=== PATIENT | male | born 1965 | race Caucasian/White ===

== ENCOUNTER 2020-10-21 08:24 | Inpatient (IN) | payer OTHER ==
[2020-10-21] VITALS (8 sets, daily range): BP systolic 85–156; BP diastolic 60–81
[~2020-10-21] VITALS: Ht 167.6 cm; Wt 94.6 kg
[2020-10-21] MEDS ORDERED: IV NORMAL SALINE 1000ML BAG 1,000 ML IV SCH (08:45)
[2020-10-21] MEDS ORDERED: DEXAMETHASONE SOD PHOS 4 MG/ML VIAL IVP ONE (08:45)
--- NOTE | 2020-10-21 08:50 | PHYS DOC ---
Past Medical History Past Medical History: Diabetes-Type II, High Cholesterol Additional Past Medical Histor: NEUROPATHY Past Surgical History: Other Additional Past Surgical Histo: PYLONIDAL CYSTS Smoking Status: Never Smoker Additional Information: CHEWS TOBACCO Alcohol Use: Rarely Drug Use: None General Adult EDM: Chief Complaint: SHORTNESS OF BREATH HPI: HPI: Patient is a 55 year oldphr-ploo-rnw male presents via EMS with report of increased shortness of breath which became worse since last night. History of testing positive for COVID-19 which came back yesterday. Reports he had symptoms of COVID for the last week. Reports had a negative rapid test done. Reports spouse was also tested. Patient reports intermittent fever/chills. Denies leg swelling or calf tenderness. Reports he took Tylenol and Ibuprofen at 0500 this AM. EMS reports patient's initial O2 Sat upon their arrival at 50% which only improved to 70% on non-rebreather mask. Review of Systems: Review of Systems: Constitutional: Reports fever and chills Eyes: Denies redness or eye pain HENT: Denies nasal congestion or sore throat Respiratory: Reports cough and shortness of breath Cardiovascular: Denies chest pain or palpitations GI: Denies abdominal pain, nausea, or vomiting Musculoskeletal: Denies leg swelling Integument: Denies rash or skin lesions Neurologic: Reports headache and generalized weakness Complete systems were reviewed and found to be within normal limits, except as documented in this note. Current Medications: Current Medications Medications (Trade) Dose Ordered Sig/Gaston Start Time Stop Time Status Last Admin Dose Admin Dexamethasone Sodium Phosphate (Decadron) 10 mg 1X ONCE 10/21/20 08:45 10/21/20 08:46 UNV Sodium Chloride 1,000 ml @ 1,000 mls/hr Q1H 10/21/20 08:45 10/21/20 09:44 UNV Physical Exam: PE: Constitutional: Well developed, well nourished, moderate respiratory distress, ill-appearing but nontoxic HENT: Normocephalic, atraumatic Eyes: Conjunctiva normal, no discharge Neck: Normal range of motion, no tenderness, supple Lungs & Thorax: Moderate respiratory distress, equal chest rise and fall, coarse breath sounds Abdomen: Soft, no tenderness Skin: Warm, dry, no erythema, perioral cyanosis Back: No tenderness, no CVA tenderness Extremities: No tenderness, ROM intact, no edema Neurologic: Alert and oriented X 3, no focal deficits noted Psychologic: Affect normal, judgment normal Current Patient Data: Vital Signs: Vital Signs Date Time Temp Pulse Resp B/P (MAP) Pulse Ox O2 Delivery O2 Flow Rate FiO2 10/21/20 08:24 99.0 112 31 142/69 (93) 61 NonRebreather Mask 15.0 99.0 EKG: EKG: @0845 Sinus tachycardia at 115bpm, NO ST elevation, QRS 76ms, QT/QTc 322/447ms Radiology/Procedures: Radiology/Procedures: PROCEDURE: PORTABLE CHEST 1V AP chest. HISTORY: Dyspnea, hypoxia, Covid-19 AP view was taken of the chest. There are diffuse bilateral infiltrates consistent with diffuse pneumonia is or Covid-19 pneumonia. Heart is within normal limits in size. There is a trace of pleural effusion on each side. IMPRESSION: 1. Diffuse bilateral infiltrates. Electronically signed by: Jon Ordoñez MD (10/21/2020 9:24 AM) [id number] PROCEDURE: CHEST AP ONLY Exam performed: One view chest HISTORY: Endotracheal tube placement. DATE OF SERVICE: 10/21/2020. COMPARISON: Single view chest from earlier today. Findings and impression: Interval intubation, the tip of the endotracheal tube is in the mid trachea. There is also placement of a feeding tube, the tip of which is not clearly seen, however is directed below the diaphragm. Heart size and mediastinal silhouette is within limits of normal. Increasing diffuse bilateral airspace opacities are seen in both lungs. This perhaps a small right pleural effusion. There is no pneumothorax. Electronically signed by: Cesia Escobedo MD (10/21/2020 4:01 PM) [id number] Course & Med Decision Making: Course & Med Decision Making Pertinent Labs and Imaging studies reviewed. (See chart for details) Patient with known COVID-19 infection presents with progressive shortness of breath and hypoxia. Patient tachycardic upon arrival with continued O2 sat down to 61% on a nonrebreather. Vapotherm high flow nasal cannula immediately applied. Nonrebreather continued over Vapotherm with sats only going to 75%. Labs obtained and posted to chart. SIRS criteria met with tachycardia, tachypnea, and bandemia. Chest x-ray with signs of infection consistent for Covid pneumonia. Empiric antibiotic initiated. Lactic acid greater than 4 consistent for septic shock. IV fluid bolus x2 L initiated based on ideal body weight for sepsis. D-dimer elevated. CTA chest pending. Patient not improving and therefore placed on BiPAP. BiPAP increased patient's O2 sat up to 84%. Patient subsequently became worse and not tolerating BiPAP. Trial of placing patient back on Vapotherm and nonrebreather with worsening of O2 sats. Ativan therefore provided with return to BiPAP. Patient requiring admission for further evaluation and treatment. Discussed with Dr. Maguire (hospitalist) who is in agreement with ICU admission. Discussed findings and plan with patient, who acknowledges understanding and agreement. Consult placed to Dr. Costa (pulmonology/critical care). Upon awaiting ICU bed, patient became more confused, taking off your BIPAP and sitting at edge of bed with O2 sats down to 30%. BIPAP immediately replaced. Given decreased mentation, decision to protect airway. RSI performed with successful placement of cuffed 8.0 ETT which was marked 24cm at teeth under Glidescope guidance. Patient's O2 sat dropped to 20% after 1 successful attempt with intubation. Bagged back to 79% and placed on vent. Dr. Costa arrived to ED just after intubation. Repeat CXR with worsening infiltrates. Bumex ordered. Dr. Costa saw patient and adjusted vent settings. Request to discontinue CTA chest at this time. CTA cancelled. COVID-19 CRITERIA: The patient was evaluated during the global COVID-19 pandemic, and that diagnosis was suspected/considered upon their initial presentation. Their evaluation, treatment and testing was consistent with current guidelines for patients who present with complaints or symptoms that may be related to COVID-19. Dragyanet Disclaimer: Dragyanet Disclaimer: This electronic medical record was generated, in whole or in part, using a voice recognition dictation system. Departure Departure Impression: Primary Impression: Respiratory failure Qualified Codes: J96.01 - Acute respiratory failure with hypoxia Additional Impressions: Hypoxia Septic shock Hyperglycemia Pneumonia due to COVID-19 virus Disposition: ADMITTED INPT THIS HOSP Admitting Physician: MAXIMINO Rios) Condition: CRITICAL Intubation Intubation : Time of Intubation: 12:30 Intubation Method: orotracheal Tube Size (cm): 8.0 Breath Sounds after Intubation: equal Intubation Complications: O2 saturation decreased (initially but able to bag back to 79%) Post Intubation Xray: Yes Progress Emergent consent utilized. Time out performed. Hand hygiene utilized. Intubation performed with utilization of Glidescope and cuffed 8.0 ETT due to respiratory failure and progression of hypoxia. O2 Sats dropped to 20% for breif period of time during intubation process. Good fogging of tube with some notation of frothing sputum, End tidal CO2 color change, Bilateral breath sounds noted. Patient bagged and increased O2 sats to 79%. Patient placed on ventilator. ETT suctioned with inline suctioning. Date and Time of Reassessment Date: Oct 21, 2020 Time: 11:30 Fluid Challenge Is the fluid challenge complet: No IBW Target Volume Used: Yes BMI > 30: Yes Vital Signs Vital Signs: Vital Signs Date Time Temp Pulse Resp B/P (MAP) Pulse Ox O2 Delivery O2 Flow Rate FiO2 10/21/20 18:21 24 91 Ventilator 10/21/20 17:00 93 85/61 (69) 10/21/20 16:20 98.6 98.6 10/21/20 10:50 40.0 Temperature Source: Oral Respirations Respiratory Effort: Accessory muscles, Shortness of breath, Labored, Retracting Respiratory Pattern: Tachypnea Cardiovascular Pulse Rhythm: Irregular (Tachycardia) Heart: S1 and S2 normal Lung Sounds Breath Sounds: Coarse Capillary Refil Capillary Refill: Rt Hand < 3 seconds Peripheral Pulse Pulse Location: Radial Pulse Strength: Normal (2+) Pulse Assessment Method: Palpation Integumentary Skin: Warm, Dry Skin Moisture: Dry Skin Turgor: Normal Skin Color: warm, dry Fingernail Color: WNL COVID-19 Assessment: COVID-19 Patient Risks: Age 65 or older: No Sign of co-morbidity: Yes Exp to person + for COVID: Yes Exp to PUI: No Travel from affected area: No Lower respiratory symptoms: Yes Fever: Yes Other: Yes PPE Use: Full PPE with N95 mask or PAPR: Yes Critical Care Time Critical care time was 60 minutes which includes time at bedside, spent in discussion of patient's care with specialists and/or family members, with interpretation of laboratory and/or radiological studies and is exclusive of procedures. CELIO THORNTON DO Oct 21, 2020 08:50
[2020-10-21 09:13] LABS: BASE EXCESS COOX -9 mmol/L (-3-3); HCO3 COOX 16 mmol/L (21-28); METHEMOGLOBIN 0.2 % (0.0-1.9); OXYHEMOGLOBIN 82.6 %; PCO2 COOX 31 mmHg (35-46); PO2 COOX 55 mmHg (75-108); SAT O2 COOX 84 % (92-99)
--- NOTE | 2020-10-21 09:26 | RAD ---
AP chest. HISTORY: Dyspnea, hypoxia, Covid-19 AP view was taken of the chest. There are diffuse bilateral infiltrates consistent with diffuse pneum onia is or Covid-19 pneumonia. Heart is within normal limits in size. There is a trace of pleural eff usion on each side. IMPRESSION: 1. Diffuse bilateral infiltrates. Electronically signed by: Jon Ordoñez MD (10/21/2020 9:24 AM) [id number]
[2020-10-21 09:47] LABS: BASO % 0 % (0-3); EOS % 0 % (0-3); HEMATOCRIT 43.6 % (39.0-53.0); HEMOGLOBIN 14.6 g/dL (13.0-17.5); LYMPH # 0.5 x10^3/uL (1.0-4.8); LYMPH % 9 % (24-48); MEAN CORPUSCULAR HEMOGLOBIN 29 pg (25-35); MEAN CORPUSCULAR HGB CONC 33 g/dL (31-37); MEAN CORPUSCULAR VOLUME 88 fL (79-100); MONO # 0.2 x10^3/uL (0.0-1.1); MONO % 4 % (0-9); NEUT # 4.9 x10^3/uL (1.8-7.7); NEUT % 87 % (31-73); PLATELET COUNT 225 x10^3/uL (140-400); RED BLOOD COUNT 4.95 x10^6/uL (4.30-5.70); RED CELL DISTRIBUTION WIDTH 14.1 % (11.5-14.5); WHITE BLOOD COUNT 5.7 x10^3/uL (4.0-11.0)
[2020-10-21 10:02] LABS: CALCIUM 8.2 mg/dL (8.5-10.1); CREATININE 1.4 mg/dL (0.7-1.3); GFR 52.6; POTASSIUM 4.5 mmol/L (3.5-5.1)
[2020-10-21 10:07] LABS: ALBUMIN 2.7 g/dL (3.4-5.0); ALBUMIN/GLOBULIN RATIO 0.7 (1.0-1.7); TOTAL BILIRUBIN 0.5 mg/dL (0.2-1.0); TOTAL PROTEIN 6.6 g/dL (6.4-8.2)
[2020-10-21] MEDS ORDERED: IV NORMAL SALINE 1000ML BAG 1,000 ML IV ONE (10:30)
[2020-10-21] MEDS ORDERED: AZITHRMYCN 500MG IVPB FOR OMNI 250 ML IV ONE (10:30)
[2020-10-21] MEDS ORDERED: ASPIRIN ENTERIC COATED 325 MG TABLET.DR. PO ONE (10:30)
[2020-10-21] MEDS ORDERED: INSULIN REGULAR 100 UNIT/ML 3ML VIAL. SQ ONE (10:30)
[2020-10-21] MEDS ORDERED: PIPERACILLIN/TAZOBACTAM 4.5 GM in IV NORMAL SALINE 100ML 100 ML IV ONE (10:30)
[2020-10-21] MEDS ORDERED: CONTRAST GIVEN. MC PRN (10:45)
[2020-10-21] MEDS ORDERED: IOHEXOL 350 MG/ML 100 ML VIAL. IV ONE (10:45)
[2020-10-21 10:51] LABS: PROTHROMBIN TIME PATIENT 13.5 SEC (11.7-14.0)
[2020-10-21] MEDS ORDERED: ACETAMINOPHEN 500 MG TABLET PO ONE (11:15)
[2020-10-21] MEDS ORDERED: ONDANSETRON PF 4 MG/2 ML VIAL. IV PRN (11:30)
[2020-10-21] MEDS ORDERED: ACETAMINOPHEN 325 MG TABLET. PO PRN (11:30)
[2020-10-21] MEDS ORDERED: fentaNYL PF VIAL 100 MCG/2 ML VIAL IV PRN (11:30)
--- NOTE | 2020-10-21 11:53 | PDOC1 ---
History and Physical Date of Service: DOS: DATE: 10/21/20 TIME: 11:49 Chief Complaint: Chief Complain: SOB History of Present Illness: HPI: 55 year oldlad-tgwh-jsr male presents via EMS with report of increased shortness of breath which became worse since last night. History of testing positive for COVID-19 which came back yesterday. Reports he had symptoms of COVID for the last week. Reports had a negative rapid test done. Reports spouse was also tested. Patient reports intermittent fever/chills. Denies leg swelling or calf tenderness. Reports he took Tylenol and Ibuprofen at 0500 this AM. EMS reports patient's initial O2 Sat upon their arrival at 50% which only improved to 70% on non-rebreather mask. Past Medical/Surgical History: PMH/PSH: Past Medical History: Diabetes-Type II, High Cholesterol, NEUROPATHY Past Surgical History: PYLONIDAL CYSTS Allergies: Allergies: Coded Allergies: No Known Drug Allergies (Unverified , 10/21/20) Family History: Family History: Reviewed with no relevant findings Social History: Social History: Smoking Status: Never Smoker Additional Information: CHEWS TOBACCO Alcohol Use: Rarely Current Medications: Current Medications Current Medications Sodium Chloride 1,000 ml @ 1,000 mls/hr Q1H IV Last administered on 10/21/20at 09:31; Start 10/21/20 at 08:45; Stop 10/21/20 at 09:44; Status DC Dexamethasone Sodium Phosphate (Decadron) 10 mg 1X ONCE IVP Last administered on 10/21/20at 09:32; Start 10/21/20 at 08:45; Stop 10/21/20 at 09:11; Status DC Piperacillin Sod/ Tazobactam Sod 4.5 gm/Sodium Chloride 100 ml @ 200 mls/hr 1X ONCE IV Last administered on 10/21/20at 11:18; Start 10/21/20 at 10:30; Stop 10/21/20 at 10:59; Status DC Azithromycin 250 ml @ 250 mls/hr 1X ONCE IV Last administered on 10/21/20at 11:18; Start 10/21/20 at 10:30; Stop 10/21/20 at 11:29; Status DC Aspirin (Ecotrin) 325 mg 1X ONCE PO Last administered on 10/21/20at 11:17; Start 10/21/20 at 10:30; Stop 10/21/20 at 10:31; Status DC Insulin Human Regular (HumuLIN R VIAL) 14 unit 1X ONCE SQ Last administered on 10/21/20at 11:28; Start 10/21/20 at 10:30; Stop 10/21/20 at 10:31; Status DC Sodium Chloride 1,000 ml @ 1,000 mls/hr 1X ONCE IV Last administered on 10/21/20at 11:18; Start 10/21/20 at 10:30; Stop 10/21/20 at 11:29; Status DC Iohexol (Omnipaque 350 Mg/ml) 90 ml 1X ONCE IV ; Start 10/21/20 at 10:45; Stop 10/21/20 at 10:46; Status DC Info (CONTRAST GIVEN -- Rx MONITORING) 1 each PRN DAILY PRN MC SEE COMMENTS; Start 10/21/20 at 10:45; Stop 10/23/20 at 10:44 Acetaminophen (Tylenol) 500 mg 1X ONCE PO Last administered on 10/21/20at 11:30; Start 10/21/20 at 11:15; Stop 10/21/20 at 11:16; Status DC Lorazepam (Ativan Inj) 0.5 mg 1X ONCE IVP Last administered on 10/21/20at 11:20; Start 10/21/20 at 11:15; Stop 10/21/20 at 11:16; Status DC Ondansetron HCl (Zofran) 4 mg PRN Q8HRS PRN IV NAUSEA/VOMITING; Start 10/21/20 at 11:30; Stop 10/22/20 at 11:29 Fentanyl Citrate (Fentanyl 2ml Vial) 50 mcg PRN Q2HR PRN IV PAIN; Start 10/21/20 at 11:30 Sodium Chloride 1,000 ml @ 100 mls/hr Q10H IV ; Start 10/21/20 at 11:30; Stop 10/22/20 at 11:29 Acetaminophen (Tylenol) 650 mg PRN Q4HRS PRN PO FEVER > 100.3'F; Start 10/21/20 at 11:30; Stop 10/22/20 at 11:29 ROS: Review of Systems Review of System REVIEW OF SYSTEMS: GENERAL: Denies weakness SKIN: No bruising, hair changes or rashes. EYES: No blurred, double or loss of vision. NOSE AND THROAT: No history of nosebleeds, hoarseness or sore throat. HEART: No history of palpitations, chest pain or shortness of breath on exertion. LUNGS: Denies cough, hemoptysis, wheezing or shortness of breath. GASTROINTESTINAL: Denies changes in appetite, nausea, vomiting, diarrhea or constipation. GENITOURINARY: No history of frequency, urgency, hesitancy or nocturia. NEUROLOGIC: Denies history of numbness, tingling, or tremor. PSYCHIATRIC: No history of panic, anxiety or depression. ENDOCRINE: No history of heat or cold intolerance, polyuria or polydipsia. EXTREMITIES: Denies joint pain, pain on walking or stiffness. Physical Exam: Vital Signs: Vital Signs Date Time Temp Pulse Resp B/P (MAP) Pulse Ox O2 Delivery O2 Flow Rate FiO2 10/21/20 11:41 118 33 138/68 (91) 77 BiPAP/CPAP 10/21/20 10:50 40.0 10/21/20 08:24 99.0 99.0 Physcial Exam: GEN: No apparent distress. Alert and oriented HEENT: Normal cephalic, atraumatic, external auditory canals are patent EYES: Extraocular muscles are intact, pupil are equally round and reactive to light and accommodation MUSCULOSKELETAL: Well developed , well nourished, good range of motion ENDOCRINE: No thyromegaly was palpated LYMPHATICS: No cervical chain or axillary nodes were noted HEMATOPOIETIC: No bruising NECK: Supple, no JVD, no thyromegaly was noted LUNGS: Clear to auscultation in all lung jacobson without rhonchi or wheezing HEART: RRR, S!, S2 present. Peripheral pulses intact, no obvious murmurs noted ABDOMEN: Soft, nontender. Positive bowel sounds, no organomegaly, normal bow el sounds EXTREMITIES: Without clubbing, cyanosis, or edema. Pedal pulses intact. Negative Homans sign NEUROLOGIC: Normal speech and tone. A&O x 3, moves all extremities, no obvious focal deficits PSYCHIATRIC: Normal affect, normal mood. Stable SKIN: No ulcerations or rashes, good skin turgor, no jaundice VASCULAR: Good capillary refill, neurovascular bundle appears to be intact Labs: Labs: Laboratory Tests Test 10/21/20 08:35 10/21/20 08:45 10/21/20 08:48 White Blood Count 5.7 x10^3/uL (4.0-11.0) Red Blood Count 4.95 x10^6/uL (4.30-5.70) Hemoglobin 14.6 g/dL (13.0-17.5) Hematocrit 43.6 % (39.0-53.0) Mean Corpuscular Volume 88 fL (79-100) Mean Corpuscular Hemoglobin 29 pg (25-35) Mean Corpuscular Hemoglobin Concent 33 g/dL (31-37) Red Cell Distribution Width 14.1 % (11.5-14.5) Platelet Count 225 x10^3/uL (140-400) Neutrophils (%) (Auto) 87 % (31-73) Lymphocytes (%) (Auto) 9 % (24-48) Monocytes (%) (Auto) 4 % (0-9) Eosinophils (%) (Auto) 0 % (0-3) Basophils (%) (Auto) 0 % (0-3) Neutrophils # (Auto) 4.9 x10^3/uL (1.8-7.7) Lymphocytes # (Auto) 0.5 x10^3/uL (1.0-4.8) Monocytes # (Auto) 0.2 x10^3/uL (0.0-1.1) Eosinophils # (Auto) 0.0 x10^3/uL (0.0-0.7) Basophils # (Auto) 0.0 x10^3/uL (0.0-0.2) D-Dimer (Ayanna) 3.39 ug/mlFEU (0.00-0.50) Sodium Level 135 mmol/L (136-145) Potassium Level 4.5 mmol/L (3.5-5.1) Chloride Level 96 mmol/L (98-107) Carbon Dioxide Level 17 mmol/L (21-32) Anion Gap 22 (6-14) Blood Urea Nitrogen 28 mg/dL (8-26) Creatinine 1.4 mg/dL (0.7-1.3) Estimated GFR (Cockcroft-Gault) 52.6 BUN/Creatinine Ratio 20 (6-20) Glucose Level 339 mg/dL (70-99) Lactic Acid Level 4.9 mmol/L (0.4-2.0) Calcium Level 8.2 mg/dL (8.5-10.1) Total Bilirubin 0.5 mg/dL (0.2-1.0) Aspartate Amino Transf (AST/SGOT) 48 U/L (15-37) Alanine Aminotransferase (ALT/SGPT) 27 U/L (16-63) Alkaline Phosphatase 55 U/L (46-116) Creatine Kinase 96 U/L (39-308) Creatine Kinase MB (Mass) 1.2 ng/mL (0.0-3.6) Creatine Kinase MB Relative Index 1.3 % (0-4) Troponin I Quantitative 0.083 ng/mL (0.000-0.055) GJ-Kqb-Y-Type Natriuretic Peptide 364 pg/mL (0-124) Total Protein 6.6 g/dL (6.4-8.2) Albumin 2.7 g/dL (3.4-5.0) Albumin/Globulin Ratio 0.7 (1.0-1.7) O2 Saturation 84 % (92-99) Arterial Blood pH 7.33 (7.35-7.45) Arterial Blood pCO2 at Patient Temp 31 mmHg (35-46) Arterial Blood pO2 at Patient Temp 55 mmHg (75-108) Arterial Blood HCO3 16 mmol/L (21-28) Arterial Blood Base Excess -9 mmol/L (-3-3) Oxyhemoglobin 82.6 % Methemoglobin 0.2 % (0.0-1.9) Carbon Monoxide, Quantitative 1.5 % (0.0-1.9) FiO2 100% Prothrombin Time 13.5 SEC (11.7-14.0) Prothromb Time International Ratio 1.1 (0.8-1.1) Activated Partial Thromboplast Time 33 SEC (24-38) Laboratory Tests Test 10/21/20 08:35 10/21/20 08:45 10/21/20 08:48 White Blood Count 5.7 x10^3/uL (4.0-11.0) Red Blood Count 4.95 x10^6/uL (4.30-5.70) Hemoglobin 14.6 g/dL (13.0-17.5) Hematocrit 43.6 % (39.0-53.0) Mean Corpuscular Volume 88 fL (79-100) Mean Corpuscular Hemoglobin 29 pg (25-35) Mean Corpuscular Hemoglobin Concent 33 g/dL (31-37) Red Cell Distribution Width 14.1 % (11.5-14.5) Platelet Count 225 x10^3/uL (140-400) Neutrophils (%) (Auto) 87 % (31-73) Lymphocytes (%) (Auto) 9 % (24-48) Monocytes (%) (Auto) 4 % (0-9) Eosinophils (%) (Auto) 0 % (0-3) Basophils (%) (Auto) 0 % (0-3) Neutrophils # (Auto) 4.9 x10^3/uL (1.8-7.7) Lymphocytes # (Auto) 0.5 x10^3/uL (1.0-4.8) Monocytes # (Auto) 0.2 x10^3/uL (0.0-1.1) Eosinophils # (Auto) 0.0 x10^3/uL (0.0-0.7) Basophils # (Auto) 0.0 x10^3/uL (0.0-0.2) D-Dimer (Ayanna) 3.39 ug/mlFEU (0.00-0.50) Sodium Level 135 mmol/L (136-145) Potassium Level 4.5 mmol/L (3.5-5.1) Chloride Level 96 mmol/L (98-107) Carbon Dioxide Level 17 mmol/L (21-32) Anion Gap 22 (6-14) Blood Urea Nitrogen 28 mg/dL (8-26) Creatinine 1.4 mg/dL (0.7-1.3) Estimated GFR (Cockcroft-Gault) 52.6 BUN/Creatinine Ratio 20 (6-20) Glucose Level 339 mg/dL (70-99) Lactic Acid Level 4.9 mmol/L (0.4-2.0) Calcium Level 8.2 mg/dL (8.5-10.1) Total Bilirubin 0.5 mg/dL (0.2-1.0) Aspartate Amino Transf (AST/SGOT) 48 U/L (15-37) Alanine Aminotransferase (ALT/SGPT) 27 U/L (16-63) Alkaline Phosphatase 55 U/L (46-116) Creatine Kinase 96 U/L (39-308) Creatine Kinase MB (Mass) 1.2 ng/mL (0.0-3.6) Creatine Kinase MB Relative Index 1.3 % (0-4) Troponin I Quantitative 0.083 ng/mL (0.000-0.055) HQ-Cka-L-Type Natriuretic Peptide 364 pg/mL (0-124) Total Protein 6.6 g/dL (6.4-8.2) Albumin 2.7 g/dL (3.4-5.0) Albumin/Globulin Ratio 0.7 (1.0-1.7) O2 Saturation 84 % (92-99) Arterial Blood pH 7.33 (7.35-7.45) Arterial Blood pCO2 at Patient Temp 31 mmHg (35-46) Arterial Blood pO2 at Patient Temp 55 mmHg (75-108) Arterial Blood HCO3 16 mmol/L (21-28) Arterial Blood Base Excess -9 mmol/L (-3-3) Oxyhemoglobin 82.6 % Methemoglobin 0.2 % (0.0-1.9) Carbon Monoxide, Quantitative 1.5 % (0.0-1.9) FiO2 100% Prothrombin Time 13.5 SEC (11.7-14.0) Prothromb Time International Ratio 1.1 (0.8-1.1) Activated Partial Thromboplast Time 33 SEC (24-38) Images: Images CXR IMPRESSION: 1. Diffuse bilateral infiltrates. Pending chest CTA Assessment/Plan Assessment/Plan Acute hypoxic respiratory failure requiring NIV due to Covid infection Acute electrolyte derangementshyponatremia, hypochloremia VICTORIANO due to vasomotor nephropathy Elevated troponin suggestive of demand ischemia Lactic acidosis Severe protein malnutrition Admit to ICU for further management Pulmonology consult Continue IV thiamine and vitamin C IV 4 mg dexamethasone Daily Pending ferritin, LDH, CRP, D-dimer labs Titrate O2 supplementation to maintain O2 saturation greater than 92% [] for DVT prophylaxis [] GI prophylaxis ADA diet Full code Discussed with RN and SW Disposition [] Surrogate decision maker is the [] Justifications for Admission Other Justification PHILIP VALDEZ MD Oct 21, 2020 11:52
[2020-10-21] MEDS ORDERED: ONDANSETRON PF 4 MG/2 ML VIAL. IVP PRN (12:00)
[2020-10-21] MEDS ORDERED: DOCUSATE SODIUM 100 MG CAPSULE. PO PRN (12:00)
[2020-10-21] MEDS ORDERED: SENNOSIDES 8.6 MG TABLET PO PRN (12:00)
[2020-10-21] MEDS ORDERED: DEXTROSE 50% 25 GM / 50ML DISP.SYRIN. IV PRN (12:00)
[2020-10-21] MEDS: INSULIN LISPRO 300 UNITS/3 ML VIAL. SQ SCH ×2 (12:00→18:15)
[2020-10-21 12:05] LABS: % BANDS 21 % (0-9); % EOS 1 % (0-5); % LYMPHS 10 % (24-48); % MONOS 2 % (0-10); % SEGS 66 % (35-66); PLT ESTIMATE ADEQUATE (ADEQUATE)
[2020-10-21] MEDS: IV NORMAL SALINE 1000ML BAG 1,000 ML IV SCH ×2 (12:09→22:05)
[2020-10-21] MEDS ORDERED: PROPOFOL 100 ML IV ONE (12:47)
[2020-10-21] MEDS ORDERED: ETOMIDATE 20 MG/10 ML VIAL. IV ONE ×2 (13:00→18:59)
[2020-10-21] MEDS ORDERED: ENOXAPARIN 40 MG/0.4 ML SYRINGE. SQ SCH (13:00)
[2020-10-21] MEDS ORDERED: ROCURONIUM 50 MG/5 ML VIAL. IV ONE (13:00)
[2020-10-21] MEDS ORDERED: fentaNYL PF VIAL 100 MCG/2 ML VIAL IVP ONE (13:15)
[2020-10-21] MEDS ORDERED: BUMETANIDE 1 MG/4 ML VIAL. IV ONE (13:30)
[2020-10-21] MEDS ORDERED: HEPARIN for IV BOLUS 10,000 UNIT/10 ML VIAL. IV PRN (13:30)
[2020-10-21 13:38] LABS: BASE EXCESS COOX -9 mmol/L (-3-3); HCO3 COOX 19 mmol/L (21-28); METHEMOGLOBIN 0.2 % (0.0-1.9); OXYHEMOGLOBIN 70.8 %; PCO2 COOX 50 mmHg (35-46); PO2 COOX 48 mmHg (75-108); SAT O2 COOX 72 % (92-99)
[2020-10-21] MEDS ORDERED: VECURONIUM BOLUS 10 MG VIAL. IV ONE ×2 (13:45→14:15)
--- NOTE | 2020-10-21 13:49 | PDOC ---
PULMONARY PROGRESS NOTES DATE: 10/21/20 TIME: 13:47 Vitals Vital Signs Date Time Temp Pulse Resp B/P (MAP) Pulse Ox O2 Delivery O2 Flow Rate FiO2 10/21/20 13:10 128 21 195/101 (132) 71 Ventilator 10/21/20 11:26 98.6 98.6 10/21/20 10:50 40.0 Labs Laboratory Tests Test 10/21/20 08:35 10/21/20 08:45 10/21/20 08:48 10/21/20 13:30 White Blood Count 5.7 x10^3/uL (4.0-11.0) Red Blood Count 4.95 x10^6/uL (4.30-5.70) Hemoglobin 14.6 g/dL (13.0-17.5) Hematocrit 43.6 % (39.0-53.0) Mean Corpuscular Volume 88 fL (79-100) Mean Corpuscular Hemoglobin 29 pg (25-35) Mean Corpuscular Hemoglobin Concent 33 g/dL (31-37) Red Cell Distribution Width 14.1 % (11.5-14.5) Platelet Count 225 x10^3/uL (140-400) Neutrophils (%) (Auto) 87 % (31-73) Lymphocytes (%) (Auto) 9 % (24-48) Monocytes (%) (Auto) 4 % (0-9) Eosinophils (%) (Auto) 0 % (0-3) Basophils (%) (Auto) 0 % (0-3) Neutrophils # (Auto) 4.9 x10^3/uL (1.8-7.7) Lymphocytes # (Auto) 0.5 x10^3/uL (1.0-4.8) Monocytes # (Auto) 0.2 x10^3/uL (0.0-1.1) Eosinophils # (Auto) 0.0 x10^3/uL (0.0-0.7) Basophils # (Auto) 0.0 x10^3/uL (0.0-0.2) Segmented Neutrophils % 66 % (35-66) Band Neutrophils % 21 % (0-9) Lymphocytes % 10 % (24-48) Monocytes % 2 % (0-10) Eosinophils % 1 % (0-5) Platelet Estimate Adequate (ADEQUATE) D-Dimer (Ayanna) 3.39 ug/mlFEU (0.00-0.50) Sodium Level 135 mmol/L (136-145) Potassium Level 4.5 mmol/L (3.5-5.1) Chloride Level 96 mmol/L (98-107) Carbon Dioxide Level 17 mmol/L (21-32) Anion Gap 22 (6-14) Blood Urea Nitrogen 28 mg/dL (8-26) Creatinine 1.4 mg/dL (0.7-1.3) Estimated GFR (Cockcroft-Gault) 52.6 BUN/Creatinine Ratio 20 (6-20) Glucose Level 339 mg/dL (70-99) Lactic Acid Level 4.9 mmol/L (0.4-2.0) Calcium Level 8.2 mg/dL (8.5-10.1) Total Bilirubin 0.5 mg/dL (0.2-1.0) Aspartate Amino Transf (AST/SGOT) 48 U/L (15-37) Alanine Aminotransferase (ALT/SGPT) 27 U/L (16-63) Alkaline Phosphatase 55 U/L (46-116) Creatine Kinase 96 U/L (39-308) Creatine Kinase MB (Mass) 1.2 ng/mL (0.0-3.6) Creatine Kinase MB Relative Index 1.3 % (0-4) Troponin I Quantitative 0.083 ng/mL (0.000-0.055) GB-Hyv-H-Type Natriuretic Peptide 364 pg/mL (0-124) Total Protein 6.6 g/dL (6.4-8.2) Albumin 2.7 g/dL (3.4-5.0) Albumin/Globulin Ratio 0.7 (1.0-1.7) O2 Saturation 84 % (92-99) 72 % (92-99) Arterial Blood pH 7.33 (7.35-7.45) 7.21 (7.35-7.45) Arterial Blood pCO2 at Patient Temp 31 mmHg (35-46) 50 mmHg (35-46) Arterial Blood pO2 at Patient Temp 55 mmHg (75-108) 48 mmHg (75-108) Arterial Blood HCO3 16 mmol/L (21-28) 19 mmol/L (21-28) Arterial Blood Base Excess -9 mmol/L (-3-3) -9 mmol/L (-3-3) Oxyhemoglobin 82.6 % 70.8 % Methemoglobin 0.2 % (0.0-1.9) 0.2 % (0.0-1.9) Carbon Monoxide, Quantitative 1.5 % (0.0-1.9) 0.9 % (0.0-1.9) FiO2 100% 100% +12 Prothrombin Time 13.5 SEC (11.7-14.0) Prothromb Time International Ratio 1.1 (0.8-1.1) Activated Partial Thromboplast Time 33 SEC (24-38) Laboratory Tests Test 10/21/20 08:35 10/21/20 08:45 10/21/20 08:48 10/21/20 13:30 White Blood Count 5.7 x10^3/uL (4.0-11.0) Red Blood Count 4.95 x10^6/uL (4.30-5.70) Hemoglobin 14.6 g/dL (13.0-17.5) Hematocrit 43.6 % (39.0-53.0) Mean Corpuscular Volume 88 fL (79-100) Mean Corpuscular Hemoglobin 29 pg (25-35) Mean Corpuscular Hemoglobin Concent 33 g/dL (31-37) Red Cell Distribution Width 14.1 % (11.5-14.5) Platelet Count 225 x10^3/uL (140-400) Neutrophils (%) (Auto) 87 % (31-73) Lymphocytes (%) (Auto) 9 % (24-48) Monocytes (%) (Auto) 4 % (0-9) Eosinophils (%) (Auto) 0 % (0-3) Basophils (%) (Auto) 0 % (0-3) Neutrophils # (Auto) 4.9 x10^3/uL (1.8-7.7) Lymphocytes # (Auto) 0.5 x10^3/uL (1.0-4.8) Monocytes # (Auto) 0.2 x10^3/uL (0.0-1.1) Eosinophils # (Auto) 0.0 x10^3/uL (0.0-0.7) Basophils # (Auto) 0.0 x10^3/uL (0.0-0.2) Segmented Neutrophils % 66 % (35-66) Band Neutrophils % 21 % (0-9) Lymphocytes % 10 % (24-48) Monocytes % 2 % (0-10) Eosinophils % 1 % (0-5) Platelet Estimate Adequate (ADEQUATE) D-Dimer (Ayanna) 3.39 ug/mlFEU (0.00-0.50) Sodium Level 135 mmol/L (136-145) Potassium Level 4.5 mmol/L (3.5-5.1) Chloride Level 96 mmol/L (98-107) Carbon Dioxide Level 17 mmol/L (21-32) Anion Gap 22 (6-14) Blood Urea Nitrogen 28 mg/dL (8-26) Creatinine 1.4 mg/dL (0.7-1.3) Estimated GFR (Cockcroft-Gault) 52.6 BUN/Creatinine Ratio 20 (6-20) Glucose Level 339 mg/dL (70-99) Lactic Acid Level 4.9 mmol/L (0.4-2.0) Calcium Level 8.2 mg/dL (8.5-10.1) Total Bilirubin 0.5 mg/dL (0.2-1.0) Aspartate Amino Transf (AST/SGOT) 48 U/L (15-37) Alanine Aminotransferase (ALT/SGPT) 27 U/L (16-63) Alkaline Phosphatase 55 U/L (46-116) Creatine Kinase 96 U/L (39-308) Creatine Kinase MB (Mass) 1.2 ng/mL (0.0-3.6) Creatine Kinase MB Relative Index 1.3 % (0-4) Troponin I Quantitative 0.083 ng/mL (0.000-0.055) VS-Aqa-M-Type Natriuretic Peptide 364 pg/mL (0-124) Total Protein 6.6 g/dL (6.4-8.2) Albumin 2.7 g/dL (3.4-5.0) Albumin/Globulin Ratio 0.7 (1.0-1.7) O2 Saturation 84 % (92-99) 72 % (92-99) Arterial Blood pH 7.33 (7.35-7.45) 7.21 (7.35-7.45) Arterial Blood pCO2 at Patient Temp 31 mmHg (35-46) 50 mmHg (35-46) Arterial Blood pO2 at Patient Temp 55 mmHg (75-108) 48 mmHg (75-108) Arterial Blood HCO3 16 mmol/L (21-28) 19 mmol/L (21-28) Arterial Blood Base Excess -9 mmol/L (-3-3) -9 mmol/L (-3-3) Oxyhemoglobin 82.6 % 70.8 % Methemoglobin 0.2 % (0.0-1.9) 0.2 % (0.0-1.9) Carbon Monoxide, Quantitative 1.5 % (0.0-1.9) 0.9 % (0.0-1.9) FiO2 100% 100% +12 Prothrombin Time 13.5 SEC (11.7-14.0) Prothromb Time International Ratio 1.1 (0.8-1.1) Activated Partial Thromboplast Time 33 SEC (24-38) Impression . Full dose full consult dictated, discussed case with Dr. Louise, pharmacy, will add remdesivir, full dose heparin for presumptive thromboembolic disease. Discussed with RT, discussed with RN in the intensive care unit. ASIA MOTTA MD Oct 21, 2020 13:49
[2020-10-21] MEDS: MIDAZOLAM 100mg/100ml NS BAG 100 ML IV PRN ×2 (13:55→18:15)
[2020-10-21] MEDS: ASCORBIC ACID 500 MG TABLET PO SCH ×2 (14:00→22:05)
--- NOTE | 2020-10-21 14:18 | CONS ---
DATE OF CONSULTATION: 10/21/2020 ATTENDING PHYSICIAN: Dr. Donald Maguire. REASON FOR CONSULTATION: The patient is seen in pulmonary consultation at the request of Dr. Maguire for acute hypoxemic respiratory failure, COVID positive, on mechanical ventilation. The patient is seen in the Emergency Department directly after intubation by Dr. Louise, case discussed with Dr. Louise. HISTORY OF PRESENT ILLNESS: The patient is a 55-year-old who presented with increasing shortness of breath. Apparently, he has been tested positive several days ago. I discussed the case with Dr. Louise. Apparently, the patient was initially placed on oxygen supplementation and then BiPAP. He failed BiPAP. He was intubated. I was asked to see him in consultation. His white count was 5.7. He had lymphopenia. Chest x-ray was reviewed revealing bilateral pulmonary infiltrates compatible with viral pneumonia. His D-dimer was markedly elevated. Apparently, he was due to undergo a CT angiogram, but has been unstable to undergo CT angiogram. LABORATORY DATA: Labs were reviewed, deranged. BUN and creatinine were elevated. Lactic acid level was elevated. Albumin was low. PAST MEDICAL HISTORY: Remarkable for type 2 diabetes, hyperlipidemia, neuropathy, pilonidal cyst, morbid obesity. PAST SURGICAL HISTORY: No recent major surgeries. REVIEW OF SYSTEMS: Unobtainable secondary to the patient's condition. SOCIAL HISTORY: He has never smoked. CURRENT MEDICATION: List was reviewed. PHYSICAL EXAMINATION: VITAL SIGNS: On examination, the patient was seen in the Emergency Department. He was on mechanical ventilation, pressure control of 25. He was obtaining tidal volumes of approximately 600, his rate was at 22, I:E ratio 1:1, 10 of PEEP and 100%. HEENT: Eyes: The sclerae were nonicteric. NECK: Jugular venous distention could not be assessed secondary to body habitus. CHEST: Full expansion. LUNGS: Clear to auscultation. No wheezes, rales or rhonchi. CARDIOVASCULAR: Regular rate and rhythm, tachy, S1, S2. ABDOMEN: Obese. EXTREMITIES: No clubbing, cyanosis. Minimal edema. NEUROLOGICAL: The patient was sedated. LABORATORY DATA: Arterial blood gases indicated above. Sodium was low. BUN is 28 and creatinine was 1.4. Lactic acid level was elevated. Troponin was elevated. White count was normal. INR was normal. D-dimer was elevated. IMPRESSION: 1. Acute hypoxemic respiratory failure secondary to COVID-19 viral pneumonia. 2. COVID-19 viral pneumonia/sepsis. 3. Abnormal x-ray compatible with SARS-CoV-2 infection. 4. Acute kidney injury. 5. Severe hypoxemia, elevated D-dimer, possible thromboembolic disease. 6. Morbid obesity. 7. Protein malnutrition, present upon admission. 8. Elevated troponin. PLAN: 1. The patient was seen in the Emergency Room, he had been recently intubated. I discussed the case with RT. We will make adjustments on mechanical ventilation to minimize barotrauma and normalize pH. For now, we will continue current settings, increase I:E ratio to 2:1 and repeat arterial blood gas. 2. Empiric antibiotics discussed with Dr. Louise. 3. Discussed with pharmacy. We will initiate remdesivir, and full dose heparin for presumptive diagnosis of PE. The patient is too ill to undergo CT angiogram besides that his BUN and creatinine are elevated. 4. Continue support with IV fluids. 5. Maintain sedated. 6. Monitor hemoglobin and hematocrit. 7. Administer thiamine and vitamin C and zinc. 8. Monitor blood sugars closely. 9. Nutritional support. I do appreciate the privilege in sharing in the patient's care. Total cumulative critical care time from 1:00 p.m. to 1:46 [address]m. ASIA MOTTA MD DR: SALAS/sonali JOB#: [id number] / [id number]
[2020-10-21] MEDS ORDERED: REMDESIVIR LOAD in IV NORMAL SALINE 250ML TV IV ONE (15:00)
--- NOTE | 2020-10-21 16:03 | RAD ---
Exam performed: One view chest HISTORY: Endotracheal tube placement. DATE OF SERVICE: 10/21/2020. COMPARISON: Single view chest from earlier today. Findings and impression: Interval intubation, the tip of the endotracheal tube is in the mid trachea. There is also placement of a feeding tube, the tip of which is not clearly seen, however is directed below the diaphragm. Hea rt size and mediastinal silhouette is within limits of normal. Increasing diffuse bilateral airspace opacities are seen in both lungs. This perhaps a small right pleural effusion. There is no pneumothor ax. Electronically signed by: Cesia Escobedo MD (10/21/2020 4:01 PM) [id number]
--- NOTE | 2020-10-21 16:20 | NUR ---
Patient arrives via cart from ED with RT Fernandes Wendy, RN, and Madonna Chawla RN. Patient was being bagged at the time and was moved over to the bed without incident.
[2020-10-21] MEDS: THIAMINE INJ 100 MG in IV DEXTROSE 5% 50 ML IV SCH ×2 (16:24→22:05)
[2020-10-21] MEDS ORDERED: ROCURONIUM 50 MG/5 ML VIAL. ONE (18:59)
[2020-10-21] MEDS: CHLORHEXIDINE 0.12% 15 ML MOUTHWASH. MM SCH (22:04)
[2020-10-21] MEDS: DEXAMETHASONE SOD PHOS 4 MG/ML VIAL IVP SCH (22:05)
[2020-10-21] MEDS: FAMOTIDINE 20 MG/2 ML VIAL IVP SCH (22:05)
[2020-10-22] VITALS (24 sets, daily range): BP systolic 85–118; BP diastolic 52–72
[2020-10-22] MEDS: INSULIN LISPRO 300 UNITS/3 ML VIAL. SQ SCH ×2 (00:16→06:01)
[2020-10-22 05:33] LABS: BASO % 0 % (0-3); EOS % 0 % (0-3); HEMATOCRIT 38.4 % (39.0-53.0); HEMOGLOBIN 12.8 g/dL (13.0-17.5); LYMPH # 0.4 x10^3/uL (1.0-4.8); LYMPH % 7 % (24-48); MEAN CORPUSCULAR HEMOGLOBIN 29 pg (25-35); MEAN CORPUSCULAR HGB CONC 33 g/dL (31-37); MEAN CORPUSCULAR VOLUME 88 fL (79-100); MONO # 0.2 x10^3/uL (0.0-1.1); MONO % 4 % (0-9); NEUT # 4.8 x10^3/uL (1.8-7.7); NEUT % 89 % (31-73); PLATELET COUNT 162 x10^3/uL (140-400); RED BLOOD COUNT 4.34 x10^6/uL (4.30-5.70); RED CELL DISTRIBUTION WIDTH 14.2 % (11.5-14.5); WHITE BLOOD COUNT 5.5 x10^3/uL (4.0-11.0)
[2020-10-22 05:38] LABS: CALCIUM 8.6 mg/dL (8.5-10.1); CREATININE 1.1 mg/dL (0.7-1.3); GFR 69.5; MAGNESIUM 2.5 mg/dL (1.8-2.4); POTASSIUM 4.7 mmol/L (3.5-5.1)
--- NOTE | 2020-10-22 05:46 | PDOC ---
PULMONARY PROGRESS NOTES DATE: 10/22/20 TIME: 05:43 Subjective on vent peep 12, fi02 100%, sedated on versed fentanyl small ett secretion Vitals Vital Signs Date Time Temp Pulse Resp B/P (MAP) Pulse Ox O2 Delivery O2 Flow Rate FiO2 10/22/20 05:00 84 28 104/60 (75) 93 Ventilator 10/22/20 04:00 98.4 98.4 10/21/20 10:50 40.0 Comments intubated sedated NC AT rrr no accessory muscle use abd obese no rash Labs Laboratory Tests Test 10/21/20 08:35 10/21/20 08:36 10/21/20 08:45 10/21/20 08:48 White Blood Count 5.7 x10^3/uL (4.0-11.0) Red Blood Count 4.95 x10^6/uL (4.30-5.70) Hemoglobin 14.6 g/dL (13.0-17.5) Hematocrit 43.6 % (39.0-53.0) Mean Corpuscular Volume 88 fL (79-100) Mean Corpuscular Hemoglobin 29 pg (25-35) Mean Corpuscular Hemoglobin Concent 33 g/dL (31-37) Red Cell Distribution Width 14.1 % (11.5-14.5) Platelet Count 225 x10^3/uL (140-400) Neutrophils (%) (Auto) 87 % (31-73) Lymphocytes (%) (Auto) 9 % (24-48) Monocytes (%) (Auto) 4 % (0-9) Eosinophils (%) (Auto) 0 % (0-3) Basophils (%) (Auto) 0 % (0-3) Neutrophils # (Auto) 4.9 x10^3/uL (1.8-7.7) Lymphocytes # (Auto) 0.5 x10^3/uL (1.0-4.8) Monocytes # (Auto) 0.2 x10^3/uL (0.0-1.1) Eosinophils # (Auto) 0.0 x10^3/uL (0.0-0.7) Basophils # (Auto) 0.0 x10^3/uL (0.0-0.2) Segmented Neutrophils % 66 % (35-66) Band Neutrophils % 21 % (0-9) Lymphocytes % 10 % (24-48) Monocytes % 2 % (0-10) Eosinophils % 1 % (0-5) Platelet Estimate Adequate (ADEQUATE) D-Dimer (Ayanna) 3.39 ug/mlFEU (0.00-0.50) Sodium Level 135 mmol/L (136-145) Potassium Level 4.5 mmol/L (3.5-5.1) Chloride Level 96 mmol/L (98-107) Carbon Dioxide Level 17 mmol/L (21-32) Anion Gap 22 (6-14) Blood Urea Nitrogen 28 mg/dL (8-26) Creatinine 1.4 mg/dL (0.7-1.3) Estimated GFR (Cockcroft-Gault) 52.6 BUN/Creatinine Ratio 20 (6-20) Glucose Level 339 mg/dL (70-99) Lactic Acid Level 4.9 mmol/L (0.4-2.0) Calcium Level 8.2 mg/dL (8.5-10.1) Total Bilirubin 0.5 mg/dL (0.2-1.0) Aspartate Amino Transf (AST/SGOT) 48 U/L (15-37) Alanine Aminotransferase (ALT/SGPT) 27 U/L (16-63) Alkaline Phosphatase 55 U/L (46-116) Creatine Kinase 96 U/L (39-308) Creatine Kinase MB (Mass) 1.2 ng/mL (0.0-3.6) Creatine Kinase MB Relative Index 1.3 % (0-4) Troponin I Quantitative 0.083 ng/mL (0.000-0.055) RS-Mxn-Z-Type Natriuretic Peptide 364 pg/mL (0-124) Total Protein 6.6 g/dL (6.4-8.2) Albumin 2.7 g/dL (3.4-5.0) Albumin/Globulin Ratio 0.7 (1.0-1.7) Procalcitonin 0.26 ng/mL (0.00-0.10) O2 Saturation 84 % (92-99) Arterial Blood pH 7.33 (7.35-7.45) Arterial Blood pCO2 at Patient Temp 31 mmHg (35-46) Arterial Blood pO2 at Patient Temp 55 mmHg (75-108) Arterial Blood HCO3 16 mmol/L (21-28) Arterial Blood Base Excess -9 mmol/L (-3-3) Oxyhemoglobin 82.6 % Methemoglobin 0.2 % (0.0-1.9) Carbon Monoxide, Quantitative 1.5 % (0.0-1.9) FiO2 100% Prothrombin Time 13.5 SEC (11.7-14.0) Prothromb Time International Ratio 1.1 (0.8-1.1) Activated Partial Thromboplast Time 33 SEC (24-38) Test 10/21/20 13:30 10/21/20 17:56 10/21/20 19:00 10/22/20 00:12 O2 Saturation 72 % (92-99) Arterial Blood pH 7.21 (7.35-7.45) Arterial Blood pCO2 at Patient Temp 50 mmHg (35-46) Arterial Blood pO2 at Patient Temp 48 mmHg (75-108) Arterial Blood HCO3 19 mmol/L (21-28) Arterial Blood Base Excess -9 mmol/L (-3-3) Oxyhemoglobin 70.8 % Methemoglobin 0.2 % (0.0-1.9) Carbon Monoxide, Quantitative 0.9 % (0.0-1.9) FiO2 100% +12 Glucose (Fingerstick) 319 mg/dL (70-99) 329 mg/dL (70-99) Lactic Acid Level 1.5 mmol/L (0.4-2.0) Troponin I Quantitative 1.464 ng/mL (0.000-0.055) Test 10/22/20 05:00 Sodium Level 139 mmol/L (136-145) Potassium Level 4.7 mmol/L (3.5-5.1) Chloride Level 105 mmol/L (98-107) Carbon Dioxide Level 21 mmol/L (21-32) Anion Gap 13 (6-14) Blood Urea Nitrogen 37 mg/dL (8-26) Creatinine 1.1 mg/dL (0.7-1.3) Estimated GFR (Cockcroft-Gault) 69.5 Glucose Level 307 mg/dL (70-99) Calcium Level 8.6 mg/dL (8.5-10.1) Phosphorus Level 4.0 mg/dL (2.6-4.7) Magnesium Level 2.5 mg/dL (1.8-2.4) Laboratory Tests Test 10/21/20 08:35 10/21/20 08:36 10/21/20 08:45 10/21/20 08:48 White Blood Count 5.7 x10^3/uL (4.0-11.0) Red Blood Count 4.95 x10^6/uL (4.30-5.70) Hemoglobin 14.6 g/dL (13.0-17.5) Hematocrit 43.6 % (39.0-53.0) Mean Corpuscular Volume 88 fL (79-100) Mean Corpuscular Hemoglobin 29 pg (25-35) Mean Corpuscular Hemoglobin Concent 33 g/dL (31-37) Red Cell Distribution Width 14.1 % (11.5-14.5) Platelet Count 225 x10^3/uL (140-400) Neutrophils (%) (Auto) 87 % (31-73) Lymphocytes (%) (Auto) 9 % (24-48) Monocytes (%) (Auto) 4 % (0-9) Eosinophils (%) (Auto) 0 % (0-3) Basophils (%) (Auto) 0 % (0-3) Neutrophils # (Auto) 4.9 x10^3/uL (1.8-7.7) Lymphocytes # (Auto) 0.5 x10^3/uL (1.0-4.8) Monocytes # (Auto) 0.2 x10^3/uL (0.0-1.1) Eosinophils # (Auto) 0.0 x10^3/uL (0.0-0.7) Basophils # (Auto) 0.0 x10^3/uL (0.0-0.2) Segmented Neutrophils % 66 % (35-66) Band Neutrophils % 21 % (0-9) Lymphocytes % 10 % (24-48) Monocytes % 2 % (0-10) Eosinophils % 1 % (0-5) Platelet Estimate Adequate (ADEQUATE) D-Dimer (Ayanna) 3.39 ug/mlFEU (0.00-0.50) Sodium Level 135 mmol/L (136-145) Potassium Level 4.5 mmol/L (3.5-5.1) Chloride Level 96 mmol/L (98-107) Carbon Dioxide Level 17 mmol/L (21-32) Anion Gap 22 (6-14) Blood Urea Nitrogen 28 mg/dL (8-26) Creatinine 1.4 mg/dL (0.7-1.3) Estimated GFR (Cockcroft-Gault) 52.6 BUN/Creatinine Ratio 20 (6-20) Glucose Level 339 mg/dL (70-99) Lactic Acid Level 4.9 mmol/L (0.4-2.0) Calcium Level 8.2 mg/dL (8.5-10.1) Total Bilirubin 0.5 mg/dL (0.2-1.0) Aspartate Amino Transf (AST/SGOT) 48 U/L (15-37) Alanine Aminotransferase (ALT/SGPT) 27 U/L (16-63) Alkaline Phosphatase 55 U/L (46-116) Creatine Kinase 96 U/L (39-308) Creatine Kinase MB (Mass) 1.2 ng/mL (0.0-3.6) Creatine Kinase MB Relative Index 1.3 % (0-4) Troponin I Quantitative 0.083 ng/mL (0.000-0.055) FK-Tjp-V-Type Natriuretic Peptide 364 pg/mL (0-124) Total Protein 6.6 g/dL (6.4-8.2) Albumin 2.7 g/dL (3.4-5.0) Albumin/Globulin Ratio 0.7 (1.0-1.7) Procalcitonin 0.26 ng/mL (0.00-0.10) O2 Saturation 84 % (92-99) Arterial Blood pH 7.33 (7.35-7.45) Arterial Blood pCO2 at Patient Temp 31 mmHg (35-46) Arterial Blood pO2 at Patient Temp 55 mmHg (75-108) Arterial Blood HCO3 16 mmol/L (21-28) Arterial Blood Base Excess -9 mmol/L (-3-3) Oxyhemoglobin 82.6 % Methemoglobin 0.2 % (0.0-1.9) Carbon Monoxide, Quantitative 1.5 % (0.0-1.9) FiO2 100% Prothrombin Time 13.5 SEC (11.7-14.0) Prothromb Time International Ratio 1.1 (0.8-1.1) Activated Partial Thromboplast Time 33 SEC (24-38) Test 10/21/20 13:30 10/21/20 17:56 10/21/20 19:00 10/22/20 00:12 O2 Saturation 72 % (92-99) Arterial Blood pH 7.21 (7.35-7.45) Arterial Blood pCO2 at Patient Temp 50 mmHg (35-46) Arterial Blood pO2 at Patient Temp 48 mmHg (75-108) Arterial Blood HCO3 19 mmol/L (21-28) Arterial Blood Base Excess -9 mmol/L (-3-3) Oxyhemoglobin 70.8 % Methemoglobin 0.2 % (0.0-1.9) Carbon Monoxide, Quantitative 0.9 % (0.0-1.9) FiO2 100% +12 Glucose (Fingerstick) 319 mg/dL (70-99) 329 mg/dL (70-99) Lactic Acid Level 1.5 mmol/L (0.4-2.0) Troponin I Quantitative 1.464 ng/mL (0.000-0.055) Test 10/22/20 05:00 Sodium Level 139 mmol/L (136-145) Potassium Level 4.7 mmol/L (3.5-5.1) Chloride Level 105 mmol/L (98-107) Carbon Dioxide Level 21 mmol/L (21-32) Anion Gap 13 (6-14) Blood Urea Nitrogen 37 mg/dL (8-26) Creatinine 1.1 mg/dL (0.7-1.3) Estimated GFR (Cockcroft-Gault) 69.5 Glucose Level 307 mg/dL (70-99) Calcium Level 8.6 mg/dL (8.5-10.1) Phosphorus Level 4.0 mg/dL (2.6-4.7) Magnesium Level 2.5 mg/dL (1.8-2.4) Comments cxr reviewed ett mesfin ferris Impression . IMPRESSION: 1. Acute hypoxemic respiratory failure secondary to COVID-19 viral pneumonia. 2. COVID-19 viral pneumonia/sepsis. 3. Abnormal x-ray compatible with SARS-CoV-2 infection. 4. Acute kidney injury. 5. Severe hypoxemia, elevated D-dimer, possible thromboembolic disease. 6. Morbid obesity. 7. Protein malnutrition, present upon admission. 8. Elevated troponin. Plan . PLAN: 1. cont vent support setting reviewed, titrate fi02 as tolerated 2. Empiric antibiotics 3. remdesivir, and full dose heparin for presumptive diagnosis of PE. The patient is too ill to undergo CT angiogram besides that his BUN and creatinine are elevated. 4. Continue support with IV fluids. 5. steroid 6. Monitor hemoglobin and hematocrit. 7. Administer thiamine and vitamin C and zinc. 8. Monitor blood sugars closely. 9. Nutritional support discussed w rn rt critically ill cc time 30 min no overlap GABE CUETO MD Oct 22, 2020 05:46
[2020-10-22] MEDS: THIAMINE INJ 100 MG in IV DEXTROSE 5% 50 ML IV SCH ×3 (05:55→21:28)
[2020-10-22] MEDS: MIDAZOLAM 100mg/100ml NS BAG 100 ML IV PRN ×2 (05:56→15:41)
[2020-10-22] MEDS: fentaNYL HIGH DOSE PCA 55 ML IV PRN (06:32)
[2020-10-22 08:58] LABS: BASE EXCESS ABG -4 mmol/L (-3-3); HCO3 ABG 22 mmol/L (21-28); PCO2 ABG 42 mmHg (35-46); PO2 ABG 103 mmHg (75-108); SAT O2 ABG 97 % (92-99)
[2020-10-22] MEDS: DEXAMETHASONE SOD PHOS 4 MG/ML VIAL IVP SCH ×2 (09:07→21:28)
[2020-10-22] MEDS: FAMOTIDINE 20 MG/2 ML VIAL IVP SCH ×2 (09:07→21:28)
[2020-10-22] MEDS: ASCORBIC ACID 500 MG TABLET PO SCH ×3 (09:07→21:28)
[2020-10-22] MEDS: CHLORHEXIDINE 0.12% 15 ML MOUTHWASH. MM SCH ×2 (09:07→21:28)
[2020-10-22] MEDS ORDERED: DEXTROSE 50% 25 GM / 50ML DISP.SYRIN. IV PRN ×2 (09:15→09:45)
[2020-10-22] MEDS ORDERED: INSULIN REGULAR VIAL 100 UNIT in IV NORMAL SALINE 100ML 100 ML IV PRN (09:15)
[2020-10-22 09:35] LABS: FIO2 ABG 100% + 12 PEEP
[2020-10-22] MEDS ORDERED: INSULIN GLARGINE SYRINGE. SQ ONE (10:30)
[2020-10-22] MEDS: HEPARIN 25,000UTS/250ML PREMIX 250 ML IV PRN (11:38)
[2020-10-22] MEDS ORDERED: INSULIN LISPRO 300 UNITS/3 ML VIAL. SQ SCH (12:00)
[2020-10-22] MEDS: IV NORMAL SALINE 1000ML BAG 1,000 ML IV SCH (13:36)
[2020-10-22] MEDS: REMDESIVIR 100mg in NORMAL SALINE 250ML X 4 DAYS IV SCH (14:51)
--- NOTE | 2020-10-22 16:05 | PDOC ---
GENERAL General: Patient examined chart reviewed today is hospital day 2 for this patient admitted with acute hypoxic respiratory failure and sepsis secondary to COVID-19 pneumonia. He had an outside test that was positive within the last week. He is being treated for presumptive pulmonary embolism as well given his high D- dimer and high clinical suspicion for pulmonary embolism. His initial glucose levels were quite high and we thought that we would need a regular insulin infusion however he seems to be responding to the Lantus plus a high intensity insulin sliding scale every 4 hours. We will continue current management otherwise. We appreciate subspecialty support. Problems: (1) Pneumonia due to COVID-19 virus (2) Hypoxia (3) Septic shock (4) Type 2 diabetes mellitus (5) Respiratory failure (6) Hyperglycemia VITAL SIGNS Vital Signs/I&O: Vital Signs Date Time Temp Pulse Resp B/P (MAP) Pulse Ox O2 Delivery O2 Flow Rate FiO2 10/22/20 15:00 75 30 98/58 (71) 98 Ventilator 10/22/20 12:00 98.5 98.5 10/21/20 10:50 40.0 I & O 10/21/20 10/21/20 10/22/20 15:00 23:00 07:00 Intake Total 1100 ml 50 ml 1691.4 ml Output Total 1675 ml 585 ml Balance 1100 ml -1625 ml 1106.4 ml Patient is intubated and sedated on the ventilator nonresponsive HEENT exam is unremarkable for acute abnormality Chest bilateral equal air entry anteriorly though diminished throughout no crackles or wheezes are noted Heart S1-S2 normal regular rate and rhythm no murmurs or gallops are noted Abdomen is obese soft nontender nondistended no masses organomegaly noted Extremity exam is unremarkable for acute abnormality ALLERGIES Allergies: Allergies Coded Allergies Type Severity Reaction Last Updated Verified No Known Drug Allergies 10/21/20 No MEDS Medications: Current Medications Medications (Trade) Dose Ordered Sig/Gaston Start Time Stop Time Status Last Admin Dose Admin Acetaminophen (Tylenol) 650 mg PRN Q4HRS PRN 10/21/20 12:00 Ascorbic Acid (Vitamin C) 3,000 mg TID 10/21/20 14:00 10/22/20 13:39 Aspirin (Ecotrin) 325 mg 1X ONCE 10/21/20 10:30 10/21/20 10:31 DC 10/21/20 11:17 Azithromycin 250 ml @ 250 mls/hr 1X ONCE 10/21/20 10:30 10/21/20 11:29 DC 10/21/20 11:18 Bumetanide (Bumex) 1 mg 1X ONCE 10/21/20 13:30 10/21/20 13:37 DC Chlorhexidine Gluconate (Peridex) 15 ml BID 10/21/20 21:00 10/22/20 09:07 Dexamethasone Sodium Phosphate (Decadron) 4 mg Q12HR 10/21/20 21:00 10/22/20 09:07 Dextrose (Dextrose 50%-Water Syringe) 12.5 gm PRN Q15MIN PRN 10/22/20 09:45 Docusate Sodium (Colace) 100 mg PRN DAILY PRN 10/21/20 12:00 Enoxaparin Sodium (Lovenox 40mg Syringe) 40 mg Q24H 10/21/20 13:00 Cancel Etomidate (Amidate) 20 mg STK-MED ONCE 10/21/20 18:59 10/21/20 19:00 DC Famotidine (Pepcid Vial) 20 mg BID 10/21/20 21:00 10/22/20 09:07 Fentanyl Citrate 55 ml @ 0 mls/hr CONT PRN PRN 10/22/20 06:30 10/22/20 06:32 Fentanyl Citrate (Fentanyl 2ml Vial) 100 mcg 1X ONCE 10/21/20 13:15 10/21/20 13:17 DC 10/21/20 13:32 Heparin Sodium (Porcine) (Heparin Sodium) 1,500 unit PRN Q6HRS PRN 10/21/20 13:30 Heparin Sodium/ Dextrose 250 ml @ 16 mls/hr CONT PRN 10/21/20 13:30 10/22/20 11:38 Info (CONTRAST GIVEN -- Rx MONITORING) 1 each PRN DAILY PRN 10/21/20 10:45 10/23/20 10:44 Insulin Glargine (Lantus Syringe) 10 unit 1X ONCE 10/22/20 10:30 10/22/20 10:31 DC 10/22/20 11:01 Insulin Human Lispro (HumaLOG) 0-9 UNITS TIDWMEALS 10/22/20 12:00 10/22/20 12:14 Insulin Human Regular (HumuLIN R VIAL) 14 unit 1X ONCE 10/21/20 10:30 10/21/20 10:31 DC 10/21/20 11:28 Insulin Human Regular 100 unit/ Sodium Chloride 101 ml @ 0 mls/hr CONT PRN 10/22/20 09:15 10/22/20 09:49 DC Iohexol (Omnipaque 350 Mg/ml) 90 ml 1X ONCE 10/21/20 10:45 10/21/20 10:46 DC Lorazepam (Ativan Inj) 2 mg 1X ONCE 10/21/20 13:15 10/21/20 13:17 DC 10/21/20 13:31 Midazolam HCl 100 ml @ 0 mls/hr CONT PRN 10/21/20 13:15 10/22/20 15:41 Ondansetron HCl (Zofran) 4 mg PRN Q6HRS PRN 10/21/20 12:00 Piperacillin Sod/ Tazobactam Sod 4.5 gm/Sodium Chloride 100 ml @ 200 mls/hr 1X ONCE 10/21/20 10:30 10/21/20 10:59 DC 10/21/20 11:18 Propofol 100 ml @ 0 mls/hr CONT PRN 10/21/20 13:00 Remdesivir 100 mg/ Sodium Chloride 230 ml @ 460 mls/hr Q24H 10/22/20 15:00 10/25/20 15:29 10/22/20 14:51 Remdesivir 200 mg/ Sodium Chloride 210 ml @ 210 mls/hr 1X ONCE 10/21/20 15:00 10/21/20 15:59 DC 10/21/20 17:29 Rocuronium [place] (Zemuron) 50 mg STK-MED ONCE 10/21/20 18:59 10/21/20 18:59 DC Sennosides (Senna) 17.2 mg PRN BID PRN 10/21/20 12:00 Sodium Chloride 1,000 ml @ 100 mls/hr Q10H 10/21/20 11:30 10/22/20 11:29 DC 10/22/20 13:36 Thiamine HCl 100 mg/Dextrose 51 ml @ 102 mls/hr Q8HRS 10/21/20 14:00 10/22/20 13:41 Vecuronium [place] (Norcuron Bolus) 6 mg PRN Q4HRS ONCE 10/21/20 14:15 10/21/20 14:16 DC 10/21/20 15:19 Current Medications Medications (Trade) Dose Ordered Sig/Gaston Route PRN Reason Start Time Stop Time Status Last Admin Dose Admin Dexamethasone Sodium Phosphate (Decadron) 4 mg Q12HR IVP 10/21/20 21:00 10/22/20 09:07 Chlorhexidine Gluconate (Peridex) 15 ml BID MM 10/21/20 21:00 10/22/20 09:07 Remdesivir 100 mg/ Sodium Chloride 230 ml @ 460 mls/hr Q24H IV 10/22/20 15:00 10/25/20 15:29 10/22/20 14:51 Famotidine (Pepcid Vial) 20 mg BID IVP 10/21/20 21:00 10/22/20 09:07 Insulin Human Lispro (HumaLOG) 0-9 UNITS Q6HRS SQ 10/22/20 00:00 10/22/20 09:52 DC 10/22/20 06:01 Fentanyl Citrate 55 ml @ 0 mls/hr CONT PRN PRN IV PAIN CONTROL 10/22/20 06:30 10/22/20 06:32 Insulin Human Lispro (HumaLOG) 0-9 UNITS TIDWMEALS SQ 10/22/20 12:00 10/22/20 12:14 Insulin Glargine (Lantus Syringe) 10 unit 1X ONCE SQ 10/22/20 10:30 10/22/20 10:31 DC 10/22/20 11:01 LAB Lab: Laboratory Tests Test 10/21/20 17:56 10/21/20 19:00 10/22/20 00:12 10/22/20 05:00 Glucose (Fingerstick) 319 mg/dL (70-99) H 329 mg/dL (70-99) H Lactic Acid Level 1.5 mmol/L (0.4-2.0) Troponin I Quantitative 1.464 ng/mL (0.000-0.055) White Blood Count 5.5 x10^3/uL (4.0-11.0) Red Blood Count 4.34 x10^6/uL (4.30-5.70) Hemoglobin 12.8 g/dL (13.0-17.5) L Hematocrit 38.4 % (39.0-53.0) L Mean Corpuscular Volume 88 fL (79-100) Mean Corpuscular Hemoglobin 29 pg (25-35) Mean Corpuscular Hemoglobin Concent 33 g/dL (31-37) Red Cell Distribution Width 14.2 % (11.5-14.5) Platelet Count 162 x10^3/uL (140-400) Neutrophils (%) (Auto) 89 % (31-73) H Lymphocytes (%) (Auto) 7 % (24-48) L Monocytes (%) (Auto) 4 % (0-9) Eosinophils (%) (Auto) 0 % (0-3) Basophils (%) (Auto) 0 % (0-3) Neutrophils # (Auto) 4.8 x10^3/uL (1.8-7.7) Lymphocytes # (Auto) 0.4 x10^3/uL (1.0-4.8) L Monocytes # (Auto) 0.2 x10^3/uL (0.0-1.1) Eosinophils # (Auto) 0.0 x10^3/uL (0.0-0.7) Basophils # (Auto) 0.0 x10^3/uL (0.0-0.2) Sodium Level 139 mmol/L (136-145) Potassium Level 4.7 mmol/L (3.5-5.1) Chloride Level 105 mmol/L (98-107) Carbon Dioxide Level 21 mmol/L (21-32) Anion Gap 13 (6-14) Blood Urea Nitrogen 37 mg/dL (8-26) H Creatinine 1.1 mg/dL (0.7-1.3) Estimated GFR (Cockcroft-Gault) 69.5 Glucose Level 307 mg/dL (70-99) H Calcium Level 8.6 mg/dL (8.5-10.1) Phosphorus Level 4.0 mg/dL (2.6-4.7) Magnesium Level 2.5 mg/dL (1.8-2.4) H Test 10/22/20 09:05 10/22/20 11:03 10/22/20 12:10 O2 Saturation 97 % (92-99) Arterial Blood pH 7.33 (7.35-7.45) L Arterial Blood pCO2 at Patient Temp 42 mmHg (35-46) Arterial Blood pO2 at Patient Temp 103 mmHg (75-108) Arterial Blood HCO3 22 mmol/L (21-28) Arterial Blood Base Excess -4 mmol/L (-3-3) L FiO2 100% + 12 peep Glucose (Fingerstick) 280 mg/dL (70-99) H 250 mg/dL (70-99) H Laboratory Tests 10/22/20 05:00 Laboratory Tests 10/22/20 05:00 ASSESSMENT & PLAN A&P Plan as noted above This note was created using [employer] and may have omissions and/or errors due to the nature of real-time voice program arranger. Justifications for Admission Other Justification COVID infection Problem Qualifiers (1) Respiratory failure: Chronicity: acute Respiratory failure complication: hypoxia Qualified Codes: J96.01 - Acute respiratory failure with hypoxia SOY SALINAS MD Oct 22, 2020 16:05
--- NOTE | 2020-10-22 18:32 | EKG ---
[facility] [address] [place] [address] Test Date: 2020-10-21 Test Time: 08:45:44 Pat Name: CELIO BLAKE Department: Room: Gender: Fitness Assistant: : [id number] Requested By: CELIO THORNTON Order Number: [id number] Reading MD: Measurements Intervals [place] Rate: 115 P: 262 SD: 136 QRS: 62 QRSD: 76 T: 36 QT: 322 QTc: 447 Interpretive Statements SINUS TACHYCARDIA OTHERWISE NORMAL ECG RI6.02 No previous ECG available for comparison
[2020-10-22] MEDS: INSULIN REGULAR VIAL 100 UNIT in IV NORMAL SALINE 100ML 100 ML IV PRN (18:46)
[2020-10-23] VITALS (24 sets, daily range): BP systolic 100–114; BP diastolic 46–65
[2020-10-23] MEDS: INSULIN REGULAR VIAL 100 UNIT in IV NORMAL SALINE 100ML 100 ML IV PRN (02:14)
[2020-10-23] MEDS: MIDAZOLAM 100mg/100ml NS BAG 100 ML IV PRN ×3 (02:14→22:29)
[2020-10-23] MEDS: HEPARIN 25,000UTS/250ML PREMIX 250 ML IV PRN ×2 (02:16→18:07)
--- NOTE | 2020-10-23 05:24 | PDOC ---
PULMONARY PROGRESS NOTES DATE: 10/23/20 TIME: 05:24 Subjective on vent peep 12, fi02 80%, sedated on versed fentanyl small ett secretion Vitals Vital Signs Date Time Temp Pulse Resp B/P (MAP) Pulse Ox O2 Delivery O2 Flow Rate FiO2 10/23/20 04:00 99.1 66 30 105/62 (76) 97 Ventilator 99.1 Comments intubated sedated NC AT rrr no accessory muscle use abd obese no rash Labs Laboratory Tests Test 10/21/20 08:35 10/21/20 08:36 10/21/20 08:45 10/21/20 08:48 White Blood Count 5.7 x10^3/uL (4.0-11.0) Red Blood Count 4.95 x10^6/uL (4.30-5.70) Hemoglobin 14.6 g/dL (13.0-17.5) Hematocrit 43.6 % (39.0-53.0) Mean Corpuscular Volume 88 fL (79-100) Mean Corpuscular Hemoglobin 29 pg (25-35) Mean Corpuscular Hemoglobin Concent 33 g/dL (31-37) Red Cell Distribution Width 14.1 % (11.5-14.5) Platelet Count 225 x10^3/uL (140-400) Neutrophils (%) (Auto) 87 % (31-73) Lymphocytes (%) (Auto) 9 % (24-48) Monocytes (%) (Auto) 4 % (0-9) Eosinophils (%) (Auto) 0 % (0-3) Basophils (%) (Auto) 0 % (0-3) Neutrophils # (Auto) 4.9 x10^3/uL (1.8-7.7) Lymphocytes # (Auto) 0.5 x10^3/uL (1.0-4.8) Monocytes # (Auto) 0.2 x10^3/uL (0.0-1.1) Eosinophils # (Auto) 0.0 x10^3/uL (0.0-0.7) Basophils # (Auto) 0.0 x10^3/uL (0.0-0.2) Segmented Neutrophils % 66 % (35-66) Band Neutrophils % 21 % (0-9) Lymphocytes % 10 % (24-48) Monocytes % 2 % (0-10) Eosinophils % 1 % (0-5) Platelet Estimate Adequate (ADEQUATE) D-Dimer (Ayanna) 3.39 ug/mlFEU (0.00-0.50) Sodium Level 135 mmol/L (136-145) Potassium Level 4.5 mmol/L (3.5-5.1) Chloride Level 96 mmol/L (98-107) Carbon Dioxide Level 17 mmol/L (21-32) Anion Gap 22 (6-14) Blood Urea Nitrogen 28 mg/dL (8-26) Creatinine 1.4 mg/dL (0.7-1.3) Estimated GFR (Cockcroft-Gault) 52.6 BUN/Creatinine Ratio 20 (6-20) Glucose Level 339 mg/dL (70-99) Lactic Acid Level 4.9 mmol/L (0.4-2.0) Calcium Level 8.2 mg/dL (8.5-10.1) Total Bilirubin 0.5 mg/dL (0.2-1.0) Aspartate Amino Transf (AST/SGOT) 48 U/L (15-37) Alanine Aminotransferase (ALT/SGPT) 27 U/L (16-63) Alkaline Phosphatase 55 U/L (46-116) Creatine Kinase 96 U/L (39-308) Creatine Kinase MB (Mass) 1.2 ng/mL (0.0-3.6) Creatine Kinase MB Relative Index 1.3 % (0-4) Troponin I Quantitative 0.083 ng/mL (0.000-0.055) MK-Btp-A-Type Natriuretic Peptide 364 pg/mL (0-124) Total Protein 6.6 g/dL (6.4-8.2) Albumin 2.7 g/dL (3.4-5.0) Albumin/Globulin Ratio 0.7 (1.0-1.7) Procalcitonin 0.26 ng/mL (0.00-0.10) O2 Saturation 84 % (92-99) Arterial Blood pH 7.33 (7.35-7.45) Arterial Blood pCO2 at Patient Temp 31 mmHg (35-46) Arterial Blood pO2 at Patient Temp 55 mmHg (75-108) Arterial Blood HCO3 16 mmol/L (21-28) Arterial Blood Base Excess -9 mmol/L (-3-3) Oxyhemoglobin 82.6 % Methemoglobin 0.2 % (0.0-1.9) Carbon Monoxide, Quantitative 1.5 % (0.0-1.9) FiO2 100% Prothrombin Time 13.5 SEC (11.7-14.0) Prothromb Time International Ratio 1.1 (0.8-1.1) Activated Partial Thromboplast Time 33 SEC (24-38) Test 10/21/20 13:30 10/21/20 17:56 10/21/20 19:00 10/22/20 00:12 O2 Saturation 72 % (92-99) Arterial Blood pH 7.21 (7.35-7.45) Arterial Blood pCO2 at Patient Temp 50 mmHg (35-46) Arterial Blood pO2 at Patient Temp 48 mmHg (75-108) Arterial Blood HCO3 19 mmol/L (21-28) Arterial Blood Base Excess -9 mmol/L (-3-3) Oxyhemoglobin 70.8 % Methemoglobin 0.2 % (0.0-1.9) Carbon Monoxide, Quantitative 0.9 % (0.0-1.9) FiO2 100% +12 Glucose (Fingerstick) 319 mg/dL (70-99) 329 mg/dL (70-99) Lactic Acid Level 1.5 mmol/L (0.4-2.0) Troponin I Quantitative 1.464 ng/mL (0.000-0.055) Test 10/22/20 05:00 10/22/20 09:05 10/22/20 11:03 10/22/20 12:10 White Blood Count 5.5 x10^3/uL (4.0-11.0) Red Blood Count 4.34 x10^6/uL (4.30-5.70) Hemoglobin 12.8 g/dL (13.0-17.5) Hematocrit 38.4 % (39.0-53.0) Mean Corpuscular Volume 88 fL (79-100) Mean Corpuscular Hemoglobin 29 pg (25-35) Mean Corpuscular Hemoglobin Concent 33 g/dL (31-37) Red Cell Distribution Width 14.2 % (11.5-14.5) Platelet Count 162 x10^3/uL (140-400) Neutrophils (%) (Auto) 89 % (31-73) Lymphocytes (%) (Auto) 7 % (24-48) Monocytes (%) (Auto) 4 % (0-9) Eosinophils (%) (Auto) 0 % (0-3) Basophils (%) (Auto) 0 % (0-3) Neutrophils # (Auto) 4.8 x10^3/uL (1.8-7.7) Lymphocytes # (Auto) 0.4 x10^3/uL (1.0-4.8) Monocytes # (Auto) 0.2 x10^3/uL (0.0-1.1) Eosinophils # (Auto) 0.0 x10^3/uL (0.0-0.7) Basophils # (Auto) 0.0 x10^3/uL (0.0-0.2) Sodium Level 139 mmol/L (136-145) Potassium Level 4.7 mmol/L (3.5-5.1) Chloride Level 105 mmol/L (98-107) Carbon Dioxide Level 21 mmol/L (21-32) Anion Gap 13 (6-14) Blood Urea Nitrogen 37 mg/dL (8-26) Creatinine 1.1 mg/dL (0.7-1.3) Estimated GFR (Cockcroft-Gault) 69.5 Glucose Level 307 mg/dL (70-99) Calcium Level 8.6 mg/dL (8.5-10.1) Phosphorus Level 4.0 mg/dL (2.6-4.7) Magnesium Level 2.5 mg/dL (1.8-2.4) O2 Saturation 97 % (92-99) Arterial Blood pH 7.33 (7.35-7.45) Arterial Blood pCO2 at Patient Temp 42 mmHg (35-46) Arterial Blood pO2 at Patient Temp 103 mmHg (75-108) Arterial Blood HCO3 22 mmol/L (21-28) Arterial Blood Base Excess -4 mmol/L (-3-3) FiO2 100% + 12 peep Glucose (Fingerstick) 280 mg/dL (70-99) 250 mg/dL (70-99) Test 10/22/20 15:54 10/22/20 17:45 10/22/20 18:43 10/22/20 20:01 Glucose (Fingerstick) 347 mg/dL (70-99) 363 mg/dL (70-99) 319 mg/dL (70-99) Heparin Anti-Xa Act, Unfractionated 0.35 IU/mL (0.30-0.70) Test 10/22/20 21:36 10/22/20 23:01 10/23/20 00:10 10/23/20 00:25 Glucose (Fingerstick) 307 mg/dL (70-99) 255 mg/dL (70-99) 221 mg/dL (70-99) Heparin Anti-Xa Act, Unfractionated 0.50 IU/mL (0.30-0.70) Test 10/23/20 01:19 10/23/20 02:33 10/23/20 04:13 Glucose (Fingerstick) 213 mg/dL (70-99) 153 mg/dL (70-99) 149 mg/dL (70-99) Laboratory Tests Test 10/22/20 09:05 10/22/20 11:03 10/22/20 12:10 10/22/20 15:54 O2 Saturation 97 % (92-99) Arterial Blood pH 7.33 (7.35-7.45) Arterial Blood pCO2 at Patient Temp 42 mmHg (35-46) Arterial Blood pO2 at Patient Temp 103 mmHg (75-108) Arterial Blood HCO3 22 mmol/L (21-28) Arterial Blood Base Excess -4 mmol/L (-3-3) FiO2 100% + 12 peep Glucose (Fingerstick) 280 mg/dL (70-99) 250 mg/dL (70-99) 347 mg/dL (70-99) Test 10/22/20 17:45 10/22/20 18:43 10/22/20 20:01 10/22/20 21:36 Heparin Anti-Xa Act, Unfractionated 0.35 IU/mL (0.30-0.70) Glucose (Fingerstick) 363 mg/dL (70-99) 319 mg/dL (70-99) 307 mg/dL (70-99) Test 10/22/20 23:01 10/23/20 00:10 10/23/20 00:25 10/23/20 01:19 Glucose (Fingerstick) 255 mg/dL (70-99) 221 mg/dL (70-99) 213 mg/dL (70-99) Heparin Anti-Xa Act, Unfractionated 0.50 IU/mL (0.30-0.70) Test 10/23/20 02:33 10/23/20 04:13 Glucose (Fingerstick) 153 mg/dL (70-99) 149 mg/dL (70-99) Comments cxr reviewed ett mesfin olsen infilt Impression . IMPRESSION: 1. Acute hypoxemic respiratory failure secondary to COVID-19 viral pneumonia. 2. COVID-19 viral pneumonia/sepsis. 3. Abnormal x-ray compatible with SARS-CoV-2 infection. 4. Acute kidney injury. 5. Severe hypoxemia, elevated D-dimer, possible thromboembolic disease. 6. Morbid obesity. 7. Protein malnutrition, present upon admission. 8. Elevated troponin. Plan . PLAN: 1. cont vent support setting reviewed, titrate fi02 as tolerated 2. Empiric antibiotics 3. remdesivir, and full dose heparin for presumptive diagnosis of PE. The patient is too ill to undergo CT angiogram besides that his BUN and creatinine are elevated. 4. Continue support with IV fluids. 5. steroid 6. Monitor hemoglobin and hematocrit. 7. Administer thiamine and vitamin C and zinc. 8. Monitor blood sugars closely. 9. Nutritional support discussed w rn rt critically ill cc time 30 min no overlap GABE CUETO MD Oct 23, 2020 05:24
[2020-10-23 05:56] LABS: BASO % 0 % (0-3); EOS % 0 % (0-3); HEMATOCRIT 35.4 % (39.0-53.0); HEMOGLOBIN 11.7 g/dL (13.0-17.5); LYMPH # 0.5 x10^3/uL (1.0-4.8); LYMPH % 9 % (24-48); MEAN CORPUSCULAR HEMOGLOBIN 30 pg (25-35); MEAN CORPUSCULAR HGB CONC 33 g/dL (31-37); MEAN CORPUSCULAR VOLUME 89 fL (79-100); MONO # 0.3 x10^3/uL (0.0-1.1); MONO % 5 % (0-9); NEUT # 4.5 x10^3/uL (1.8-7.7); NEUT % 86 % (31-73); PLATELET COUNT 151 x10^3/uL (140-400); RED BLOOD COUNT 3.96 x10^6/uL (4.30-5.70); RED CELL DISTRIBUTION WIDTH 14.4 % (11.5-14.5); WHITE BLOOD COUNT 5.2 x10^3/uL (4.0-11.0)
[2020-10-23] MEDS: INSULIN LISPRO 300 UNITS/3 ML VIAL. SQ SCH ×5 (06:00→23:30)
[2020-10-23 06:25] LABS: ALBUMIN 2.2 g/dL (3.4-5.0); ALBUMIN/GLOBULIN RATIO 0.6 (1.0-1.7); CALCIUM 8.6 mg/dL (8.5-10.1); CREATININE 1.2 mg/dL (0.7-1.3); GFR 62.9; POTASSIUM 4.5 mmol/L (3.5-5.1); TOTAL BILIRUBIN 0.2 mg/dL (0.2-1.0)
[2020-10-23] MEDS: THIAMINE INJ 100 MG in IV DEXTROSE 5% 50 ML IV SCH ×3 (06:26→22:23)
[2020-10-23] MEDS: fentaNYL HIGH DOSE PCA 55 ML IV PRN (08:10)
[2020-10-23] MEDS: FAMOTIDINE 20 MG/2 ML VIAL IVP SCH ×2 (08:26→22:23)
[2020-10-23] MEDS: ASCORBIC ACID 1,000 MG TABLET PO SCH ×3 (08:26→22:23)
[2020-10-23] MEDS: DEXAMETHASONE SOD PHOS 4 MG/ML VIAL IVP SCH ×2 (08:26→22:23)
[2020-10-23] MEDS: ACETAMINOPHEN 325 MG TABLET. PO PRN (08:33)
[2020-10-23 09:05] LABS: BASE EXCESS ABG -3 mmol/L (-3-3); HCO3 ABG 21 mmol/L (21-28); PCO2 ABG 33 mmHg (35-46); PO2 ABG 133 mmHg (75-108); SAT O2 ABG 98 % (92-99)
[2020-10-23 09:15] LABS: FIO2 ABG 85% VENT + 12 PEEP
--- NOTE | 2020-10-23 12:34 | PDOC ---
GENERAL General: Patient examined chart reviewed no change overnight. He did require an insulin infusion as his glucose levels stayed up over 350 probably due to the severe illness as well as steroid use. We will continue the insulin infusion at this point to optimize his treatment regimen. Appreciate subspecialty support. Continue current plan otherwise. Problems: (1) Septic shock (2) Respiratory failure (3) Hypoxia (4) Pneumonia due to COVID-19 virus (5) Type 2 diabetes mellitus VITAL SIGNS Vital Signs/I&O: Vital Signs Date Time Temp Pulse Resp B/P (MAP) Pulse Ox O2 Delivery O2 Flow Rate FiO2 10/23/20 11:00 54 29 110/57 (74) 99 Ventilator 10/23/20 08:59 40.0 10/23/20 08:00 100.1 100.1 I & O 10/22/20 10/22/20 10/23/20 15:00 23:00 07:00 Intake Total 51 ml 477 ml 470.1 ml Output Total 375 ml 410 ml 450 ml Balance -324 ml 67 ml 20.1 ml Patient intubated sedated unresponsive on the ventilator Chest clear to auscultation anteriorly Heart S1-S2 normal regular rate and rhythm no murmurs or gallops are noted Abdomen soft nontender nondistended no masses organomegaly noted Extremity exam is unremarkable for acute abnormality ALLERGIES Allergies: Allergies Coded Allergies Type Severity Reaction Last Updated Verified No Known Drug Allergies 10/21/20 No MEDS Medications: Current Medications Medications (Trade) Dose Ordered Sig/Gaston Start Time Stop Time Status Last Admin Dose Admin Acetaminophen (Tylenol) 650 mg PRN Q4HRS PRN 10/21/20 12:00 10/23/20 08:33 Ascorbic Acid (Vitamin C) 3,000 mg TID 10/23/20 09:00 10/23/20 08:26 Aspirin (Ecotrin) 325 mg 1X ONCE 10/21/20 10:30 10/21/20 10:31 DC 10/21/20 11:17 Azithromycin 250 ml @ 250 mls/hr 1X ONCE 10/21/20 10:30 10/21/20 11:29 DC 10/21/20 11:18 Bumetanide (Bumex) 1 mg 1X ONCE 10/21/20 13:30 10/21/20 13:37 DC Chlorhexidine Gluconate (Peridex) 15 ml BID 10/21/20 21:00 10/23/20 08:12 DC 10/22/20 21:28 Dexamethasone Sodium Phosphate (Decadron) 4 mg Q12HR 10/21/20 21:00 10/23/20 08:26 Dextrose (Dextrose 50%-Water Syringe) 12.5 gm PRN Q15MIN PRN 10/22/20 09:45 Docusate Sodium (Colace) 100 mg PRN DAILY PRN 10/21/20 12:00 Enoxaparin Sodium (Lovenox 40mg Syringe) 40 mg Q24H 10/21/20 13:00 Cancel Etomidate (Amidate) 20 mg STK-MED ONCE 10/21/20 18:59 10/21/20 19:00 DC Famotidine (Pepcid Vial) 20 mg BID 10/21/20 21:00 10/23/20 08:26 Fentanyl Citrate 55 ml @ 0 mls/hr CONT PRN PRN 10/22/20 06:30 10/23/20 08:10 Fentanyl Citrate (Fentanyl 2ml Vial) 100 mcg 1X ONCE 10/21/20 13:15 10/21/20 13:17 DC 10/21/20 13:32 Heparin Sodium (Porcine) (Heparin Sodium) 1,500 unit PRN Q6HRS PRN 10/21/20 13:30 Heparin Sodium/ Dextrose 250 ml @ 16 mls/hr CONT PRN 10/21/20 13:30 10/23/20 02:16 Info (CONTRAST GIVEN -- Rx MONITORING) 1 each PRN DAILY PRN 10/21/20 10:45 10/23/20 10:44 DC Insulin Glargine (Lantus Syringe) 10 unit 1X ONCE 10/22/20 10:30 10/22/20 10:31 DC 10/22/20 11:01 Insulin Human Lispro (HumaLOG) 0-9 UNITS Q6HRS 10/23/20 12:00 10/23/20 11:59 Insulin Human Regular (HumuLIN R VIAL) 14 unit 1X ONCE 10/21/20 10:30 10/21/20 10:31 DC 10/21/20 11:28 Insulin Human Regular 100 unit/ Sodium Chloride 101 ml @ 0 mls/hr CONT PRN 10/22/20 18:30 10/23/20 02:14 Iohexol (Omnipaque 350 Mg/ml) 90 ml 1X ONCE 10/21/20 10:45 10/21/20 10:46 DC Lorazepam (Ativan Inj) 2 mg 1X ONCE 10/21/20 13:15 10/21/20 13:17 DC 10/21/20 13:31 Midazolam HCl 100 ml @ 0 mls/hr CONT PRN 10/21/20 13:15 10/23/20 02:14 Ondansetron HCl (Zofran) 4 mg PRN Q6HRS PRN 10/21/20 12:00 Piperacillin Sod/ Tazobactam Sod 4.5 gm/Sodium Chloride 100 ml @ 200 mls/hr 1X ONCE 10/21/20 10:30 10/21/20 10:59 DC 10/21/20 11:18 Propofol 100 ml @ 0 mls/hr CONT PRN 10/21/20 13:00 Remdesivir 100 mg/ Sodium Chloride 230 ml @ 460 mls/hr Q24H 10/22/20 15:00 10/25/20 15:29 10/22/20 14:51 Remdesivir 200 mg/ Sodium Chloride 210 ml @ 210 mls/hr 1X ONCE 10/21/20 15:00 10/21/20 15:59 DC 10/21/20 17:29 Rocuronium [place] (Zemuron) 50 mg STK-MED ONCE 10/21/20 18:59 10/21/20 18:59 DC Sennosides (Senna) 17.2 mg PRN BID PRN 10/21/20 12:00 Sodium Chloride 1,000 ml @ 100 mls/hr Q10H 10/21/20 11:30 10/22/20 11:29 DC 10/22/20 13:36 Thiamine HCl 100 mg/Dextrose 51 ml @ 102 mls/hr Q8HRS 10/21/20 14:00 10/23/20 06:26 Vecuronium [place] (Norcuron Bolus) 6 mg PRN Q4HRS ONCE 10/21/20 14:15 10/21/20 14:16 DC 10/21/20 15:19 Current Medications Medications (Trade) Dose Ordered Sig/Gaston Route PRN Reason Start Time Stop Time Status Last Admin Dose Admin Remdesivir 100 mg/ Sodium Chloride 230 ml @ 460 mls/hr Q24H IV 10/22/20 15:00 10/25/20 15:29 10/22/20 14:51 Insulin Human Regular 100 unit/ Sodium Chloride 101 ml @ 0 mls/hr CONT PRN IV SEE I/O RECORD 10/22/20 18:30 10/23/20 02:14 Ascorbic Acid (Vitamin C) 3,000 mg TID PO 10/23/20 09:00 10/23/20 08:26 Insulin Human Lispro (HumaLOG) 0-9 UNITS Q6HRS SQ 10/23/20 12:00 10/23/20 11:59 LAB Lab: Laboratory Tests Test 10/22/20 15:54 10/22/20 17:45 10/22/20 18:43 10/22/20 20:01 Glucose (Fingerstick) 347 mg/dL (70-99) H 363 mg/dL (70-99) H 319 mg/dL (70-99) H Heparin Anti-Xa Act, Unfractionated 0.35 IU/mL (0.30-0.70) Test 10/22/20 21:36 10/22/20 23:01 10/23/20 00:10 10/23/20 00:25 Glucose (Fingerstick) 307 mg/dL (70-99) H 255 mg/dL (70-99) H 221 mg/dL (70-99) H Heparin Anti-Xa Act, Unfractionated 0.50 IU/mL (0.30-0.70) Test 10/23/20 01:19 10/23/20 02:00 10/23/20 02:33 10/23/20 04:13 Glucose (Fingerstick) 213 mg/dL (70-99) H 153 mg/dL (70-99) H 149 mg/dL (70-99) H White Blood Count 5.2 x10^3/uL (4.0-11.0) Red Blood Count 3.96 x10^6/uL (4.30-5.70) L Hemoglobin 11.7 g/dL (13.0-17.5) L Hematocrit 35.4 % (39.0-53.0) L Mean Corpuscular Volume 89 fL (79-100) Mean Corpuscular Hemoglobin 30 pg (25-35) Mean Corpuscular Hemoglobin Concent 33 g/dL (31-37) Red Cell Distribution Width 14.4 % (11.5-14.5) Platelet Count 151 x10^3/uL (140-400) Neutrophils (%) (Auto) 86 % (31-73) H Lymphocytes (%) (Auto) 9 % (24-48) L Monocytes (%) (Auto) 5 % (0-9) Eosinophils (%) (Auto) 0 % (0-3) Basophils (%) (Auto) 0 % (0-3) Neutrophils # (Auto) 4.5 x10^3/uL (1.8-7.7) Lymphocytes # (Auto) 0.5 x10^3/uL (1.0-4.8) L Monocytes # (Auto) 0.3 x10^3/uL (0.0-1.1) Eosinophils # (Auto) 0.0 x10^3/uL (0.0-0.7) Basophils # (Auto) 0.0 x10^3/uL (0.0-0.2) Sodium Level 144 mmol/L (136-145) Potassium Level 4.5 mmol/L (3.5-5.1) Chloride Level 110 mmol/L (98-107) H Carbon Dioxide Level 21 mmol/L (21-32) Anion Gap 13 (6-14) Blood Urea Nitrogen 49 mg/dL (8-26) H Creatinine 1.2 mg/dL (0.7-1.3) Estimated GFR (Cockcroft-Gault) 62.9 BUN/Creatinine Ratio 41 (6-20) H Glucose Level 200 mg/dL (70-99) H Calcium Level 8.6 mg/dL (8.5-10.1) Total Bilirubin 0.2 mg/dL (0.2-1.0) Aspartate Amino Transferase (AST) 38 U/L (15-37) H Alanine Aminotransferase (ALT) 28 U/L (16-63) Alkaline Phosphatase 51 U/L (46-116) Total Protein 6.0 g/dL (6.4-8.2) L Albumin 2.2 g/dL (3.4-5.0) L Albumin/Globulin Ratio 0.6 (1.0-1.7) L Test 10/23/20 05:40 10/23/20 06:28 10/23/20 07:58 10/23/20 08:00 Glucose (Fingerstick) 121 mg/dL (70-99) H 125 mg/dL (70-99) H 135 mg/dL (70-99) H O2 Saturation 98 % (92-99) Arterial Blood pH 7.43 (7.35-7.45) Arterial Blood pCO2 at Patient Temp 33 mmHg (35-46) L Arterial Blood pO2 at Patient Temp 133 mmHg (75-108) H Arterial Blood HCO3 21 mmol/L (21-28) Arterial Blood Base Excess -3 mmol/L (-3-3) FiO2 85% vent + 12 peep Test 10/23/20 08:42 Glucose (Fingerstick) 127 mg/dL (70-99) H Laboratory Tests 10/23/20 02:00 Laboratory Tests 10/23/20 02:00 ASSESSMENT & PLAN A&P Plan as noted above This note was created using [employer] and may have omissions and/or errors due to the nature of real-time voice assistant professor of religion. Justifications for Admission Other Justification COVID infection Problem Qualifiers (1) Respiratory failure: Chronicity: acute Respiratory failure complication: hypoxia Qualified Codes: J96.01 - Acute respiratory failure with hypoxia SOY SALINAS MD Oct 23, 2020 12:34
--- NOTE | 2020-10-23 14:53 | RAD ---
Study: XR CHEST 1V Indication: PICC line placement. Comparison: 10/21/2020 Findings: Endotracheal tube tip 5 cm above the etienne. Right-sided PICC terminates within the SVC. Enteric tube tip is below the inferior field of view. Hazy airspace opacities on the right more so than left have in general decreased in density since 10/07. No newly seen airspace abnormality, increasing effusion or pneumothorax. Impression: 1. Support device positioning, as above, to include a right-sided PICC tip within the SVC. 2. Improved appearance of the chest with less confluent right and left airspace opacities. Electronically signed by: ANA TENORIO MD (10/23/2020 2:50 PM) [facility]
[2020-10-23] MEDS: REMDESIVIR 100mg in NORMAL SALINE 250ML X 4 DAYS IV SCH (14:56)
[2020-10-24] VITALS (24 sets, daily range): BP systolic 109–136; BP diastolic 53–74
[2020-10-24 02:07] LABS: HEMOGLOBIN A1C 7.6 % (4.8-5.6)
[2020-10-24 05:06] LABS: BASO % 1 % (0-3); EOS % 0 % (0-3); HEMATOCRIT 33.7 % (39.0-53.0); HEMOGLOBIN 11.2 g/dL (13.0-17.5); LYMPH # 0.5 x10^3/uL (1.0-4.8); LYMPH % 8 % (24-48); MEAN CORPUSCULAR HEMOGLOBIN 30 pg (25-35); MEAN CORPUSCULAR HGB CONC 33 g/dL (31-37); MEAN CORPUSCULAR VOLUME 89 fL (79-100); MONO # 0.6 x10^3/uL (0.0-1.1); MONO % 9 % (0-9); NEUT # 5.3 x10^3/uL (1.8-7.7); NEUT % 83 % (31-73); PLATELET COUNT 155 x10^3/uL (140-400); RED BLOOD COUNT 3.77 x10^6/uL (4.30-5.70); RED CELL DISTRIBUTION WIDTH 14.9 % (11.5-14.5); WHITE BLOOD COUNT 6.5 x10^3/uL (4.0-11.0)
[2020-10-24 05:19] LABS: ALBUMIN 2.2 g/dL (3.4-5.0); ALBUMIN/GLOBULIN RATIO 0.6 (1.0-1.7); CALCIUM 8.3 mg/dL (8.5-10.1); CREATININE 1.2 mg/dL (0.7-1.3); GFR 62.9; TOTAL BILIRUBIN 0.4 mg/dL (0.2-1.0); TOTAL PROTEIN 5.7 g/dL (6.4-8.2)
[2020-10-24] MEDS: THIAMINE INJ 100 MG in IV DEXTROSE 5% 50 ML IV SCH ×3 (06:08→21:59)
[2020-10-24] MEDS: INSULIN LISPRO 300 UNITS/3 ML VIAL. SQ SCH ×4 (06:08→23:55)
[2020-10-24] MEDS: ASCORBIC ACID 1,000 MG TABLET PO SCH ×3 (08:07→21:07)
[2020-10-24] MEDS: FAMOTIDINE 20 MG/2 ML VIAL IVP SCH ×2 (08:07→21:07)
[2020-10-24] MEDS: DEXAMETHASONE SOD PHOS 4 MG/ML VIAL IVP SCH ×2 (08:07→21:07)
[2020-10-24] MEDS: fentaNYL HIGH DOSE PCA 55 ML IV PRN (09:16)
[2020-10-24 09:27] LABS: BASE EXCESS ABG -5 mmol/L (-3-3); HCO3 ABG 20 mmol/L (21-28); PCO2 ABG 33 mmHg (35-46); PO2 ABG 111 mmHg (75-108); SAT O2 ABG 98 % (92-99)
[2020-10-24 09:35] LABS: FIO2 ABG 70
--- NOTE | 2020-10-24 09:57 | PDOC ---
PULMONARY PROGRESS NOTES DATE: 10/24/20 TIME: 09:54 Subjective Ventilatory support, FiO2 70% and a PEEP of 12 Low-grade fever overnight Heparin drip No other overnight concerns Vitals Vital Signs Date Time Temp Pulse Resp B/P (MAP) Pulse Ox O2 Delivery O2 Flow Rate FiO2 10/24/20 09:47 99 40.0 10/24/20 09:15 Ventilator 10/24/20 09:00 45 30 109/55 (73) 10/24/20 08:00 99.5 99.5 Comments intubated sedated Bradycardia no accessory muscle use abd obese no rash Labs Laboratory Tests Test 10/22/20 11:03 10/22/20 12:10 10/22/20 15:54 10/22/20 17:45 Glucose (Fingerstick) 280 mg/dL (70-99) 250 mg/dL (70-99) 347 mg/dL (70-99) Heparin Anti-Xa Act, Unfractionated 0.35 IU/mL (0.30-0.70) Test 10/22/20 18:43 10/22/20 20:01 10/22/20 21:36 10/22/20 23:01 Glucose (Fingerstick) 363 mg/dL (70-99) 319 mg/dL (70-99) 307 mg/dL (70-99) 255 mg/dL (70-99) Test 10/23/20 00:10 10/23/20 00:25 10/23/20 01:19 10/23/20 02:00 Glucose (Fingerstick) 221 mg/dL (70-99) 213 mg/dL (70-99) Heparin Anti-Xa Act, Unfractionated 0.50 IU/mL (0.30-0.70) White Blood Count 5.2 x10^3/uL (4.0-11.0) Red Blood Count 3.96 x10^6/uL (4.30-5.70) Hemoglobin 11.7 g/dL (13.0-17.5) Hematocrit 35.4 % (39.0-53.0) Mean Corpuscular Volume 89 fL (79-100) Mean Corpuscular Hemoglobin 30 pg (25-35) Mean Corpuscular Hemoglobin Concent 33 g/dL (31-37) Red Cell Distribution Width 14.4 % (11.5-14.5) Platelet Count 151 x10^3/uL (140-400) Neutrophils (%) (Auto) 86 % (31-73) Lymphocytes (%) (Auto) 9 % (24-48) Monocytes (%) (Auto) 5 % (0-9) Eosinophils (%) (Auto) 0 % (0-3) Basophils (%) (Auto) 0 % (0-3) Neutrophils # (Auto) 4.5 x10^3/uL (1.8-7.7) Lymphocytes # (Auto) 0.5 x10^3/uL (1.0-4.8) Monocytes # (Auto) 0.3 x10^3/uL (0.0-1.1) Eosinophils # (Auto) 0.0 x10^3/uL (0.0-0.7) Basophils # (Auto) 0.0 x10^3/uL (0.0-0.2) Sodium Level 144 mmol/L (136-145) Potassium Level 4.5 mmol/L (3.5-5.1) Chloride Level 110 mmol/L (98-107) Carbon Dioxide Level 21 mmol/L (21-32) Anion Gap 13 (6-14) Blood Urea Nitrogen 49 mg/dL (8-26) Creatinine 1.2 mg/dL (0.7-1.3) Estimated GFR (Cockcroft-Gault) 62.9 BUN/Creatinine Ratio 41 (6-20) Glucose Level 200 mg/dL (70-99) Hemoglobin A1c 7.6 % (4.8-5.6) Calcium Level 8.6 mg/dL (8.5-10.1) Total Bilirubin 0.2 mg/dL (0.2-1.0) Aspartate Amino Transf (AST/SGOT) 38 U/L (15-37) Alanine Aminotransferase (ALT/SGPT) 28 U/L (16-63) Alkaline Phosphatase 51 U/L (46-116) Total Protein 6.0 g/dL (6.4-8.2) Albumin 2.2 g/dL (3.4-5.0) Albumin/Globulin Ratio 0.6 (1.0-1.7) Test 10/23/20 02:33 10/23/20 04:13 10/23/20 05:40 10/23/20 06:28 Glucose (Fingerstick) 153 mg/dL (70-99) 149 mg/dL (70-99) 121 mg/dL (70-99) 125 mg/dL (70-99) Test 10/23/20 07:58 10/23/20 08:00 10/23/20 08:42 10/23/20 11:57 Glucose (Fingerstick) 135 mg/dL (70-99) 127 mg/dL (70-99) 201 mg/dL (70-99) O2 Saturation 98 % (92-99) Arterial Blood pH 7.43 (7.35-7.45) Arterial Blood pCO2 at Patient Temp 33 mmHg (35-46) Arterial Blood pO2 at Patient Temp 133 mmHg (75-108) Arterial Blood HCO3 21 mmol/L (21-28) Arterial Blood Base Excess -3 mmol/L (-3-3) FiO2 85% vent + 12 peep Test 10/23/20 17:57 10/23/20 23:29 10/24/20 04:45 10/24/20 09:20 Glucose (Fingerstick) 261 mg/dL (70-99) 298 mg/dL (70-99) White Blood Count 6.5 x10^3/uL (4.0-11.0) Red Blood Count 3.77 x10^6/uL (4.30-5.70) Hemoglobin 11.2 g/dL (13.0-17.5) Hematocrit 33.7 % (39.0-53.0) Mean Corpuscular Volume 89 fL (79-100) Mean Corpuscular Hemoglobin 30 pg (25-35) Mean Corpuscular Hemoglobin Concent 33 g/dL (31-37) Red Cell Distribution Width 14.9 % (11.5-14.5) Platelet Count 155 x10^3/uL (140-400) Neutrophils (%) (Auto) 83 % (31-73) Lymphocytes (%) (Auto) 8 % (24-48) Monocytes (%) (Auto) 9 % (0-9) Eosinophils (%) (Auto) 0 % (0-3) Basophils (%) (Auto) 1 % (0-3) Neutrophils # (Auto) 5.3 x10^3/uL (1.8-7.7) Lymphocytes # (Auto) 0.5 x10^3/uL (1.0-4.8) Monocytes # (Auto) 0.6 x10^3/uL (0.0-1.1) Eosinophils # (Auto) 0.0 x10^3/uL (0.0-0.7) Basophils # (Auto) 0.0 x10^3/uL (0.0-0.2) Heparin Anti-Xa Act, Unfractionated > 1.10 IU/mL (0.30-0.70) Sodium Level 143 mmol/L (136-145) Potassium Level 5.0 mmol/L (3.5-5.1) Chloride Level 111 mmol/L (98-107) Carbon Dioxide Level 24 mmol/L (21-32) Anion Gap 8 (6-14) Blood Urea Nitrogen 51 mg/dL (8-26) Creatinine 1.2 mg/dL (0.7-1.3) Estimated GFR (Cockcroft-Gault) 62.9 BUN/Creatinine Ratio 43 (6-20) Glucose Level 303 mg/dL (70-99) Calcium Level 8.3 mg/dL (8.5-10.1) Total Bilirubin 0.4 mg/dL (0.2-1.0) Aspartate Amino Transf (AST/SGOT) 33 U/L (15-37) Alanine Aminotransferase (ALT/SGPT) 31 U/L (16-63) Alkaline Phosphatase 51 U/L (46-116) Total Protein 5.7 g/dL (6.4-8.2) Albumin 2.2 g/dL (3.4-5.0) Albumin/Globulin Ratio 0.6 (1.0-1.7) O2 Saturation 98 % (92-99) Arterial Blood pH 7.39 (7.35-7.45) Arterial Blood pCO2 at Patient Temp 33 mmHg (35-46) Arterial Blood pO2 at Patient Temp 111 mmHg (75-108) Arterial Blood HCO3 20 mmol/L (21-28) Arterial Blood Base Excess -5 mmol/L (-3-3) FiO2 70 Laboratory Tests Test 10/23/20 11:57 10/23/20 17:57 10/23/20 23:29 10/24/20 04:45 Glucose (Fingerstick) 201 mg/dL (70-99) 261 mg/dL (70-99) 298 mg/dL (70-99) White Blood Count 6.5 x10^3/uL (4.0-11.0) Red Blood Count 3.77 x10^6/uL (4.30-5.70) Hemoglobin 11.2 g/dL (13.0-17.5) Hematocrit 33.7 % (39.0-53.0) Mean Corpuscular Volume 89 fL (79-100) Mean Corpuscular Hemoglobin 30 pg (25-35) Mean Corpuscular Hemoglobin Concent 33 g/dL (31-37) Red Cell Distribution Width 14.9 % (11.5-14.5) Platelet Count 155 x10^3/uL (140-400) Neutrophils (%) (Auto) 83 % (31-73) Lymphocytes (%) (Auto) 8 % (24-48) Monocytes (%) (Auto) 9 % (0-9) Eosinophils (%) (Auto) 0 % (0-3) Basophils (%) (Auto) 1 % (0-3) Neutrophils # (Auto) 5.3 x10^3/uL (1.8-7.7) Lymphocytes # (Auto) 0.5 x10^3/uL (1.0-4.8) Monocytes # (Auto) 0.6 x10^3/uL (0.0-1.1) Eosinophils # (Auto) 0.0 x10^3/uL (0.0-0.7) Basophils # (Auto) 0.0 x10^3/uL (0.0-0.2) Heparin Anti-Xa Act, Unfractionated > 1.10 IU/mL (0.30-0.70) Sodium Level 143 mmol/L (136-145) Potassium Level 5.0 mmol/L (3.5-5.1) Chloride Level 111 mmol/L (98-107) Carbon Dioxide Level 24 mmol/L (21-32) Anion Gap 8 (6-14) Blood Urea Nitrogen 51 mg/dL (8-26) Creatinine 1.2 mg/dL (0.7-1.3) Estimated GFR (Cockcroft-Gault) 62.9 BUN/Creatinine Ratio 43 (6-20) Glucose Level 303 mg/dL (70-99) Calcium Level 8.3 mg/dL (8.5-10.1) Total Bilirubin 0.4 mg/dL (0.2-1.0) Aspartate Amino Transf (AST/SGOT) 33 U/L (15-37) Alanine Aminotransferase (ALT/SGPT) 31 U/L (16-63) Alkaline Phosphatase 51 U/L (46-116) Total Protein 5.7 g/dL (6.4-8.2) Albumin 2.2 g/dL (3.4-5.0) Albumin/Globulin Ratio 0.6 (1.0-1.7) Test 10/24/20 09:20 O2 Saturation 98 % (92-99) Arterial Blood pH 7.39 (7.35-7.45) Arterial Blood pCO2 at Patient Temp 33 mmHg (35-46) Arterial Blood pO2 at Patient Temp 111 mmHg (75-108) Arterial Blood HCO3 20 mmol/L (21-28) Arterial Blood Base Excess -5 mmol/L (-3-3) FiO2 70 Comments CXR Impression: 1. Support device positioning, as above, to include a right-sided PICC tip within the SVC. 2. Improved appearance of the chest with less confluent right and left airspace opacities. Impression . IMPRESSION: 1. Acute hypoxemic respiratory failure secondary to COVID-19 viral pneumonia. 2. COVID-19 viral pneumonia/sepsis. 3. Abnormal x-ray compatible with SARS-CoV-2 infection. 4. Acute kidney injury. 5. Severe hypoxemia, elevated D-dimer, possible thromboembolic disease. 6. Morbid obesity. 7. Protein malnutrition, present upon admission. 8. Elevated troponin. Plan . PLAN: Continue current ventilatory support, FiO2 70% and a PEEP of 12 Follow ABG/chest x-ray, reduce FiO2 to 60% and PEEP to 10 today, COVID-19 positive Continue remdesivir for full 5-day course Continue steroids patient will need a full 10-day course, taper slowly Continue heparin drip for presumptive diagnosis of PE as the patient is still too ill to complete a CTA Continue tube feeding for nutritional support DVT/GI prophylaxis Discussed with RN and RT Critical care time [id number] ASIA MOTTA MD Oct 24, 2020 09:56
[2020-10-24] MEDS: ANTI-COAG MONITOR BY PHARMACY. MC PRN ×2 (10:39→10:41)
--- NOTE | 2020-10-24 11:53 | PDOC ---
PROGRESS NOTES Date of Service: DATE: 10/24/20 TIME: 11:50 Chief Complaint Chief Complaint sepsis, Acute hypoxemic respiratory failure secondary to COVID-19 viral pneumonia. acute renal failure, vasomotor nephropathy and sepsis, ATN Dm2, with hyperglycemia, poor control, obese, BMI 36 with concomittant Protein malnutrition, present upon admission. History of Present Illness History of Present Illness intubated and sedated changed insulin dose, larger dose lantus, tube feeds and on IV steroids, Vitals Vitals Vital Signs Date Time Temp Pulse Resp B/P (MAP) Pulse Ox O2 Delivery O2 Flow Rate FiO2 10/24/20 11:00 44 30 119/62 (81) 98 Ventilator 10/24/20 09:47 40.0 10/24/20 08:00 99.5 99.5 Physical Exam Physical Exam intubated, sedated on vent, Heart: Regular rate Lungs: Wheezing Abdomen: Normal bowel sounds, Soft Extremities: No clubbing Skin: No rashes Labs LABS Laboratory Tests Test 10/23/20 11:57 10/23/20 17:57 10/23/20 23:29 10/24/20 04:45 Glucose (Fingerstick) 201 mg/dL (70-99) 261 mg/dL (70-99) 298 mg/dL (70-99) White Blood Count 6.5 x10^3/uL (4.0-11.0) Red Blood Count 3.77 x10^6/uL (4.30-5.70) Hemoglobin 11.2 g/dL (13.0-17.5) Hematocrit 33.7 % (39.0-53.0) Mean Corpuscular Volume 89 fL (79-100) Mean Corpuscular Hemoglobin 30 pg (25-35) Mean Corpuscular Hemoglobin Concent 33 g/dL (31-37) Red Cell Distribution Width 14.9 % (11.5-14.5) Platelet Count 155 x10^3/uL (140-400) Neutrophils (%) (Auto) 83 % (31-73) Lymphocytes (%) (Auto) 8 % (24-48) Monocytes (%) (Auto) 9 % (0-9) Eosinophils (%) (Auto) 0 % (0-3) Basophils (%) (Auto) 1 % (0-3) Neutrophils # (Auto) 5.3 x10^3/uL (1.8-7.7) Lymphocytes # (Auto) 0.5 x10^3/uL (1.0-4.8) Monocytes # (Auto) 0.6 x10^3/uL (0.0-1.1) Eosinophils # (Auto) 0.0 x10^3/uL (0.0-0.7) Basophils # (Auto) 0.0 x10^3/uL (0.0-0.2) Heparin Anti-Xa Act, Unfractionated > 1.10 IU/mL (0.30-0.70) Sodium Level 143 mmol/L (136-145) Potassium Level 5.0 mmol/L (3.5-5.1) Chloride Level 111 mmol/L (98-107) Carbon Dioxide Level 24 mmol/L (21-32) Anion Gap 8 (6-14) Blood Urea Nitrogen 51 mg/dL (8-26) Creatinine 1.2 mg/dL (0.7-1.3) Estimated GFR (Cockcroft-Gault) 62.9 BUN/Creatinine Ratio 43 (6-20) Glucose Level 303 mg/dL (70-99) Calcium Level 8.3 mg/dL (8.5-10.1) Total Bilirubin 0.4 mg/dL (0.2-1.0) Aspartate Amino Transf (AST/SGOT) 33 U/L (15-37) Alanine Aminotransferase (ALT/SGPT) 31 U/L (16-63) Alkaline Phosphatase 51 U/L (46-116) Total Protein 5.7 g/dL (6.4-8.2) Albumin 2.2 g/dL (3.4-5.0) Albumin/Globulin Ratio 0.6 (1.0-1.7) Test 10/24/20 09:20 O2 Saturation 98 % (92-99) Arterial Blood pH 7.39 (7.35-7.45) Arterial Blood pCO2 at Patient Temp 33 mmHg (35-46) Arterial Blood pO2 at Patient Temp 111 mmHg (75-108) Arterial Blood HCO3 20 mmol/L (21-28) Arterial Blood Base Excess -5 mmol/L (-3-3) FiO2 70 Review of Systems Review of Systems unable, intubated, Assessment and Plan Assessmemt and Plan Problems Medical Problems: (1) Hyperglycemia Status: Acute (2) Hypoxia Status: Acute (3) Pneumonia due to COVID-19 virus Status: Acute (4) Respiratory failure Status: Acute (5) Septic shock Status: Acute Comment Review of Relevant I have reviewed the following items andrew (where applicable) has been applied. Labs Laboratory Tests Test 10/22/20 12:10 10/22/20 15:54 10/22/20 17:45 10/22/20 18:43 Glucose (Fingerstick) 250 mg/dL (70-99) 347 mg/dL (70-99) 363 mg/dL (70-99) Heparin Anti-Xa Act, Unfractionated 0.35 IU/mL (0.30-0.70) Test 10/22/20 20:01 10/22/20 21:36 10/22/20 23:01 10/23/20 00:10 Glucose (Fingerstick) 319 mg/dL (70-99) 307 mg/dL (70-99) 255 mg/dL (70-99) 221 mg/dL (70-99) Test 10/23/20 00:25 10/23/20 01:19 10/23/20 02:00 10/23/20 02:33 Heparin Anti-Xa Act, Unfractionated 0.50 IU/mL (0.30-0.70) Glucose (Fingerstick) 213 mg/dL (70-99) 153 mg/dL (70-99) White Blood Count 5.2 x10^3/uL (4.0-11.0) Red Blood Count 3.96 x10^6/uL (4.30-5.70) Hemoglobin 11.7 g/dL (13.0-17.5) Hematocrit 35.4 % (39.0-53.0) Mean Corpuscular Volume 89 fL (79-100) Mean Corpuscular Hemoglobin 30 pg (25-35) Mean Corpuscular Hemoglobin Concent 33 g/dL (31-37) Red Cell Distribution Width 14.4 % (11.5-14.5) Platelet Count 151 x10^3/uL (140-400) Neutrophils (%) (Auto) 86 % (31-73) Lymphocytes (%) (Auto) 9 % (24-48) Monocytes (%) (Auto) 5 % (0-9) Eosinophils (%) (Auto) 0 % (0-3) Basophils (%) (Auto) 0 % (0-3) Neutrophils # (Auto) 4.5 x10^3/uL (1.8-7.7) Lymphocytes # (Auto) 0.5 x10^3/uL (1.0-4.8) Monocytes # (Auto) 0.3 x10^3/uL (0.0-1.1) Eosinophils # (Auto) 0.0 x10^3/uL (0.0-0.7) Basophils # (Auto) 0.0 x10^3/uL (0.0-0.2) Sodium Level 144 mmol/L (136-145) Potassium Level 4.5 mmol/L (3.5-5.1) Chloride Level 110 mmol/L (98-107) Carbon Dioxide Level 21 mmol/L (21-32) Anion Gap 13 (6-14) Blood Urea Nitrogen 49 mg/dL (8-26) Creatinine 1.2 mg/dL (0.7-1.3) Estimated GFR (Cockcroft-Gault) 62.9 BUN/Creatinine Ratio 41 (6-20) Glucose Level 200 mg/dL (70-99) Hemoglobin A1c 7.6 % (4.8-5.6) Calcium Level 8.6 mg/dL (8.5-10.1) Total Bilirubin 0.2 mg/dL (0.2-1.0) Aspartate Amino Transf (AST/SGOT) 38 U/L (15-37) Alanine Aminotransferase (ALT/SGPT) 28 U/L (16-63) Alkaline Phosphatase 51 U/L (46-116) Total Protein 6.0 g/dL (6.4-8.2) Albumin 2.2 g/dL (3.4-5.0) Albumin/Globulin Ratio 0.6 (1.0-1.7) Test 10/23/20 04:13 10/23/20 05:40 10/23/20 06:28 10/23/20 07:58 Glucose (Fingerstick) 149 mg/dL (70-99) 121 mg/dL (70-99) 125 mg/dL (70-99) 135 mg/dL (70-99) Test 10/23/20 08:00 10/23/20 08:42 10/23/20 11:57 10/23/20 17:57 O2 Saturation 98 % (92-99) Arterial Blood pH 7.43 (7.35-7.45) Arterial Blood pCO2 at Patient Temp 33 mmHg (35-46) Arterial Blood pO2 at Patient Temp 133 mmHg (75-108) Arterial Blood HCO3 21 mmol/L (21-28) Arterial Blood Base Excess -3 mmol/L (-3-3) FiO2 85% vent + 12 peep Glucose (Fingerstick) 127 mg/dL (70-99) 201 mg/dL (70-99) 261 mg/dL (70-99) Test 10/23/20 23:29 10/24/20 04:45 10/24/20 09:20 Glucose (Fingerstick) 298 mg/dL (70-99) White Blood Count 6.5 x10^3/uL (4.0-11.0) Red Blood Count 3.77 x10^6/uL (4.30-5.70) Hemoglobin 11.2 g/dL (13.0-17.5) Hematocrit 33.7 % (39.0-53.0) Mean Corpuscular Volume 89 fL (79-100) Mean Corpuscular Hemoglobin 30 pg (25-35) Mean Corpuscular Hemoglobin Concent 33 g/dL (31-37) Red Cell Distribution Width 14.9 % (11.5-14.5) Platelet Count 155 x10^3/uL (140-400) Neutrophils (%) (Auto) 83 % (31-73) Lymphocytes (%) (Auto) 8 % (24-48) Monocytes (%) (Auto) 9 % (0-9) Eosinophils (%) (Auto) 0 % (0-3) Basophils (%) (Auto) 1 % (0-3) Neutrophils # (Auto) 5.3 x10^3/uL (1.8-7.7) Lymphocytes # (Auto) 0.5 x10^3/uL (1.0-4.8) Monocytes # (Auto) 0.6 x10^3/uL (0.0-1.1) Eosinophils # (Auto) 0.0 x10^3/uL (0.0-0.7) Basophils # (Auto) 0.0 x10^3/uL (0.0-0.2) Heparin Anti-Xa Act, Unfractionated > 1.10 IU/mL (0.30-0.70) Sodium Level 143 mmol/L (136-145) Potassium Level 5.0 mmol/L (3.5-5.1) Chloride Level 111 mmol/L (98-107) Carbon Dioxide Level 24 mmol/L (21-32) Anion Gap 8 (6-14) Blood Urea Nitrogen 51 mg/dL (8-26) Creatinine 1.2 mg/dL (0.7-1.3) Estimated GFR (Cockcroft-Gault) 62.9 BUN/Creatinine Ratio 43 (6-20) Glucose Level 303 mg/dL (70-99) Calcium Level 8.3 mg/dL (8.5-10.1) Total Bilirubin 0.4 mg/dL (0.2-1.0) Aspartate Amino Transf (AST/SGOT) 33 U/L (15-37) Alanine Aminotransferase (ALT/SGPT) 31 U/L (16-63) Alkaline Phosphatase 51 U/L (46-116) Total Protein 5.7 g/dL (6.4-8.2) Albumin 2.2 g/dL (3.4-5.0) Albumin/Globulin Ratio 0.6 (1.0-1.7) O2 Saturation 98 % (92-99) Arterial Blood pH 7.39 (7.35-7.45) Arterial Blood pCO2 at Patient Temp 33 mmHg (35-46) Arterial Blood pO2 at Patient Temp 111 mmHg (75-108) Arterial Blood HCO3 20 mmol/L (21-28) Arterial Blood Base Excess -5 mmol/L (-3-3) FiO2 70 Laboratory Tests Test 10/23/20 11:57 10/23/20 17:57 10/23/20 23:29 10/24/20 04:45 Glucose (Fingerstick) 201 mg/dL (70-99) 261 mg/dL (70-99) 298 mg/dL (70-99) White Blood Count 6.5 x10^3/uL (4.0-11.0) Red Blood Count 3.77 x10^6/uL (4.30-5.70) Hemoglobin 11.2 g/dL (13.0-17.5) Hematocrit 33.7 % (39.0-53.0) Mean Corpuscular Volume 89 fL (79-100) Mean Corpuscular Hemoglobin 30 pg (25-35) Mean Corpuscular Hemoglobin Concent 33 g/dL (31-37) Red Cell Distribution Width 14.9 % (11.5-14.5) Platelet Count 155 x10^3/uL (140-400) Neutrophils (%) (Auto) 83 % (31-73) Lymphocytes (%) (Auto) 8 % (24-48) Monocytes (%) (Auto) 9 % (0-9) Eosinophils (%) (Auto) 0 % (0-3) Basophils (%) (Auto) 1 % (0-3) Neutrophils # (Auto) 5.3 x10^3/uL (1.8-7.7) Lymphocytes # (Auto) 0.5 x10^3/uL (1.0-4.8) Monocytes # (Auto) 0.6 x10^3/uL (0.0-1.1) Eosinophils # (Auto) 0.0 x10^3/uL (0.0-0.7) Basophils # (Auto) 0.0 x10^3/uL (0.0-0.2) Heparin Anti-Xa Act, Unfractionated > 1.10 IU/mL (0.30-0.70) Sodium Level 143 mmol/L (136-145) Potassium Level 5.0 mmol/L (3.5-5.1) Chloride Level 111 mmol/L (98-107) Carbon Dioxide Level 24 mmol/L (21-32) Anion Gap 8 (6-14) Blood Urea Nitrogen 51 mg/dL (8-26) Creatinine 1.2 mg/dL (0.7-1.3) Estimated GFR (Cockcroft-Gault) 62.9 BUN/Creatinine Ratio 43 (6-20) Glucose Level 303 mg/dL (70-99) Calcium Level 8.3 mg/dL (8.5-10.1) Total Bilirubin 0.4 mg/dL (0.2-1.0) Aspartate Amino Transf (AST/SGOT) 33 U/L (15-37) Alanine Aminotransferase (ALT/SGPT) 31 U/L (16-63) Alkaline Phosphatase 51 U/L (46-116) Total Protein 5.7 g/dL (6.4-8.2) Albumin 2.2 g/dL (3.4-5.0) Albumin/Globulin Ratio 0.6 (1.0-1.7) Test 10/24/20 09:20 O2 Saturation 98 % (92-99) Arterial Blood pH 7.39 (7.35-7.45) Arterial Blood pCO2 at Patient Temp 33 mmHg (35-46) Arterial Blood pO2 at Patient Temp 111 mmHg (75-108) Arterial Blood HCO3 20 mmol/L (21-28) Arterial Blood Base Excess -5 mmol/L (-3-3) FiO2 70 Microbiology 10/21/20 Blood Culture - Preliminary, Resulted NO GROWTH AFTER 3 DAYS Medications Current Medications Sodium Chloride 1,000 ml @ 1,000 mls/hr Q1H IV Last administered on 10/21/20at 09:31; Start 10/21/20 at 08:45; Stop 10/21/20 at 09:44; Status DC Dexamethasone Sodium Phosphate (Decadron) 10 mg 1X ONCE IVP Last administered on 10/21/20at 09:32; Start 10/21/20 at 08:45; Stop 10/21/20 at 09:11; Status DC Piperacillin Sod/ Tazobactam Sod 4.5 gm/Sodium Chloride 100 ml @ 200 mls/hr 1X ONCE IV Last administered on 10/21/20at 11:18; Start 10/21/20 at 10:30; Stop 10/21/20 at 10:59; Status DC Azithromycin 250 ml @ 250 mls/hr 1X ONCE IV Last administered on 10/21/20at 11:18; Start 10/21/20 at 10:30; Stop 10/21/20 at 11:29; Status DC Aspirin (Ecotrin) 325 mg 1X ONCE PO Last administered on 10/21/20at 11:17; Start 10/21/20 at 10:30; Stop 10/21/20 at 10:31; Status DC Insulin Human Regular (HumuLIN R VIAL) 14 unit 1X ONCE SQ Last administered on 10/21/20at 11:28; Start 10/21/20 at 10:30; Stop 10/21/20 at 10:31; Status DC Sodium Chloride 1,000 ml @ 1,000 mls/hr 1X ONCE IV Last administered on 10/21/20at 11:18; Start 10/21/20 at 10:30; Stop 10/21/20 at 11:29; Status DC Iohexol (Omnipaque 350 Mg/ml) 90 ml 1X ONCE IV ; Start 10/21/20 at 10:45; Stop 10/21/20 at 10:46; Status DC Info (CONTRAST GIVEN -- Rx MONITORING) 1 each PRN DAILY PRN MC SEE COMMENTS; Start 10/21/20 at 10:45; Stop 10/23/20 at 10:44; Status DC Acetaminophen (Tylenol) 500 mg 1X ONCE PO Last administered on 10/21/20at 11:30; Start 10/21/20 at 11:15; Stop 10/21/20 at 11:16; Status DC Lorazepam (Ativan Inj) 0.5 mg 1X ONCE IVP Last administered on 10/21/20at 11:20; Start 10/21/20 at 11:15; Stop 10/21/20 at 11:16; Status DC Ondansetron HCl (Zofran) 4 mg PRN Q8HRS PRN IV NAUSEA/VOMITING; Start 10/21/20 at 11:30; Stop 10/21/20 at 13:29; Status DC Fentanyl Citrate (Fentanyl 2ml Vial) 50 mcg PRN Q2HR PRN IV PAIN; Start 10/21/20 at 11:30; Stop 10/22/20 at 06:16; Status DC Sodium Chloride 1,000 ml @ 100 mls/hr Q10H IV Last administered on 10/22/20at 13:36; Start 10/21/20 at 11:30; Stop 10/22/20 at 11:29; Status DC Acetaminophen (Tylenol) 650 mg PRN Q4HRS PRN PO FEVER > 100.3'F; Start 10/21/20 at 11:30; Stop 10/22/20 at 06:17; Status DC Sennosides (Senna) 17.2 mg PRN BID PRN PO CONSTIPATION; Start 10/21/20 at 12:00 Docusate Sodium (Colace) 100 mg PRN DAILY PRN PO HARD STOOLS; Start 10/21/20 at 12:00 Ondansetron HCl (Zofran) 4 mg PRN Q6HRS PRN IVP NAUSEA/VOMITING; Start 10/21/20 at 12:00 Insulin Human Lispro (HumaLOG) 0-9 UNITS TIDWMEALS SQ Last administered on 10/21/20at 18:15; Start 10/21/20 at 12:00; Stop 10/21/20 at 22:22; Status DC Dextrose (Dextrose 50%-Water Syringe) 12.5 gm PRN Q15MIN PRN IV SEE COMMENTS; Start 10/21/20 at 12:00; Stop 10/22/20 at 09:30; Status DC Acetaminophen (Tylenol) 650 mg PRN Q4HRS PRN PO TEMP OVER 100.4F OR MILD PAIN Last administered on 10/23/20at 08:33; Start 10/21/20 at 12:00 Enoxaparin Sodium (Lovenox 40mg Syringe) 40 mg Q24H SQ ; Start 10/21/20 at 13:00; Status Cancel Ascorbic Acid (Vitamin C) 3,000 mg TID PO Last administered on 10/22/20at 21:28; Start 10/21/20 at 14:00; Stop 10/23/20 at 08:20; Status DC Thiamine HCl 100 mg/Dextrose 51 ml @ 102 mls/hr Q8HRS IV Last administered on 10/24/20at 06:08; Start 10/21/20 at 14:00 Dexamethasone Sodium Phosphate (Decadron) 4 mg Q12HR IVP Last administered on 10/24/20at 08:07; Start 10/21/20 at 21:00 Lorazepam (Ativan Inj) 0.5 mg 1X ONCE IVP Last administered on 10/21/20at 11:59; Start 10/21/20 at 12:00; Stop 10/21/20 at 12:15; Status DC Propofol 100 ml @ As Directed STK-MED ONCE IV ; Start 10/21/20 at 12:47; Stop 10/21/20 at 12:47; Status DC Etomidate (Amidate) 20 mg 1X ONCE IV ; Start 10/21/20 at 13:00; Stop 10/21/20 a t 13:05; Status DC Rocuronium Normal (Zemuron) 50 mg 1X ONCE IV ; Start 10/21/20 at 13:00; Stop 10/21/20 at 13:05; Status DC Propofol 100 ml @ 0 mls/hr CONT PRN IV PER PROTOCOL; Start 10/21/20 at 13:00 Chlorhexidine Gluconate (Peridex) 15 ml BID MM Last administered on 10/22/20at 21:28; Start 10/21/20 at 21:00; Stop 10/23/20 at 08:12; Status DC Fentanyl Citrate 30 ml @ 0 mls/hr CONT PRN IV SEE PROTOCOL Last administered on 10/22/20at 00:28; Start 10/21/20 at 13:15; Stop 10/22/20 at 06:16; Status DC Midazolam HCl 100 ml @ 0 mls/hr CONT PRN IV SEE PROTOCOL Last administered on 10/23/20at 22:29; Start 10/21/20 at 13:15 Lorazepam (Ativan Inj) 2 mg 1X ONCE IVP Last administered on 10/21/20at 13:31; Start 10/21/20 at 13:15; Stop 10/21/20 at 13:17; Status DC Fentanyl Citrate (Fentanyl 2ml Vial) 100 mcg 1X ONCE IVP Last administered on 10/21/20at 13:32; Start 10/21/20 at 13:15; Stop 10/21/20 at 13:17; Status DC Heparin Sodium/ Dextrose 250 ml @ 16 mls/hr CONT PRN IV PER PROTOCOL Last administered on 10/23/20at 18:07; Start 10/21/20 at 13:30 Heparin Sodium (Porcine) (Heparin Sodium) 3,000 unit PRN Q6HRS PRN IV FOR UFH LEVEL LESS THAN 0.2; Start 10/21/20 at 13:30 Heparin Sodium (Porcine) (Heparin Sodium) 1,500 unit PRN Q6HRS PRN IV FOR UFH LEVEL 0.2 - 0.29; Start 10/21/20 at 13:30 Remdesivir 200 mg/ Sodium Chloride 210 ml @ 210 mls/hr 1X ONCE IV Last administered on 10/21/20at 17:29; Start 10/21/20 at 15:00; Stop 10/21/20 at 15:59; Status DC Remdesivir 100 mg/ Sodium Chloride 230 ml @ 460 mls/hr Q24H IV Last administered on 10/23/20at 14:56; Start 10/22/20 at 15:00; Stop 10/25/20 at 15:29 Bumetanide (Bumex) 1 mg 1X ONCE IV ; Start 10/21/20 at 13:30; Stop 10/21/20 at 13:37; Status DC Vecuronium Normal (Norcuron Bolus) 10 mg 1X ONCE IV Last administered on 10/21/20at 13:45; Start 10/21/20 at 13:45; Stop 10/21/20 at 13:46; Status DC Vecuronium Normal (Norcuron Bolus) 6 mg PRN Q4HRS ONCE IV Last administered on 10/21/20at 15:19; Start 10/21/20 at 14:15; Stop 10/21/20 at 14:16; Status DC Famotidine (Pepcid Vial) 20 mg BID IVP Last administered on 10/24/20at 08:07; Start 10/21/20 at 21:00 Rocuronium Normal (Zemuron) 50 mg STK-MED ONCE .ROUTE ; Start 10/21/20 at 18:59; Stop 10/21/20 at 18:59; Status DC Etomidate (Amidate) 20 mg STK-MED ONCE IV ; Start 10/21/20 at 18:59; Stop 10/21/20 at 19:00; Status DC Insulin Human Lispro (HumaLOG) 0-9 UNITS Q6HRS SQ Last administered on 10/07 03/27at 06:01; Start 10/22/20 at 00:00; Stop 10/22/20 at 09:52; Status DC Fentanyl Citrate 55 ml @ 0 mls/hr CONT PRN PRN IV PAIN CONTROL Last administered on 10/24/20at 09:16; Start 10/22/20 at 06:30 Insulin Human Regular 100 unit/ Sodium Chloride 101 ml @ 0 mls/hr CONT PRN IV SEE I/O RECORD; Start 10/22/20 at 09:15; Stop 10/22/20 at 09:49; Status DC Dextrose (Dextrose 50%-Water Syringe) 12.5 gm PRN Q15MIN PRN IV LOW BLOOD SUGAR; Start 10/22/20 at 09:15; Stop 10/22/20 at 09:49; Status DC Insulin Human Lispro (HumaLOG) 0-9 UNITS TIDWMEALS SQ Last administered on 10/22/20at 12:14; Start 10/22/20 at 12:00; Stop 10/22/20 at 19:52; Status DC Dextrose (Dextrose 50%-Water Syringe) 12.5 gm PRN Q15MIN PRN IV SEE COMMENTS; Start 10/22/20 at 09:45 Insulin Glargine (Lantus Syringe) 10 unit 1X ONCE SQ Last administered on 10/22/20at 11:01; Start 10/22/20 at 10:30; Stop 10/22/20 at 10:31; Status DC Insulin Human Regular 100 unit/ Sodium Chloride 101 ml @ 0 mls/hr CONT PRN IV SEE I/O RECORD Last administered on 10/23/20at 02:14; Start 10/22/20 at 18:30 Insulin Human Lispro (HumaLOG) 0-9 UNITS Q6H SQ ; Start 10/23/20 at 00:00; Stop 10/23/20 at 09:42; Status DC Ascorbic Acid (Vitamin C) 3,000 mg TID PO Last administered on 10/24/20at 08:07; Start 10/23/20 at 09:00 Insulin Human Lispro (HumaLOG) 0-9 UNITS Q6HRS SQ Last administered on 10/24/20at 06:08; Start 10/23/20 at 12:00 Info (Anti-Coagulation Monitoring By Pharmacy) 1 each PRN DAILY PRN MC SEE COMMENTS Last administered on 10/24/20at 10:41; Start 10/24/20 at 07:45 Vitals/I & O Vital Sign - Last 24 Hours 10/23/20 10/23/20 10/23/20 10/23/20 12:00 12:00 12:31 13:00 Temp 99.9 99.9 Pulse 51 53 Resp 31 29 B/P (MAP) 113/56 (75) 111/51 (71) Pulse Ox 98 98 98 O2 Delivery Ventilator Mechanical Ventilator Ventilator Ventilator 10/23/20 10/23/20 10/23/20 10/23/20 14:00 15:00 16:00 16:00 Temp 99.2 99.2 Pulse 52 48 48 Resp 29 30 29 B/P (MAP) 107/58 (74) 110/62 (78) 112/62 (79) Pulse Ox 95 98 98 O2 Delivery Ventilator Ventilator Ventilator Mechanical Ventilator 10/23/20 10/23/20 10/23/20 10/23/20 16:25 17:00 18:00 19:00 Pulse 46 46 46 Resp 30 29 29 B/P (MAP) 113/61 (78) 114/46 (68) 112/60 (77) Pulse Ox 98 98 97 97 O2 Delivery Ventilator Ventilator Ventilator Ventilator 10/23/20 10/23/20 10/23/20 10/23/20 20:00 20:00 21:00 21:27 Temp 99.1 99.1 Pulse 46 46 Resp 29 29 B/P (MAP) 108/56 (73) 114/54 (74) Pulse Ox 98 97 98 O2 Delivery Ventilator Mechanical Ventilator Ventilator Ventilator 10/23/20 10/23/20 10/24/20 10/24/20 22:00 23:00 00:00 00:05 Temp 99.3 99.3 Pulse 47 48 48 Resp 29 29 29 B/P (MAP) 108/57 (74) 110/58 (75) 116/56 (76) Pulse Ox 97 97 97 O2 Delivery Ventilator Ventilator Ventilator Mechanical Ventilator 10/24/20 10/24/20 10/24/20 10/24/20 00:40 01:00 02:00 03:00 Pulse 50 48 47 Resp 30 30 30 B/P (MAP) 116/61 (79) 116/61 (79) 118/62 (80) Pulse Ox 98 97 97 97 O2 Delivery Ventilator Ventilator Ventilator Ventilator 10/24/20 10/24/20 10/24/20 10/24/20 04:00 04:00 05:00 05:08 Temp 100.4 100.4 Pulse 42 42 Resp 30 30 B/P (MAP) 114/65 (81) 119/62 (81) Pulse Ox 98 98 98 O2 Delivery Mechanical Ventilator Ventilator Ventilator Ventilator 10/24/20 10/24/20 10/24/20 10/24/20 06:00 07:00 08:00 08:00 Temp 99.5 99.5 Pulse 40 40 40 Resp 30 30 24 B/P (MAP) 120/61 (80) 119/64 (82) 119/66 (83) Pulse Ox 97 96 98 O2 Delivery Ventilator Ventilator Mechanical Ventilator Ventilator 10/24/20 10/24/20 10/24/20 10/24/20 09:00 09:15 09:47 10:00 Pulse 45 46 Resp 30 29 B/P (MAP) 109/55 (73) 115/53 (73) Pulse Ox 99 99 99 97 O2 Delivery Ventilator Ventilator Ventilator O2 Flow Rate 40.0 10/24/20 10/24/20 10:54 11:00 Pulse 44 Resp 30 B/P (MAP) 119/62 (81) Pulse Ox 97 98 O2 Delivery Ventilator Ventilator Intake and Output 10/23/20 10/23/20 10/24/20 15:00 23:00 07:00 Intake Total 51 ml 808.22 ml 1031 ml Output Total 525 ml 825 ml 475 ml Balance -474 ml -16.78 ml 556 ml Justicifation of Admission Dx: Justifications for Admission: Justification of Admission Dx: Yes (sepsis, covid, resp failure) KAHLIL ALMAZAN MD Oct 24, 2020 11:53
[2020-10-24] MEDS: HEPARIN 25,000UTS/250ML PREMIX 250 ML IV PRN (12:09)
[2020-10-24] MEDS: MIDAZOLAM 100mg/100ml NS BAG 100 ML IV PRN ×2 (12:09→22:00)
[2020-10-24] MEDS: INSULIN GLARGINE SYRINGE. SQ SCH (12:09)
[2020-10-24] MEDS: REMDESIVIR 100mg in NORMAL SALINE 250ML X 4 DAYS IV SCH (15:27)
--- NOTE | 2020-10-24 16:23 | NUR ---
SS following for discharge planning. SS reviewed pt chart and discussed with pt RN. Pt is currently on the vent at 60%. COVID19 positive. Pt on IV Remdesivir. Pt's spouse requesting to meet with SS tomorrow at 1300 to discuss discharge planning and home situation. SS will continue to follow for discharge planning.
[2020-10-25] VITALS (24 sets, daily range): BP systolic 119–142; BP diastolic 55–68
--- NOTE | 2020-10-25 03:52 | RAD ---
EXAMINATION: US BILATERAL LOWEREXTREMITY VENOUS DOPPLER, 10/24/2020 11:51 PM CLINICAL INDICATION: Swelling, Covid positive. COMPARISON: None Available. PROCEDURE: Multiple grayscale, color Doppler and spectral Doppler sonographic images of the bilateral lower extremities were obtained. FINDINGS: There is no evidence of deep venous thrombosis in either lower extremity. The bilateral com mon femoral, femoral and popliteal veins are echolucent with normal flow on color Doppler imaging. Th e veins are fully compressible and show normal phasicity and reaction to augmentation. Visualized eddie f veins are also normal in appearance. IMPRESSION: No evidence of deep venous thrombosis in either lower extremity. Electronically signed by: Elsy Murray MD (10/25/2020 3:50 AM) [id number]
[2020-10-25] MEDS: ACETAMINOPHEN 325 MG TABLET. PO PRN (05:36)
[2020-10-25] MEDS: THIAMINE INJ 100 MG in IV DEXTROSE 5% 50 ML IV SCH ×3 (05:36→22:32)
[2020-10-25] MEDS ORDERED: INSULIN LISPRO 300 UNITS/3 ML VIAL. SQ ONE ×2 (05:45→15:15)
[2020-10-25] MEDS: INSULIN LISPRO 300 UNITS/3 ML VIAL. SQ SCH ×3 (05:46→18:04)
[2020-10-25 06:01] LABS: RED BLOOD COUNT 3.78 x10^6/uL (4.30-5.70); RED CELL DISTRIBUTION WIDTH 14.7 % (11.5-14.5); WHITE BLOOD COUNT 5.6 x10^3/uL (4.0-11.0)
[2020-10-25] MEDS: ASCORBIC ACID 1,000 MG TABLET PO SCH ×3 (08:51→22:32)
[2020-10-25] MEDS: FAMOTIDINE 20 MG/2 ML VIAL IVP SCH ×2 (08:51→22:32)
[2020-10-25] MEDS: DEXAMETHASONE SOD PHOS 4 MG/ML VIAL IVP SCH ×2 (08:51→22:32)
[2020-10-25 08:57] LABS: BASE EXCESS ABG -1 mmol/L (-3-3); HCO3 ABG 22 mmol/L (21-28); PCO2 ABG 29 mmHg (35-46); PO2 ABG 101 mmHg (75-108); SAT O2 ABG 97 % (92-99)
[2020-10-25 09:32] LABS: CALCIUM 8.2 mg/dL (8.5-10.1); CREATININE 1.2 mg/dL (0.7-1.3); GFR 62.9
[2020-10-25 09:40] LABS: BASO % 0 % (0-3); EOS % 0 % (0-3); HEMATOCRIT 33.8 % (39.0-53.0); HEMOGLOBIN 11.1 g/dL (13.0-17.5); LYMPH # 0.6 x10^3/uL (1.0-4.8); LYMPH % 11 % (24-48); MEAN CORPUSCULAR HEMOGLOBIN 30 pg (25-35); MEAN CORPUSCULAR HGB CONC 33 g/dL (31-37); MEAN CORPUSCULAR VOLUME 89 fL (79-100); MONO # 0.7 x10^3/uL (0.0-1.1); MONO % 13 % (0-9); NEUT # 4.3 x10^3/uL (1.8-7.7); NEUT % 76 % (31-73); PLATELET COUNT 164 x10^3/uL (140-400); RED BLOOD COUNT 3.78 x10^6/uL (4.30-5.70); RED CELL DISTRIBUTION WIDTH 14.7 % (11.5-14.5); WHITE BLOOD COUNT 5.6 x10^3/uL (4.0-11.0)
--- NOTE | 2020-10-25 09:47 | PDOC ---
PULMONARY PROGRESS NOTES DATE: 10/25/20 TIME: 09:44 Subjective Ventilatory support, FiO2 60% and a PEEP of 10 Low-grade fever overnight Heparin drip No other overnight concerns Vitals Vital Signs Date Time Temp Pulse Resp B/P (MAP) Pulse Ox O2 Delivery O2 Flow Rate FiO2 10/25/20 09:00 40 26 128/64 (85) 100 Ventilator 10/25/20 08:00 100.1 100.1 10/24/20 09:47 40.0 Comments intubated sedated Bradycardia no accessory muscle use abd obese no rash Labs Laboratory Tests Test 10/23/20 11:57 10/23/20 17:57 10/23/20 23:29 10/24/20 04:45 Glucose (Fingerstick) 201 mg/dL (70-99) 261 mg/dL (70-99) 298 mg/dL (70-99) White Blood Count 6.5 x10^3/uL (4.0-11.0) Red Blood Count 3.77 x10^6/uL (4.30-5.70) Hemoglobin 11.2 g/dL (13.0-17.5) Hematocrit 33.7 % (39.0-53.0) Mean Corpuscular Volume 89 fL (79-100) Mean Corpuscular Hemoglobin 30 pg (25-35) Mean Corpuscular Hemoglobin Concent 33 g/dL (31-37) Red Cell Distribution Width 14.9 % (11.5-14.5) Platelet Count 155 x10^3/uL (140-400) Neutrophils (%) (Auto) 83 % (31-73) Lymphocytes (%) (Auto) 8 % (24-48) Monocytes (%) (Auto) 9 % (0-9) Eosinophils (%) (Auto) 0 % (0-3) Basophils (%) (Auto) 1 % (0-3) Neutrophils # (Auto) 5.3 x10^3/uL (1.8-7.7) Lymphocytes # (Auto) 0.5 x10^3/uL (1.0-4.8) Monocytes # (Auto) 0.6 x10^3/uL (0.0-1.1) Eosinophils # (Auto) 0.0 x10^3/uL (0.0-0.7) Basophils # (Auto) 0.0 x10^3/uL (0.0-0.2) Heparin Anti-Xa Act, Unfractionated > 1.10 IU/mL (0.30-0.70) Sodium Level 143 mmol/L (136-145) Potassium Level 5.0 mmol/L (3.5-5.1) Chloride Level 111 mmol/L (98-107) Carbon Dioxide Level 24 mmol/L (21-32) Anion Gap 8 (6-14) Blood Urea Nitrogen 51 mg/dL (8-26) Creatinine 1.2 mg/dL (0.7-1.3) Estimated GFR (Cockcroft-Gault) 62.9 BUN/Creatinine Ratio 43 (6-20) Glucose Level 303 mg/dL (70-99) Calcium Level 8.3 mg/dL (8.5-10.1) Total Bilirubin 0.4 mg/dL (0.2-1.0) Aspartate Amino Transf (AST/SGOT) 33 U/L (15-37) Alanine Aminotransferase (ALT/SGPT) 31 U/L (16-63) Alkaline Phosphatase 51 U/L (46-116) Total Protein 5.7 g/dL (6.4-8.2) Albumin 2.2 g/dL (3.4-5.0) Albumin/Globulin Ratio 0.6 (1.0-1.7) Test 10/24/20 09:20 10/24/20 12:04 10/24/20 12:15 10/24/20 17:58 O2 Saturation 98 % (92-99) Arterial Blood pH 7.39 (7.35-7.45) Arterial Blood pCO2 at Patient Temp 33 mmHg (35-46) Arterial Blood pO2 at Patient Temp 111 mmHg (75-108) Arterial Blood HCO3 20 mmol/L (21-28) Arterial Blood Base Excess -5 mmol/L (-3-3) FiO2 70 Glucose (Fingerstick) 295 mg/dL (70-99) 293 mg/dL (70-99) Heparin Anti-Xa Act, Unfractionated 0.82 IU/mL (0.30-0.70) Test 10/24/20 18:30 10/25/20 00:50 10/25/20 05:35 10/25/20 09:15 Heparin Anti-Xa Act, Unfractionated 0.53 IU/mL (0.30-0.70) 0.40 IU/mL (0.30-0.70) White Blood Count 5.6 x10^3/uL (4.0-11.0) Red Blood Count 3.78 x10^6/uL (4.30-5.70) Hemoglobin 11.0 g/dL (13.0-17.5) Hematocrit 34.0 % (39.0-53.0) Mean Corpuscular Volume 90 fL (79-100) Mean Corpuscular Hemoglobin 29 pg (25-35) Mean Corpuscular Hemoglobin Concent 32 g/dL (31-37) Red Cell Distribution Width 14.7 % (11.5-14.5) Platelet Count 158 x10^3/uL (140-400) Sodium Level 144 mmol/L (136-145) Potassium Level 5.0 mmol/L (3.5-5.1) Chloride Level 110 mmol/L (98-107) Carbon Dioxide Level 23 mmol/L (21-32) Anion Gap 11 (6-14) Blood Urea Nitrogen 44 mg/dL (8-26) Creatinine 1.2 mg/dL (0.7-1.3) Estimated GFR (Cockcroft-Gault) 62.9 Glucose Level 368 mg/dL (70-99) Calcium Level 8.2 mg/dL (8.5-10.1) Laboratory Tests Test 10/24/20 12:04 10/24/20 12:15 10/24/20 17:58 10/24/20 18:30 Glucose (Fingerstick) 295 mg/dL (70-99) 293 mg/dL (70-99) Heparin Anti-Xa Act, Unfractionated 0.82 IU/mL (0.30-0.70) 0.53 IU/mL (0.30-0.70) Test 10/25/20 00:50 10/25/20 05:35 10/25/20 09:15 Heparin Anti-Xa Act, Unfractionated 0.40 IU/mL (0.30-0.70) White Blood Count 5.6 x10^3/uL (4.0-11.0) Red Blood Count 3.78 x10^6/uL (4.30-5.70) Hemoglobin 11.0 g/dL (13.0-17.5) Hematocrit 34.0 % (39.0-53.0) Mean Corpuscular Volume 90 fL (79-100) Mean Corpuscular Hemoglobin 29 pg (25-35) Mean Corpuscular Hemoglobin Concent 32 g/dL (31-37) Red Cell Distribution Width 14.7 % (11.5-14.5) Platelet Count 158 x10^3/uL (140-400) Sodium Level 144 mmol/L (136-145) Potassium Level 5.0 mmol/L (3.5-5.1) Chloride Level 110 mmol/L (98-107) Carbon Dioxide Level 23 mmol/L (21-32) Anion Gap 11 (6-14) Blood Urea Nitrogen 44 mg/dL (8-26) Creatinine 1.2 mg/dL (0.7-1.3) Estimated GFR (Cockcroft-Gault) 62.9 Glucose Level 368 mg/dL (70-99) Calcium Level 8.2 mg/dL (8.5-10.1) Comments CXR Impression: 1. Support device positioning, as above, to include a right-sided PICC tip within the SVC. 2. Improved appearance of the chest with less confluent right and left airspace opacities. Impression . IMPRESSION: 1. Acute hypoxemic respiratory failure secondary to COVID-19 viral pneumonia. 2. COVID-19 viral pneumonia/sepsis. 3. Abnormal x-ray compatible with SARS-CoV-2 infection. 4. Acute kidney injury. 5. Severe hypoxemia, elevated D-dimer, possible thromboembolic disease. 6. Morbid obesity. 7. Protein malnutrition, present upon admission. 8. Elevated troponin. Plan . PLAN: Continue current ventilatory support, wean FiO2 50% and a PEEP of 8 Follow ABG/chest x-ray, COVID-19 positive Continue remdesivir for full 5-day course Continue steroids patient will need a full 10-day course, taper slowly Continue heparin drip for presumptive diagnosis of PE as the patient is still too ill to complete a CTA, clinically improving, dopplers with no DVT. will change to lovenox 40sc in am Continue tube feeding for nutritional support DVT/GI prophylaxis Discussed with RN and RT Critical care time [id number] GEO VALENZUELA MD Oct 25, 2020 09:47
[2020-10-25] MEDS: INSULIN GLARGINE SYRINGE. SQ SCH ×2 (11:29→22:33)
[2020-10-25] MEDS: MIDAZOLAM 100mg/100ml NS BAG 100 ML IV PRN ×2 (13:38→22:55)
[2020-10-25] MEDS: HEPARIN 25,000UTS/250ML PREMIX 250 ML IV PRN (14:00)
--- NOTE | 2020-10-25 14:27 | NUR ---
SS following up with discharge planning. SS reviewed pt chart and discussed with pt RN. Pt is currently on the vent at 60%. COVID19 positive. Pt on IV Remdesivir. Not stable. Pt's spouse did not come to hospital to meet with SS today. SS will continue to follow for discharge planning.
--- NOTE | 2020-10-25 14:27 | PDOC ---
PROGRESS NOTES Date of Service: DATE: 10/25/20 TIME: 14:26 Chief Complaint Chief Complaint sepsis, Acute hypoxemic respiratory failure secondary to COVID-19 viral pneumonia. acute renal failure, vasomotor nephropathy and sepsis, ATN Dm2, with hyperglycemia, poor control, obese, BMI 36 with concomittant Protein malnutrition, present upon admission. History of Present Illness History of Present Illness 10/25 cont current follow labs, intubated and sedated changed insulin dose, lantus started yesterday, will make 30 BID, on tube feeds and on IV steroids, Vitals Vitals Vital Signs Date Time Temp Pulse Resp B/P (MAP) Pulse Ox O2 Delivery O2 Flow Rate FiO2 10/25/20 13:00 41 26 136/64 (88) 100 Ventilator 10/25/20 12:00 100.0 100.0 10/24/20 09:47 40.0 Physical Exam Physical Exam intubated, sedated on vent, Heart: Regular rate Abdomen: Normal bowel sounds, Soft Extremities: No clubbing Skin: No rashes Labs LABS Laboratory Tests Test 10/24/20 17:58 10/24/20 18:30 10/25/20 00:50 10/25/20 05:35 Glucose (Fingerstick) 293 mg/dL (70-99) Heparin Anti-Xa Act, Unfractionated 0.53 IU/mL (0.30-0.70) 0.40 IU/mL (0.30-0.70) White Blood Count 5.6 x10^3/uL (4.0-11.0) Red Blood Count 3.78 x10^6/uL (4.30-5.70) Hemoglobin 11.0 g/dL (13.0-17.5) Hematocrit 34.0 % (39.0-53.0) Mean Corpuscular Volume 90 fL (79-100) Mean Corpuscular Hemoglobin 29 pg (25-35) Mean Corpuscular Hemoglobin Concent 32 g/dL (31-37) Red Cell Distribution Width 14.7 % (11.5-14.5) Platelet Count 158 x10^3/uL (140-400) Test 10/25/20 09:15 White Blood Count 5.6 x10^3/uL (4.0-11.0) Red Blood Count 3.78 x10^6/uL (4.30-5.70) Hemoglobin 11.1 g/dL (13.0-17.5) Hematocrit 33.8 % (39.0-53.0) Mean Corpuscular Volume 89 fL (79-100) Mean Corpuscular Hemoglobin 30 pg (25-35) Mean Corpuscular Hemoglobin Concent 33 g/dL (31-37) Red Cell Distribution Width 14.7 % (11.5-14.5) Platelet Count 164 x10^3/uL (140-400) Neutrophils (%) (Auto) 76 % (31-73) Lymphocytes (%) (Auto) 11 % (24-48) Monocytes (%) (Auto) 13 % (0-9) Eosinophils (%) (Auto) 0 % (0-3) Basophils (%) (Auto) 0 % (0-3) Neutrophils # (Auto) 4.3 x10^3/uL (1.8-7.7) Lymphocytes # (Auto) 0.6 x10^3/uL (1.0-4.8) Monocytes # (Auto) 0.7 x10^3/uL (0.0-1.1) Eosinophils # (Auto) 0.0 x10^3/uL (0.0-0.7) Basophils # (Auto) 0.0 x10^3/uL (0.0-0.2) Sodium Level 144 mmol/L (136-145) Potassium Level 5.0 mmol/L (3.5-5.1) Chloride Level 110 mmol/L (98-107) Carbon Dioxide Level 23 mmol/L (21-32) Anion Gap 11 (6-14) Blood Urea Nitrogen 44 mg/dL (8-26) Creatinine 1.2 mg/dL (0.7-1.3) Estimated GFR (Cockcroft-Gault) 62.9 Glucose Level 368 mg/dL (70-99) Calcium Level 8.2 mg/dL (8.5-10.1) Assessment and Plan Assessmemt and Plan Problems Medical Problems: (1) Hyperglycemia Status: Acute (2) Hypoxia Status: Acute (3) Pneumonia due to COVID-19 virus Status: Acute (4) Respiratory failure Status: Acute (5) Septic shock Status: Acute Comment Review of Relevant I have reviewed the following items andrew (where applicable) has been applied. Labs Laboratory Tests Test 10/23/20 17:57 10/23/20 23:29 10/24/20 04:45 10/24/20 09:20 Glucose (Fingerstick) 261 mg/dL (70-99) 298 mg/dL (70-99) White Blood Count 6.5 x10^3/uL (4.0-11.0) Red Blood Count 3.77 x10^6/uL (4.30-5.70) Hemoglobin 11.2 g/dL (13.0-17.5) Hematocrit 33.7 % (39.0-53.0) Mean Corpuscular Volume 89 fL (79-100) Mean Corpuscular Hemoglobin 30 pg (25-35) Mean Corpuscular Hemoglobin Concent 33 g/dL (31-37) Red Cell Distribution Width 14.9 % (11.5-14.5) Platelet Count 155 x10^3/uL (140-400) Neutrophils (%) (Auto) 83 % (31-73) Lymphocytes (%) (Auto) 8 % (24-48) Monocytes (%) (Auto) 9 % (0-9) Eosinophils (%) (Auto) 0 % (0-3) Basophils (%) (Auto) 1 % (0-3) Neutrophils # (Auto) 5.3 x10^3/uL (1.8-7.7) Lymphocytes # (Auto) 0.5 x10^3/uL (1.0-4.8) Monocytes # (Auto) 0.6 x10^3/uL (0.0-1.1) Eosinophils # (Auto) 0.0 x10^3/uL (0.0-0.7) Basophils # (Auto) 0.0 x10^3/uL (0.0-0.2) Heparin Anti-Xa Act, Unfractionated > 1.10 IU/mL (0.30-0.70) Sodium Level 143 mmol/L (136-145) Potassium Level 5.0 mmol/L (3.5-5.1) Chloride Level 111 mmol/L (98-107) Carbon Dioxide Level 24 mmol/L (21-32) Anion Gap 8 (6-14) Blood Urea Nitrogen 51 mg/dL (8-26) Creatinine 1.2 mg/dL (0.7-1.3) Estimated GFR (Cockcroft-Gault) 62.9 BUN/Creatinine Ratio 43 (6-20) Glucose Level 303 mg/dL (70-99) Calcium Level 8.3 mg/dL (8.5-10.1) Total Bilirubin 0.4 mg/dL (0.2-1.0) Aspartate Amino Transf (AST/SGOT) 33 U/L (15-37) Alanine Aminotransferase (ALT/SGPT) 31 U/L (16-63) Alkaline Phosphatase 51 U/L (46-116) Total Protein 5.7 g/dL (6.4-8.2) Albumin 2.2 g/dL (3.4-5.0) Albumin/Globulin Ratio 0.6 (1.0-1.7) O2 Saturation 98 % (92-99) Arterial Blood pH 7.39 (7.35-7.45) Arterial Blood pCO2 at Patient Temp 33 mmHg (35-46) Arterial Blood pO2 at Patient Temp 111 mmHg (75-108) Arterial Blood HCO3 20 mmol/L (21-28) Arterial Blood Base Excess -5 mmol/L (-3-3) FiO2 70 Test 10/24/20 12:04 10/24/20 12:15 10/24/20 17:58 10/24/20 18:30 Glucose (Fingerstick) 295 mg/dL (70-99) 293 mg/dL (70-99) Heparin Anti-Xa Act, Unfractionated 0.82 IU/mL (0.30-0.70) 0.53 IU/mL (0.30-0.70) Test 10/25/20 00:50 10/25/20 05:35 10/25/20 09:15 Heparin Anti-Xa Act, Unfractionated 0.40 IU/mL (0.30-0.70) White Blood Count 5.6 x10^3/uL (4.0-11.0) 5.6 x10^3/uL (4.0-11.0) Red Blood Count 3.78 x10^6/uL (4.30-5.70) 3.78 x10^6/uL (4.30-5.70) Hemoglobin 11.0 g/dL (13.0-17.5) 11.1 g/dL (13.0-17.5) Hematocrit 34.0 % (39.0-53.0) 33.8 % (39.0-53.0) Mean Corpuscular Volume 90 fL (79-100) 89 fL (79-100) Mean Corpuscular Hemoglobin 29 pg (25-35) 30 pg (25-35) Mean Corpuscular Hemoglobin Concent 32 g/dL (31-37) 33 g/dL (31-37) Red Cell Distribution Width 14.7 % (11.5-14.5) 14.7 % (11.5-14.5) Platelet Count 158 x10^3/uL (140-400) 164 x10^3/uL (140-400) Neutrophils (%) (Auto) 76 % (31-73) Lymphocytes (%) (Auto) 11 % (24-48) Monocytes (%) (Auto) 13 % (0-9) Eosinophils (%) (Auto) 0 % (0-3) Basophils (%) (Auto) 0 % (0-3) Neutrophils # (Auto) 4.3 x10^3/uL (1.8-7.7) Lymphocytes # (Auto) 0.6 x10^3/uL (1.0-4.8) Monocytes # (Auto) 0.7 x10^3/uL (0.0-1.1) Eosinophils # (Auto) 0.0 x10^3/uL (0.0-0.7) Basophils # (Auto) 0.0 x10^3/uL (0.0-0.2) Sodium Level 144 mmol/L (136-145) Potassium Level 5.0 mmol/L (3.5-5.1) Chloride Level 110 mmol/L (98-107) Carbon Dioxide Level 23 mmol/L (21-32) Anion Gap 11 (6-14) Blood Urea Nitrogen 44 mg/dL (8-26) Creatinine 1.2 mg/dL (0.7-1.3) Estimated GFR (Cockcroft-Gault) 62.9 Glucose Level 368 mg/dL (70-99) Calcium Level 8.2 mg/dL (8.5-10.1) Laboratory Tests Test 10/24/20 17:58 10/24/20 18:30 10/25/20 00:50 10/25/20 05:35 Glucose (Fingerstick) 293 mg/dL (70-99) Heparin Anti-Xa Act, Unfractionated 0.53 IU/mL (0.30-0.70) 0.40 IU/mL (0.30-0.70) White Blood Count 5.6 x10^3/uL (4.0-11.0) Red Blood Count 3.78 x10^6/uL (4.30-5.70) Hemoglobin 11.0 g/dL (13.0-17.5) Hematocrit 34.0 % (39.0-53.0) Mean Corpuscular Volume 90 fL (79-100) Mean Corpuscular Hemoglobin 29 pg (25-35) Mean Corpuscular Hemoglobin Concent 32 g/dL (31-37) Red Cell Distribution Width 14.7 % (11.5-14.5) Platelet Count 158 x10^3/uL (140-400) Test 10/25/20 09:15 White Blood Count 5.6 x10^3/uL (4.0-11.0) Red Blood Count 3.78 x10^6/uL (4.30-5.70) Hemoglobin 11.1 g/dL (13.0-17.5) Hematocrit 33.8 % (39.0-53.0) Mean Corpuscular Volume 89 fL (79-100) Mean Corpuscular Hemoglobin 30 pg (25-35) Mean Corpuscular Hemoglobin Concent 33 g/dL (31-37) Red Cell Distribution Width 14.7 % (11.5-14.5) Platelet Count 164 x10^3/uL (140-400) Neutrophils (%) (Auto) 76 % (31-73) Lymphocytes (%) (Auto) 11 % (24-48) Monocytes (%) (Auto) 13 % (0-9) Eosinophils (%) (Auto) 0 % (0-3) Basophils (%) (Auto) 0 % (0-3) Neutrophils # (Auto) 4.3 x10^3/uL (1.8-7.7) Lymphocytes # (Auto) 0.6 x10^3/uL (1.0-4.8) Monocytes # (Auto) 0.7 x10^3/uL (0.0-1.1) Eosinophils # (Auto) 0.0 x10^3/uL (0.0-0.7) Basophils # (Auto) 0.0 x10^3/uL (0.0-0.2) Sodium Level 144 mmol/L (136-145) Potassium Level 5.0 mmol/L (3.5-5.1) Chloride Level 110 mmol/L (98-107) Carbon Dioxide Level 23 mmol/L (21-32) Anion Gap 11 (6-14) Blood Urea Nitrogen 44 mg/dL (8-26) Creatinine 1.2 mg/dL (0.7-1.3) Estimated GFR (Cockcroft-Gault) 62.9 Glucose Level 368 mg/dL (70-99) Calcium Level 8.2 mg/dL (8.5-10.1) Microbiology 10/21/20 Blood Culture - Preliminary, Resulted NO GROWTH AFTER 4 DAYS Medications Current Medications Sodium Chloride 1,000 ml @ 1,000 mls/hr Q1H IV Last administered on 10/21/20at 09:31; Start 10/21/20 at 08:45; Stop 10/21/20 at 09:44; Status DC Dexamethasone Sodium Phosphate (Decadron) 10 mg 1X ONCE IVP Last administered on 10/21/20at 09:32; Start 10/21/20 at 08:45; Stop 10/21/20 at 09:11; Status DC Piperacillin Sod/ Tazobactam Sod 4.5 gm/Sodium Chloride 100 ml @ 200 mls/hr 1X ONCE IV Last administered on 10/21/20at 11:18; Start 10/21/20 at 10:30; Stop 10/21/20 at 10:59; Status DC Azithromycin 250 ml @ 250 mls/hr 1X ONCE IV Last administered on 10/21/20at 11:18; Start 10/21/20 at 10:30; Stop 10/21/20 at 11:29; Status DC Aspirin (Ecotrin) 325 mg 1X ONCE PO Last administered on 10/21/20at 11:17; Start 10/21/20 at 10:30; Stop 10/21/20 at 10:31; Status DC Insulin Human Regular (HumuLIN R VIAL) 14 unit 1X ONCE SQ Last administered on 10/21/20at 11:28; Start 10/21/20 at 10:30; Stop 10/21/20 at 10:31; Status DC Sodium Chloride 1,000 ml @ 1,000 mls/hr 1X ONCE IV Last administered on 10/21/20at 11:18; Start 10/21/20 at 10:30; Stop 10/21/20 at 11:29; Status DC Iohexol (Omnipaque 350 Mg/ml) 90 ml 1X ONCE IV ; Start 10/21/20 at 10:45; Stop 10/21/20 at 10:46; Status DC Info (CONTRAST GIVEN -- Rx MONITORING) 1 each PRN DAILY PRN MC SEE COMMENTS; Start 10/21/20 at 10:45; Stop 10/23/20 at 10:44; Status DC Acetaminophen (Tylenol) 500 mg 1X ONCE PO Last administered on 10/21/20at 11:30; Start 10/21/20 at 11:15; Stop 10/21/20 at 11:16; Status DC Lorazepam (Ativan Inj) 0.5 mg 1X ONCE IVP Last administered on 10/21/20at 11:20; Start 10/21/20 at 11:15; Stop 10/21/20 at 11:16; Status DC Ondansetron HCl (Zofran) 4 mg PRN Q8HRS PRN IV NAUSEA/VOMITING; Start 10/21/20 at 11:30; Stop 10/21/20 at 13:29; Status DC Fentanyl Citrate (Fentanyl 2ml Vial) 50 mcg PRN Q2HR PRN IV PAIN; Start 10/21/20 at 11:30; Stop 10/22/20 at 06:16; Status DC Sodium Chloride 1,000 ml @ 100 mls/hr Q10H IV Last administered on 10/22/20at 13:36; Start 10/21/20 at 11:30; Stop 10/22/20 at 11:29; Status DC Acetaminophen (Tylenol) 650 mg PRN Q4HRS PRN PO FEVER > 100.3'F; Start 10/21/20 at 11:30; Stop 10/22/20 at 06:17; Status DC Sennosides (Senna) 17.2 mg PRN BID PRN PO CONSTIPATION; Start 10/21/20 at 12:00 Docusate Sodium (Colace) 100 mg PRN DAILY PRN PO HARD STOOLS; Start 10/21/20 at 12:00 Ondansetron HCl (Zofran) 4 mg PRN Q6HRS PRN IVP NAUSEA/VOMITING; Start 10/21/20 at 12:00 Insulin Human Lispro (HumaLOG) 0-9 UNITS TIDWMEALS SQ Last administered on 10/21at 18:15; Start 10/21/20 at 12:00; Stop 10/21/20 at 22:22; Status DC Dextrose (Dextrose 50%-Water Syringe) 12.5 gm PRN Q15MIN PRN IV SEE COMMENTS; Start 10/21/20 at 12:00; Stop 10/22/20 at 09:30; Status DC Acetaminophen (Tylenol) 650 mg PRN Q4HRS PRN PO TEMP OVER 100.4F OR MILD PAIN Last administered on 10/25/20at 05:36; Start 10/21/20 at 12:00 Enoxaparin Sodium (Lovenox 40mg Syringe) 40 mg Q24H SQ ; Start 10/21/20 at 13:00; Status Cancel Ascorbic Acid (Vitamin C) 3,000 mg TID PO Last administered on 10/22/20at 21:28; Start 10/21/20 at 14:00; Stop 10/23/20 at 08:20; Status DC Thiamine HCl 100 mg/Dextrose 51 ml @ 102 mls/hr Q8HRS IV Last administered on 10/25/20at 05:36; Start 10/21/20 at 14:00 Dexamethasone Sodium Phosphate (Decadron) 4 mg Q12HR IVP Last administered on 10/25/20at 08:51; Start 10/21/20 at 21:00 Lorazepam (Ativan Inj) 0.5 mg 1X ONCE IVP Last administered on 10/21/20at 11:59; Start 10/21/20 at 12:00; Stop 10/21/20 at 12:15; Status DC Propofol 100 ml @ As Directed STK-MED ONCE IV ; Start 10/21/20 at 12:47; Stop 10/21/20 at 12:47; Status DC Etomidate (Amidate) 20 mg 1X ONCE IV ; Start 10/21/20 at 13:00; Stop 10/21/20 at 13:05; Status DC Rocuronium [place] (Zemuron) 50 mg 1X ONCE IV ; Start 10/21/20 at 13:00; Stop 10/21/20 at 13:05; Status DC Propofol 100 ml @ 0 mls/hr CONT PRN IV PER PROTOCOL; Start 10/21/20 at 13:00 Chlorhexidine Gluconate (Peridex) 15 ml BID MM Last administered on 10/22/20at 21:28; Start 10/21/20 at 21:00; Stop 10/23/20 at 08:12; Status DC Fentanyl Citrate 30 ml @ 0 mls/hr CONT PRN IV SEE PROTOCOL Last administered on 10/22/20at 00:28; Start 10/21/20 at 13:15; Stop 10/22/20 at 06:16; Status DC Midazolam HCl 100 ml @ 0 mls/hr CONT PRN IV SEE PROTOCOL Last administered on 10/25/20at 13:38; Start 10/21/20 at 13:15 Lorazepam (Ativan Inj) 2 mg 1X ONCE IVP Last administered on 10/21/20at 13:31; Start 10/21/20 at 13:15; Stop 10/21/20 at 13:17; Status DC Fentanyl Citrate (Fentanyl 2ml Vial) 100 mcg 1X ONCE IVP Last administered on 10/21/20at 13:32; Start 10/21/20 at 13:15; Stop 10/21/20 at 13:17; Status DC Heparin Sodium/ Dextrose 250 ml @ 16 mls/hr CONT PRN IV PER PROTOCOL Last administered on 10/24/20at 12:09; Start 10/21/20 at 13:30 Heparin Sodium (Porcine) (Heparin Sodium) 3,000 unit PRN Q6HRS PRN IV FOR UFH L EVEL LESS THAN 0.2; Start 10/21/20 at 13:30 Heparin Sodium (Porcine) (Heparin Sodium) 1,500 unit PRN Q6HRS PRN IV FOR UFH LEVEL 0.2 - 0.29; Start 10/21/20 at 13:30 Remdesivir 200 mg/ Sodium Chloride 210 ml @ 210 mls/hr 1X ONCE IV Last administered on 10/21/20at 17:29; Start 10/21/20 at 15:00; Stop 10/21/20 at 15:59; Status DC Remdesivir 100 mg/ Sodium Chloride 230 ml @ 460 mls/hr Q24H IV Last administered on 10/24/20at 15:27; Start 10/22/20 at 15:00; Stop 10/25/20 at 15:29 Bumetanide (Bumex) 1 mg 1X ONCE IV ; Start 10/21/20 at 13:30; Stop 10/21/20 at 13:37; Status DC Vecuronium [place] (Norcuron Bolus) 10 mg 1X ONCE IV Last administered on 10/21/20at 13:45; Start 10/21/20 at 13:45; Stop 10/21/20 at 13:46; Status DC Vecuronium [place] (Norcuron Bolus) 6 mg PRN Q4HRS ONCE IV Last administered on 10/21/20at 15:19; Start 10/21/20 at 14:15; Stop 10/21/20 at 14:16; Status DC Famotidine (Pepcid Vial) 20 mg BID IVP Last administered on 10/25/20at 08:51; Start 10/21/20 at 21:00 Rocuronium [place] (Zemuron) 50 mg STK-MED ONCE .ROUTE ; Start 10/21/20 at 18:59; Stop 10/21/20 at 18:59; Status DC Etomidate (Amidate) 20 mg STK-MED ONCE IV ; Start 10/21/20 at 18:59; Stop 10/21/20 at 19:00; Status DC Insulin Human Lispro (HumaLOG) 0-9 UNITS Q6HRS SQ Last administered on 10/22/20at 06:01; Start 10/22/20 at 00:00; Stop 10/22/20 at 09:52; Status DC Fentanyl Citrate 55 ml @ 0 mls/hr CONT PRN PRN IV PAIN CONTROL Last administered on 10/24/20at 09:16; Start 10/22/20 at 06:30 Insulin Human Regular 100 unit/ Sodium Chloride 101 ml @ 0 mls/hr CONT PRN IV SEE I/O RECORD; Start 10/22/20 at 09:15; Stop 10/22/20 at 09:49; Status DC Dextrose (Dextrose 50%-Water Syringe) 12.5 gm PRN Q15MIN PRN IV LOW BLOOD SUGAR; Start 10/22/20 at 09:15; Stop 10/22/20 at 09:49; Status DC Insulin Human Lispro (HumaLOG) 0-9 UNITS TIDWMEALS SQ Last administered on 10/22/20at 12:14; Start 10/22/20 at 12:00; Stop 10/22/20 at 19:52; Status DC Dextrose (Dextrose 50%-Water Syringe) 12.5 gm PRN Q15MIN PRN IV SEE COMMENTS; Start 10/22/20 at 09:45 Insulin Glargine (Lantus Syringe) 10 unit 1X ONCE SQ Last administered on 10/22/20at 11:01; Start 10/22/20 at 10:30; Stop 10/22/20 at 10:31; Status DC Insulin Human Regular 100 unit/ Sodium Chloride 101 ml @ 0 mls/hr CONT PRN IV SEE I/O RECORD Last administered on 10/23/20at 02:14; Start 10/22/20 at 18:30 Insulin Human Lispro (HumaLOG) 0-9 UNITS Q6H SQ ; Start 10/23/20 at 00:00; Stop 10/23/20 at 09:42; Status DC Ascorbic Acid (Vitamin C) 3,000 mg TID PO Last administered on 10/25/20at 08:51; Start 10/23/20 at 09:00 Insulin Human Lispro (HumaLOG) 0-9 UNITS Q6HRS SQ Last administered on 10/25/20at 11:29; Start 10/23/20 at 12:00 Info (Anti-Coagulation Monitoring By Pharmacy) 1 each PRN DAILY PRN MC SEE COMMENTS Last administered on 10/24/20at 10:41; Start 10/24/20 at 07:45 Insulin Glargine (Lantus Syringe) 30 unit DAILY10 SQ Last administered on 10/25/20at 11:29; Start 10/24/20 at 12:00 Insulin Human Lispro (HumaLOG) 11 units 1X ONCE SQ Last administered on 10/25/20at 05:46; Start 10/25/20 at 05:45; Stop 10/25/20 at 05:48; Status DC Vitals/I & O Vital Sign - Last 24 Hours 10/24/20 10/24/20 10/24/20 10/24/20 15:00 15:16 16:00 16:00 Temp 100.5 100.5 Pulse 43 41 Resp 30 30 B/P (MAP) 123/62 (82) 125/61 (82) Pulse Ox 97 98 98 O2 Delivery Ventilator Ventilator Mechanical Ventilator Ventilator 10/24/20 10/24/20 10/24/20 10/24/20 17:00 18:00 19:00 19:54 Pulse 46 44 42 Resp 30 29 29 B/P (MAP) 115/55 (75) 122/57 (78) 127/63 (84) Pulse Ox 97 97 98 98 O2 Delivery Ventilator Ventilator Ventilator Ventilator 10/24/20 10/24/20 10/24/20 10/24/20 20:00 20:00 21:00 22:00 Temp 99.7 99.7 Pulse 42 38 40 Resp 30 30 30 B/P (MAP) 132/74 (93) 131/63 (85) 130/66 (87) Pulse Ox 100 100 100 O2 Delivery Mechanical Ventilator Ventilator Ventilator Ventilator 10/24/20 10/24/20 10/25/20 10/25/20 23:00 23:59 00:00 00:28 Temp 98.5 98.5 Pulse 40 39 Resp 30 30 B/P (MAP) 136/68 (90) 131/65 (87) Pulse Ox 100 100 100 O2 Delivery Ventilator Mechanical Ventilator Ventilator Ventilator 10/25/20 10/25/20 10/25/20 10/25/20 01:00 02:00 03:00 04:00 Pulse 39 39 39 Resp 30 30 30 B/P (MAP) 131/62 (85) 128/60 (82) 127/62 (83) Pulse Ox 98 99 100 O2 Delivery Ventilator Ventilator Ventilator Mechanical Ventilator 10/25/20 10/25/20 10/25/20 10/25/20 04:00 04:49 05:00 06:00 Temp 99.1 99.1 Pulse 40 41 41 Resp 30 30 30 B/P (MAP) 129/60 (83) 126/59 (81) 129/65 (86) Pulse Ox 100 100 100 100 O2 Delivery Ventilator Ventilator Ventilator Ventilator 10/25/20 10/25/20 10/25/20 10/25/20 07:00 08:00 08:00 08:15 Temp 100.1 100.1 Pulse 38 40 Resp 30 30 B/P (MAP) 127/64 (85) 137/64 (88) Pulse Ox 100 100 100 O2 Delivery Ventilator Mechanical Ventilator Ventilator Ventilator 10/25/20 10/25/20 10/25/20 10/25/20 09:00 10:00 11:00 12:00 Pulse 40 40 46 Resp 26 26 26 B/P (MAP) 128/64 (85) 135/65 (88) 123/58 (79) Pulse Ox 100 100 100 O2 Delivery Ventilator Ventilator Ventilator Mechanical Ventilator 10/25/20 10/25/20 10/25/20 12:00 12:02 13:00 Temp 100.0 100.0 Pulse 40 41 Resp 26 26 B/P (MAP) 141/68 (92) 136/64 (88) Pulse Ox 100 98 100 O2 Delivery Ventilator Ventilator Ventilator Intake and Output 10/24/20 10/24/20 10/25/20 15:00 23:00 07:00 Intake Total 380 ml 1578.4 ml 1171 ml Output Total 1045 ml 850 ml 825 ml Balance -665 ml 728.4 ml 346 ml Justicifation of Admission Dx: Justifications for Admission: Justification of Admission Dx: Yes (sepsis, covid, resp failure) KAHLIL ALMAZAN MD Oct 25, 2020 14:27
[2020-10-25 15:01] LABS: FIO2 ABG 60/VENT
[2020-10-25] MEDS: REMDESIVIR 100mg in NORMAL SALINE 250ML X 4 DAYS IV SCH (15:06)
[2020-10-25] MEDS: fentaNYL HIGH DOSE PCA 55 ML IV PRN (18:45)
[2020-10-26] VITALS (24 sets, daily range): BP systolic 99–144; BP diastolic 53–80
[2020-10-26] MEDS: INSULIN LISPRO 300 UNITS/3 ML VIAL. SQ SCH ×4 (00:57→17:55)
[2020-10-26] MEDS: PROPOFOL 100 ML IV PRN ×2 (04:04→19:26)
[2020-10-26] MEDS: THIAMINE INJ 100 MG in IV DEXTROSE 5% 50 ML IV SCH ×3 (05:34→21:38)
--- NOTE | 2020-10-26 08:08 | RAD ---
XR CHEST 1V 10/26/2020 4:35 AM INDICATION: Ventilated COMPARISON: 10/23/2020 TECHNIQUE: Portable frontal view of the chest is provided. FINDINGS: The cardiomediastinal silhouette is similar in appearance. Endotracheal tube, nasogastric tube and ri ght upper extremity PICC line similar position. There is worsened aeration of the lungs with increase in small bilateral pleural effusions, right gre ater than left. There is adjacent compressive atelectasis versus infiltrate. Mild to moderate perihil ar alveolar airspace disease appears similar. No pneumothorax. No suspicious osseous abnormality. IMPRESSION: Worsened aeration of the lungs with increase in small pleural effusions with adjacent compressive ate lectasis versus infiltrates. Similar position of support lines and tubes. Electronically signed by: Sonal Coy MD (10/26/2020 8:06 AM) [id number]
[2020-10-26] MEDS: INSULIN GLARGINE SYRINGE. SQ SCH ×2 (09:00→21:38)
[2020-10-26 09:16] LABS: BASE EXCESS ABG 0 mmol/L (-3-3); HCO3 ABG 25 mmol/L (21-28); PCO2 ABG 42 mmHg (35-46); PO2 ABG 178 mmHg (75-108); SAT O2 ABG 99 % (92-99)
--- NOTE | 2020-10-26 09:42 | PDOC ---
PULMONARY PROGRESS NOTES DATE: 10/26/20 TIME: 09:37 Subjective Ventilatory support, FiO2 60% and a PEEP of 10 Low-grade fever overnight Heparin drip No other overnight concerns Vitals Vital Signs Date Time Temp Pulse Resp B/P (MAP) Pulse Ox O2 Delivery O2 Flow Rate FiO2 10/26/20 08:04 98 Ventilator 10/26/20 06:00 43 26 135/67 (89) 10/26/20 04:00 99.1 99.1 10/25/20 18:45 40.0 Comments intubated sedated Bradycardia no accessory muscle use abd obese no rash Labs Laboratory Tests Test 10/24/20 12:04 10/24/20 12:15 10/24/20 17:58 10/24/20 18:30 Glucose (Fingerstick) 295 mg/dL (70-99) 293 mg/dL (70-99) Heparin Anti-Xa Act, Unfractionated 0.82 IU/mL (0.30-0.70) 0.53 IU/mL (0.30-0.70) Test 10/25/20 00:50 10/25/20 05:35 10/25/20 08:00 10/25/20 09:15 Heparin Anti-Xa Act, Unfractionated 0.40 IU/mL (0.30-0.70) White Blood Count 5.6 x10^3/uL (4.0-11.0) 5.6 x10^3/uL (4.0-11.0) Red Blood Count 3.78 x10^6/uL (4.30-5.70) 3.78 x10^6/uL (4.30-5.70) Hemoglobin 11.0 g/dL (13.0-17.5) 11.1 g/dL (13.0-17.5) Hematocrit 34.0 % (39.0-53.0) 33.8 % (39.0-53.0) Mean Corpuscular Volume 90 fL (79-100) 89 fL (79-100) Mean Corpuscular Hemoglobin 29 pg (25-35) 30 pg (25-35) Mean Corpuscular Hemoglobin Concent 32 g/dL (31-37) 33 g/dL (31-37) Red Cell Distribution Width 14.7 % (11.5-14.5) 14.7 % (11.5-14.5) Platelet Count 158 x10^3/uL (140-400) 164 x10^3/uL (140-400) O2 Saturation 97 % (92-99) Arterial Blood pH 7.48 (7.35-7.45) Arterial Blood pCO2 at Patient Temp 29 mmHg (35-46) Arterial Blood pO2 at Patient Temp 101 mmHg (75-108) Arterial Blood HCO3 22 mmol/L (21-28) Arterial Blood Base Excess -1 mmol/L (-3-3) FiO2 60/vent Neutrophils (%) (Auto) 76 % (31-73) Lymphocytes (%) (Auto) 11 % (24-48) Monocytes (%) (Auto) 13 % (0-9) Eosinophils (%) (Auto) 0 % (0-3) Basophils (%) (Auto) 0 % (0-3) Neutrophils # (Auto) 4.3 x10^3/uL (1.8-7.7) Lymphocytes # (Auto) 0.6 x10^3/uL (1.0-4.8) Monocytes # (Auto) 0.7 x10^3/uL (0.0-1.1) Eosinophils # (Auto) 0.0 x10^3/uL (0.0-0.7) Basophils # (Auto) 0.0 x10^3/uL (0.0-0.2) Sodium Level 144 mmol/L (136-145) Potassium Level 5.0 mmol/L (3.5-5.1) Chloride Level 110 mmol/L (98-107) Carbon Dioxide Level 23 mmol/L (21-32) Anion Gap 11 (6-14) Blood Urea Nitrogen 44 mg/dL (8-26) Creatinine 1.2 mg/dL (0.7-1.3) Estimated GFR (Cockcroft-Gault) 62.9 Glucose Level 368 mg/dL (70-99) Calcium Level 8.2 mg/dL (8.5-10.1) Test 10/26/20 00:53 10/26/20 00:55 10/26/20 05:36 Glucose (Fingerstick) 280 mg/dL (70-99) 260 mg/dL (70-99) Heparin Anti-Xa Act, Unfractionated 0.35 IU/mL (0.30-0.70) Laboratory Tests Test 10/26/20 00:53 10/26/20 00:55 10/26/20 05:36 Glucose (Fingerstick) 280 mg/dL (70-99) 260 mg/dL (70-99) Heparin Anti-Xa Act, Unfractionated 0.35 IU/mL (0.30-0.70) Comments CXR 10/26 worsening infiltrates Impression . IMPRESSION: 1. Acute hypoxemic respiratory failure secondary to COVID-19 viral pneumonia. 2. COVID-19 viral pneumonia/sepsis. 3. Abnormal x-ray compatible with SARS-CoV-2 infection. 4. Acute kidney injury. 5. Severe hypoxemia, elevated D-dimer, possible thromboembolic disease. 6. Morbid obesity. 7. Protein malnutrition, present upon admission. 8. Elevated troponin. 9. CXR 10/26 , worsening infiltrates Plan . PLAN: Continue current ventilatory support, wean FiO2 to 50% and a PEEP of 6 Follow ABG/chest x-ray as needed COVID-19 positive Continue remdesivir for full 5-day course Continue steroids patient will need a full 10-day course, taper slowly Continue heparin drip for presumptive diagnosis of PE as the patient is still too ill to complete a CTA, clinically improving, dopplers with no DVT. will change to lovenox 40sc in am if repeat Dimer does not increase Continue tube feeding for nutritional support Add empiric Abx prn lasix DVT/GI prophylaxis Discussed with RN and RT/ Dr Garcia Critical care time [id number] GEO VALENZUELA MD Oct 26, 2020 09:42
[2020-10-26] MEDS ORDERED: FUROSEMIDE 20 MG/2 ML VIAL. IVP ONE (09:45)
[2020-10-26] MEDS ORDERED: PIP/TAZO PER PHARMACY MC PRN (09:45)
[2020-10-26] MEDS: ASCORBIC ACID 1,000 MG TABLET PO SCH ×3 (09:57→20:23)
[2020-10-26] MEDS: DEXAMETHASONE SOD PHOS 4 MG/ML VIAL IVP SCH ×2 (09:57→20:22)
[2020-10-26] MEDS: FAMOTIDINE 20 MG/2 ML VIAL IVP SCH ×2 (09:57→20:22)
[2020-10-26] MEDS: HEPARIN 25,000UTS/250ML PREMIX 250 ML IV PRN (10:24)
[2020-10-26] MEDS: PIPERACILLIN/TAZOBACTAM 3.375 GM in IV NORMAL SALINE 50ML 50 ML IV SCH ×3 (10:24→21:38)
[2020-10-26 12:16] LABS: FIO2 ABG 50/VENT
--- NOTE | 2020-10-26 12:32 | NUR ---
Attempted patient off sedation (versed and propofol) but he was not able to tolerate or follow commands. Restarted propofol and increased to 10 mcg; versed still on hold
--- NOTE | 2020-10-26 13:21 | PDOC ---
PROGRESS NOTES Date of Service: DATE: 10/26/20 TIME: 13:20 Chief Complaint Chief Complaint sepsis, severe with shcok Acute hypoxemic respiratory failure secondary to COVID-19 viral pneumonia. intubated and sedated acute renal failure, vasomotor nephropathy and sepsis, ATN poss gram negative bacterial pneumonia Dm2, with hyperglycemia, poor control, obese, BMI 36 with concomittant Protein malnutrition, present upon admission. History of Present Illness History of Present Illness 10/[address] Morrow, CXR worse, abx started, start zosyn, cover for pneumonia ICU care, 35min cont current follow labs, intubated and sedated changed insulin dose, lantus started yesterday, will make 30 BID, on tube feeds and on IV steroids, Vitals Vitals Vital Signs Date Time Temp Pulse Resp B/P (MAP) Pulse Ox O2 Delivery O2 Flow Rate FiO2 10/26/20 12:00 98.8 62 28 137/69 (91) 96 Ventilator 98.8 10/25/20 18:45 40.0 Physical Exam Physical Exam intubated, sedated on vent, Heart: Regular rate Abdomen: Normal bowel sounds, Soft Extremities: No clubbing Skin: No rashes Labs LABS Laboratory Tests Test 10/25/20 15:02 10/25/20 18:02 10/26/20 00:53 10/26/20 00:55 Glucose (Fingerstick) 315 mg/dL (70-99) 301 mg/dL (70-99) 280 mg/dL (70-99) Heparin Anti-Xa Act, Unfractionated 0.35 IU/mL (0.30-0.70) Test 10/26/20 05:36 10/26/20 08:00 10/26/20 10:10 10/26/20 12:04 Glucose (Fingerstick) 260 mg/dL (70-99) 279 mg/dL (70-99) O2 Saturation 99 % (92-99) Arterial Blood pH 7.39 (7.35-7.45) Arterial Blood pCO2 at Patient Temp 42 mmHg (35-46) Arterial Blood pO2 at Patient Temp 178 mmHg (75-108) Arterial Blood HCO3 25 mmol/L (21-28) Arterial Blood Base Excess 0 mmol/L (-3-3) FiO2 50/vent D-Dimer (Ayanna) 9.97 ug/mlFEU (0.00-0.50) Assessment and Plan Assessmemt and Plan Problems Medical Problems: (1) Hyperglycemia Status: Acute (2) Hypoxia Status: Acute (3) Pneumonia due to COVID-19 virus Status: Acute (4) Respiratory failure Status: Acute (5) Septic shock Status: Acute Comment Review of Relevant I have reviewed the following items andrew (where applicable) has been applied. Labs Laboratory Tests Test 10/24/20 17:58 10/24/20 18:30 10/24/20 23:52 10/25/20 00:50 Glucose (Fingerstick) 293 mg/dL (70-99) 327 mg/dL (70-99) Heparin Anti-Xa Act, Unfractionated 0.53 IU/mL (0.30-0.70) 0.40 IU/mL (0.30-0.70) Test 10/25/20 05:32 10/25/20 05:35 10/25/20 08:00 10/25/20 09:15 Glucose (Fingerstick) 361 mg/dL (70-99) White Blood Count 5.6 x10^3/uL (4.0-11.0) 5.6 x10^3/uL (4.0-11.0) Red Blood Count 3.78 x10^6/uL (4.30-5.70) 3.78 x10^6/uL (4.30-5.70) Hemoglobin 11.0 g/dL (13.0-17.5) 11.1 g/dL (13.0-17.5) Hematocrit 34.0 % (39.0-53.0) 33.8 % (39.0-53.0) Mean Corpuscular Volume 90 fL (79-100) 89 fL (79-100) Mean Corpuscular Hemoglobin 29 pg (25-35) 30 pg (25-35) Mean Corpuscular Hemoglobin Concent 32 g/dL (31-37) 33 g/dL (31-37) Red Cell Distribution Width 14.7 % (11.5-14.5) 14.7 % (11.5-14.5) Platelet Count 158 x10^3/uL (140-400) 164 x10^3/uL (140-400) O2 Saturation 97 % (92-99) Arterial Blood pH 7.48 (7.35-7.45) Arterial Blood pCO2 at Patient Temp 29 mmHg (35-46) Arterial Blood pO2 at Patient Temp 101 mmHg (75-108) Arterial Blood HCO3 22 mmol/L (21-28) Arterial Blood Base Excess -1 mmol/L (-3-3) FiO2 60/vent Neutrophils (%) (Auto) 76 % (31-73) Lymphocytes (%) (Auto) 11 % (24-48) Monocytes (%) (Auto) 13 % (0-9) Eosinophils (%) (Auto) 0 % (0-3) Basophils (%) (Auto) 0 % (0-3) Neutrophils # (Auto) 4.3 x10^3/uL (1.8-7.7) Lymphocytes # (Auto) 0.6 x10^3/uL (1.0-4.8) Monocytes # (Auto) 0.7 x10^3/uL (0.0-1.1) Eosinophils # (Auto) 0.0 x10^3/uL (0.0-0.7) Basophils # (Auto) 0.0 x10^3/uL (0.0-0.2) Sodium Level 144 mmol/L (136-145) Potassium Level 5.0 mmol/L (3.5-5.1) Chloride Level 110 mmol/L (98-107) Carbon Dioxide Level 23 mmol/L (21-32) Anion Gap 11 (6-14) Blood Urea Nitrogen 44 mg/dL (8-26) Creatinine 1.2 mg/dL (0.7-1.3) Estimated GFR (Cockcroft-Gault) 62.9 Glucose Level 368 mg/dL (70-99) Calcium Level 8.2 mg/dL (8.5-10.1) Test 10/25/20 15:02 10/25/20 18:02 10/26/20 00:53 10/26/20 00:55 Glucose (Fingerstick) 315 mg/dL (70-99) 301 mg/dL (70-99) 280 mg/dL (70-99) Heparin Anti-Xa Act, Unfractionated 0.35 IU/mL (0.30-0.70) Test 10/26/20 05:36 10/26/20 08:00 10/26/20 10:10 10/26/20 12:04 Glucose (Fingerstick) 260 mg/dL (70-99) 279 mg/dL (70-99) O2 Saturation 99 % (92-99) Arterial Blood pH 7.39 (7.35-7.45) Arterial Blood pCO2 at Patient Temp 42 mmHg (35-46) Arterial Blood pO2 at Patient Temp 178 mmHg (75-108) Arterial Blood HCO3 25 mmol/L (21-28) Arterial Blood Base Excess 0 mmol/L (-3-3) FiO2 50/vent D-Dimer (Ayanna) 9.97 ug/mlFEU (0.00-0.50) Laboratory Tests Test 10/25/20 15:02 10/25/20 18:02 10/26/20 00:53 10/26/20 00:55 Glucose (Fingerstick) 315 mg/dL (70-99) 301 mg/dL (70-99) 280 mg/dL (70-99) Heparin Anti-Xa Act, Unfractionated 0.35 IU/mL (0.30-0.70) Test 10/26/20 05:36 10/26/20 08:00 10/26/20 10:10 10/26/20 12:04 Glucose (Fingerstick) 260 mg/dL (70-99) 279 mg/dL (70-99) O2 Saturation 99 % (92-99) Arterial Blood pH 7.39 (7.35-7.45) Arterial Blood pCO2 at Patient Temp 42 mmHg (35-46) Arterial Blood pO2 at Patient Temp 178 mmHg (75-108) Arterial Blood HCO3 25 mmol/L (21-28) Arterial Blood Base Excess 0 mmol/L (-3-3) FiO2 50/vent D-Dimer (Ayanna) 9.97 ug/mlFEU (0.00-0.50) Microbiology 10/21/20 Blood Culture - Final, Complete NO GROWTH AFTER 5 DAYS Medications Current Medications Sodium Chloride 1,000 ml @ 1,000 mls/hr Q1H IV Last administered on 10/21/20at 09:31; Start 10/21/20 at 08:45; Stop 10/21/20 at 09:44; Status DC Dexamethasone Sodium Phosphate (Decadron) 10 mg 1X ONCE IVP Last administered on 10/21/20at 09:32; Start 10/21/20 at 08:45; Stop 10/21/20 at 09:11; Status DC Piperacillin Sod/ Tazobactam Sod 4.5 gm/Sodium Chloride 100 ml @ 200 mls/hr 1X ONCE IV Last administered on 10/21/20at 11:18; Start 10/21/20 at 10:30; Stop 10/21/20 at 10:59; Status DC Azithromycin 250 ml @ 250 mls/hr 1X ONCE IV Last administered on 10/21/20at 11:18; Start 10/21/20 at 10:30; Stop 10/21/20 at 11:29; Status DC Aspirin (Ecotrin) 325 mg 1X ONCE PO Last administered on 10/21/20at 11:17; Start 10/21/20 at 10:30; Stop 10/21/20 at 10:31; Status DC Insulin Human Regular (HumuLIN R VIAL) 14 unit 1X ONCE SQ Last administered on 10/21/20at 11:28; Start 10/21/20 at 10:30; Stop 10/21/20 at 10:31; Status DC Sodium Chloride 1,000 ml @ 1,000 mls/hr 1X ONCE IV Last administered on 10/21/20at 11:18; Start 10/21/20 at 10:30; Stop 10/21/20 at 11:29; Status DC Iohexol (Omnipaque 350 Mg/ml) 90 ml 1X ONCE IV ; Start 10/21/20 at 10:45; Stop 10/21/20 at 10:46; Status DC Info (CONTRAST GIVEN -- Rx MONITORING) 1 each PRN DAILY PRN MC SEE COMMENTS; Start 10/21/20 at 10:45; Stop 10/23/20 at 10:44; Status DC Acetaminophen (Tylenol) 500 mg 1X ONCE PO Last administered on 10/21/20at 11:30; Start 10/21/20 at 11:15; Stop 10/21/20 at 11:16; Status DC Lorazepam (Ativan Inj) 0.5 mg 1X ONCE IVP Last administered on 10/21/20at 11:20; Start 10/21/20 at 11:15; Stop 10/21/20 at 11:16; Status DC Ondansetron HCl (Zofran) 4 mg PRN Q8HRS PRN IV NAUSEA/VOMITING; Start 10/21/20 at 11:30; Stop 10/21/20 at 13:29; Status DC Fentanyl Citrate (Fentanyl 2ml Vial) 50 mcg PRN Q2HR PRN IV PAIN; Start 10/21/20 at 11:30; Stop 10/22/20 at 06:16; Status DC Sodium Chloride 1,000 ml @ 100 mls/hr Q10H IV Last administered on 10/22/20at 13:36; Start 10/21/20 at 11:30; Stop 10/22/20 at 11:29; Status DC Acetaminophen (Tylenol) 650 mg PRN Q4HRS PRN PO FEVER > 100.3'F; Start 10/21/20 at 11:30; Stop 10/22/20 at 06:17; Status DC Sennosides (Senna) 17.2 mg PRN BID PRN PO CONSTIPATION; Start 10/21/20 at 12:00 Docusate Sodium (Colace) 100 mg PRN DAILY PRN PO HARD STOOLS; Start 10/21/20 at 12:00 Ondansetron HCl (Zofran) 4 mg PRN Q6HRS PRN IVP NAUSEA/VOMITING; Start 10/21/20 at 12:00 Insulin Human Lispro (HumaLOG) 0-9 UNITS TIDWMEALS SQ Last administered on 10/21/20at 18:15; Start 10/21/20 at 12:00; Stop 10/21/20 at 22:22; Status DC Dextrose (Dextrose 50%-Water Syringe) 12.5 gm PRN Q15MIN PRN IV SEE COMMENTS; Start 10/21/20 at 12:00; Stop 10/22/20 at 09:30; Status DC Acetaminophen (Tylenol) 650 mg PRN Q4HRS PRN PO TEMP OVER 100.4F OR MILD PAIN Last administered on 10/25/20at 05:36; Start 10/21/20 at 12:00 Enoxaparin Sodium (Lovenox 40mg Syringe) 40 mg Q24H SQ ; Start 10/21/20 at 13:00; Status Cancel Ascorbic Acid (Vitamin C) 3,000 mg TID PO Last administered on 10/22/20at 21:28; Start 10/21/20 at 14:00; Stop 10/23/20 at 08:20; Status DC Thiamine HCl 100 mg/Dextrose 51 ml @ 102 mls/hr Q8HRS IV Last administered on 10/26/20at 05:34; Start 10/21/20 at 14:00 Dexamethasone Sodium Phosphate (Decadron) 4 mg Q12HR IVP Last administered on 10/26/20at 09:57; Start 10/21/20 at 21:00 Lorazepam (Ativan Inj) 0.5 mg 1X ONCE IVP Last administered on 10/21/20at 11:59; Start 10/21/20 at 12:00; Stop 10/21/20 at 12:15; Status DC Propofol 100 ml @ As Directed STK-MED ONCE IV ; Start 10/21/20 at 12:47; Stop 10/21/20 at 12:47; Status DC Etomidate (Amidate) 20 mg 1X ONCE IV ; Start 10/21/20 at 13:00; Stop 10/21/20 at 13:05; Status DC Rocuronium Henderson (Zemuron) 50 mg 1X ONCE IV ; Start 10/21/20 at 13:00; Stop 10/21/20 at 13:05; Status DC Propofol 100 ml @ 0 mls/hr CONT PRN IV PER PROTOCOL Last administered on 10/26/20at 04:04; Start 10/21/20 at 13:00 Chlorhexidine Gluconate (Peridex) 15 ml BID MM Last administered on 10/22/20at 21:28; Start 10/21/20 at 21:00; Stop 10/23/20 at 08:12; Status DC Fentanyl Citrate 30 ml @ 0 mls/hr CONT PRN IV SEE PROTOCOL Last administered on 10/22/20at 00:28; Start 10/21/20 at 13:15; Stop 10/22/20 at 06:16; Status DC Midazolam HCl 100 ml @ 0 mls/hr CONT PRN IV SEE PROTOCOL Last administered on 10/25/20at 22:55; Start 10/21/20 at 13:15 Lorazepam (Ativan Inj) 2 mg 1X ONCE IVP Last administered on 10/21/20at 13:31; Start 10/21/20 at 13:15; Stop 10/21/20 at 13:17; Status DC Fentanyl Citrate (Fentanyl 2ml Vial) 100 mcg 1X ONCE IVP Last administered on 10/21/20at 13:32; Start 10/21/20 at 13:15; Stop 10/21/20 at 13:17; Status DC Heparin Sodium/ Dextrose 250 ml @ 16 mls/hr CONT PRN IV PER PROTOCOL Last administered on 10/26/20at 10:24; Start 10/21/20 at 13:30 Heparin Sodium (Porcine) (Heparin Sodium) 3,000 unit PRN Q6HRS PRN IV FOR UFH LEVEL LESS THAN 0.2; Start 10/21/20 at 13:30 Heparin Sodium (Porcine) (Heparin Sodium) 1,500 unit PRN Q6HRS PRN IV FOR UFH LEVEL 0.2 - 0.29; Start 10/21/20 at 13:30 Remdesivir 200 mg/ Sodium Chloride 210 ml @ 210 mls/hr 1X ONCE IV Last administered on 10/21/20at 17:29; Start 10/21/20 at 15:00; Stop 10/21/20 at 15:59; Status DC Remdesivir 100 mg/ Sodium Chloride 230 ml @ 460 mls/hr Q24H IV Last administered on 10/25/20at 15:06; Start 10/22/20 at 15:00; Stop 10/25/20 at 15 :29; Status DC Bumetanide (Bumex) 1 mg 1X ONCE IV ; Start 10/21/20 at 13:30; Stop 10/21/20 at 13:37; Status DC Vecuronium Henderson (Norcuron Bolus) 10 mg 1X ONCE IV Last administered on 10/21/20at 13:45; Start 10/21/20 at 13:45; Stop 10/21/20 at 13:46; Status DC Vecuronium Henderson (Norcuron Bolus) 6 mg PRN Q4HRS ONCE IV Last administered on 10/21/20at 15:19; Start 10/21/20 at 14:15; Stop 10/21/20 at 14:16; Status DC Famotidine (Pepcid Vial) 20 mg BID IVP Last administered on 10/26/20at 09:57; Start 10/21/20 at 21:00 Rocuronium Henderson (Zemuron) 50 mg STK-MED ONCE .ROUTE ; Start 10/21/20 at 18:59; Stop 10/21/20 at 18:59; Status DC Etomidate (Amidate) 20 mg STK-MED ONCE IV ; Start 10/21/20 at 18:59; Stop 10/21/20 at 19:00; Status DC Insulin Human Lispro (HumaLOG) 0-9 UNITS Q6HRS SQ Last administered on 10/22/20at 06:01; Start 10/22/20 at 00:00; Stop 10/22/20 at 09:52; Status DC Fentanyl Citrate 55 ml @ 0 mls/hr CONT PRN PRN IV PAIN CONTROL Last administered on 10/25/20at 18:45; Start 10/22/20 at 06:30 Insulin Human Regular 100 unit/ Sodium Chloride 101 ml @ 0 mls/hr CONT PRN IV SEE I/O RECORD; Start 10/22/20 at 09:15; Stop 10/22/20 at 09:49; Status DC Dextrose (Dextrose 50%-Water Syringe) 12.5 gm PRN Q15MIN PRN IV LOW BLOOD SUGAR; Start 10/22/20 at 09:15; Stop 10/22/20 at 09:49; Status DC Insulin Human Lispro (HumaLOG) 0-9 UNITS TIDWMEALS SQ Last administered on 10/22/20at 12:14; Start 10/22/20 at 12:00; Stop 10/22/20 at 19:52; Status DC Dextrose (Dextrose 50%-Water Syringe) 12.5 gm PRN Q15MIN PRN IV SEE COMMENTS; Start 10/22/20 at 09:45 Insulin Glargine (Lantus Syringe) 10 unit 1X ONCE SQ Last administered on 10/22/20at 11:01; Start 10/22/20 at 10:30; Stop 10/22/20 at 10:31; Status DC Insulin Human Regular 100 unit/ Sodium Chloride 101 ml @ 0 mls/hr CONT PRN IV SEE I/O RECORD Last administered on 10/23/20at 02:14; Start 10/22/20 at 18:30 Insulin Human Lispro (HumaLOG) 0-9 UNITS Q6H SQ ; Start 10/23/20 at 00:00; Stop 10/23/20 at 09:42; Status DC Ascorbic Acid (Vitamin C) 3,000 mg TID PO Last administered on 10/26/20at 09:57; Start 10/23/20 at 09:00 Insulin Human Lispro (HumaLOG) 0-9 UNITS Q6HRS SQ Last administered on 10/08 at 12:06; Start 10/23/20 at 12:00 Info (Anti-Coagulation Monitoring By Pharmacy) 1 each PRN DAILY PRN MC SEE COMMENTS Last administered on 10/24/20at 10:41; Start 10/24/20 at 07:45 Insulin Glargine (Lantus Syringe) 30 unit DAILY10 SQ Last administered on 10/25/20at 11:29; Start 10/24/20 at 12:00; Stop 10/25/20 at 14:27; Status DC Insulin Human Lispro (HumaLOG) 11 units 1X ONCE SQ Last administered on 10/25/20at 05:46; Start 10/25/20 at 05:45; Stop 10/25/20 at 05:48; Status DC Insulin Glargine (Lantus Syringe) 30 unit BID SQ Last administered on 10/26/20at 09:00; Start 10/25/20 at 21:00; Stop 10/26/20 at 09:39; Status DC Insulin Human Lispro (HumaLOG) 11 units 1X ONCE SQ Last administered on 10/25/20at 15:09; Start 10/25/20 at 15:15; Stop 10/25/20 at 15:16; Status DC Piperacillin Sod/ Tazobactam Sod (Zosyn Per Pharmacy) 1 each PRN DAILY PRN MC SEE COMMENTS; Start 10/26/20 at 09:45 Furosemide (Lasix) 20 mg 1X ONCE IVP Last administered on 10/26/20at 09:59; Start 10/26/20 at 09:45; Stop 10/26/20 at 09:46; Status DC Insulin Glargine (Lantus Syringe) 40 unit BID SQ ; Start 10/26/20 at 21:00 Piperacillin Sod/ Tazobactam Sod 3.375 gm/Sodium Chloride 50 ml @ 100 mls/hr Q6H IV Last administered on 10/26/20at 10:24; Start 10/26/20 at 10:00 Vitals/I & O Vital Sign - Last 24 Hours 10/25/20 10/25/20 10/25/20 10/25/20 14:00 15:00 16:00 16:00 Temp 98.0 98.0 Pulse 40 40 42 Resp 26 26 26 B/P (MAP) 142/66 (91) 135/64 (87) 122/61 (81) Pulse Ox 100 97 98 O2 Delivery Ventilator Ventilator Ventilator Mechanical Ventilator 10/25/20 10/25/20 10/25/20 10/25/20 17:00 18:00 18:45 19:00 Pulse 42 45 53 Resp B/P (MAP) 129/62 (84) 129/60 (83) 134/58 (83) Pulse Ox 100 100 100 98 O2 Delivery Ventilator Ventilator Ventilator O2 Flow Rate 40.0 10/25/20 10/25/20 10/25/20 10/25/20 20:00 20:00 20:24 21:00 Temp 98.5 98.5 Pulse 46 44 B/P (MAP) 126/59 (81) 130/64 (86) Pulse Ox 97 97 96 O2 Delivery Mechanical Ventilator Ventilator Ventilator Ventilator 10/25/20 10/25/20 10/25/20 10/26/20 22:00 23:00 23:58 00:00 Pulse 50 46 B/P (MAP) 119/55 (76) 122/67 (85) Pulse Ox 97 99 99 O2 Delivery Ventilator Ventilator Ventilator Mechanical Ventilator 10/26/20 10/26/20 10/26/20 10/26/20 00:00 01:00 02:00 03:00 Temp 98.7 98.7 Pulse 43 47 44 46 Resp B/P (MAP) 144/80 (101) 143/73 (96) 131/63 (85) 127/62 (83) Pulse Ox 95 92 96 94 O2 Delivery Ventilator Ventilator Ventilator Ventilator 10/26/20 10/26/20 10/26/20 10/26/20 04:00 04:00 04:11 05:00 Temp 99.1 99.1 Pulse 48 46 B/P (MAP) 129/67 (87) 128/66 (86) Pulse Ox 96 96 96 O2 Delivery Ventilator Mechanical Ventilator Ventilator Ventilator 10/26/20 10/26/20 10/26/20 10/26/20 06:00 07:00 08:00 08:00 Temp 98.4 98.4 Pulse 43 46 47 Resp B/P (MAP) 135/67 (89) 134/69 (90) 123/57 (79) Pulse Ox 96 97 100 O2 Delivery Ventilator Ventilator Ventilator Mechanical Ventilator 10/26/20 10/26/20 10/26/20 10/26/20 08:04 09:00 10:00 11:00 Pulse 47 68 65 Resp 26 28 28 B/P (MAP) 121/64 (83) 144/64 (90) 128/72 (90) Pulse Ox 98 97 92 100 O2 Delivery Ventilator Ventilator Ventilator Ventilator 10/26/20 10/26/20 10/26/20 11:34 12:00 12:00 Temp 98.8 98.8 Pulse 62 Resp 28 B/P (MAP) 137/69 (91) Pulse Ox 98 96 O2 Delivery Ventilator Mechanical Ventilator Ventilator Intake and Output 10/25/20 10/25/20 10/26/20 15:00 23:00 07:00 Intake Total 200 ml 1297 ml 1320 ml Output Total 850 ml 1250 ml 770 ml Balance -650 ml 47 ml 550 ml Justicifation of Admission Dx: Justifications for Admission: Justification of Admission Dx: Yes (sepsis, covid, resp failure) KAHLIL ALMAZAN MD Oct 26, 2020 13:21
--- NOTE | 2020-10-26 13:36 | NUR ---
Patient put back on versed gtt d/t not tolerating just fentanyl and propofol after sedation vacation.
--- NOTE | 2020-10-26 15:13 | NUR ---
SS following up with discharge planning. SS reviewed pt chart and discussed with pt RN. Pt is currently on the vent at 40%. COVID19 positive. Pt on IV Zosyn. SS contacted pt's spouse and was notified that she could not meet with SS because her car broke down. Pt's spouse requesting resources for assistance because they only have on income at this time. Pt's spouse reported that pt does not have short term disability. Pt's spouse provided with information for [employer], [employer], [employer], and [employer]. Pt's RN notified. SS will continue to follow for discharge planning.
[2020-10-26] MEDS: MIDAZOLAM 100mg/100ml NS BAG 100 ML IV PRN (15:58)
--- NOTE | 2020-10-26 17:35 | NUR ---
Tube feeding put on hold at this time since patient's suctioned specimen appeared to be tube feeding and patient's lung sounds to right lung are crackles now that were not there earlier. Placement of OG confirmed with stat portable chest xray.
--- NOTE | 2020-10-26 17:38 | RAD ---
INDICATION: Reason: OG placement / Spl. Instructions: / History: COMPARISON: Chest x-ray from earlier same day FINDINGS: Frontal views of the chest obtained. Right-sided PICC line with tip at expected location of the distal SVC. Endotracheal tube midthoracic trachea. Enteric tube is seen coursing below the diaphragm. Hazy opacity at the right lung base with interstitial opacities bilaterally. Degenerative changes the spine. IMPRESSION: * Lines and tubes as above. * Hazy opacity right lung base could be secondary to a combination of airspace consolidation in the region as well as pleural effusion. There is also some interstitial opacities bilaterally which can b e seen with edema or interstitial infiltrate. Electronically signed by: Vance Giraldo MD (10/26/2020 5:36 PM) [id number]
[2020-10-27] VITALS (24 sets, daily range): BP systolic 112–132; BP diastolic 59–80
[2020-10-27] MEDS: INSULIN LISPRO 300 UNITS/3 ML VIAL. SQ SCH ×4 (00:29→17:42)
[2020-10-27] MEDS: PROPOFOL 100 ML IV PRN ×3 (01:21→17:08)
[2020-10-27] MEDS: HEPARIN for IV BOLUS 10,000 UNIT/10 ML VIAL. IV PRN (01:21)
[2020-10-27] MEDS: MIDAZOLAM 100mg/100ml NS BAG 100 ML IV PRN ×2 (02:59→12:49)
[2020-10-27] MEDS: PIPERACILLIN/TAZOBACTAM 3.375 GM in IV NORMAL SALINE 50ML 50 ML IV SCH ×4 (03:52→21:44)
[2020-10-27] MEDS: THIAMINE INJ 100 MG in IV DEXTROSE 5% 50 ML IV SCH (05:55)
[2020-10-27] MEDS: fentaNYL HIGH DOSE PCA 55 ML IV PRN (06:10)
[2020-10-27 06:34] LABS: HEMATOCRIT 35.2 % (39.0-53.0); HEMOGLOBIN 11.6 g/dL (13.0-17.5); RED BLOOD COUNT 3.98 x10^6/uL (4.30-5.70); RED CELL DISTRIBUTION WIDTH 14.1 % (11.5-14.5); WHITE BLOOD COUNT 7.8 x10^3/uL (4.0-11.0)
[2020-10-27 06:46] LABS: CALCIUM 8.6 mg/dL (8.5-10.1); CREATININE 0.8 mg/dL (0.7-1.3); GFR 100.4; POTASSIUM 4.3 mmol/L (3.5-5.1)
[2020-10-27 08:47] LABS: BASE EXCESS ABG 5 mmol/L (-3-3); HCO3 ABG 29 mmol/L (21-28); PCO2 ABG 42 mmHg (35-46); PO2 ABG 55 mmHg (75-108); SAT O2 ABG 88 % (92-99)
[2020-10-27] MEDS: ASCORBIC ACID 1,000 MG TABLET PO SCH ×3 (08:49→21:06)
[2020-10-27] MEDS: FAMOTIDINE 20 MG/2 ML VIAL IVP SCH ×2 (08:49→21:06)
[2020-10-27] MEDS: HEPARIN 25,000UTS/250ML PREMIX 250 ML IV PRN (08:50)
[2020-10-27] MEDS: DEXAMETHASONE SOD PHOS 4 MG/ML VIAL IVP SCH ×2 (08:50→21:07)
[2020-10-27 08:58] LABS: FIO2 ABG 50%
[2020-10-27] MEDS: INSULIN GLARGINE SYRINGE. SQ SCH ×2 (09:02→21:07)
--- NOTE | 2020-10-27 09:44 | NUR ---
SS following up with discharge planning. SS reviewed pt chart and discussed with pt RN. Pt is currently on the vent at 50%. COVID19 positive. Pt on IV Zosyn. Not stable. SS will continue to follow for discharge planning.
[2020-10-27] MEDS ORDERED: INSULIN LISPRO 300 UNITS/3 ML VIAL. SQ ONE (09:45)
--- NOTE | 2020-10-27 10:31 | PDOC ---
PULMONARY PROGRESS NOTES DATE: 10/27/20 TIME: 10:27 Subjective Ventilatory support, FiO2 60% and a PEEP of 6 Heparin drip No other overnight concerns Vitals Vital Signs Date Time Temp Pulse Resp B/P (MAP) Pulse Ox O2 Delivery O2 Flow Rate FiO2 10/27/20 08:00 98.2 55 26 119/59 (79) 95 Ventilator 98.2 Comments intubated sedated Bradycardia no accessory muscle use abd obese no rash Labs Laboratory Tests Test 10/25/20 15:02 10/25/20 18:02 10/26/20 00:53 10/26/20 00:55 Glucose (Fingerstick) 315 mg/dL (70-99) 301 mg/dL (70-99) 280 mg/dL (70-99) Heparin Anti-Xa Act, Unfractionated 0.35 IU/mL (0.30-0.70) Test 10/26/20 05:36 10/26/20 08:00 10/26/20 10:10 10/26/20 12:04 Glucose (Fingerstick) 260 mg/dL (70-99) 279 mg/dL (70-99) O2 Saturation 99 % (92-99) Arterial Blood pH 7.39 (7.35-7.45) Arterial Blood pCO2 at Patient Temp 42 mmHg (35-46) Arterial Blood pO2 at Patient Temp 178 mmHg (75-108) Arterial Blood HCO3 25 mmol/L (21-28) Arterial Blood Base Excess 0 mmol/L (-3-3) FiO2 50/vent D-Dimer (Ayanna) 9.97 ug/mlFEU (0.00-0.50) Test 10/26/20 17:53 10/26/20 21:47 10/26/20 23:24 10/27/20 00:50 Glucose (Fingerstick) 283 mg/dL (70-99) 210 mg/dL (70-99) 225 mg/dL (70-99) Heparin Anti-Xa Act, Unfractionated 0.17 IU/mL (0.30-0.70) Test 10/27/20 05:40 10/27/20 05:51 10/27/20 07:30 10/27/20 08:45 White Blood Count 7.8 x10^3/uL (4.0-11.0) Red Blood Count 3.98 x10^6/uL (4.30-5.70) Hemoglobin 11.6 g/dL (13.0-17.5) Hematocrit 35.2 % (39.0-53.0) Mean Corpuscular Volume 89 fL (79-100) Mean Corpuscular Hemoglobin 29 pg (25-35) Mean Corpuscular Hemoglobin Concent 33 g/dL (31-37) Red Cell Distribution Width 14.1 % (11.5-14.5) Platelet Count 181 x10^3/uL (140-400) Sodium Level 139 mmol/L (136-145) Potassium Level 4.3 mmol/L (3.5-5.1) Chloride Level 103 mmol/L (98-107) Carbon Dioxide Level 30 mmol/L (21-32) Anion Gap 6 (6-14) Blood Urea Nitrogen 30 mg/dL (8-26) Creatinine 0.8 mg/dL (0.7-1.3) Estimated GFR (Cockcroft-Gault) 100.4 Glucose Level 241 mg/dL (70-99) Calcium Level 8.6 mg/dL (8.5-10.1) Glucose (Fingerstick) 264 mg/dL (70-99) Heparin Anti-Xa Act, Unfractionated 0.36 IU/mL (0.30-0.70) O2 Saturation 88 % (92-99) Arterial Blood pH 7.45 (7.35-7.45) Arterial Blood pCO2 at Patient Temp 42 mmHg (35-46) Arterial Blood pO2 at Patient Temp 55 mmHg (75-108) Arterial Blood HCO3 29 mmol/L (21-28) Arterial Blood Base Excess 5 mmol/L (-3-3) FiO2 50% Laboratory Tests Test 10/26/20 12:04 10/26/20 17:53 10/26/20 21:47 10/26/20 23:24 Glucose (Fingerstick) 279 mg/dL (70-99) 283 mg/dL (70-99) 210 mg/dL (70-99) 225 mg/dL (70-99) Test 10/27/20 00:50 10/27/20 05:40 10/27/20 05:51 10/27/20 07:30 Heparin Anti-Xa Act, Unfractionated 0.17 IU/mL (0.30-0.70) 0.36 IU/mL (0.30-0.70) White Blood Count 7.8 x10^3/uL (4.0-11.0) Red Blood Count 3.98 x10^6/uL (4.30-5.70) Hemoglobin 11.6 g/dL (13.0-17.5) Hematocrit 35.2 % (39.0-53.0) Mean Corpuscular Volume 89 fL (79-100) Mean Corpuscular Hemoglobin 29 pg (25-35) Mean Corpuscular Hemoglobin Concent 33 g/dL (31-37) Red Cell Distribution Width 14.1 % (11.5-14.5) Platelet Count 181 x10^3/uL (140-400) Sodium Level 139 mmol/L (136-145) Potassium Level 4.3 mmol/L (3.5-5.1) Chloride Level 103 mmol/L (98-107) Carbon Dioxide Level 30 mmol/L (21-32) Anion Gap 6 (6-14) Blood Urea Nitrogen 30 mg/dL (8-26) Creatinine 0.8 mg/dL (0.7-1.3) Estimated GFR (Cockcroft-Gault) 100.4 Glucose Level 241 mg/dL (70-99) Calcium Level 8.6 mg/dL (8.5-10.1) Glucose (Fingerstick) 264 mg/dL (70-99) Test 10/27/20 08:45 O2 Saturation 88 % (92-99) Arterial Blood pH 7.45 (7.35-7.45) Arterial Blood pCO2 at Patient Temp 42 mmHg (35-46) Arterial Blood pO2 at Patient Temp 55 mmHg (75-108) Arterial Blood HCO3 29 mmol/L (21-28) Arterial Blood Base Excess 5 mmol/L (-3-3) FiO2 50% Comments CXR 10/26 worsening infiltrates Impression . IMPRESSION: 1. Acute hypoxemic respiratory failure secondary to COVID-19 viral pneumonia. 2. COVID-19 viral pneumonia/sepsis. 3. Abnormal x-ray compatible with SARS-CoV-2 infection. 4. Acute kidney injury. 5. Severe hypoxemia, elevated D-dimer, possible thromboembolic disease. 6. Morbid obesity. 7. Protein malnutrition, present upon admission. 8. Elevated troponin. 9. CXR 10/26 , worsening infiltrates, possible aspiration Plan . PLAN: Continue current ventilatory support, wean FiO2 to 60% and a PEEP of 6 Follow ABG/chest x-ray as needed COVID-19 positive remdesivir for full 5-day course Continue steroids patient will need a full 10-day course, taper slowly Continue heparin drip for presumptive diagnosis of PE as the patient is still too ill to complete a CTA, clinically improving, dopplers with no DVT. repeat Dimer increased Continue tube feeding for nutritional support Added empiric Abx 10/26 for suspected aspiration prn lasix DVT/GI prophylaxis Discussed with RN and RT/ Dr Garcia Critical care time [id number] GEO VALENZUELA MD Oct 27, 2020 10:31
[2020-10-27 12:16] LABS: MAGNESIUM 1.8 mg/dL (1.8-2.4); PHOSPHORUS 4.7 mg/dL (2.6-4.7)
--- NOTE | 2020-10-27 12:44 | PDOC ---
PROGRESS NOTES Date of Service: DATE: 10/27/20 TIME: 12:43 Chief Complaint Chief Complaint sepsis, severe with shcok Acute hypoxemic respiratory failure secondary to COVID-19 viral pneumonia. intubated and sedated acute renal failure, vasomotor nephropathy and sepsis, ATN poss gram negative bacterial pneumonia Dm2, with hyperglycemia, poor control, obese, BMI 36 with concomittant Protein malnutrition, present upon admission. History of Present Illness History of Present Illness 10/27. ABG didnt look very good this AM with ongoing hypoxia, oxygen Sa02 is 60%, still sedate 10/[address] Morrow, CXR worse, abx started, start zosyn, cover for pneumonia ICU care, 35min cont current follow labs, intubated and sedated changed insulin dose, lantus started yesterday, will make 30 BID, on tube feeds and on IV steroids, Vitals Vitals Vital Signs Date Time Temp Pulse Resp B/P (MAP) Pulse Ox O2 Delivery O2 Flow Rate FiO2 10/27/20 12:00 Mechanical Ventilator 10/27/20 12:00 98.2 49 26 120/65 (83) 96 98.2 Physical Exam Physical Exam intubated, sedated on vent, Heart: Regular rate Abdomen: Normal bowel sounds, Soft Extremities: No clubbing Skin: No rashes Labs LABS Laboratory Tests Test 10/26/20 17:53 10/26/20 21:47 10/26/20 23:24 10/27/20 00:50 Glucose (Fingerstick) 283 mg/dL (70-99) 210 mg/dL (70-99) 225 mg/dL (70-99) Heparin Anti-Xa Act, Unfractionated 0.17 IU/mL (0.30-0.70) Test 10/27/20 05:40 10/27/20 05:51 10/27/20 07:30 10/27/20 08:45 White Blood Count 7.8 x10^3/uL (4.0-11.0) Red Blood Count 3.98 x10^6/uL (4.30-5.70) Hemoglobin 11.6 g/dL (13.0-17.5) Hematocrit 35.2 % (39.0-53.0) Mean Corpuscular Volume 89 fL (79-100) Mean Corpuscular Hemoglobin 29 pg (25-35) Mean Corpuscular Hemoglobin Concent 33 g/dL (31-37) Red Cell Distribution Width 14.1 % (11.5-14.5) Platelet Count 181 x10^3/uL (140-400) Sodium Level 139 mmol/L (136-145) Potassium Level 4.3 mmol/L (3.5-5.1) Chloride Level 103 mmol/L (98-107) Carbon Dioxide Level 30 mmol/L (21-32) Anion Gap 6 (6-14) Blood Urea Nitrogen 30 mg/dL (8-26) Creatinine 0.8 mg/dL (0.7-1.3) Estimated GFR (Cockcroft-Gault) 100.4 Glucose Level 241 mg/dL (70-99) Calcium Level 8.6 mg/dL (8.5-10.1) Phosphorus Level 4.7 mg/dL (2.6-4.7) Magnesium Level 1.8 mg/dL (1.8-2.4) Glucose (Fingerstick) 264 mg/dL (70-99) D-Dimer (Ayanna) 6.10 ug/mlFEU (0.00-0.50) Heparin Anti-Xa Act, Unfractionated 0.36 IU/mL (0.30-0.70) O2 Saturation 88 % (92-99) Arterial Blood pH 7.45 (7.35-7.45) Arterial Blood pCO2 at Patient Temp 42 mmHg (35-46) Arterial Blood pO2 at Patient Temp 55 mmHg (75-108) Arterial Blood HCO3 29 mmol/L (21-28) Arterial Blood Base Excess 5 mmol/L (-3-3) FiO2 50% Test 10/27/20 11:57 Glucose (Fingerstick) 212 mg/dL (70-99) Assessment and Plan Assessmemt and Plan Problems Medical Problems: (1) Hyperglycemia Status: Acute (2) Hypoxia Status: Acute (3) Pneumonia due to COVID-19 virus Status: Acute (4) Respiratory failure Status: Acute (5) Septic shock Status: Acute Comment Review of Relevant I have reviewed the following items andrew (where applicable) has been applied. Labs Laboratory Tests Test 10/25/20 15:02 10/25/20 18:02 10/26/20 00:53 10/26/20 00:55 Glucose (Fingerstick) 315 mg/dL (70-99) 301 mg/dL (70-99) 280 mg/dL (70-99) Heparin Anti-Xa Act, Unfractionated 0.35 IU/mL (0.30-0.70) Test 10/26/20 05:36 10/26/20 08:00 10/26/20 10:10 10/26/20 12:04 Glucose (Fingerstick) 260 mg/dL (70-99) 279 mg/dL (70-99) O2 Saturation 99 % (92-99) Arterial Blood pH 7.39 (7.35-7.45) Arterial Blood pCO2 at Patient Temp 42 mmHg (35-46) Arterial Blood pO2 at Patient Temp 178 mmHg (75-108) Arterial Blood HCO3 25 mmol/L (21-28) Arterial Blood Base Excess 0 mmol/L (-3-3) FiO2 50/vent D-Dimer (Ayanna) 9.97 ug/mlFEU (0.00-0.50) Test 10/26/20 17:53 10/26/20 21:47 10/26/20 23:24 10/27/20 00:50 Glucose (Fingerstick) 283 mg/dL (70-99) 210 mg/dL (70-99) 225 mg/dL (70-99) Heparin Anti-Xa Act, Unfractionated 0.17 IU/mL (0.30-0.70) Test 10/27/20 05:40 10/27/20 05:51 10/27/20 07:30 10/27/20 08:45 White Blood Count 7.8 x10^3/uL (4.0-11.0) Red Blood Count 3.98 x10^6/uL (4.30-5.70) Hemoglobin 11.6 g/dL (13.0-17.5) Hematocrit 35.2 % (39.0-53.0) Mean Corpuscular Volume 89 fL (79-100) Mean Corpuscular Hemoglobin 29 pg (25-35) Mean Corpuscular Hemoglobin Concent 33 g/dL (31-37) Red Cell Distribution Width 14.1 % (11.5-14.5) Platelet Count 181 x10^3/uL (140-400) Sodium Level 139 mmol/L (136-145) Potassium Level 4.3 mmol/L (3.5-5.1) Chloride Level 103 mmol/L (98-107) Carbon Dioxide Level 30 mmol/L (21-32) Anion Gap 6 (6-14) Blood Urea Nitrogen 30 mg/dL (8-26) Creatinine 0.8 mg/dL (0.7-1.3) Estimated GFR (Cockcroft-Gault) 100.4 Glucose Level 241 mg/dL (70-99) Calcium Level 8.6 mg/dL (8.5-10.1) Phosphorus Level 4.7 mg/dL (2.6-4.7) Magnesium Level 1.8 mg/dL (1.8-2.4) Glucose (Fingerstick) 264 mg/dL (70-99) D-Dimer (Ayanna) 6.10 ug/mlFEU (0.00-0.50) Heparin Anti-Xa Act, Unfractionated 0.36 IU/mL (0.30-0.70) O2 Saturation 88 % (92-99) Arterial Blood pH 7.45 (7.35-7.45) Arterial Blood pCO2 at Patient Temp 42 mmHg (35-46) Arterial Blood pO2 at Patient Temp 55 mmHg (75-108) Arterial Blood HCO3 29 mmol/L (21-28) Arterial Blood Base Excess 5 mmol/L (-3-3) FiO2 50% Test 10/27/20 11:57 Glucose (Fingerstick) 212 mg/dL (70-99) Laboratory Tests Test 10/26/20 17:53 10/26/20 21:47 10/26/20 23:24 10/27/20 00:50 Glucose (Fingerstick) 283 mg/dL (70-99) 210 mg/dL (70-99) 225 mg/dL (70-99) Heparin Anti-Xa Act, Unfractionated 0.17 IU/mL (0.30-0.70) Test 10/27/20 05:40 10/27/20 05:51 10/27/20 07:30 10/27/20 08:45 White Blood Count 7.8 x10^3/uL (4.0-11.0) Red Blood Count 3.98 x10^6/uL (4.30-5.70) Hemoglobin 11.6 g/dL (13.0-17.5) Hematocrit 35.2 % (39.0-53.0) Mean Corpuscular Volume 89 fL (79-100) Mean Corpuscular Hemoglobin 29 pg (25-35) Mean Corpuscular Hemoglobin Concent 33 g/dL (31-37) Red Cell Distribution Width 14.1 % (11.5-14.5) Platelet Count 181 x10^3/uL (140-400) Sodium Level 139 mmol/L (136-145) Potassium Level 4.3 mmol/L (3.5-5.1) Chloride Level 103 mmol/L (98-107) Carbon Dioxide Level 30 mmol/L (21-32) Anion Gap 6 (6-14) Blood Urea Nitrogen 30 mg/dL (8-26) Creatinine 0.8 mg/dL (0.7-1.3) Estimated GFR (Cockcroft-Gault) 100.4 Glucose Level 241 mg/dL (70-99) Calcium Level 8.6 mg/dL (8.5-10.1) Phosphorus Level 4.7 mg/dL (2.6-4.7) Magnesium Level 1.8 mg/dL (1.8-2.4) Glucose (Fingerstick) 264 mg/dL (70-99) D-Dimer (Ayanna) 6.10 ug/mlFEU (0.00-0.50) Heparin Anti-Xa Act, Unfractionated 0.36 IU/mL (0.30-0.70) O2 Saturation 88 % (92-99) Arterial Blood pH 7.45 (7.35-7.45) Arterial Blood pCO2 at Patient Temp 42 mmHg (35-46) Arterial Blood pO2 at Patient Temp 55 mmHg (75-108) Arterial Blood HCO3 29 mmol/L (21-28) Arterial Blood Base Excess 5 mmol/L (-3-3) FiO2 50% Test 10/27/20 11:57 Glucose (Fingerstick) 212 mg/dL (70-99) Microbiology 10/21/20 Blood Culture - Final, Complete NO GROWTH AFTER 5 DAYS Medications Current Medications Sodium Chloride 1,000 ml @ 1,000 mls/hr Q1H IV Last administered on 10/21/20at 09:31; Start 10/21/20 at 08:45; Stop 10/21/20 at 09:44; Status DC Dexamethasone Sodium Phosphate (Decadron) 10 mg 1X ONCE IVP Last administered on 10/21/20at 09:32; Start 10/21/20 at 08:45; Stop 10/21/20 at 09:11; Status DC Piperacillin Sod/ Tazobactam Sod 4.5 gm/Sodium Chloride 100 ml @ 200 mls/hr 1X ONCE IV Last administered on 10/21/20at 11:18; Start 10/21/20 at 10:30; Stop 10/21/20 at 10:59; Status DC Azithromycin 250 ml @ 250 mls/hr 1X ONCE IV Last administered on 10/21/20at 11:18; Start 10/21/20 at 10:30; Stop 10/21/20 at 11:29; Status DC Aspirin (Ecotrin) 325 mg 1X ONCE PO Last administered on 10/21/20at 11:17; Start 10/21/20 at 10:30; Stop 10/21/20 at 10:31; Status DC Insulin Human Regular (HumuLIN R VIAL) 14 unit 1X ONCE SQ Last administered on 10/21/20at 11:28; Start 10/21/20 at 10:30; Stop 10/21/20 at 10:31; Status DC Sodium Chloride 1,000 ml @ 1,000 mls/hr 1X ONCE IV Last administered on 10/21/20at 11:18; Start 10/21/20 at 10:30; Stop 10/21/20 at 11:29; Status DC Iohexol (Omnipaque 350 Mg/ml) 90 ml 1X ONCE IV ; Start 10/21/20 at 10:45; Stop 10/21/20 at 10:46; Status DC Info (CONTRAST GIVEN -- Rx MONITORING) 1 each PRN DAILY PRN MC SEE COMMENTS; Start 10/21/20 at 10:45; Stop 10/23/20 at 10:44; Status DC Acetaminophen (Tylenol) 500 mg 1X ONCE PO Last administered on 10/21/20at 11:30; Start 10/21/20 at 11:15; Stop 10/21/20 at 11:16; Status DC Lorazepam (Ativan Inj) 0.5 mg 1X ONCE IVP Last administered on 10/21/20at 11:20; Start 10/21/20 at 11:15; Stop 10/21/20 at 11:16; Status DC Ondansetron HCl (Zofran) 4 mg PRN Q8HRS PRN IV NAUSEA/VOMITING; Start 10/21/20 at 11:30; Stop 10/21/20 at 13:29; Status DC Fentanyl Citrate (Fentanyl 2ml Vial) 50 mcg PRN Q2HR PRN IV PAIN; Start 10/21/20 at 11:30; Stop 10/22/20 at 06:16; Status DC Sodium Chloride 1,000 ml @ 100 mls/hr Q10H IV Last administered on 10/22/20at 13:36; Start 10/21/20 at 11:30; Stop 10/22/20 at 11:29; Status DC Acetaminophen (Tylenol) 650 mg PRN Q4HRS PRN PO FEVER > 100.3'F; Start 10/21/20 at 11:30; Stop 10/22/20 at 06:17; Status DC Sennosides (Senna) 17.2 mg PRN BID PRN PO CONSTIPATION; Start 10/21/20 at 12:00 Docusate Sodium (Colace) 100 mg PRN DAILY PRN PO HARD STOOLS; Start 10/21/20 at 12:00 Ondansetron HCl (Zofran) 4 mg PRN Q6HRS PRN IVP NAUSEA/VOMITING; Start 10/21/20 at 12:00 Insulin Human Lispro (HumaLOG) 0-9 UNITS TIDWMEALS SQ Last administered on 10/21/20at 18:15; Start 10/21/20 at 12:00; Stop 10/21/20 at 22:22; Status DC Dextrose (Dextrose 50%-Water Syringe) 12.5 gm PRN Q15MIN PRN IV SEE COMMENTS; Start 10/21/20 at 12:00; Stop 10/22/20 at 09:30; Status DC Acetaminophen (Tylenol) 650 mg PRN Q4HRS PRN PO TEMP OVER 100.4F OR MILD PAIN Last administered on 10/25/20at 05:36; Start 10/21/20 at 12:00 Enoxaparin Sodium (Lovenox 40mg Syringe) 40 mg Q24H SQ ; Start 10/21/20 at 13:00; Status Cancel Ascorbic Acid (Vitamin C) 3,000 mg TID PO Last administered on 10/22/20at 21:28; Start 10/21/20 at 14:00; Stop 10/23/20 at 08:20; Status DC Thiamine HCl 100 mg/Dextrose 51 ml @ 102 mls/hr Q8HRS IV Last administered on 10/27/20at 05:55; Start 10/21/20 at 14:00; Stop 10/27/20 at 10:00; Status DC Dexamethasone Sodium Phosphate (Decadron) 4 mg Q12HR IVP Last administered on 10/27/20at 08:50; Start 10/21/20 at 21:00 Lorazepam (Ativan Inj) 0.5 mg 1X ONCE IVP Last administered on 10/21/20at 11:59; Start 10/21/20 at 12:00; Stop 10/21/20 at 12:15; Status DC Propofol 100 ml @ As Directed STK-MED ONCE IV ; Start 10/21/20 at 12:47; Stop 10/21/20 at 12:47; Status DC Etomidate (Amidate) 20 mg 1X ONCE IV ; Start 10/21/20 at 13:00; Stop 10/21/20 at 13:05; Status DC Rocuronium [place] (Zemuron) 50 mg 1X ONCE IV ; Start 10/21/20 at 13:00; Stop 10/21/20 at 13:05; Status DC Propofol 100 ml @ 0 mls/hr CONT PRN IV PER PROTOCOL Last administered on 10/27/20at 08:49; Start 10/21/20 at 13:00 Chlorhexidine Gluconate (Peridex) 15 ml BID MM Last administered on 10/22/20at 21:28; Start 10/21/20 at 21:00; Stop 10/23/20 at 08:12; Status DC Fentanyl Citrate 30 ml @ 0 mls/hr CONT PRN IV SEE PROTOCOL Last administered on 10/22/20at 00:28; Start 10/21/20 at 13:15; Stop 10/22/20 at 06:16; Status DC Midazolam HCl 100 ml @ 0 mls/hr CONT PRN IV SEE PROTOCOL Last administered on 10/27/20at 02:59; Start 10/21/20 at 13:15 Lorazepam (Ativan Inj) 2 mg 1X ONCE IVP Last administered on 10/21/20at 13:31; Start 10/21/20 at 13:15; Stop 10/21/20 at 13:17; Status DC Fentanyl Citrate (Fentanyl 2ml Vial) 100 mcg 1X ONCE IVP Last administered on 10/21/20at 13:32; Start 10/21/20 at 13:15; Stop 10/21/20 at 13:17; Status DC Heparin Sodium/ Dextrose 250 ml @ 16 mls/hr CONT PRN IV PER PROTOCOL Last administered on 10/27/20at 08:50; Start 10/21/20 at 13:30 Heparin Sodium (Porcine) (Heparin Sodium) 3,000 unit PRN Q6HRS PRN IV FOR UFH LEVEL LESS THAN 0.2 Last administered on 10/27/20at 01:21; Start 10/21/20 at 13:30 Heparin Sodium (Porcine) (Heparin Sodium) 1,500 unit PRN Q6HRS PRN IV FOR UFH LEVEL 0.2 - 0.29; Start 10/21/20 at 13:30 Remdesivir 200 mg/ Sodium Chloride 210 ml @ 210 mls/hr 1X ONCE IV Last administered on 10/21/20at 17:29; Start 10/21/20 at 15:00; Stop 10/21/20 at 15:59; Status DC Remdesivir 100 mg/ Sodium Chloride 230 ml @ 460 mls/hr Q24H IV Last admi nistered on 10/25/20at 15:06; Start 10/22/20 at 15:00; Stop 10/25/20 at 15:29; Status DC Bumetanide (Bumex) 1 mg 1X ONCE IV ; Start 10/21/20 at 13:30; Stop 10/21/20 at 13:37; Status DC Vecuronium [place] (Norcuron Bolus) 10 mg 1X ONCE IV Last administered on 10/21/20at 13:45; Start 10/21/20 at 13:45; Stop 10/21/20 at 13:46; Status DC Vecuronium [place] (Norcuron Bolus) 6 mg PRN Q4HRS ONCE IV Last administered on 10/21/20at 15:19; Start 10/21/20 at 14:15; Stop 10/21/20 at 14:16; Status DC Famotidine (Pepcid Vial) 20 mg BID IVP Last administered on 10/27/20at 08:49; Start 10/21/20 at 21:00 Rocuronium [place] (Zemuron) 50 mg STK-MED ONCE .ROUTE ; Start 10/21/20 at 18:59; Stop 10/21/20 at 18:59; Status DC Etomidate (Amidate) 20 mg STK-MED ONCE IV ; Start 10/21/20 at 18:59; Stop 10/21/20 at 19:00; Status DC Insulin Human Lispro (HumaLOG) 0-9 UNITS Q6HRS SQ Last administered on at 06:01; Start 10/22/20 at 00:00; Stop 10/22/20 at 09:52; Status DC Fentanyl Citrate 55 ml @ 0 mls/hr CONT PRN PRN IV PAIN CONTROL Last administered on 10/27/20at 06:10; Start 10/22/20 at 06:30 Insulin Human Regular 100 unit/ Sodium Chloride 101 ml @ 0 mls/hr CONT PRN IV SEE I/O RECORD; Start 10/22/20 at 09:15; Stop 10/22/20 at 09:49; Status DC Dextrose (Dextrose 50%-Water Syringe) 12.5 gm PRN Q15MIN PRN IV LOW BLOOD SUGAR; Start 10/22/20 at 09:15; Stop 10/22/20 at 09:49; Status DC Insulin Human Lispro (HumaLOG) 0-9 UNITS TIDWMEALS SQ Last administered on 10/22/20at 12:14; Start 10/22/20 at 12:00; Stop 10/22/20 at 19:52; Status DC Dextrose (Dextrose 50%-Water Syringe) 12.5 gm PRN Q15MIN PRN IV SEE COMMENTS; Start 10/22/20 at 09:45 Insulin Glargine (Lantus Syringe) 10 unit 1X ONCE SQ Last administered on 10/22/20at 11:01; Start 10/22/20 at 10:30; Stop 10/22/20 at 10:31; Status DC Insulin Human Regular 100 unit/ Sodium Chloride 101 ml @ 0 mls/hr CONT PRN IV SEE I/O RECORD Last administered on 10/23/20at 02:14; Start 10/22/20 at 18:30 Insulin Human Lispro (HumaLOG) 0-9 UNITS Q6H SQ ; Start 10/23/20 at 00:00; Stop 10/23/20 at 09:42; Status DC Ascorbic Acid (Vitamin C) 3,000 mg TID PO Last administered on 10/27/20at 08:49; Start 10/23/20 at 09:00 Insulin Human Lispro (HumaLOG) 0-9 UNITS Q6HRS SQ Last administered on 10/27/20at 12:02; Start 10/23/20 at 12:00 Info (Anti-Coagulation Monitoring By Pharmacy) 1 each PRN DAILY PRN MC SEE COMMENTS Last administered on 10/24/20at 10:41; Start 10/24/20 at 07:45 Insulin Glargine (Lantus Syringe) 30 unit DAILY10 SQ Last administered on 10/25/20at 11:29; Start 10/24/20 at 12:00; Stop 10/25/20 at 14:27; Status DC Insulin Human Lispro (HumaLOG) 11 units 1X ONCE SQ Last administered on 10/25/20at 05:46; Start 10/25/20 at 05:45; Stop 10/25/20 at 05:48; Status DC Insulin Glargine (Lantus Syringe) 30 unit BID SQ Last administered on 10/26/20at 09:00; Start 10/25/20 at 21:00; Stop 10/26/20 at 09:39; Status DC Insulin Human Lispro (HumaLOG) 11 units 1X ONCE SQ Last administered on 10/25/20at 15:09; Start 10/25/20 at 15:15; Stop 10/25/20 at 15:16; Status DC Piperacillin Sod/ Tazobactam Sod (Zosyn Per Pharmacy) 1 each PRN DAILY PRN MC SEE COMMENTS; Start 10/26/20 at 09:45 Furosemide (Lasix) 20 mg 1X ONCE IVP Last administered on 10/26/20at 09:59; Start 10/26/20 at 09:45; Stop 10/26/20 at 09:46; Status DC Insulin Glargine (Lantus Syringe) 40 unit BID SQ Last administered on 10/27/20at 09:02; Start 10/26/20 at 21:00; Stop 10/27/20 at 09:38; Status DC Piperacillin Sod/ Tazobactam Sod 3.375 gm/Sodium Chloride 50 ml @ 100 mls/hr Q6H IV Last administered on 10/27/20at 10:18; Start 10/26/20 at 10:00 Insulin Glargine (Lantus Syringe) 50 unit BID SQ ; Start 10/27/20 at 21:00 Insulin Human Lispro (HumaLOG) 15 units 1X ONCE SQ Last administered on 10/27/20at 10:23; Start 10/27/20 at 09:45; Stop 10/27/20 at 09:46; Status DC Thiamine Mononitrate (Vitamin B-1) 100 mg Q8HRS GT ; Start 10/27/20 at 14:00 Info (Tpn Per Pharmacy) 1 each PRN DAILY PRN MC SEE COMMENTS; Start 10/27/20 at 12:00 Vitals/I & O Vital Sign - Last 24 Hours 10/26/20 10/26/20 10/26/20 10/26/20 13:00 14:00 15:00 15:55 Temp 99.6 99.6 Pulse 75 94 80 Resp B/P (MAP) 135/70 (91) 123/62 (82) 121/64 (83) Pulse Ox 95 92 91 93 O2 Delivery Ventilator Ventilator Ventilator Ventilator 10/26/20 10/26/20 10/26/20 10/26/20 16:00 16:00 17:00 18:00 Temp 99.5 99.5 Pulse 92 95 77 Resp B/P (MAP) 129/64 (85) 124/70 (88) 114/61 (78) Pulse Ox 92 90 97 O2 Delivery Ventilator Mechanical Ventilator Ventilator Ventilator 10/26/20 10/26/20 10/26/20 10/26/20 19:00 20:00 20:00 20:09 Temp 99.8 99.8 Pulse 67 62 Resp B/P (MAP) 132/64 (86) 130/64 (86) Pulse Ox 96 96 93 O2 Delivery Ventilator Mechanical Ventilator Ventilator Ventilator 10/26/20 10/26/20 10/26/20 10/26/20 21:00 22:00 23:00 23:26 Pulse 62 61 64 Resp B/P (MAP) 131/65 (87) 131/64 (86) 99/53 (68) Pulse Ox 96 95 91 95 O2 Delivery Ventilator Ventilator Ventilator Ventilator 10/27/20 10/27/20 10/27/20 10/27/20 00:00 00:00 01:00 02:00 Temp 99.5 99.5 Pulse 58 60 60 Resp B/P (MAP) 118/60 (79) 123/65 (84) 118/61 (80) Pulse Ox 96 95 96 O2 Delivery Ventilator Mechanical Ventilator Ventilator Ventilator 10/27/20 10/27/20 10/27/20 10/27/20 03:00 04:00 04:00 04:08 Temp 99.5 99.5 Pulse 57 56 B/P (MAP) 114/59 (77) 119/69 (86) Pulse Ox 95 95 94 O2 Delivery Ventilator Ventilator Mechanical Ventilator Ventilator 10/27/20 10/27/20 10/27/20 10/27/20 05:00 06:00 06:45 07:00 Pulse 54 54 54 Resp B/P (MAP) 118/65 (82) 112/61 (78) 119/64 (82) Pulse Ox 94 93 93 O2 Delivery Ventilator Ventilator Ventilator Ventilator 10/27/20 10/27/20 10/27/20 10/27/20 07:48 08:00 08:00 09:00 Temp 98.2 98.2 Pulse 55 53 B/P (MAP) 119/59 (79) 118/60 (79) Pulse Ox 92 95 96 O2 Delivery Ventilator Ventilator Mechanical Ventilator Ventilator 10/27/20 10/27/20 10/27/20 10/27/20 10:00 10:59 11:00 12:00 Temp 98.2 98.2 Pulse 53 52 49 Resp B/P (MAP) 114/63 (80) 118/63 (81) 120/65 (83) Pulse Ox 96 96 95 96 O2 Delivery Ventilator Ventilator Ventilator Ventilator 10/27/20 12:00 O2 Delivery Mechanical Ventilator Intake and Output 10/26/20 10/26/20 10/27/20 15:00 23:00 07:00 Intake Total 250 ml 2414.5 ml 531 ml Output Total 3500 ml 1415 ml 1310 ml Balance -3250 ml 999.5 ml -779 ml Justicifation of Admission Dx: Justifications for Admission: Justification of Admission Dx: Yes (sepsis, covid, resp failure) KAHLIL ALMAZAN MD Oct 27, 2020 12:44
[2020-10-27] MEDS: TPN PER PHARMACY MC PRN (13:59)
--- NOTE | 2020-10-27 14:02 | NUR ---
Pharmacy TPN Dosing Note S: CELIO BLAKE is a 55 year old M Currently receiving Central Continuous TPN started 10/27/20 B:Pertinent PMH: NPO/SEPSIS Height: 5 feet, 6 inches Weight: 98.639224 kg Current diet: LABS: Sodium: 139 Potassium: 4.3 Chloride: 103 Calcium: 8.6 Corrected Calcium: Magnesium: 1.8 CO2: 30 SCr: 0.8 Glucose: 242 Albumin: AST: ALT: TPN FORMULA: TPN TYPE: Central Continuous AMINO ACIDS: 100 gm DEXTROSE: 225 gm LIPIDS: 0 gm SODIUM CHLORIDE: 90 mEq SODIUM ACETATE: mEq SODIUM PHOSPHATE: mmol POTASSIUM CHLORIDE: 50 mEq POTASSIUM ACETATE: mEq POTASSIUM PHOSPHATE: 5 mmol MAGNESIUM: 10 mEq CALCIUM: 10 mEq INSULIN: units MULTIPLE VITAMIN: 5 ml TRACE ELEMENTS: 1 ml(s) TPN PLAN: HOUSE TPN WITH 100 GM AA/225GM DEXTROSE R: Begin TPN AT 63ML/HR Will monitor electrolytes, glucose, and tolerance to TPN. [facility], 10/27/20 [id number]
[2020-10-27] MEDS: THIAMINE 100 MG TABLET. GT SCH ×2 (14:37→21:44)
[2020-10-27] MEDS ORDERED: [UNRECOGNIZED DRUG - OTHER] IV SCH (22:00)
[2020-10-27] MEDS ORDERED: TOTAL PARENTERAL NUTRITION IV SCH (22:00)
[2020-10-27] MEDS ORDERED: DEXTROSE 70% IV SCH (22:00)
[2020-10-27] MEDS ORDERED: AMINO ACID IV SCH (22:00)
[2020-10-28] VITALS (24 sets, daily range): BP systolic 107–165; BP diastolic 54–90
[2020-10-28] MEDS: INSULIN LISPRO 300 UNITS/3 ML VIAL. SQ SCH ×4 (00:31→17:31)
[2020-10-28] MEDS: MIDAZOLAM 100mg/100ml NS BAG 100 ML IV PRN ×2 (03:02→14:13)
[2020-10-28] MEDS: PIPERACILLIN/TAZOBACTAM 3.375 GM in IV NORMAL SALINE 50ML 50 ML IV SCH ×4 (04:11→21:45)
[2020-10-28] MEDS: HEPARIN 25,000UTS/250ML PREMIX 250 ML IV PRN (05:01)
[2020-10-28] MEDS: THIAMINE 100 MG TABLET. GT SCH ×3 (05:47→21:12)
[2020-10-28 06:41] LABS: ALBUMIN 2.1 g/dL (3.4-5.0); ALBUMIN/GLOBULIN RATIO 0.5 (1.0-1.7); CALCIUM 8.9 mg/dL (8.5-10.1); CREATININE 0.9 mg/dL (0.7-1.3); GFR 87.6; MAGNESIUM 2.2 mg/dL (1.8-2.4); TOTAL BILIRUBIN 0.8 mg/dL (0.2-1.0); TOTAL PROTEIN 6.3 g/dL (6.4-8.2)
[2020-10-28 07:00] LABS: POTASSIUM 4.6 mmol/L (3.5-5.1)
[2020-10-28 07:32] LABS: BASO % 0 % (0-3); EOS % 0 % (0-3); HEMATOCRIT 37.2 % (39.0-53.0); HEMOGLOBIN 12.1 g/dL (13.0-17.5); LYMPH # 0.3 x10^3/uL (1.0-4.8); LYMPH % 4 % (24-48); MEAN CORPUSCULAR HEMOGLOBIN 29 pg (25-35); MEAN CORPUSCULAR HGB CONC 32 g/dL (31-37); MEAN CORPUSCULAR VOLUME 89 fL (79-100); MONO # 0.5 x10^3/uL (0.0-1.1); MONO % 6 % (0-9); NEUT # 7.3 x10^3/uL (1.8-7.7); NEUT % 89 % (31-73); PLATELET COUNT 209 x10^3/uL (140-400); RED BLOOD COUNT 4.18 x10^6/uL (4.30-5.70); RED CELL DISTRIBUTION WIDTH 14.8 % (11.5-14.5); WHITE BLOOD COUNT 8.3 x10^3/uL (4.0-11.0)
[2020-10-28] MEDS: HEPARIN for IV BOLUS 10,000 UNIT/10 ML VIAL. IV PRN (08:02)
--- NOTE | 2020-10-28 08:29 | RAD ---
EXAM: XR CHEST 1V INDICATION: Reason: resp. failure ICU#[id number] . TECHNIQUE: Single view COMPARISON: 10/26/2020 chest x-ray FINDINGS: Endotracheal tube is 4.7 cm above the etienne, similar to prior. Enteric tube passes below the diaphragms. Right PICC line remains present with the tip near the cavoatrial junction. Mild cardiac enlargement. The great vessels appear unremarkable. There is no hilar or mediastinal mass. Mild pulmonary vascular congestion is present in the lungs. Mild right basilar atelectasis also noted . Small right pleural effusion remains present. There are no significant osseous abnormalities. IMPRESSION: Stable lines and tubes including endotracheal intubation with pulmonary vascular congestion and small right pleural effusion with associated atelectasis. Electronically signed by: Partha Varela MD (10/28/2020 8:26 AM) [id number]
[2020-10-28 08:44] LABS: BASE EXCESS ABG 5 mmol/L (-3-3); HCO3 ABG 29 mmol/L (21-28); PCO2 ABG 41 mmHg (35-46); PO2 ABG 87 mmHg (75-108); SAT O2 ABG 96 % (92-99)
[2020-10-28 08:47] LABS: FIO2 ABG 60
[2020-10-28] MEDS: ZINC SULFATE 220 MG CAPSULE. PO SCH (09:02)
[2020-10-28] MEDS: ASCORBIC ACID 1,000 MG TABLET PO SCH ×4 (09:02→21:00)
[2020-10-28] MEDS: DEXAMETHASONE SOD PHOS 4 MG/ML VIAL IVP SCH ×2 (09:02→20:47)
[2020-10-28] MEDS: FAMOTIDINE 20 MG/2 ML VIAL IVP SCH ×2 (09:02→21:04)
[2020-10-28] MEDS: INSULIN GLARGINE SYRINGE. SQ SCH ×2 (09:02→21:05)
--- NOTE | 2020-10-28 11:32 | PDOC ---
PULMONARY PROGRESS NOTES DATE: 10/28/20 TIME: 11:29 Subjective Ventilatory support, FiO2 60% and a PEEP of 6 Heparin drip coffee ground emesis from gastric Tube-- No other overnight concerns Vitals Vital Signs Date Time Temp Pulse Resp B/P (MAP) Pulse Ox O2 Delivery O2 Flow Rate FiO2 10/28/20 11:00 84 26 160/90 (113) 98 Ventilator 10/28/20 08:00 98.5 98.5 Comments intubated sedated Bradycardia no accessory muscle use abd obese no rash Labs Laboratory Tests Test 10/26/20 12:04 10/26/20 17:53 10/26/20 21:47 10/26/20 23:24 Glucose (Fingerstick) 279 mg/dL (70-99) 283 mg/dL (70-99) 210 mg/dL (70-99) 225 mg/dL (70-99) Test 10/27/20 00:50 10/27/20 05:40 10/27/20 05:51 10/27/20 07:30 Heparin Anti-Xa Act, Unfractionated 0.17 IU/mL (0.30-0.70) 0.36 IU/mL (0.30-0.70) White Blood Count 7.8 x10^3/uL (4.0-11.0) Red Blood Count 3.98 x10^6/uL (4.30-5.70) Hemoglobin 11.6 g/dL (13.0-17.5) Hematocrit 35.2 % (39.0-53.0) Mean Corpuscular Volume 89 fL (79-100) Mean Corpuscular Hemoglobin 29 pg (25-35) Mean Corpuscular Hemoglobin Concent 33 g/dL (31-37) Red Cell Distribution Width 14.1 % (11.5-14.5) Platelet Count 181 x10^3/uL (140-400) Sodium Level 139 mmol/L (136-145) Potassium Level 4.3 mmol/L (3.5-5.1) Chloride Level 103 mmol/L (98-107) Carbon Dioxide Level 30 mmol/L (21-32) Anion Gap 6 (6-14) Blood Urea Nitrogen 30 mg/dL (8-26) Creatinine 0.8 mg/dL (0.7-1.3) Estimated GFR (Cockcroft-Gault) 100.4 Glucose Level 241 mg/dL (70-99) Calcium Level 8.6 mg/dL (8.5-10.1) Phosphorus Level 4.7 mg/dL (2.6-4.7) Magnesium Level 1.8 mg/dL (1.8-2.4) Glucose (Fingerstick) 264 mg/dL (70-99) D-Dimer (Ayanna) 6.10 ug/mlFEU (0.00-0.50) Test 10/27/20 08:45 10/27/20 11:57 10/27/20 13:40 10/27/20 17:40 O2 Saturation 88 % (92-99) Arterial Blood pH 7.45 (7.35-7.45) Arterial Blood pCO2 at Patient Temp 42 mmHg (35-46) Arterial Blood pO2 at Patient Temp 55 mmHg (75-108) Arterial Blood HCO3 29 mmol/L (21-28) Arterial Blood Base Excess 5 mmol/L (-3-3) FiO2 50% Glucose (Fingerstick) 212 mg/dL (70-99) 188 mg/dL (70-99) Heparin Anti-Xa Act, Unfractionated 0.39 IU/mL (0.30-0.70) Test 10/27/20 20:20 10/28/20 00:23 10/28/20 05:20 10/28/20 05:56 Glucose (Fingerstick) 258 mg/dL (70-99) 331 mg/dL (70-99) 337 mg/dL (70-99) White Blood Count 8.3 x10^3/uL (4.0-11.0) Red Blood Count 4.18 x10^6/uL (4.30-5.70) Hemoglobin 12.1 g/dL (13.0-17.5) Hematocrit 37.2 % (39.0-53.0) Mean Corpuscular Volume 89 fL (79-100) Mean Corpuscular Hemoglobin 29 pg (25-35) Mean Corpuscular Hemoglobin Concent 32 g/dL (31-37) Red Cell Distribution Width 14.8 % (11.5-14.5) Platelet Count 209 x10^3/uL (140-400) Neutrophils (%) (Auto) 89 % (31-73) Lymphocytes (%) (Auto) 4 % (24-48) Monocytes (%) (Auto) 6 % (0-9) Eosinophils (%) (Auto) 0 % (0-3) Basophils (%) (Auto) 0 % (0-3) Neutrophils # (Auto) 7.3 x10^3/uL (1.8-7.7) Lymphocytes # (Auto) 0.3 x10^3/uL (1.0-4.8) Monocytes # (Auto) 0.5 x10^3/uL (0.0-1.1) Eosinophils # (Auto) 0.0 x10^3/uL (0.0-0.7) Basophils # (Auto) 0.0 x10^3/uL (0.0-0.2) Heparin Anti-Xa Act, Unfractionated 0.16 IU/mL (0.30-0.70) Sodium Level 140 mmol/L (136-145) Potassium Level 4.6 mmol/L (3.5-5.1) Chloride Level 103 mmol/L (98-107) Carbon Dioxide Level 30 mmol/L (21-32) Anion Gap 7 (6-14) Blood Urea Nitrogen 34 mg/dL (8-26) Creatinine 0.9 mg/dL (0.7-1.3) Estimated GFR (Cockcroft-Gault) 87.6 BUN/Creatinine Ratio 38 (6-20) Glucose Level 331 mg/dL (70-99) Calcium Level 8.9 mg/dL (8.5-10.1) Phosphorus Level 4.0 mg/dL (2.6-4.7) Magnesium Level 2.2 mg/dL (1.8-2.4) Total Bilirubin 0.8 mg/dL (0.2-1.0) Aspartate Amino Transf (AST/SGOT) 16 U/L (15-37) Alanine Aminotransferase (ALT/SGPT) 24 U/L (16-63) Alkaline Phosphatase 55 U/L (46-116) Total Protein 6.3 g/dL (6.4-8.2) Albumin 2.1 g/dL (3.4-5.0) Albumin/Globulin Ratio 0.5 (1.0-1.7) Test 10/28/20 08:35 O2 Saturation 96 % (92-99) Arterial Blood pH 7.47 (7.35-7.45) Arterial Blood pCO2 at Patient Temp 41 mmHg (35-46) Arterial Blood pO2 at Patient Temp 87 mmHg (75-108) Arterial Blood HCO3 29 mmol/L (21-28) Arterial Blood Base Excess 5 mmol/L (-3-3) FiO2 60 Laboratory Tests Test 10/27/20 11:57 10/27/20 13:40 10/27/20 17:40 10/27/20 20:20 Glucose (Fingerstick) 212 mg/dL (70-99) 188 mg/dL (70-99) 258 mg/dL (70-99) Heparin Anti-Xa Act, Unfractionated 0.39 IU/mL (0.30-0.70) Test 10/28/20 00:23 10/28/20 05:20 10/28/20 05:56 10/28/20 08:35 Glucose (Fingerstick) 331 mg/dL (70-99) 337 mg/dL (70-99) White Blood Count 8.3 x10^3/uL (4.0-11.0) Red Blood Count 4.18 x10^6/uL (4.30-5.70) Hemoglobin 12.1 g/dL (13.0-17.5) Hematocrit 37.2 % (39.0-53.0) Mean Corpuscular Volume 89 fL (79-100) Mean Corpuscular Hemoglobin 29 pg (25-35) Mean Corpuscular Hemoglobin Concent 32 g/dL (31-37) Red Cell Distribution Width 14.8 % (11.5-14.5) Platelet Count 209 x10^3/uL (140-400) Neutrophils (%) (Auto) 89 % (31-73) Lymphocytes (%) (Auto) 4 % (24-48) Monocytes (%) (Auto) 6 % (0-9) Eosinophils (%) (Auto) 0 % (0-3) Basophils (%) (Auto) 0 % (0-3) Neutrophils # (Auto) 7.3 x10^3/uL (1.8-7.7) Lymphocytes # (Auto) 0.3 x10^3/uL (1.0-4.8) Monocytes # (Auto) 0.5 x10^3/uL (0.0-1.1) Eosinophils # (Auto) 0.0 x10^3/uL (0.0-0.7) Basophils # (Auto) 0.0 x10^3/uL (0.0-0.2) Heparin Anti-Xa Act, Unfractionated 0.16 IU/mL (0.30-0.70) Sodium Level 140 mmol/L (136-145) Potassium Level 4.6 mmol/L (3.5-5.1) Chloride Level 103 mmol/L (98-107) Carbon Dioxide Level 30 mmol/L (21-32) Anion Gap 7 (6-14) Blood Urea Nitrogen 34 mg/dL (8-26) Creatinine 0.9 mg/dL (0.7-1.3) Estimated GFR (Cockcroft-Gault) 87.6 BUN/Creatinine Ratio 38 (6-20) Glucose Level 331 mg/dL (70-99) Calcium Level 8.9 mg/dL (8.5-10.1) Phosphorus Level 4.0 mg/dL (2.6-4.7) Magnesium Level 2.2 mg/dL (1.8-2.4) Total Bilirubin 0.8 mg/dL (0.2-1.0) Aspartate Amino Transf (AST/SGOT) 16 U/L (15-37) Alanine Aminotransferase (ALT/SGPT) 24 U/L (16-63) Alkaline Phosphatase 55 U/L (46-116) Total Protein 6.3 g/dL (6.4-8.2) Albumin 2.1 g/dL (3.4-5.0) Albumin/Globulin Ratio 0.5 (1.0-1.7) O2 Saturation 96 % (92-99) Arterial Blood pH 7.47 (7.35-7.45) Arterial Blood pCO2 at Patient Temp 41 mmHg (35-46) Arterial Blood pO2 at Patient Temp 87 mmHg (75-108) Arterial Blood HCO3 29 mmol/L (21-28) Arterial Blood Base Excess 5 mmol/L (-3-3) FiO2 60 Comments CXR IMPRESSION: Stable lines and tubes including endotracheal intubation with pulmonary vascular congestion and small right pleural effusion with associated atelectasis. Impression . IMPRESSION: 1. Acute hypoxemic respiratory failure secondary to COVID-19 viral pneumonia-- improving 2. COVID-19 viral pneumonia/sepsis. 3. Abnormal x-ray compatible with SARS-CoV-2 infection. 4. Acute kidney injury-- improved, azotemia 5. Severe hypoxemia, elevated D-dimer, possible thromboembolic disease. 6. Morbid obesity. 7. Protein malnutrition, present upon admission. 8. Elevated troponin. 9. CXR 10/26 , worsening infiltrates, possible aspiration 10. sputum culture positive for staph A. Plan . PLAN: Continue current ventilatory support, wean FiO2 to 60% and a PEEP of 6 Follow ABG/chest x-ray, reduce Fi02 to 50% today, CXR: shows improved RLL base COVID-19 positive HAs completed full course of remdesivir Continue steroids patient will need a full 10-day course, taper slowly Clinically improving, dopplers with no DVT. D-Dimer trending down, D/C heparin gtt, start heparin SQ BID ContinueTPN for nutritional support Sputum culture positive for Staph A. continue zosyn add, Vanco prn lasix DVT/GI prophylaxis Discussed with RN and RT Critical care time [id number] GEO VALENZUELA MD Oct 28, 2020 11:32
[2020-10-28] MEDS ORDERED: VANCOMYCIN 2 GM in IV NORMAL SALINE 500ML BAG 500 ML IV ONE (12:00)
[2020-10-28] MEDS: TPN PER PHARMACY MC PRN ×2 (12:22→12:33)
[2020-10-28] MEDS: VANCOMYCIN PER PHARMACY MC PRN (13:03)
--- NOTE | 2020-10-28 13:04 | NUR ---
Pharmacy Vancomycin Dosing Note S:Consulted to monitor and dose vancomycin started 10/28/20. O:CELIO BLAKE is a 55 year old M with Sepsis . Height: 5 feet, 6 inches Weight: 95.8 kg [place] Body Weight: Adjusted Body Weight: Dosing Weight: Other Antibiotics: LABS: Last BUN: 34 Last Creatinine: 0.9 Creatinine Clearance: 100 mL/min Last WBC: 8.3 Last Procalcitonin: 0.26 Tmax (past 24 hours): 98.5 Microbiology: I/O: Drug Levels: Last level: on at Last dose given 10/28/20 at 1138 Vancomycin Dosing: Loading Dose: 2000 mg x1 Dosing Weight: Target Trough: 15-20 A: Based on: Wt and Crcl, P: 1. Begin Vancomycin 1250 mg IV q8h after 2000 mg LD x1 2. Follow up Trough level on 10/29/20 at 1130 3. Pharmacy will continue to monitor, follow and adjust therapy as needed. [facility], 10/28/20 [id number]
--- NOTE | 2020-10-28 13:08 | NUR ---
SS following up with discharge planning. SS reviewed pt chart and discussed with pt RN. Pt is currently on the vent at 50%. COVID19 positive. Pt on TPN, IV Zosyn and IV Vancomycin. Not stable. SS will continue to follow for discharge planning.
--- NOTE | 2020-10-28 13:51 | PDOC ---
PROGRESS NOTES Date of Service: DATE: 10/28/20 TIME: 13:49 Chief Complaint Chief Complaint sepsis, severe with shcok Acute hypoxemic respiratory failure secondary to COVID-19 viral pneumonia. intubated and sedated acute renal failure, vasomotor nephropathy and sepsis, ATN poss gram negative bacterial pneumonia Dm2, with hyperglycemia, poor control, despite increased insulin doses obese, BMI 36 with concomittant Protein malnutrition, present upon admission. History of Present Illness History of Present Illness 10/28, I keep increasing his LANTUS insulin dosing, and his blood sugars are back up again today will increase lantus o 60 BID and do 22 u x1, cont the SSI, that is additional 42 u today 10/27. ABG didnt look very good this AM with ongoing hypoxia, oxygen Sa02 is 60%, still sedate 10/[address] Morrow, CXR worse, abx started, start zosyn, cover for pneumonia ICU care, 35min cont current follow labs, intubated and sedated changed insulin dose, lantus started yesterday, will make 30 BID, on tube feeds and on IV steroids, Vitals Vitals Vital Signs Date Time Temp Pulse Resp B/P (MAP) Pulse Ox O2 Delivery O2 Flow Rate FiO2 10/28/20 12:00 98.5 88 30 165/87 (113) 98 Ventilator 98.5 Physical Exam Physical Exam intubated, sedated on vent, Heart: Regular rate Abdomen: Normal bowel sounds, Soft Extremities: No clubbing Skin: No rashes Labs LABS Laboratory Tests Test 10/27/20 17:40 10/27/20 20:20 10/28/20 00:23 10/28/20 05:20 Glucose (Fingerstick) 188 mg/dL (70-99) 258 mg/dL (70-99) 331 mg/dL (70-99) White Blood Count 8.3 x10^3/uL (4.0-11.0) Red Blood Count 4.18 x10^6/uL (4.30-5.70) Hemoglobin 12.1 g/dL (13.0-17.5) Hematocrit 37.2 % (39.0-53.0) Mean Corpuscular Volume 89 fL (79-100) Mean Corpuscular Hemoglobin 29 pg (25-35) Mean Corpuscular Hemoglobin Concent 32 g/dL (31-37) Red Cell Distribution Width 14.8 % (11.5-14.5) Platelet Count 209 x10^3/uL (140-400) Neutrophils (%) (Auto) 89 % (31-73) Lymphocytes (%) (Auto) 4 % (24-48) Monocytes (%) (Auto) 6 % (0-9) Eosinophils (%) (Auto) 0 % (0-3) Basophils (%) (Auto) 0 % (0-3) Neutrophils # (Auto) 7.3 x10^3/uL (1.8-7.7) Lymphocytes # (Auto) 0.3 x10^3/uL (1.0-4.8) Monocytes # (Auto) 0.5 x10^3/uL (0.0-1.1) Eosinophils # (Auto) 0.0 x10^3/uL (0.0-0.7) Basophils # (Auto) 0.0 x10^3/uL (0.0-0.2) Heparin Anti-Xa Act, Unfractionated 0.16 IU/mL (0.30-0.70) Sodium Level 140 mmol/L (136-145) Potassium Level 4.6 mmol/L (3.5-5.1) Chloride Level 103 mmol/L (98-107) Carbon Dioxide Level 30 mmol/L (21-32) Anion Gap 7 (6-14) Blood Urea Nitrogen 34 mg/dL (8-26) Creatinine 0.9 mg/dL (0.7-1.3) Estimated GFR (Cockcroft-Gault) 87.6 BUN/Creatinine Ratio 38 (6-20) Glucose Level 331 mg/dL (70-99) Calcium Level 8.9 mg/dL (8.5-10.1) Phosphorus Level 4.0 mg/dL (2.6-4.7) Magnesium Level 2.2 mg/dL (1.8-2.4) Total Bilirubin 0.8 mg/dL (0.2-1.0) Aspartate Amino Transf (AST/SGOT) 16 U/L (15-37) Alanine Aminotransferase (ALT/SGPT) 24 U/L (16-63) Alkaline Phosphatase 55 U/L (46-116) Total Protein 6.3 g/dL (6.4-8.2) Albumin 2.1 g/dL (3.4-5.0) Albumin/Globulin Ratio 0.5 (1.0-1.7) Test 10/28/20 05:56 10/28/20 08:35 10/28/20 11:42 Glucose (Fingerstick) 337 mg/dL (70-99) 310 mg/dL (70-99) O2 Saturation 96 % (92-99) Arterial Blood pH 7.47 (7.35-7.45) Arterial Blood pCO2 at Patient Temp 41 mmHg (35-46) Arterial Blood pO2 at Patient Temp 87 mmHg (75-108) Arterial Blood HCO3 29 mmol/L (21-28) Arterial Blood Base Excess 5 mmol/L (-3-3) FiO2 60 Assessment and Plan Assessmemt and Plan Problems Medical Problems: (1) Hyperglycemia Status: Acute (2) Hypoxia Status: Acute (3) Pneumonia due to COVID-19 virus Status: Acute (4) Respiratory failure Status: Acute (5) Septic shock Status: Acute Comment Review of Relevant I have reviewed the following items andrew (where applicable) has been applied. Labs Laboratory Tests Test 10/26/20 17:53 10/26/20 21:47 10/26/20 23:24 10/27/20 00:50 Glucose (Fingerstick) 283 mg/dL (70-99) 210 mg/dL (70-99) 225 mg/dL (70-99) Heparin Anti-Xa Act, Unfractionated 0.17 IU/mL (0.30-0.70) Test 10/27/20 05:40 10/27/20 05:51 10/27/20 07:30 10/27/20 08:45 White Blood Count 7.8 x10^3/uL (4.0-11.0) Red Blood Count 3.98 x10^6/uL (4.30-5.70) Hemoglobin 11.6 g/dL (13.0-17.5) Hematocrit 35.2 % (39.0-53.0) Mean Corpuscular Volume 89 fL (79-100) Mean Corpuscular Hemoglobin 29 pg (25-35) Mean Corpuscular Hemoglobin Concent 33 g/dL (31-37) Red Cell Distribution Width 14.1 % (11.5-14.5) Platelet Count 181 x10^3/uL (140-400) Sodium Level 139 mmol/L (136-145) Potassium Level 4.3 mmol/L (3.5-5.1) Chloride Level 103 mmol/L (98-107) Carbon Dioxide Level 30 mmol/L (21-32) Anion Gap 6 (6-14) Blood Urea Nitrogen 30 mg/dL (8-26) Creatinine 0.8 mg/dL (0.7-1.3) Estimated GFR (Cockcroft-Gault) 100.4 Glucose Level 241 mg/dL (70-99) Calcium Level 8.6 mg/dL (8.5-10.1) Phosphorus Level 4.7 mg/dL (2.6-4.7) Magnesium Level 1.8 mg/dL (1.8-2.4) Glucose (Fingerstick) 264 mg/dL (70-99) D-Dimer (Ayanna) 6.10 ug/mlFEU (0.00-0.50) Heparin Anti-Xa Act, Unfractionated 0.36 IU/mL (0.30-0.70) O2 Saturation 88 % (92-99) Arterial Blood pH 7.45 (7.35-7.45) Arterial Blood pCO2 at Patient Temp 42 mmHg (35-46) Arterial Blood pO2 at Patient Temp 55 mmHg (75-108) Arterial Blood HCO3 29 mmol/L (21-28) Arterial Blood Base Excess 5 mmol/L (-3-3) FiO2 50% Test 10/27/20 11:57 10/27/20 13:40 10/27/20 17:40 10/27/20 20:20 Glucose (Fingerstick) 212 mg/dL (70-99) 188 mg/dL (70-99) 258 mg/dL (70-99) Heparin Anti-Xa Act, Unfractionated 0.39 IU/mL (0.30-0.70) Test 10/28/20 00:23 10/28/20 05:20 10/28/20 05:56 10/28/20 08:35 Glucose (Fingerstick) 331 mg/dL (70-99) 337 mg/dL (70-99) White Blood Count 8.3 x10^3/uL (4.0-11.0) Red Blood Count 4.18 x10^6/uL (4.30-5.70) Hemoglobin 12.1 g/dL (13.0-17.5) Hematocrit 37.2 % (39.0-53.0) Mean Corpuscular Volume 89 fL (79-100) Mean Corpuscular Hemoglobin 29 pg (25-35) Mean Corpuscular Hemoglobin Concent 32 g/dL (31-37) Red Cell Distribution Width 14.8 % (11.5-14.5) Platelet Count 209 x10^3/uL (140-400) Neutrophils (%) (Auto) 89 % (31-73) Lymphocytes (%) (Auto) 4 % (24-48) Monocytes (%) (Auto) 6 % (0-9) Eosinophils (%) (Auto) 0 % (0-3) Basophils (%) (Auto) 0 % (0-3) Neutrophils # (Auto) 7.3 x10^3/uL (1.8-7.7) Lymphocytes # (Auto) 0.3 x10^3/uL (1.0-4.8) Monocytes # (Auto) 0.5 x10^3/uL (0.0-1.1) Eosinophils # (Auto) 0.0 x10^3/uL (0.0-0.7) Basophils # (Auto) 0.0 x10^3/uL (0.0-0.2) Heparin Anti-Xa Act, Unfractionated 0.16 IU/mL (0.30-0.70) Sodium Level 140 mmol/L (136-145) Potassium Level 4.6 mmol/L (3.5-5.1) Chloride Level 103 mmol/L (98-107) Carbon Dioxide Level 30 mmol/L (21-32) Anion Gap 7 (6-14) Blood Urea Nitrogen 34 mg/dL (8-26) Creatinine 0.9 mg/dL (0.7-1.3) Estimated GFR (Cockcroft-Gault) 87.6 BUN/Creatinine Ratio 38 (6-20) Glucose Level 331 mg/dL (70-99) Calcium Level 8.9 mg/dL (8.5-10.1) Phosphorus Level 4.0 mg/dL (2.6-4.7) Magnesium Level 2.2 mg/dL (1.8-2.4) Total Bilirubin 0.8 mg/dL (0.2-1.0) Aspartate Amino Transf (AST/SGOT) 16 U/L (15-37) Alanine Aminotransferase (ALT/SGPT) 24 U/L (16-63) Alkaline Phosphatase 55 U/L (46-116) Total Protein 6.3 g/dL (6.4-8.2) Albumin 2.1 g/dL (3.4-5.0) Albumin/Globulin Ratio 0.5 (1.0-1.7) O2 Saturation 96 % (92-99) Arterial Blood pH 7.47 (7.35-7.45) Arterial Blood pCO2 at Patient Temp 41 mmHg (35-46) Arterial Blood pO2 at Patient Temp 87 mmHg (75-108) Arterial Blood HCO3 29 mmol/L (21-28) Arterial Blood Base Excess 5 mmol/L (-3-3) FiO2 60 Test 10/28/20 11:42 Glucose (Fingerstick) 310 mg/dL (70-99) Laboratory Tests Test 10/27/20 17:40 10/27/20 20:20 10/28/20 00:23 10/28/20 05:20 Glucose (Fingerstick) 188 mg/dL (70-99) 258 mg/dL (70-99) 331 mg/dL (70-99) White Blood Count 8.3 x10^3/uL (4.0-11.0) Red Blood Count 4.18 x10^6/uL (4.30-5.70) Hemoglobin 12.1 g/dL (13.0-17.5) Hematocrit 37.2 % (39.0-53.0) Mean Corpuscular Volume 89 fL (79-100) Mean Corpuscular Hemoglobin 29 pg (25-35) Mean Corpuscular Hemoglobin Concent 32 g/dL (31-37) Red Cell Distribution Width 14.8 % (11.5-14.5) Platelet Count 209 x10^3/uL (140-400) Neutrophils (%) (Auto) 89 % (31-73) Lymphocytes (%) (Auto) 4 % (24-48) Monocytes (%) (Auto) 6 % (0-9) Eosinophils (%) (Auto) 0 % (0-3) Basophils (%) (Auto) 0 % (0-3) Neutrophils # (Auto) 7.3 x10^3/uL (1.8-7.7) Lymphocytes # (Auto) 0.3 x10^3/uL (1.0-4.8) Monocytes # (Auto) 0.5 x10^3/uL (0.0-1.1) Eosinophils # (Auto) 0.0 x10^3/uL (0.0-0.7) Basophils # (Auto) 0.0 x10^3/uL (0.0-0.2) Heparin Anti-Xa Act, Unfractionated 0.16 IU/mL (0.30-0.70) Sodium Level 140 mmol/L (136-145) Potassium Level 4.6 mmol/L (3.5-5.1) Chloride Level 103 mmol/L (98-107) Carbon Dioxide Level 30 mmol/L (21-32) Anion Gap 7 (6-14) Blood Urea Nitrogen 34 mg/dL (8-26) Creatinine 0.9 mg/dL (0.7-1.3) Estimated GFR (Cockcroft-Gault) 87.6 BUN/Creatinine Ratio 38 (6-20) Glucose Level 331 mg/dL (70-99) Calcium Level 8.9 mg/dL (8.5-10.1) Phosphorus Level 4.0 mg/dL (2.6-4.7) Magnesium Level 2.2 mg/dL (1.8-2.4) Total Bilirubin 0.8 mg/dL (0.2-1.0) Aspartate Amino Transf (AST/SGOT) 16 U/L (15-37) Alanine Aminotransferase (ALT/SGPT) 24 U/L (16-63) Alkaline Phosphatase 55 U/L (46-116) Total Protein 6.3 g/dL (6.4-8.2) Albumin 2.1 g/dL (3.4-5.0) Albumin/Globulin Ratio 0.5 (1.0-1.7) Test 10/28/20 05:56 10/28/20 08:35 10/28/20 11:42 Glucose (Fingerstick) 337 mg/dL (70-99) 310 mg/dL (70-99) O2 Saturation 96 % (92-99) Arterial Blood pH 7.47 (7.35-7.45) Arterial Blood pCO2 at Patient Temp 41 mmHg (35-46) Arterial Blood pO2 at Patient Temp 87 mmHg (75-108) Arterial Blood HCO3 29 mmol/L (21-28) Arterial Blood Base Excess 5 mmol/L (-3-3) FiO2 60 Microbiology 10/26/20 Gram Stain Evaluation - Final, Resulted 10/26/20 Respiratory Culture - Preliminary, Resulted 10/21/20 Blood Culture - Final, Complete NO GROWTH AFTER 5 DAYS Medications Current Medications Sodium Chloride 1,000 ml @ 1,000 mls/hr Q1H IV Last administered on 10/21/20at 09:31; Start 10/21/20 at 08:45; Stop 10/21/20 at 09:44; Status DC Dexamethasone Sodium Phosphate (Decadron) 10 mg 1X ONCE IVP Last administered on 10/21/20at 09:32; Start 10/21/20 at 08:45; Stop 10/21/20 at 09:11; Status DC Piperacillin Sod/ Tazobactam Sod 4.5 gm/Sodium Chloride 100 ml @ 200 mls/hr 1X ONCE IV Last administered on 10/21/20at 11:18; Start 10/21/20 at 10:30; Stop 10/21/20 at 10:59; Status DC Azithromycin 250 ml @ 250 mls/hr 1X ONCE IV Last administered on 10/21/20at 11:18; Start 10/21/20 at 10:30; Stop 10/21/20 at 11:29; Status DC Aspirin (Ecotrin) 325 mg 1X ONCE PO Last administered on 10/21/20at 11:17; Start 10/21/20 at 10:30; Stop 10/21/20 at 10:31; Status DC Insulin Human Regular (HumuLIN R VIAL) 14 unit 1X ONCE SQ Last administered on 10/21/20at 11:28; Start 10/21/20 at 10:30; Stop 10/21/20 at 10:31; Status DC Sodium Chloride 1,000 ml @ 1,000 mls/hr 1X ONCE IV Last administered on 10/21/20at 11:18; Start 10/21/20 at 10:30; Stop 10/21/20 at 11:29; Status DC Iohexol (Omnipaque 350 Mg/ml) 90 ml 1X ONCE IV ; Start 10/21/20 at 10:45; Stop 10/21/20 at 10:46; Status DC Info (CONTRAST GIVEN -- Rx MONITORING) 1 each PRN DAILY PRN MC SEE COMMENTS; Start 10/21/20 at 10:45; Stop 10/23/20 at 10:44; Status DC Acetaminophen (Tylenol) 500 mg 1X ONCE PO Last administered on 10/21/20at 11:30; Start 10/21/20 at 11:15; Stop 10/21/20 at 11:16; Status DC Lorazepam (Ativan Inj) 0.5 mg 1X ONCE IVP Last administered on 10/21/20at 11:20; Start 10/21/20 at 11:15; Stop 10/21/20 at 11:16; Status DC Ondansetron HCl (Zofran) 4 mg PRN Q8HRS PRN IV NAUSEA/VOMITING; Start 10/21/20 at 11:30; Stop 10/21/20 at 13:29; Status DC Fentanyl Citrate (Fentanyl 2ml Vial) 50 mcg PRN Q2HR PRN IV PAIN; Start 10/21/20 at 11:30; Stop 10/22/20 at 06:16; Status DC Sodium Chloride 1,000 ml @ 100 mls/hr Q10H IV Last administered on 10/22/20at 13:36; Start 10/21/20 at 11:30; Stop 10/22/20 at 11:29; Status DC Acetaminophen (Tylenol) 650 mg PRN Q4HRS PRN PO FEVER > 100.3'F; Start 10/21/20 at 11:30; Stop 10/22/20 at 06:17; Status DC Sennosides (Senna) 17.2 mg PRN BID PRN PO CONSTIPATION; Start 10/21/20 at 12:00 Docusate Sodium (Colace) 100 mg PRN DAILY PRN PO HARD STOOLS; Start 10/21/20 at 12:00 Ondansetron HCl (Zofran) 4 mg PRN Q6HRS PRN IVP NAUSEA/VOMITING; Start 10/21/20 at 12:00 Insulin Human Lispro (HumaLOG) 0-9 UNITS TIDWMEALS SQ Last administered on 10/21/20at 18:15; Start 10/21/20 at 12:00; Stop 10/21/20 at 22:22; Status DC Dextrose (Dextrose 50%-Water Syringe) 12.5 gm PRN Q15MIN PRN IV SEE COMMENTS; Start 10/21/20 at 12:00; Stop 10/22/20 at 09:30; Status DC Acetaminophen (Tylenol) 650 mg PRN Q4HRS PRN PO TEMP OVER 100.4F OR MILD PAIN Last administered on 10/25/20at 05:36; Start 10/21/20 at 12:00 Enoxaparin Sodium (Lovenox 40mg Syringe) 40 mg Q24H SQ ; Start 10/21/20 at 13:00; Status Cancel Ascorbic Acid (Vitamin C) 3,000 mg TID PO Last administered on 10/22/20at 21:28; Start 10/21/20 at 14:00; Stop 10/23/20 at 08:20; Status DC Thiamine HCl 100 mg/Dextrose 51 ml @ 102 mls/hr Q8HRS IV Last administered on 10/27/20at 05:55; Start 10/21/20 at 14:00; Stop 10/27/20 at 10:00; Status DC Dexamethasone Sodium Phosphate (Decadron) 4 mg Q12HR IVP Last administered on 10/28/20at 09:02; Start 10/21/20 at 21:00 Lorazepam (Ativan Inj) 0.5 mg 1X ONCE IVP Last administered on 10/21/20at 11:59; Start 10/21/20 at 12:00; Stop 10/21/20 at 12:15; Status DC Propofol 100 ml @ As Directed STK-MED ONCE IV ; Start 10/21/20 at 12:47; Stop 10/21/20 at 12:47; Status DC Etomidate (Amidate) 20 mg 1X ONCE IV ; Start 10/21/20 at 13:00; Stop 10/21/20 at 13:05; Status DC Rocuronium Meridian (Zemuron) 50 mg 1X ONCE IV ; Start 10/21/20 at 13:00; Stop 10/21/20 at 13:05; Status DC Propofol 100 ml @ 0 mls/hr CONT PRN IV PER PROTOCOL Last administered on 10/27/20at 17:08; Start 10/21/20 at 13:00 Chlorhexidine Gluconate (Peridex) 15 ml BID MM Last administered on 10/22/20at 21:28; Start 10/21/20 at 21:00; Stop 10/23/20 at 08:12; Status DC Fentanyl Citrate 30 ml @ 0 mls/hr CONT PRN IV SEE PROTOCOL Last administered on 10/22/20at 00:28; Start 10/21/20 at 13:15; Stop 10/22/20 at 06:16; Status DC Midazolam HCl 100 ml @ 0 mls/hr CONT PRN IV SEE PROTOCOL Last administered on 10/28/20at 03:02; Start 10/21/20 at 13:15 Lorazepam (Ativan Inj) 2 mg 1X ONCE IVP Last administered on 10/21/20at 13:31; Start 10/21/20 at 13:15; Stop 10/21/20 at 13:17; Status DC Fentanyl Citrate (Fentanyl 2ml Vial) 100 mcg 1X ONCE IVP Last administered on 10/21/20at 13:32; Start 10/21/20 at 13:15; Stop 10/21/20 at 13:17; Status DC Heparin Sodium/ Dextrose 250 ml @ 16 mls/hr CONT PRN IV PER PROTOCOL Last administered on 10/28/20at 05:01; Start 10/21/20 at 13:30; Stop 10/28/20 at 10:53; Status DC Heparin Sodium (Porcine) (Heparin Sodium) 3,000 unit PRN Q6HRS PRN IV FOR UFH LEVEL LESS THAN 0.2 Last administered on 10/28/20at 08:02; Start 10/21/20 at 13:30; Stop 10/28/20 at 10:53; Status DC Heparin Sodium (Porcine) (Heparin Sodium) 1,500 unit PRN Q6HRS PRN IV FOR UFH LEVEL 0.2 - 0.29; Start 10/21/20 at 13:30; Stop 10/28/20 at 10:53; Status DC Remdesivir 200 mg/ Sodium Chloride 210 ml @ 210 mls/hr 1X ONCE IV Last administered on 10/21/20at 17:29; Start 10/21/20 at 15:00; Stop 10/21/20 at 15:59; Status DC Remdesivir 100 mg/ Sodium Chloride 230 ml @ 460 mls/hr Q24H IV Last administered on 10/25/20at 15:06; Start 10/22/20 at 15:00; Stop 10/25/20 at 15:29; Status DC Bumetanide (Bumex) 1 mg 1X ONCE IV ; Start 10/21/20 at 13:30; Stop 10/21/20 at 13:37; Status DC Vecuronium Meridian (Norcuron Bolus) 10 mg 1X ONCE IV Last administered on 10/21/20at 13:45; Start 10/21/20 at 13:45; Stop 10/21/20 at 13:46; Status DC Vecuronium Meridian (Norcuron Bolus) 6 mg PRN Q4HRS ONCE IV Last administered on 10/21/20at 15:19; Start 10/21/20 at 14:15; Stop 10/21/20 at 14:16; Status DC Famotidine (Pepcid Vial) 20 mg BID IVP Last administered on 10/28/20at 09:02; Start 10/21/20 at 21:00 Rocuronium Meridian (Zemuron) 50 mg STK-MED ONCE .ROUTE ; Start 10/21/20 at 18:59; Stop 10/21/20 at 18:59; Status DC Etomidate (Amidate) 20 mg STK-MED ONCE IV ; Start 10/21/20 at 18:59; Stop 10/21/20 at 19:00; Status DC Insulin Human Lispro (HumaLOG) 0-9 UNITS Q6HRS SQ Last administered on 10/22/20at 06:01; Start 10/22/20 at 00:00; Stop 10/22/20 at 09:52; Status DC Fentanyl Citrate 55 ml @ 0 mls/hr CONT PRN PRN IV PAIN CONTROL Last administered on 10/27/20at 06:10; Start 10/22/20 at 06:30 Insulin Human Regular 100 unit/ Sodium Chloride 101 ml @ 0 mls/hr CONT PRN IV SEE I/O RECORD; Start 10/22/20 at 09:15; Stop 10/22/20 at 09:49; Status DC Dextrose (Dextrose 50%-Water Syringe) 12.5 gm PRN Q15MIN PRN IV LOW BLOOD SUGAR; Start 10/22/20 at 09:15; Stop 10/22/20 at 09:49; Status DC Insulin Human Lispro (HumaLOG) 0-9 UNITS TIDWMEALS SQ Last administered on 10/22/20at 12:14; Start 10/22/20 at 12:00; Stop 10/22/20 at 19:52; Status DC Dextrose (Dextrose 50%-Water Syringe) 12.5 gm PRN Q15MIN PRN IV SEE COMMENTS; Start 10/22/20 at 09:45 Insulin Glargine (Lantus Syringe) 10 unit 1X ONCE SQ Last administered on 10/22/20at 11:01; Start 10/22/20 at 10:30; Stop 10/22/20 at 10:31; Status DC Insulin Human Regular 100 unit/ Sodium Chloride 101 ml @ 0 mls/hr CONT PRN IV SEE I/O RECORD Last administered on 10/23/20at 02:14; Start 10/22/20 at 18:30 Insulin Human Lispro (HumaLOG) 0-9 UNITS Q6H SQ ; Start 10/23/20 at 00:00; Stop 10/23/20 at 09:42; Status DC Ascorbic Acid (Vitamin C) 3,000 mg TID PO Last administered on 10/28/20at 09:02; Start 10/23/20 at 09:00 Insulin Human Lispro (HumaLOG) 0-9 UNITS Q6HRS SQ Last administered on 10/28/20at 11:56; Start 10/23/20 at 12:00 Info (Anti-Coagulation Monitoring By Pharmacy) 1 each PRN DAILY PRN MC SEE COMMENTS Last administered on 10/24/20at 10:41; Start 10/24/20 at 07:45 Insulin Glargine (Lantus Syringe) 30 unit DAILY10 SQ Last administered on 10/25/20at 11:29; Start 10/24/20 at 12:00; Stop 10/25/20 at 14:27; Status DC Insulin Human Lispro (HumaLOG) 11 units 1X ONCE SQ Last administered on at 05:46; Start 10/25/20 at 05:45; Stop 10/25/20 at 05:48; Status DC Insulin Glargine (Lantus Syringe) 30 unit BID SQ Last administered on 10/26/20at 09:00; Start 10/25/20 at 21:00; Stop 10/26/20 at 09:39; Status DC Insulin Human Lispro (HumaLOG) 11 units 1X ONCE SQ Last administered on 10/25/20at 15:09; Start 10/25/20 at 15:15; Stop 10/25/20 at 15:16; Status DC Piperacillin Sod/ Tazobactam Sod (Zosyn Per Pharmacy) 1 each PRN DAILY PRN MC SEE COMMENTS; Start 10/26/20 at 09:45 Furosemide (Lasix) 20 mg 1X ONCE IVP Last administered on 10/26/20at 09:59; Start 10/26/20 at 09:45; Stop 10/26/20 at 09:46; Status DC Insulin Glargine (Lantus Syringe) 40 unit BID SQ Last administered on 10/27/20at 09:02; Start 10/26/20 at 21:00; Stop 10/27/20 at 09:38; Status DC Piperacillin Sod/ Tazobactam Sod 3.375 gm/Sodium Chloride 50 ml @ 100 mls/hr Q6H IV Last administered on 10/28/20at 09:03; Start 10/26/20 at 10:00 Insulin Glargine (Lantus Syringe) 50 unit BID SQ Last administered on 10/28/20at 09:02; Start 10/27/20 at 21:00 Insulin Human Lispro (HumaLOG) 15 units 1X ONCE SQ Last administered on 10/27/20at 10:23; Start 10/27/20 at 09:45; Stop 10/27/20 at 09:46; Status DC Thiamine Mononitrate (Vitamin B-1) 100 mg Q8HRS GT Last administered on 10/28/20at 05:47; Start 10/27/20 at 14:00 Info (Tpn Per Pharmacy) 1 each PRN DAILY PRN MC SEE COMMENTS Last administered on 10/28/20at 12:33; Start 10/27/20 at 12:00 Zinc Sulfate (Orazinc) 220 mg DAILY PO Last administered on 10/28/20at 09:02; Start 10/28/20 at 09:00 Sodium Chloride 90 meq/Potassium Chloride 50 meq/ Potassium Phosphate 5 mmol/ Magnesium Sulfate 10 meq/Calcium Gluconate 10 meq/ Multivitamins 5 ml/Zinc/Copper/ Manganese/ Selenium 1 ml/ Total Parenteral Nutrition/Amino Acids/Dextrose 1,512 ml @ 63 mls/hr TPN CONT IV Last administered on 10/27/20at 21:45; Start 10/27/20 at 22:00; Stop 10/28/20 at 21:59 Heparin Sodium (Porcine) (Heparin Sodium) 5,000 unit BID SQ ; Start 10/28/20 at 21:00 Vancomycin HCl (Vanco Per Pharmacy) 1 each PRN DAILY PRN MC SEE COMMENTS Last administered on 10/28/20at 13:03; Start 10/28/20 at 11:30 Vancomycin HCl 2 gm/Sodium Chloride 500 ml @ 250 mls/hr ONCE ONCE IV Last administered on 10/28/20at 11:38; Start 10/28/20 at 12:00; Stop 10/28/20 at 13:59 Sodium Chloride 90 meq/Potassium Chloride 50 meq/ Potassium Phosphate 5 mmol/ Magnesium Sulfate 10 meq/Calcium Gluconate 8 meq/ Multivitamins 5 ml/Zinc/Copper/ Manganese/ Selenium 1 ml/ Total Parenteral Nutrition/Amino Acids/Dextrose 1,512 ml @ 63 mls/hr TPN CONT IV ; Start 10/28/20 at 22:00; St op 10/29/20 at 21:59 Vancomycin HCl 1.25 gm/Sodium Chloride 250 ml @ 167 mls/hr Q8H IV ; Start 10/28/20 at 20:00 Vancomycin HCl (Vancomycin Trough Level) 1 each 1X ONCE MC ; Start 10/29/20 at 11:30; Stop 10/29/20 at 11:31 Vitals/I & O Vital Sign - Last 24 Hours 10/27/20 10/27/20 10/27/20 10/27/20 14:00 15:00 15:35 16:00 Pulse 48 46 Resp 26 B/P (MAP) 121/60 (80) 123/66 (85) Pulse Ox 96 96 96 O2 Delivery Ventilator Ventilator Ventilator Mechanical Ventilator 10/27/20 10/27/20 10/27/20 10/27/20 16:00 17:00 18:00 19:00 Temp 97.7 97.7 Pulse 44 43 41 40 Resp 26 26 B/P (MAP) 132/80 (97) 124/63 (83) 132/66 (88) 132/67 (88) Pulse Ox 98 97 97 97 O2 Delivery Ventilator Ventilator Ventilator Ventilator 10/27/20 10/27/20 10/27/20 10/27/20 20:00 20:00 20:25 21:00 Temp 98.2 98.2 Pulse 40 40 Resp 26 B/P (MAP) 120/60 (80) 120/59 (79) Pulse Ox 99 96 99 O2 Delivery Ventilator Mechanical Ventilator Ventilator Ventilator 10/27/20 10/27/20 10/28/20 10/28/20 22:00 23:00 00:00 00:00 Temp 97.0 97.0 Pulse 38 39 40 Resp B/P (MAP) 122/60 (80) 122/61 (81) 127/58 (81) Pulse Ox 99 99 99 O2 Delivery Ventilator Ventilator Mechanical Ventilator Ventilator 10/28/20 10/28/20 10/28/20 10/28/20 00:44 01:00 02:00 03:00 Pulse 39 40 49 Resp B/P (MAP) 130/65 (86) 123/64 (83) 112/54 (73) Pulse Ox 97 97 96 97 O2 Delivery Ventilator Ventilator Ventilator Ventilator 10/28/20 10/28/20 10/28/20 10/28/20 03:45 04:00 04:09 05:00 Temp 97.7 97.7 Pulse 49 49 Resp B/P (MAP) 117/61 (79) 130/63 (85) Pulse Ox 96 97 97 O2 Delivery Mechanical Ventilator Ventilator Ventilator Ventilator 10/28/20 10/28/20 10/28/20 10/28/20 06:00 07:00 08:00 08:00 Temp 98.5 98.5 Pulse 48 54 50 Resp B/P (MAP) 133/68 (89) 114/60 (78) 121/62 (81) Pulse Ox 97 98 99 O2 Delivery Ventilator Ventilator Ventilator Mechanical Ventilator 10/28/20 10/28/20 10/28/20 10/28/20 08:25 09:00 10:00 11:00 Pulse 48 42 84 Resp B/P (MAP) 145/71 (95) 132/66 (88) 160/90 (113) Pulse Ox 99 99 99 98 O2 Delivery Ventilator Ventilator Ventilator Ventilator 10/28/20 10/28/20 10/28/20 11:35 12:00 12:00 Temp 98.5 98.5 Pulse 88 Resp 30 B/P (MAP) 165/87 (113) Pulse Ox 98 98 O2 Delivery Ventilator Mechanical Ventilator Ventilator Intake and Output 0 10/27/20 10/27/20 10/28/20 15:00 23:00 07:00 Intake Total 50 ml 557 ml 872 ml Output Total 865 ml 780 ml 1520 ml Balance -815 ml -223 ml -648 ml Justicifation of Admission Dx: Justifications for Admission: Justification of Admission Dx: Yes (sepsis, covid, resp failure) KAHLIL ALMAZAN MD Oct 28, 2020 13:51
[2020-10-28] MEDS ORDERED: INSULIN LISPRO 300 UNITS/3 ML VIAL. SQ ONE (14:00)
--- NOTE | 2020-10-28 16:06 | NUR ---
Pharmacy TPN Dosing Note S: CELIO BLAKE is a 55 year old M Currently receiving Central Continuous TPN started 10/27/20 B:Pertinent PMH: NPO/SEPSIS Height: 5 feet, 6 inches Weight: 95.8 kg Current diet: LABS: Sodium: 140 Potassium: 4.6 Chloride: 103 Calcium: 8.9 Corrected Calcium: 10.42 Magnesium: 2.2 CO2: 30 SCr: 0.9 Glucose: 310 Albumin: 2.1 AST: ALT: TPN FORMULA: TPN TYPE: Central Continuous AMINO ACIDS: 100 gm DEXTROSE: 225 gm LIPIDS: 0 gm SODIUM CHLORIDE: 90 mEq SODIUM ACETATE: mEq SODIUM PHOSPHATE: mmol POTASSIUM CHLORIDE: 50 mEq POTASSIUM ACETATE: mEq POTASSIUM PHOSPHATE: 5 mmol MAGNESIUM: 10 mEq CALCIUM: 10 mEq INSULIN: units MULTIPLE VITAMIN: 5 ml TRACE ELEMENTS: 1 ml(s) TPN PLAN: Corrected calcium slightly elevated, Ca gluconate decreased by 2 meq in bag R: Continue TPN according to the above plan Will monitor electrolytes, glucose, and tolerance to TPN. ELLY [facility], 10/28/20 [id number]
--- NOTE | 2020-10-28 19:34 | NUR ---
During first assessment of shift, noted the OG that is connected LIS super light red- More blood than reported during shift change. Called Dr. Garcia and relayed the information and was told to take OG out and replace after 8 hours. Will update after next placement if blood is still copious.
[2020-10-28] MEDS: VANCOMYCIN 1.25 GM in IV NORMAL SALINE 250ML 250 ML IV SCH (20:12)
[2020-10-28] MEDS: HEPARIN for SUB-Q USE 5,000 UNIT/ML VIAL. SQ SCH (21:05)
[2020-10-28] MEDS: fentaNYL HIGH DOSE PCA 55 ML IV PRN (21:06)
[2020-10-28] MEDS ORDERED: AMINO ACID IV SCH (22:00)
[2020-10-28] MEDS ORDERED: [UNRECOGNIZED DRUG - OTHER] IV SCH (22:00)
[2020-10-28] MEDS ORDERED: DEXTROSE 70% IV SCH (22:00)
[2020-10-28] MEDS ORDERED: TOTAL PARENTERAL NUTRITION IV SCH (22:00)
[2020-10-29] VITALS (24 sets, daily range): BP systolic 108–177; BP diastolic 60–89
[2020-10-29] MEDS: MIDAZOLAM 100mg/100ml NS BAG 100 ML IV PRN ×2 (00:28→11:30)
[2020-10-29] MEDS: INSULIN LISPRO 300 UNITS/3 ML VIAL. SQ SCH ×5 (00:39→23:56)
[2020-10-29] MEDS: PIPERACILLIN/TAZOBACTAM 3.375 GM in IV NORMAL SALINE 50ML 50 ML IV SCH ×4 (04:04→21:40)
[2020-10-29] MEDS: VANCOMYCIN 1.25 GM in IV NORMAL SALINE 250ML 250 ML IV SCH (04:06)
--- NOTE | 2020-10-29 04:50 | PDOC ---
PULMONARY PROGRESS NOTES DATE: 10/29/20 TIME: 04:50 Subjective Ventilatory support, FiO2 45% and a PEEP of 6 off Heparin drip coffee ground emesis from gastric Tube-- removed Vitals Vital Signs Date Time Temp Pulse Resp B/P (MAP) Pulse Ox O2 Delivery O2 Flow Rate FiO2 10/29/20 04:00 97.9 39 26 116/63 (80) 100 Ventilator 97.9 Comments intubated sedated nc at Bradycardia no accessory muscle use abd obese no rash Labs Laboratory Tests Test 10/27/20 05:40 10/27/20 05:51 10/27/20 07:30 10/27/20 08:45 White Blood Count 7.8 x10^3/uL (4.0-11.0) Red Blood Count 3.98 x10^6/uL (4.30-5.70) Hemoglobin 11.6 g/dL (13.0-17.5) Hematocrit 35.2 % (39.0-53.0) Mean Corpuscular Volume 89 fL (79-100) Mean Corpuscular Hemoglobin 29 pg (25-35) Mean Corpuscular Hemoglobin Concent 33 g/dL (31-37) Red Cell Distribution Width 14.1 % (11.5-14.5) Platelet Count 181 x10^3/uL (140-400) Sodium Level 139 mmol/L (136-145) Potassium Level 4.3 mmol/L (3.5-5.1) Chloride Level 103 mmol/L (98-107) Carbon Dioxide Level 30 mmol/L (21-32) Anion Gap 6 (6-14) Blood Urea Nitrogen 30 mg/dL (8-26) Creatinine 0.8 mg/dL (0.7-1.3) Estimated GFR (Cockcroft-Gault) 100.4 Glucose Level 241 mg/dL (70-99) Calcium Level 8.6 mg/dL (8.5-10.1) Phosphorus Level 4.7 mg/dL (2.6-4.7) Magnesium Level 1.8 mg/dL (1.8-2.4) Glucose (Fingerstick) 264 mg/dL (70-99) D-Dimer (Ayanna) 6.10 ug/mlFEU (0.00-0.50) Heparin Anti-Xa Act, Unfractionated 0.36 IU/mL (0.30-0.70) O2 Saturation 88 % (92-99) Arterial Blood pH 7.45 (7.35-7.45) Arterial Blood pCO2 at Patient Temp 42 mmHg (35-46) Arterial Blood pO2 at Patient Temp 55 mmHg (75-108) Arterial Blood HCO3 29 mmol/L (21-28) Arterial Blood Base Excess 5 mmol/L (-3-3) FiO2 50% Test 10/27/20 11:57 10/27/20 13:40 10/27/20 17:40 10/27/20 20:20 Glucose (Fingerstick) 212 mg/dL (70-99) 188 mg/dL (70-99) 258 mg/dL (70-99) Heparin Anti-Xa Act, Unfractionated 0.39 IU/mL (0.30-0.70) Test 10/28/20 00:23 10/28/20 05:20 10/28/20 05:56 10/28/20 08:35 Glucose (Fingerstick) 331 mg/dL (70-99) 337 mg/dL (70-99) White Blood Count 8.3 x10^3/uL (4.0-11.0) Red Blood Count 4.18 x10^6/uL (4.30-5.70) Hemoglobin 12.1 g/dL (13.0-17.5) Hematocrit 37.2 % (39.0-53.0) Mean Corpuscular Volume 89 fL (79-100) Mean Corpuscular Hemoglobin 29 pg (25-35) Mean Corpuscular Hemoglobin Concent 32 g/dL (31-37) Red Cell Distribution Width 14.8 % (11.5-14.5) Platelet Count 209 x10^3/uL (140-400) Neutrophils (%) (Auto) 89 % (31-73) Lymphocytes (%) (Auto) 4 % (24-48) Monocytes (%) (Auto) 6 % (0-9) Eosinophils (%) (Auto) 0 % (0-3) Basophils (%) (Auto) 0 % (0-3) Neutrophils # (Auto) 7.3 x10^3/uL (1.8-7.7) Lymphocytes # (Auto) 0.3 x10^3/uL (1.0-4.8) Monocytes # (Auto) 0.5 x10^3/uL (0.0-1.1) Eosinophils # (Auto) 0.0 x10^3/uL (0.0-0.7) Basophils # (Auto) 0.0 x10^3/uL (0.0-0.2) Heparin Anti-Xa Act, Unfractionated 0.16 IU/mL (0.30-0.70) Sodium Level 140 mmol/L (136-145) Potassium Level 4.6 mmol/L (3.5-5.1) Chloride Level 103 mmol/L (98-107) Carbon Dioxide Level 30 mmol/L (21-32) Anion Gap 7 (6-14) Blood Urea Nitrogen 34 mg/dL (8-26) Creatinine 0.9 mg/dL (0.7-1.3) Estimated GFR (Cockcroft-Gault) 87.6 BUN/Creatinine Ratio 38 (6-20) Glucose Level 331 mg/dL (70-99) Calcium Level 8.9 mg/dL (8.5-10.1) Phosphorus Level 4.0 mg/dL (2.6-4.7) Magnesium Level 2.2 mg/dL (1.8-2.4) Total Bilirubin 0.8 mg/dL (0.2-1.0) Aspartate Amino Transf (AST/SGOT) 16 U/L (15-37) Alanine Aminotransferase (ALT/SGPT) 24 U/L (16-63) Alkaline Phosphatase 55 U/L (46-116) Total Protein 6.3 g/dL (6.4-8.2) Albumin 2.1 g/dL (3.4-5.0) Albumin/Globulin Ratio 0.5 (1.0-1.7) O2 Saturation 96 % (92-99) Arterial Blood pH 7.47 (7.35-7.45) Arterial Blood pCO2 at Patient Temp 41 mmHg (35-46) Arterial Blood pO2 at Patient Temp 87 mmHg (75-108) Arterial Blood HCO3 29 mmol/L (21-28) Arterial Blood Base Excess 5 mmol/L (-3-3) FiO2 60 Test 10/28/20 11:42 10/28/20 17:28 10/29/20 00:31 Glucose (Fingerstick) 310 mg/dL (70-99) 265 mg/dL (70-99) 259 mg/dL (70-99) Laboratory Tests Test 10/28/20 05:20 10/28/20 05:56 10/28/20 08:35 10/28/20 11:42 White Blood Count 8.3 x10^3/uL (4.0-11.0) Red Blood Count 4.18 x10^6/uL (4.30-5.70) Hemoglobin 12.1 g/dL (13.0-17.5) Hematocrit 37.2 % (39.0-53.0) Mean Corpuscular Volume 89 fL (79-100) Mean Corpuscular Hemoglobin 29 pg (25-35) Mean Corpuscular Hemoglobin Concent 32 g/dL (31-37) Red Cell Distribution Width 14.8 % (11.5-14.5) Platelet Count 209 x10^3/uL (140-400) Neutrophils (%) (Auto) 89 % (31-73) Lymphocytes (%) (Auto) 4 % (24-48) Monocytes (%) (Auto) 6 % (0-9) Eosinophils (%) (Auto) 0 % (0-3) Basophils (%) (Auto) 0 % (0-3) Neutrophils # (Auto) 7.3 x10^3/uL (1.8-7.7) Lymphocytes # (Auto) 0.3 x10^3/uL (1.0-4.8) Monocytes # (Auto) 0.5 x10^3/uL (0.0-1.1) Eosinophils # (Auto) 0.0 x10^3/uL (0.0-0.7) Basophils # (Auto) 0.0 x10^3/uL (0.0-0.2) Heparin Anti-Xa Act, Unfractionated 0.16 IU/mL (0.30-0.70) Sodium Level 140 mmol/L (136-145) Potassium Level 4.6 mmol/L (3.5-5.1) Chloride Level 103 mmol/L (98-107) Carbon Dioxide Level 30 mmol/L (21-32) Anion Gap 7 (6-14) Blood Urea Nitrogen 34 mg/dL (8-26) Creatinine 0.9 mg/dL (0.7-1.3) Estimated GFR (Cockcroft-Gault) 87.6 BUN/Creatinine Ratio 38 (6-20) Glucose Level 331 mg/dL (70-99) Calcium Level 8.9 mg/dL (8.5-10.1) Phosphorus Level 4.0 mg/dL (2.6-4.7) Magnesium Level 2.2 mg/dL (1.8-2.4) Total Bilirubin 0.8 mg/dL (0.2-1.0) Aspartate Amino Transf (AST/SGOT) 16 U/L (15-37) Alanine Aminotransferase (ALT/SGPT) 24 U/L (16-63) Alkaline Phosphatase 55 U/L (46-116) Total Protein 6.3 g/dL (6.4-8.2) Albumin 2.1 g/dL (3.4-5.0) Albumin/Globulin Ratio 0.5 (1.0-1.7) Glucose (Fingerstick) 337 mg/dL (70-99) 310 mg/dL (70-99) O2 Saturation 96 % (92-99) Arterial Blood pH 7.47 (7.35-7.45) Arterial Blood pCO2 at Patient Temp 41 mmHg (35-46) Arterial Blood pO2 at Patient Temp 87 mmHg (75-108) Arterial Blood HCO3 29 mmol/L (21-28) Arterial Blood Base Excess 5 mmol/L (-3-3) FiO2 60 Test 10/28/20 17:28 10/29/20 00:31 Glucose (Fingerstick) 265 mg/dL (70-99) 259 mg/dL (70-99) Comments CXR IMPRESSION: Stable lines and tubes including endotracheal intubation with pulmonary vascular congestion and small right pleural effusion with associated atelectasis. Impression . IMPRESSION: 1. Acute hypoxemic respiratory failure secondary to COVID-19 viral pneumonia-- improving 2. COVID-19 viral pneumonia/sepsis. 3. Abnormal x-ray compatible with SARS-CoV-2 infection. 4. Acute kidney injury-- improved, azotemia 5. Severe hypoxemia, elevated D-dimer, possible thromboembolic disease. 6. Morbid obesity. 7. Protein malnutrition, present upon admission. 8. Elevated troponin. 9. CXR 10/26 , worsening infiltrates, possible aspiration 10. sputum culture positive for staph A. Plan . PLAN: Continue current ventilatory support, FiO2 to 45 and a PEEP of 6 will decrease peep to 5 Follow ABG/chest x-ray, CXR: shows improved RLL base COVID-19 positive HAs completed full course of remdesivir Continue steroids patient will need a full 10-day course, taper slowly Clinically improving, dopplers with no DVT. D-Dimer trending down, D/C heparin gtt, heparin SQ BID ContinueTPN for nutritional support Sputum culture positive for Staph A. continue zosyn Vanco prn lasix DVT/GI prophylaxis Discussed with RN and RT critically ill Critical care time 30 min no overlap GABE CUETO MD Oct 29, 2020 04:50
[2020-10-29] MEDS: THIAMINE 100 MG TABLET. GT SCH ×3 (05:32→21:39)
--- NOTE | 2020-10-29 05:53 | RAD ---
EXAM: XR ABDOMEN 1V 10/29/2020 4:56 AM CLINICAL INDICATION: OG placement. COMPARISON: Chest radiograph 10/28/2020 TECHNIQUE: AP view of the upper abdomen FINDINGS: The nasogastric tube now terminates high near the gastric cardia with the sidehole in dist al esophagus. Recommend advancing approximately 4-5 cm. Bowel gas pattern is nonobstructive. Right pl eural effusion has decreased. IMPRESSION: High termination of NG tube with sidehole in the distal esophagus. Recommend advancing 4 to 5 cm. Electronically signed by: Elsy Murray MD (10/29/2020 5:50 AM) [id number]
[2020-10-29] MEDS: ASCORBIC ACID 1,000 MG TABLET PO SCH ×3 (08:00→21:29)
[2020-10-29] MEDS: ZINC SULFATE 220 MG CAPSULE. PO SCH (08:00)
[2020-10-29] MEDS: DEXAMETHASONE SOD PHOS 4 MG/ML VIAL IVP SCH ×2 (08:03→21:29)
[2020-10-29] MEDS: FAMOTIDINE 20 MG/2 ML VIAL IVP SCH ×2 (08:06→21:29)
[2020-10-29 08:17] LABS: BASE EXCESS ABG 2 mmol/L (-3-3); HCO3 ABG 27 mmol/L (21-28); PCO2 ABG 41 mmHg (35-46); PO2 ABG 87 mmHg (75-108); SAT O2 ABG 96 % (92-99)
[2020-10-29 08:39] LABS: FIO2 ABG 45
--- NOTE | 2020-10-29 09:05 | RAD ---
Exam performed: Single view abdomen KUB. Indication:Feeding tube advancement Date of Service: 10/29/2020 at 8:30 AM. Comparison: Single view abdomen from earlier today at 4:51 AM Single supine view of the abdomen findings: Interval advancement of the feeding tube which is now seen coiled in the stomach. Nonspecific, nondistended bowel loops are present. No abnormal radiopaque density is seen projecting over the kidneys or in the expected course of the ureters. The bony structures are normal. Impression: 1. Feeding tube appears to be in satisfactory position. Electronically signed by: Cesia Escobedo MD (10/29/2020 9:03 AM) [id number]
[2020-10-29] MEDS: INSULIN GLARGINE SYRINGE. SQ SCH ×2 (09:08→21:31)
[2020-10-29] MEDS: HEPARIN for SUB-Q USE 5,000 UNIT/ML VIAL. SQ SCH ×2 (09:09→21:32)
--- NOTE | 2020-10-29 10:13 | PDOC ---
PROGRESS NOTES Date of Service: DATE: 10/29/20 TIME: 10:08 Chief Complaint Chief Complaint sepsis, severe with shcok Acute hypoxemic respiratory failure secondary to COVID-19 viral pneumonia. intubated and sedated acute renal failure, vasomotor nephropathy and sepsis, ATN poss gram negative bacterial pneumonia Dm2, with hyperglycemia, poor control, despite increased insulin doses obese, BMI 36 with concomittant Protein malnutrition, present upon admission. History of Present Illness History of Present Illness 10/29, down to PEEP 5, on 45 %, breathing better, still sedated, will try to allow to wake up and follow commands somewhat better still struggling, 10/28, I keep increasing his LANTUS insulin dosing, and his blood sugars are back up again today will increase lantus o 60 BID and do 22 u x1, cont the SSI, that is additional 42 u today 10/27. ABG didnt look very good this AM with ongoing hypoxia, oxygen Sa02 is 60%, still sedate 10/[address] Morrow, CXR worse, abx started, start zosyn, cover for pneumonia ICU care, 35min cont current follow labs, intubated and sedated changed insulin dose, lantus started yesterday, will make 30 BID, on tube feeds and on IV steroids, Vitals Vitals Vital Signs Date Time Temp Pulse Resp B/P (MAP) Pulse Ox O2 Delivery O2 Flow Rate FiO2 10/29/20 09:00 71 23 146/80 (102) 97 Ventilator 10/29/20 08:00 97.8 97.8 Physical Exam Physical Exam intubated, sedated on vent, Heart: Regular rate Abdomen: Normal bowel sounds, Soft Extremities: No clubbing Skin: No rashes Labs LABS Laboratory Tests Test 10/28/20 11:42 10/28/20 17:28 10/29/20 00:31 10/29/20 05:19 Glucose (Fingerstick) 310 mg/dL (70-99) 265 mg/dL (70-99) 259 mg/dL (70-99) 275 mg/dL (70-99) Test 10/29/20 07:55 O2 Saturation 96 % (92-99) Arterial Blood pH 7.43 (7.35-7.45) Arterial Blood pCO2 at Patient Temp 41 mmHg (35-46) Arterial Blood pO2 at Patient Temp 87 mmHg (75-108) Arterial Blood HCO3 27 mmol/L (21-28) Arterial Blood Base Excess 2 mmol/L (-3-3) FiO2 45 Assessment and Plan Assessmemt and Plan Problems Medical Problems: (1) Hyperglycemia Status: Acute (2) Hypoxia Status: Acute (3) Pneumonia due to COVID-19 virus Status: Acute (4) Respiratory failure Status: Acute (5) Septic shock Status: Acute Comment Review of Relevant I have reviewed the following items andrew (where applicable) has been applied. Labs Laboratory Tests Test 10/27/20 11:57 10/27/20 13:40 10/27/20 17:40 10/27/20 20:20 Glucose (Fingerstick) 212 mg/dL (70-99) 188 mg/dL (70-99) 258 mg/dL (70-99) Heparin Anti-Xa Act, Unfractionated 0.39 IU/mL (0.30-0.70) Test 10/28/20 00:23 10/28/20 05:20 10/28/20 05:56 10/28/20 08:35 Glucose (Fingerstick) 331 mg/dL (70-99) 337 mg/dL (70-99) White Blood Count 8.3 x10^3/uL (4.0-11.0) Red Blood Count 4.18 x10^6/uL (4.30-5.70) Hemoglobin 12.1 g/dL (13.0-17.5) Hematocrit 37.2 % (39.0-53.0) Mean Corpuscular Volume 89 fL (79-100) Mean Corpuscular Hemoglobin 29 pg (25-35) Mean Corpuscular Hemoglobin Concent 32 g/dL (31-37) Red Cell Distribution Width 14.8 % (11.5-14.5) Platelet Count 209 x10^3/uL (140-400) Neutrophils (%) (Auto) 89 % (31-73) Lymphocytes (%) (Auto) 4 % (24-48) Monocytes (%) (Auto) 6 % (0-9) Eosinophils (%) (Auto) 0 % (0-3) Basophils (%) (Auto) 0 % (0-3) Neutrophils # (Auto) 7.3 x10^3/uL (1.8-7.7) Lymphocytes # (Auto) 0.3 x10^3/uL (1.0-4.8) Monocytes # (Auto) 0.5 x10^3/uL (0.0-1.1) Eosinophils # (Auto) 0.0 x10^3/uL (0.0-0.7) Basophils # (Auto) 0.0 x10^3/uL (0.0-0.2) Heparin Anti-Xa Act, Unfractionated 0.16 IU/mL (0.30-0.70) Sodium Level 140 mmol/L (136-145) Potassium Level 4.6 mmol/L (3.5-5.1) Chloride Level 103 mmol/L (98-107) Carbon Dioxide Level 30 mmol/L (21-32) Anion Gap 7 (6-14) Blood Urea Nitrogen 34 mg/dL (8-26) Creatinine 0.9 mg/dL (0.7-1.3) Estimated GFR (Cockcroft-Gault) 87.6 BUN/Creatinine Ratio 38 (6-20) Glucose Level 331 mg/dL (70-99) Calcium Level 8.9 mg/dL (8.5-10.1) Phosphorus Level 4.0 mg/dL (2.6-4.7) Magnesium Level 2.2 mg/dL (1.8-2.4) Total Bilirubin 0.8 mg/dL (0.2-1.0) Aspartate Amino Transf (AST/SGOT) 16 U/L (15-37) Alanine Aminotransferase (ALT/SGPT) 24 U/L (16-63) Alkaline Phosphatase 55 U/L (46-116) Total Protein 6.3 g/dL (6.4-8.2) Albumin 2.1 g/dL (3.4-5.0) Albumin/Globulin Ratio 0.5 (1.0-1.7) O2 Saturation 96 % (92-99) Arterial Blood pH 7.47 (7.35-7.45) Arterial Blood pCO2 at Patient Temp 41 mmHg (35-46) Arterial Blood pO2 at Patient Temp 87 mmHg (75-108) Arterial Blood HCO3 29 mmol/L (21-28) Arterial Blood Base Excess 5 mmol/L (-3-3) FiO2 60 Test 10/28/20 11:42 10/28/20 17:28 10/29/20 00:31 10/29/20 05:19 Glucose (Fingerstick) 310 mg/dL (70-99) 265 mg/dL (70-99) 259 mg/dL (70-99) 275 mg/dL (70-99) Test 10/29/20 07:55 O2 Saturation 96 % (92-99) Arterial Blood pH 7.43 (7.35-7.45) Arterial Blood pCO2 at Patient Temp 41 mmHg (35-46) Arterial Blood pO2 at Patient Temp 87 mmHg (75-108) Arterial Blood HCO3 27 mmol/L (21-28) Arterial Blood Base Excess 2 mmol/L (-3-3) FiO2 45 Laboratory Tests Test 10/28/20 11:42 10/28/20 17:28 10/29/20 00:31 10/29/20 05:19 Glucose (Fingerstick) 310 mg/dL (70-99) 265 mg/dL (70-99) 259 mg/dL (70-99) 275 mg/dL (70-99) Test 10/29/20 07:55 O2 Saturation 96 % (92-99) Arterial Blood pH 7.43 (7.35-7.45) Arterial Blood pCO2 at Patient Temp 41 mmHg (35-46) Arterial Blood pO2 at Patient Temp 87 mmHg (75-108) Arterial Blood HCO3 27 mmol/L (21-28) Arterial Blood Base Excess 2 mmol/L (-3-3) FiO2 45 Microbiology 10/26/20 Gram Stain Evaluation - Final, Resulted 10/26/20 Respiratory Culture - Preliminary, Resulted 10/21/20 Blood Culture - Final, Complete NO GROWTH AFTER 5 DAYS Medications Current Medications Sodium Chloride 1,000 ml @ 1,000 mls/hr Q1H IV Last administered on 10/21/20at 09:31; Start 10/21/20 at 08:45; Stop 10/21/20 at 09:44; Status DC Dexamethasone Sodium Phosphate (Decadron) 10 mg 1X ONCE IVP Last administered on 10/21/20at 09:32; Start 10/21/20 at 08:45; Stop 10/21/20 at 09:11; Status DC Piperacillin Sod/ Tazobactam Sod 4.5 gm/Sodium Chloride 100 ml @ 200 mls/hr 1X ONCE IV Last administered on 10/21/20at 11:18; Start 10/21/20 at 10:30; Stop 10/21/20 at 10:59; Status DC Azithromycin 250 ml @ 250 mls/hr 1X ONCE IV Last administered on 10/21/20at 11:18; Start 10/21/20 at 10:30; Stop 10/21/20 at 11:29; Status DC Aspirin (Ecotrin) 325 mg 1X ONCE PO Last administered on 10/21/20at 11:17; Start 10/21/20 at 10:30; Stop 10/21/20 at 10:31; Status DC Insulin Human Regular (HumuLIN R VIAL) 14 unit 1X ONCE SQ Last administered on 10/21/20at 11:28; Start 10/21/20 at 10:30; Stop 10/21/20 at 10:31; Status DC Sodium Chloride 1,000 ml @ 1,000 mls/hr 1X ONCE IV Last administered on 10/21/20at 11:18; Start 10/21/20 at 10:30; Stop 10/21/20 at 11:29; Status DC Iohexol (Omnipaque 350 Mg/ml) 90 ml 1X ONCE IV ; Start 10/21/20 at 10:45; Stop 10/21/20 at 10:46; Status DC Info (CONTRAST GIVEN -- Rx MONITORING) 1 each PRN DAILY PRN MC SEE COMMENTS; Start 10/21/20 at 10:45; Stop 10/23/20 at 10:44; Status DC Acetaminophen (Tylenol) 500 mg 1X ONCE PO Last administered on 10/21/20at 11:30; Start 10/21/20 at 11:15; Stop 10/21/20 at 11:16; Status DC Lorazepam (Ativan Inj) 0.5 mg 1X ONCE IVP Last administered on 10/21/20at 11:20; Start 10/21/20 at 11:15; Stop 10/21/20 at 11:16; Status DC Ondansetron HCl (Zofran) 4 mg PRN Q8HRS PRN IV NAUSEA/VOMITING; Start 10/21/20 at 11:30; Stop 10/21/20 at 13:29; Status DC Fentanyl Citrate (Fentanyl 2ml Vial) 50 mcg PRN Q2HR PRN IV PAIN; Start 10/21/20 at 11:30; Stop 10/22/20 at 06:16; Status DC Sodium Chloride 1,000 ml @ 100 mls/hr Q10H IV Last administered on 10/22/20at 13:36; Start 10/21/20 at 11:30; Stop 10/22/20 at 11:29; Status DC Acetaminophen (Tylenol) 650 mg PRN Q4HRS PRN PO FEVER > 100.3'F; Start 10/21/20 at 11:30; Stop 10/22/20 at 06:17; Status DC Sennosides (Senna) 17.2 mg PRN BID PRN PO CONSTIPATION; Start 10/21/20 at 12:00 Docusate Sodium (Colace) 100 mg PRN DAILY PRN PO HARD STOOLS; Start 10/21/20 at 12:00 Ondansetron HCl (Zofran) 4 mg PRN Q6HRS PRN IVP NAUSEA/VOMITING; Start 10/21/20 at 12:00 Insulin Human Lispro (HumaLOG) 0-9 UNITS TIDWMEALS SQ Last administered on 10/21/20at 18:15; Start 10/21/20 at 12:00; Stop 10/21/20 at 22:22; Status DC Dextrose (Dextrose 50%-Water Syringe) 12.5 gm PRN Q15MIN PRN IV SEE COMMENTS; Start 10/21/20 at 12:00; Stop 10/22/20 at 09:30; Status DC Acetaminophen (Tylenol) 650 mg PRN Q4HRS PRN PO TEMP OVER 100.4F OR MILD PAIN Last administered on 10/25/20at 05:36; Start 10/21/20 at 12:00 Enoxaparin Sodium (Lovenox 40mg Syringe) 40 mg Q24H SQ ; Start 10/21/20 at 13:00; Status Cancel Ascorbic Acid (Vitamin C) 3,000 mg TID PO Last administered on 10/22/20at 21:28; Start 10/21/20 at 14:00; Stop 10/23/20 at 08:20; Status DC Thiamine HCl 100 mg/Dextrose 51 ml @ 102 mls/hr Q8HRS IV Last administered on 10/27/20at 05:55; Start 10/21/20 at 14:00; Stop 10/27/20 at 10:00; Status DC Dexamethasone Sodium Phosphate (Decadron) 4 mg Q12HR IVP Last administered on 10/29/20at 08:03; Start 10/21/20 at 21:00 Lorazepam (Ativan Inj) 0.5 mg 1X ONCE IVP Last administered on 10/21/20at 11:59; Start 10/21/20 at 12:00; Stop 10/21/20 at 12:15; Status DC Propofol 100 ml @ As Directed STK-MED ONCE IV ; Start 10/21/20 at 12:47; Stop 10/21/20 at 12:47; Status DC Etomidate (Amidate) 20 mg 1X ONCE IV ; Start 10/21/20 at 13:00; Stop 10/21/20 at 13:05; Status DC Rocuronium Alexander (Zemuron) 50 mg 1X ONCE IV ; Start 10/21/20 at 13:00; Stop 10/21/20 at 13:05; Status DC Propofol 100 ml @ 0 mls/hr CONT PRN IV PER PROTOCOL Last administered on 10/27/20at 17:08; Start 10/21/20 at 13:00 Chlorhexidine Gluconate (Peridex) 15 ml BID MM Last administered on 10/22/20at 21:28; Start 10/21/20 at 21:00; Stop 10/23/20 at 08:12; Status DC Fentanyl Citrate 30 ml @ 0 mls/hr CONT PRN IV SEE PROTOCOL Last administered on 10/22/20at 00:28; Start 10/21/20 at 13:15; Stop 10/22/20 at 06:16; Status DC Midazolam HCl 100 ml @ 0 mls/hr CONT PRN IV SEE PROTOCOL Last administered on 10/29/20at 00:28; Start 10/21/20 at 13:15 Lorazepam (Ativan Inj) 2 mg 1X ONCE IVP Last administered on 10/21/20at 13:31; Start 10/21/20 at 13:15; Stop 10/21/20 at 13:17; Status DC Fentanyl Citrate (Fentanyl 2ml Vial) 100 mcg 1X ONCE IVP Last administered on 10/21/20at 13:32; Start 10/21/20 at 13:15; Stop 10/21/20 at 13:17; Status DC Heparin Sodium/ Dextrose 250 ml @ 16 mls/hr CONT PRN IV PER PROTOCOL Last administered on 10/28/20at 05:01; Start 10/21/20 at 13:30; Stop 10/28/20 at 10:53; Status DC Heparin Sodium (Porcine) (Heparin Sodium) 3,000 unit PRN Q6HRS PRN IV FOR UFH LEVEL LESS THAN 0.2 Last administered on 10/28/20at 08:02; Start 10/21/20 at 13:30; Stop 10/28/20 at 10:53; Status DC Heparin Sodium (Porcine) (Heparin Sodium) 1,500 unit PRN Q6HRS PRN IV FOR UFH LEVEL 0.2 - 0.29; Start 10/21/20 at 13:30; Stop 10/28/20 at 10:53; Status DC Remdesivir 200 mg/ Sodium Chloride 210 ml @ 210 mls/hr 1X ONCE IV Last administered on 10/21/20at 17:29; Start 10/21/20 at 15:00; Stop 10/21/20 at 15:59; Status DC Remdesivir 100 mg/ Sodium Chloride 230 ml @ 460 mls/hr Q24H IV Last administered on 10/25/20at 15:06; Start 10/22/20 at 15:00; Stop 10/25/20 at 15:29; Status DC Bumetanide (Bumex) 1 mg 1X ONCE IV ; Start 10/21/20 at 13:30; Stop 10/21/20 at 13:37; Status DC Vecuronium Alexander (Norcuron Bolus) 10 mg 1X ONCE IV Last administered on 10/21/20at 13:45; Start 10/21/20 at 13:45; Stop 10/21/20 at 13:46; Status DC Vecuronium Alexander (Norcuron Bolus) 6 mg PRN Q4HRS ONCE IV Last administered on 10/21/20at 15:19; Start 10/21/20 at 14:15; Stop 10/21/20 at 14:16; Status DC Famotidine (Pepcid Vial) 20 mg BID IVP Last administered on 10/29/20at 08:06; Start 10/21/20 at 21:00 Rocuronium Alexander (Zemuron) 50 mg STK-MED ONCE .ROUTE ; Start 10/21/20 at 18:59; Stop 10/21/20 at 18:59; Status DC Etomidate (Amidate) 20 mg STK-MED ONCE IV ; Start 10/21/20 at 18:59; Stop 10/21/20 at 19:00; Status DC Insulin Human Lispro (HumaLOG) 0-9 UNITS Q6HRS SQ Last administered on 10/22/20at 06:01; Start 10/22/20 at 00:00; Stop 10/22/20 at 09:52; Status DC Fentanyl Citrate 55 ml @ 0 mls/hr CONT PRN PRN IV PAIN CONTROL Last administered on 10/28/20at 21:06; Start 10/22/20 at 06:30 Insulin Human Regular 100 unit/ Sodium Chloride 101 ml @ 0 mls/hr CONT PRN IV SEE I/O RECORD; Start 10/22/20 at 09:15; Stop 10/22/20 at 09:49; Status DC Dextrose (Dextrose 50%-Water Syringe) 12.5 gm PRN Q15MIN PRN IV LOW BLOOD SUGAR; Start 10/22/20 at 09:15; Stop 10/22/20 at 09:49; Status DC Insulin Human Lispro (HumaLOG) 0-9 UNITS TIDWMEALS SQ Last administered on 10/22/20at 12:14; Start 10/22/20 at 12:00; Stop 10/22/20 at 19:52; Status DC Dextrose (Dextrose 50%-Water Syringe) 12.5 gm PRN Q15MIN PRN IV SEE COMMENTS; Start 10/22/20 at 09:45 Insulin Glargine (Lantus Syringe) 10 unit 1X ONCE SQ Last administered on 10/22/20at 11:01; Start 10/22/20 at 10:30; Stop 10/22/20 at 10:31; Status DC Insulin Human Regular 100 unit/ Sodium Chloride 101 ml @ 0 mls/hr CONT PRN IV SEE I/O RECORD Last administered on 10/23/20at 02:14; Start 10/22/20 at 18:30 Insulin Human Lispro (HumaLOG) 0-9 UNITS Q6H SQ ; Start 10/23/20 at 00:00; Stop 10/23/20 at 09:42; Status DC Ascorbic Acid (Vitamin C) 3,000 mg TID PO Last administered on 10/28/20at 14:17; Start 10/23/20 at 09:00 Insulin Human Lispro (HumaLOG) 0-9 UNITS Q6HRS SQ Last administered on 10/29/20at 05:21; Start 10/23/20 at 12:00 Info (Anti-Coagulation Monitoring By Pharmacy) 1 each PRN DAILY PRN MC SEE COMMENTS Last administered on 10/24/20at 10:41; Start 10/24/20 at 07:45 Insulin Glargine (Lantus Syringe) 30 unit DAILY10 SQ Last administered on 10/25/20at 11:29; Start 10/24/20 at 12:00; Stop 10/25/20 at 14:27; Status DC Insulin Human Lispro (HumaLOG) 11 units 1X ONCE SQ Last administered on 10/25/20at 05:46; Start 10/25/20 at 05:45; Stop 10/25/20 at 05:48; Status DC Insulin Glargine (Lantus Syringe) 30 unit BID SQ Last administered on 10/26/20at 09:00; Start 10/25/20 at 21:00; Stop 10/26/20 at 09:39; Status DC Insulin Human Lispro (HumaLOG) 11 units 1X ONCE SQ Last administered on 10/25/20at 15:09; Start 10/25/20 at 15:15; Stop 10/25/20 at 15:16; Status DC Piperacillin Sod/ Tazobactam Sod (Zosyn Per Pharmacy) 1 each PRN DAILY PRN MC SEE COMMENTS; Start 10/26/20 at 09:45 Furosemide (Lasix) 20 mg 1X ONCE IVP Last administered on 10/26/20at 09:59; Start 10/26/20 at 09:45; Stop 10/26/20 at 09:46; Status DC Insulin Glargine (Lantus Syringe) 40 unit BID SQ Last administered on 10/27/20at 09:02; Start 10/26/20 at 21:00; Stop 10/27/20 at 09:38; Status DC Piperacillin Sod/ Tazobactam Sod 3.375 gm/Sodium Chloride 50 ml @ 100 mls/hr Q6H IV Last administered on 10/29/20at 10:06; Start 10/26/20 at 10:00 Insulin Glargine (Lantus Syringe) 50 unit BID SQ Last administered on 10/28/20at 09:02; Start 10/27/20 at 21:00; Stop 10/28/20 at 13:49; Status DC Insulin Human Lispro (HumaLOG) 15 units 1X ONCE SQ Last administered on 10/27/20at 10:23; Start 10/27/20 at 09:45; Stop 10/27/20 at 09:46; Status DC Thiamine Mononitrate (Vitamin B-1) 100 mg Q8HRS GT Last administered on 10/28/20at 14:17; Start 10/27/20 at 14:00 Info (Tpn Per Pharmacy) 1 each PRN DAILY PRN MC SEE COMMENTS Last administered on 10/28/20at 12:33; Start 10/27/20 at 12:00 Zinc Sulfate (Orazinc) 220 mg DAILY PO Last administered on 10/28/20at 09:02; Start 10/28/20 at 09:00 Sodium Chloride 90 meq/Potassium Chloride 50 meq/ Potassium Phosphate 5 mmol/ Magnesium Sulfate 10 meq/Calcium Gluconate 10 meq/ Multivitamins 5 ml/Zinc/Copper/ Manganese/ Selenium 1 ml/ Total Parenteral Nutrition/Amino Acids/Dextrose 1,512 ml @ 63 mls/hr TPN CONT IV Last administered on 10/27/20at 21:45; Start 10/27/20 at 22:00; Stop 10/28/20 at 21:59; Status DC Heparin Sodium (Porcine) (Heparin Sodium) 5,000 unit BID SQ Last administered on 10/29/20at 09:09; Start 10/28/20 at 21:00 Vancomycin HCl (Vanco Per Pharmacy) 1 each PRN DAILY PRN MC SEE COMMENTS Last administered on 10/28/20at 13:03; Start 10/28/20 at 11:30 Vancomycin HCl 2 gm/Sodium Chloride 500 ml @ 250 mls/hr ONCE ONCE IV Last administered on 10/28/20at 11:38; Start 10/28/20 at 12:00; Stop 10/28/20 at 13:59; Status DC Sodium Chloride 90 meq/Potassium Chloride 50 meq/ Potassium Phosphate 5 mmol/ Magnesium Sulfate 10 meq/Calcium Gluconate 8 meq/ Multivitamins 5 ml/Zinc/C opper/ Manganese/ Selenium 1 ml/ Total Parenteral Nutrition/Amino Acids/Dextrose 1,512 ml @ 63 mls/hr TPN CONT IV Last administered on 10/28/20at 21:45; Start 10/28/20 at 22:00; Stop 10/29/20 at 21:59 Vancomycin HCl 1.25 gm/Sodium Chloride 250 ml @ 167 mls/hr Q8H IV Last administered on 10/29/20at 04:06; Start 10/28/20 at 20:00 Vancomycin HCl (Vancomycin Trough Level) 1 each 1X ONCE MC ; Start 10/29/20 at 11:30; Stop 10/29/20 at 11:31 Insulin Glargine (Lantus Syringe) 60 unit BID SQ Last administered on 10/29/20at 09:08; Start 10/28/20 at 21:00 Insulin Human Lispro (HumaLOG) 22 units 1X ONCE SQ Last administered on 10/28/20at 14:14; Start 10/28/20 at 14:00; Stop 10/28/20 at 14:01; Status DC Vitals/I & O Vital Sign - Last 24 Hours 10/28/20 10/28/20 10/28/20 10/28/20 11:00 11:35 12:00 12:00 Temp 98.5 98.5 Pulse 84 88 Resp 26 30 B/P (MAP) 160/90 (113) 165/87 (113) Pulse Ox 98 98 98 O2 Delivery Ventilator Ventilator Mechanical Ventilator Ventilator 10/28/20 10/28/20 10/28/20 10/28/20 13:00 14:00 15:00 15:43 Pulse 81 65 60 Resp 32 26 B/P (MAP) 162/83 (109) 112/60 (77) 117/61 (79) Pulse Ox 95 97 98 99 O2 Delivery Ventilator Ventilator Ventilator Ventilator 10/28/20 10/28/20 10/28/20 10/28/20 16:00 16:00 17:00 18:00 Temp 98.5 98.5 Pulse 60 67 67 Resp 26 B/P (MAP) 116/57 (76) 119/62 (81) 156/81 (106) Pulse Ox 99 98 99 O2 Delivery Mechanical Ventilator Ventilator Ventilator Ventilator 10/28/20 10/28/20 10/28/20 10/28/20 19:00 19:53 20:00 20:00 Temp 98.4 98.4 Pulse 63 50 Resp 26 B/P (MAP) 107/59 (75) 120/54 (76) Pulse Ox 95 97 99 O2 Delivery Ventilator Ventilator Ventilator Mechanical Ventilator 10/28/20 10/28/20 10/28/20 10/28/20 21:00 22:00 23:00 23:59 Pulse 50 49 56 Resp B/P (MAP) 120/64 (82) 123/61 (81) 119/84 (96) Pulse Ox 100 100 100 O2 Delivery Ventilator Ventilator Ventilator Mechanical Ventilator 10/29/20 10/29/20 10/29/20 10/29/20 00:00 00:30 01:00 02:00 Temp 98.7 98.7 Pulse 54 48 52 Resp B/P (MAP) 168/75 (106) 165/81 (109) 118/61 (80) Pulse Ox 96 96 95 100 O2 Delivery Ventilator Ventilator Ventilator Ventilator 10/29/20 10/29/20 10/29/20 10/29/20 03:00 03:55 03:57 04:00 Temp 97.9 97.9 Pulse 43 39 B/P (MAP) 118/61 (80) 116/63 (80) Pulse Ox 100 100 100 O2 Delivery Ventilator Ventilator Mechanical Ventilator Ventilator 10/29/20 10/29/20 10/29/20 10/29/20 05:00 06:00 07:00 07:55 Pulse 46 42 39 Resp B/P (MAP) 116/67 (83) 140/73 (95) 116/62 (80) Pulse Ox 97 100 100 100 O2 Delivery Ventilator Ventilator Ventilator Ventilator 10/29/20 10/29/20 10/29/20 08:00 08:00 09:00 Temp 97.8 97.8 Pulse 40 71 Resp B/P (MAP) 117/64 (81) 146/80 (102) Pulse Ox 100 97 O2 Delivery Ventilator Mechanical Ventilator Ventilator Intake and Output 10/28/20 10/28/20 10/29/20 15:00 23:00 07:00 Intake Total 550 ml 1084 ml 1163 ml Output Total 1350 ml 1800 ml 745 ml Balance -800 ml -716 ml 418 ml Justicifation of Admission Dx: Justifications for Admission: Justification of Admission Dx: Yes (sepsis, covid, resp failure) KAHLIL ALMAZAN MD Oct 29, 2020 10:12
[2020-10-29] MEDS ORDERED: INSULIN LISPRO 300 UNITS/3 ML VIAL. SQ ONE (10:15)
[2020-10-29 12:13] LABS: CALCIUM 8.6 mg/dL (8.5-10.1); CREATININE 0.7 mg/dL (0.7-1.3); GFR 117.1; MAGNESIUM 2.1 mg/dL (1.8-2.4); PHOSPHORUS 3.1 mg/dL (2.6-4.7); POTASSIUM 4.2 mmol/L (3.5-5.1)
[2020-10-29 12:16] LABS: VANC TR 11.7 mcg/mL (10.0-20.0)
[2020-10-29] MEDS: VANCOMYCIN PER PHARMACY MC PRN ×2 (12:41→12:50)
[2020-10-29] MEDS: VANCOMYCIN 1.5 GM in IV NORMAL SALINE 500ML BAG 500 ML IV SCH ×2 (13:06→21:27)
[2020-10-29] MEDS: TPN PER PHARMACY MC PRN (13:17)
--- NOTE | 2020-10-29 13:19 | NUR ---
Pharmacy TPN Dosing Note S: CELIO BALKE is a 55 year old M Currently receiving Central Continuous TPN started 10/27/20 B:Pertinent PMH: TF INTOLERANCE, STOPPED 10/27 Height: 5 feet, 6 inches Weight: 96.9 kg Current diet: LABS: Sodium: 143 Potassium: 4.2 Chloride: 107 Calcium: 8.6 Corrected Calcium: 10.12 Magnesium: 1 CO2: 29 SCr: 0.7 Glucose: 216-275 Albumin: 2.1 AST: 16 ALT: 24 TPN FORMULA: TPN TYPE: Central Continuous AMINO ACIDS: 100 gm DEXTROSE: 225 gm LIPIDS: 0 gm SODIUM CHLORIDE: 90 mEq SODIUM ACETATE: mEq SODIUM PHOSPHATE: mmol POTASSIUM CHLORIDE: 50 mEq POTASSIUM ACETATE: mEq POTASSIUM PHOSPHATE: 5 mmol MAGNESIUM: 10 mEq CALCIUM: 10 mEq INSULIN: units MULTIPLE VITAMIN: 5 ml TRACE ELEMENTS: 1 ml(s) TPN PLAN: Lytes stable today; no changes. BMP in AM. R: Continue TPN ABOVE. Will monitor electrolytes, glucose, and tolerance to TPN. MARTÍNEZ BRUCE [facility], 10/29/20 2122
[2020-10-29] MEDS: PROPOFOL 100 ML IV PRN (17:01)
[2020-10-29] MEDS ORDERED: DEXTROSE 70% IV SCH (22:00)
[2020-10-29] MEDS ORDERED: TOTAL PARENTERAL NUTRITION IV SCH (22:00)
[2020-10-29] MEDS ORDERED: [UNRECOGNIZED DRUG - OTHER] IV SCH (22:00)
[2020-10-29] MEDS ORDERED: AMINO ACID IV SCH (22:00)
[2020-10-30] VITALS (24 sets, daily range): BP systolic 110–194; BP diastolic 58–111
[2020-10-30] MEDS: PIPERACILLIN/TAZOBACTAM 3.375 GM in IV NORMAL SALINE 50ML 50 ML IV SCH ×2 (03:33→09:46)
[2020-10-30] MEDS: MIDAZOLAM 100mg/100ml NS BAG 100 ML IV PRN (03:58)
[2020-10-30] MEDS: PROPOFOL 100 ML IV PRN ×4 (04:01→22:20)
[2020-10-30] MEDS: VANCOMYCIN 1.5 GM in IV NORMAL SALINE 500ML BAG 500 ML IV SCH (04:40)
[2020-10-30] MEDS: THIAMINE 100 MG TABLET. GT SCH ×3 (05:48→22:52)
[2020-10-30] MEDS: INSULIN LISPRO 300 UNITS/3 ML VIAL. SQ SCH ×3 (05:49→18:03)
[2020-10-30 05:55] LABS: CALCIUM 8.6 mg/dL (8.5-10.1); CREATININE 0.7 mg/dL (0.7-1.3); GFR 117.1; MAGNESIUM 2.1 mg/dL (1.8-2.4); PHOSPHORUS 3.8 mg/dL (2.6-4.7); POTASSIUM 4.6 mmol/L (3.5-5.1)
[2020-10-30] MEDS: DEXAMETHASONE SOD PHOS 4 MG/ML VIAL IVP SCH ×2 (07:47→22:50)
[2020-10-30] MEDS: FAMOTIDINE 20 MG/2 ML VIAL IVP SCH ×2 (07:48→22:50)
[2020-10-30 08:44] LABS: BASE EXCESS ABG 4 mmol/L (-3-3); HCO3 ABG 29 mmol/L (21-28); PCO2 ABG 43 mmHg (35-46); PO2 ABG 85 mmHg (75-108); SAT O2 ABG 96 % (92-99)
[2020-10-30] MEDS: ZINC SULFATE 220 MG CAPSULE. PO SCH (08:44)
[2020-10-30] MEDS: ASCORBIC ACID 1,000 MG TABLET PO SCH ×3 (08:44→22:50)
[2020-10-30 09:06] LABS: FIO2 ABG 45
[2020-10-30] MEDS: TPN PER PHARMACY MC PRN ×2 (09:38→09:46)
[2020-10-30] MEDS: INSULIN GLARGINE SYRINGE. SQ SCH ×2 (09:46→23:21)
[2020-10-30] MEDS ORDERED: INSULIN LISPRO 300 UNITS/3 ML VIAL. SQ ONE (10:00)
[2020-10-30] MEDS: HEPARIN for SUB-Q USE 5,000 UNIT/ML VIAL. SQ SCH ×2 (10:06→22:51)
--- NOTE | 2020-10-30 10:20 | PDOC ---
PULMONARY PROGRESS NOTES DATE: 10/30/20 TIME: 10:18 Subjective Ventilatory support, FiO2 45% and a PEEP of 5 off Heparin drip smll blood tinged ett secretion Vitals Vital Signs Date Time Temp Pulse Resp B/P (MAP) Pulse Ox O2 Delivery O2 Flow Rate FiO2 10/30/20 10:00 66 30 159/76 (103) 95 Ventilator 10/30/20 08:00 98.4 98.4 Comments intubated sedated nc at Bradycardia no accessory muscle use abd obese no rash Labs Laboratory Tests Test 10/28/20 11:42 10/28/20 17:28 10/29/20 00:31 10/29/20 05:19 Glucose (Fingerstick) 310 mg/dL (70-99) 265 mg/dL (70-99) 259 mg/dL (70-99) 275 mg/dL (70-99) Test 10/29/20 07:55 10/29/20 11:43 10/29/20 11:48 10/29/20 18:04 O2 Saturation 96 % (92-99) Arterial Blood pH 7.43 (7.35-7.45) Arterial Blood pCO2 at Patient Temp 41 mmHg (35-46) Arterial Blood pO2 at Patient Temp 87 mmHg (75-108) Arterial Blood HCO3 27 mmol/L (21-28) Arterial Blood Base Excess 2 mmol/L (-3-3) FiO2 45 Sodium Level 143 mmol/L (136-145) Potassium Level 4.2 mmol/L (3.5-5.1) Chloride Level 107 mmol/L (98-107) Carbon Dioxide Level 29 mmol/L (21-32) Anion Gap 7 (6-14) Blood Urea Nitrogen 34 mg/dL (8-26) Creatinine 0.7 mg/dL (0.7-1.3) Estimated GFR (Cockcroft-Gault) 117.1 Glucose Level 216 mg/dL (70-99) Calcium Level 8.6 mg/dL (8.5-10.1) Phosphorus Level 3.1 mg/dL (2.6-4.7) Magnesium Level 2.1 mg/dL (1.8-2.4) Vancomycin Level Trough 11.7 mcg/mL (10.0-20.0) Vancomycin Last Dose Date 10/29/20 Vancomycin Last Dose Time 0600 Glucose (Fingerstick) 235 mg/dL (70-99) 206 mg/dL (70-99) Test 10/29/20 23:50 10/30/20 05:15 10/30/20 08:10 Glucose (Fingerstick) 268 mg/dL (70-99) Sodium Level 142 mmol/L (136-145) Potassium Level 4.6 mmol/L (3.5-5.1) Chloride Level 107 mmol/L (98-107) Carbon Dioxide Level 28 mmol/L (21-32) Anion Gap 7 (6-14) Blood Urea Nitrogen 29 mg/dL (8-26) Creatinine 0.7 mg/dL (0.7-1.3) Estimated GFR (Cockcroft-Gault) 117.1 Glucose Level 261 mg/dL (70-99) Calcium Level 8.6 mg/dL (8.5-10.1) Phosphorus Level 3.8 mg/dL (2.6-4.7) Magnesium Level 2.1 mg/dL (1.8-2.4) O2 Saturation 96 % (92-99) Arterial Blood pH 7.44 (7.35-7.45) Arterial Blood pCO2 at Patient Temp 43 mmHg (35-46) Arterial Blood pO2 at Patient Temp 85 mmHg (75-108) Arterial Blood HCO3 29 mmol/L (21-28) Arterial Blood Base Excess 4 mmol/L (-3-3) FiO2 45 Laboratory Tests Test 10/29/20 11:43 10/29/20 11:48 10/29/20 18:04 10/29/20 23:50 Sodium Level 143 mmol/L (136-145) Potassium Level 4.2 mmol/L (3.5-5.1) Chloride Level 107 mmol/L (98-107) Carbon Dioxide Level 29 mmol/L (21-32) Anion Gap 7 (6-14) Blood Urea Nitrogen 34 mg/dL (8-26) Creatinine 0.7 mg/dL (0.7-1.3) Estimated GFR (Cockcroft-Gault) 117.1 Glucose Level 216 mg/dL (70-99) Calcium Level 8.6 mg/dL (8.5-10.1) Phosphorus Level 3.1 mg/dL (2.6-4.7) Magnesium Level 2.1 mg/dL (1.8-2.4) Vancomycin Level Trough 11.7 mcg/mL (10.0-20.0) Vancomycin Last Dose Date 10/29/20 Vancomycin Last Dose Time 0600 Glucose (Fingerstick) 235 mg/dL (70-99) 206 mg/dL (70-99) 268 mg/dL (70-99) Test 10/30/20 05:15 10/30/20 08:10 Sodium Level 142 mmol/L (136-145) Potassium Level 4.6 mmol/L (3.5-5.1) Chloride Level 107 mmol/L (98-107) Carbon Dioxide Level 28 mmol/L (21-32) Anion Gap 7 (6-14) Blood Urea Nitrogen 29 mg/dL (8-26) Creatinine 0.7 mg/dL (0.7-1.3) Estimated GFR (Cockcroft-Gault) 117.1 Glucose Level 261 mg/dL (70-99) Calcium Level 8.6 mg/dL (8.5-10.1) Phosphorus Level 3.8 mg/dL (2.6-4.7) Magnesium Level 2.1 mg/dL (1.8-2.4) O2 Saturation 96 % (92-99) Arterial Blood pH 7.44 (7.35-7.45) Arterial Blood pCO2 at Patient Temp 43 mmHg (35-46) Arterial Blood pO2 at Patient Temp 85 mmHg (75-108) Arterial Blood HCO3 29 mmol/L (21-28) Arterial Blood Base Excess 4 mmol/L (-3-3) FiO2 45 Comments CXR IMPRESSION: Stable lines and tubes including endotracheal intubation with pulmonary vascular congestion and small right pleural effusion with associated atelectasis. Impression . IMPRESSION: 1. Acute hypoxemic respiratory failure secondary to COVID-19 viral pneumonia-- improving 2. COVID-19 viral pneumonia/sepsis. 3. Abnormal x-ray compatible with SARS-CoV-2 infection. 4. Acute kidney injury-- improved, azotemia 5. Severe hypoxemia, elevated D-dimer, possible thromboembolic disease. 6. Morbid obesity. 7. Protein malnutrition, present upon admission. 8. Elevated troponin. 9. CXR 10/26 , worsening infiltrates, possible aspiration 10. sputum culture positive for staph A. Plan . PLAN: Continue current ventilatory support, change FiO2 to 40 and a PEEP of 5 decrease sedation sbt when more awake Follow ABG/chest x-ray, CXR: shows improved RLL base COVID-19 positive HAs completed full course of remdesivir Continue steroids patient will need a full 10-day course, taper slowly Clinically improving, dopplers with no DVT. D-Dimer trending down, D/C heparin gtt, heparin SQ BID ContinueTPN for nutritional support Sputum culture positive for Staph A. continue zosyn Vanco prn lasix DVT/GI prophylaxis Discussed with RN and RT critically ill Critical care time 30 min no overlap GABE CUETO MD Oct 30, 2020 10:19
[2020-10-30] MEDS: fentaNYL HIGH DOSE PCA 55 ML IV PRN (12:36)
[2020-10-30 13:04] LABS: VANC TR 7.6 mcg/mL (10.0-20.0)
--- NOTE | 2020-10-30 14:31 | PDOC ---
PROGRESS NOTES Date of Service: DATE: 10/30/20 TIME: 14:22 Chief Complaint Chief Complaint sepsis, severe with shcok Acute hypoxemic respiratory failure secondary to COVID-19 viral pneumonia. intubated and sedated acute renal failure, vasomotor nephropathy and sepsis, ATN poss gram negative bacterial pneumonia Dm2, with hyperglycemia, poor control, despite increased insulin doses obese, BMI 36 with concomittant Protein malnutrition, present upon admission. History of Present Illness History of Present Illness 10/30. FIO2 down to 40%, cont current, wean as able discussed with RN ' 10/29, down to PEEP 5, on 45 %, breathing better, still sedated, will try to allow to wake up and follow commands somewhat better still struggling, 10/28, I keep increasing his LANTUS insulin dosing, and his blood sugars are back up again today will increase lantus o 60 BID and do 22 u x1, cont the SSI, that is additional 42 u today 10/27. ABG didnt look very good this AM with ongoing hypoxia, oxygen Sa02 is 60%, still sedate 10/[address] Morrow, CXR worse, abx started, start zosyn, cover for pneumonia ICU care, 35min cont current follow labs, intubated and sedated changed insulin dose, lantus started yesterday, will make 30 BID, on tube feeds and on IV steroids, Vitals Vitals Vital Signs Date Time Temp Pulse Resp B/P (MAP) Pulse Ox O2 Delivery O2 Flow Rate FiO2 10/30/20 13:00 72 30 145/65 (91) 92 Ventilator 10/30/20 12:00 98.8 98.8 Physical Exam Physical Exam intubated, sedated on vent, Heart: Regular rate Abdomen: Normal bowel sounds, Soft Extremities: No clubbing Skin: No rashes Labs LABS Laboratory Tests Test 10/29/20 18:04 10/29/20 23:50 10/30/20 05:15 10/30/20 08:10 Glucose (Fingerstick) 206 mg/dL (70-99) 268 mg/dL (70-99) Sodium Level 142 mmol/L (136-145) Potassium Level 4.6 mmol/L (3.5-5.1) Chloride Level 107 mmol/L (98-107) Carbon Dioxide Level 28 mmol/L (21-32) Anion Gap 7 (6-14) Blood Urea Nitrogen 29 mg/dL (8-26) Creatinine 0.7 mg/dL (0.7-1.3) Estimated GFR (Cockcroft-Gault) 117.1 Glucose Level 261 mg/dL (70-99) Calcium Level 8.6 mg/dL (8.5-10.1) Phosphorus Level 3.8 mg/dL (2.6-4.7) Magnesium Level 2.1 mg/dL (1.8-2.4) O2 Saturation 96 % (92-99) Arterial Blood pH 7.44 (7.35-7.45) Arterial Blood pCO2 at Patient Temp 43 mmHg (35-46) Arterial Blood pO2 at Patient Temp 85 mmHg (75-108) Arterial Blood HCO3 29 mmol/L (21-28) Arterial Blood Base Excess 4 mmol/L (-3-3) FiO2 45 Test 10/30/20 11:57 10/30/20 12:30 Glucose (Fingerstick) 226 mg/dL (70-99) Vancomycin Level Trough 7.6 mcg/mL (10.0-20.0) Vancomycin Last Dose Date 10/30/20 Vancomycin Last Dose Time 0500 Assessment and Plan Assessmemt and Plan Problems Medical Problems: (1) Hyperglycemia Status: Acute (2) Hypoxia Status: Acute (3) Pneumonia due to COVID-19 virus Status: Acute (4) Respiratory failure Status: Acute (5) Septic shock Status: Acute Comment Review of Relevant I have reviewed the following items andrew (where applicable) has been applied. Labs Laboratory Tests Test 10/28/20 17:28 10/29/20 00:31 10/29/20 05:19 10/29/20 07:55 Glucose (Fingerstick) 265 mg/dL (70-99) 259 mg/dL (70-99) 275 mg/dL (70-99) O2 Saturation 96 % (92-99) Arterial Blood pH 7.43 (7.35-7.45) Arterial Blood pCO2 at Patient Temp 41 mmHg (35-46) Arterial Blood pO2 at Patient Temp 87 mmHg (75-108) Arterial Blood HCO3 27 mmol/L (21-28) Arterial Blood Base Excess 2 mmol/L (-3-3) FiO2 45 Test 10/29/20 11:43 10/29/20 11:48 10/29/20 18:04 10/29/20 23:50 Sodium Level 143 mmol/L (136-145) Potassium Level 4.2 mmol/L (3.5-5.1) Chloride Level 107 mmol/L (98-107) Carbon Dioxide Level 29 mmol/L (21-32) Anion Gap 7 (6-14) Blood Urea Nitrogen 34 mg/dL (8-26) Creatinine 0.7 mg/dL (0.7-1.3) Estimated GFR (Cockcroft-Gault) 117.1 Glucose Level 216 mg/dL (70-99) Calcium Level 8.6 mg/dL (8.5-10.1) Phosphorus Level 3.1 mg/dL (2.6-4.7) Magnesium Level 2.1 mg/dL (1.8-2.4) Vancomycin Level Trough 11.7 mcg/mL (10.0-20.0) Vancomycin Last Dose Date 10/29/20 Vancomycin Last Dose Time 0600 Glucose (Fingerstick) 235 mg/dL (70-99) 206 mg/dL (70-99) 268 mg/dL (70-99) Test 10/30/20 05:15 10/30/20 08:10 10/30/20 11:57 10/30/20 12:30 Sodium Level 142 mmol/L (136-145) Potassium Level 4.6 mmol/L (3.5-5.1) Chloride Level 107 mmol/L (98-107) Carbon Dioxide Level 28 mmol/L (21-32) Anion Gap 7 (6-14) Blood Urea Nitrogen 29 mg/dL (8-26) Creatinine 0.7 mg/dL (0.7-1.3) Estimated GFR (Cockcroft-Gault) 117.1 Glucose Level 261 mg/dL (70-99) Calcium Level 8.6 mg/dL (8.5-10.1) Phosphorus Level 3.8 mg/dL (2.6-4.7) Magnesium Level 2.1 mg/dL (1.8-2.4) O2 Saturation 96 % (92-99) Arterial Blood pH 7.44 (7.35-7.45) Arterial Blood pCO2 at Patient Temp 43 mmHg (35-46) Arterial Blood pO2 at Patient Temp 85 mmHg (75-108) Arterial Blood HCO3 29 mmol/L (21-28) Arterial Blood Base Excess 4 mmol/L (-3-3) FiO2 45 Glucose (Fingerstick) 226 mg/dL (70-99) Vancomycin Level Trough 7.6 mcg/mL (10.0-20.0) Vancomycin Last Dose Date 10/30/20 Vancomycin Last Dose Time 0500 Laboratory Tests Test 10/29/20 18:04 10/29/20 23:50 10/30/20 05:15 10/30/20 08:10 Glucose (Fingerstick) 206 mg/dL (70-99) 268 mg/dL (70-99) Sodium Level 142 mmol/L (136-145) Potassium Level 4.6 mmol/L (3.5-5.1) Chloride Level 107 mmol/L (98-107) Carbon Dioxide Level 28 mmol/L (21-32) Anion Gap 7 (6-14) Blood Urea Nitrogen 29 mg/dL (8-26) Creatinine 0.7 mg/dL (0.7-1.3) Estimated GFR (Cockcroft-Gault) 117.1 Glucose Level 261 mg/dL (70-99) Calcium Level 8.6 mg/dL (8.5-10.1) Phosphorus Level 3.8 mg/dL (2.6-4.7) Magnesium Level 2.1 mg/dL (1.8-2.4) O2 Saturation 96 % (92-99) Arterial Blood pH 7.44 (7.35-7.45) Arterial Blood pCO2 at Patient Temp 43 mmHg (35-46) Arterial Blood pO2 at Patient Temp 85 mmHg (75-108) Arterial Blood HCO3 29 mmol/L (21-28) Arterial Blood Base Excess 4 mmol/L (-3-3) FiO2 45 Test 10/30/20 11:57 10/30/20 12:30 Glucose (Fingerstick) 226 mg/dL (70-99) Vancomycin Level Trough 7.6 mcg/mL (10.0-20.0) Vancomycin Last Dose Date 10/30/20 Vancomycin Last Dose Time 0500 Microbiology 10/26/20 Gram Stain Evaluation - Final, Complete 10/26/20 Respiratory Culture - Final, Complete 10/26/20 Antimicrobic Susceptibility - Final, Complete 10/21/20 Blood Culture - Final, Complete NO GROWTH AFTER 5 DAYS Medications Current Medications Sodium Chloride 1,000 ml @ 1,000 mls/hr Q1H IV Last administered on 10/21/20at 09:31; Start 10/21/20 at 08:45; Stop 10/21/20 at 09:44; Status DC Dexamethasone Sodium Phosphate (Decadron) 10 mg 1X ONCE IVP Last administered on 10/21/20at 09:32; Start 10/21/20 at 08:45; Stop 10/21/20 at 09:11; Status DC Piperacillin Sod/ Tazobactam Sod 4.5 gm/Sodium Chloride 100 ml @ 200 mls/hr 1X ONCE IV Last administered on 10/21/20at 11:18; Start 10/21/20 at 10:30; Stop 10/21/20 at 10:59; Status DC Azithromycin 250 ml @ 250 mls/hr 1X ONCE IV Last administered on 10/21/20at 11:18; Start 10/21/20 at 10:30; Stop 10/21/20 at 11:29; Status DC Aspirin (Ecotrin) 325 mg 1X ONCE PO Last administered on 10/21/20at 11:17; Start 10/21/20 at 10:30; Stop 10/21/20 at 10:31; Status DC Insulin Human Regular (HumuLIN R VIAL) 14 unit 1X ONCE SQ Last administered on 10/21/20at 11:28; Start 10/21/20 at 10:30; Stop 10/21/20 at 10:31; Status DC Sodium Chloride 1,000 ml @ 1,000 mls/hr 1X ONCE IV Last administered on 10/21/20at 11:18; Start 10/21/20 at 10:30; Stop 10/21/20 at 11:29; Status DC Iohexol (Omnipaque 350 Mg/ml) 90 ml 1X ONCE IV ; Start 10/21/20 at 10:45; Stop 10/21/20 at 10:46; Status DC Info (CONTRAST GIVEN -- Rx MONITORING) 1 each PRN DAILY PRN MC SEE COMMENTS; Start 10/21/20 at 10:45; Stop 10/23/20 at 10:44; Status DC Acetaminophen (Tylenol) 500 mg 1X ONCE PO Last administered on 10/21/20at 11:30; Start 10/21/20 at 11:15; Stop 10/21/20 at 11:16; Status DC Lorazepam (Ativan Inj) 0.5 mg 1X ONCE IVP Last administered on 10/21/20at 11:20; Start 10/21/20 at 11:15; Stop 10/21/20 at 11:16; Status DC Ondansetron HCl (Zofran) 4 mg PRN Q8HRS PRN IV NAUSEA/VOMITING; Start 10/21/20 at 11:30; Stop 10/21/20 at 13:29; Status DC Fentanyl Citrate (Fentanyl 2ml Vial) 50 mcg PRN Q2HR PRN IV PAIN; Start 10/21/20 at 11:30; Stop 10/22/20 at 06:16; Status DC Sodium Chloride 1,000 ml @ 100 mls/hr Q10H IV Last administered on 10/22/20at 13:36; Start 10/21/20 at 11:30; Stop 10/22/20 at 11:29; Status DC Acetaminophen (Tylenol) 650 mg PRN Q4HRS PRN PO FEVER > 100.3'F; Start 10/21/20 at 11:30; Stop 10/22/20 at 06:17; Status DC Sennosides (Senna) 17.2 mg PRN BID PRN PO CONSTIPATION; Start 10/21/20 at 12:00 Docusate Sodium (Colace) 100 mg PRN DAILY PRN PO HARD STOOLS; Start 10/21/20 at 12:00 Ondansetron HCl (Zofran) 4 mg PRN Q6HRS PRN IVP NAUSEA/VOMITING; Start 10/21/20 at 12:00 Insulin Human Lispro (HumaLOG) 0-9 UNITS TIDWMEALS SQ Last administered on 10/21/20at 18:15; Start 10/21/20 at 12:00; Stop 10/21/20 at 22:22; Status DC Dextrose (Dextrose 50%-Water Syringe) 12.5 gm PRN Q15MIN PRN IV SEE COMMENTS; Start 10/21/20 at 12:00; Stop 10/22/20 at 09:30; Status DC Acetaminophen (Tylenol) 650 mg PRN Q4HRS PRN PO TEMP OVER 100.4F OR MILD PAIN Last administered on 10/25/20at 05:36; Start 10/21/20 at 12:00 Enoxaparin Sodium (Lovenox 40mg Syringe) 40 mg Q24H SQ ; Start 10/21/20 at 13:00; Status Cancel Ascorbic Acid (Vitamin C) 3,000 mg TID PO Last administered on 10/22/20at 21:28; Start 10/21/20 at 14:00; Stop 10/23/20 at 08:20; Status DC Thiamine HCl 100 mg/Dextrose 51 ml @ 102 mls/hr Q8HRS IV Last administered on 10/27/20at 05:55; Start 10/21/20 at 14:00; Stop 10/27/20 at 10:00; Status DC Dexamethasone Sodium Phosphate (Decadron) 4 mg Q12HR IVP Last administered on 10/30/20at 07:47; Start 10/21/20 at 21:00 Lorazepam (Ativan Inj) 0.5 mg 1X ONCE IVP Last administered on 10/21/20at 11:59; Start 10/21/20 at 12:00; Stop 10/21/20 at 12:15; Status DC Propofol 100 ml @ As Directed STK-MED ONCE IV ; Start 10/21/20 at 12:47; Stop 10/21/20 at 12:47; Status DC Etomidate (Amidate) 20 mg 1X ONCE IV ; Start 10/21/20 at 13:00; Stop 10/21/20 at 13:05; Status DC Rocuronium [place] (Zemuron) 50 mg 1X ONCE IV ; Start 10/21/20 at 13:00; Stop 10/21/20 at 13:05; Status DC Propofol 100 ml @ 0 mls/hr CONT PRN IV PER PROTOCOL Last administered on 10/30/20at 12:28; Start 10/21/20 at 13:00 Chlorhexidine Gluconate (Peridex) 15 ml BID MM Last administered on 10/22/20at 21:28; Start 10/21/20 at 21:00; Stop 10/23/20 at 08:12; Status DC Fentanyl Citrate 30 ml @ 0 mls/hr CONT PRN IV SEE PROTOCOL Last administered on 10/22/20at 00:28; Start 10/21/20 at 13:15; Stop 10/22/20 at 06:16; Status DC Midazolam HCl 100 ml @ 0 mls/hr CONT PRN IV SEE PROTOCOL Last administered on 10/30/20at 03:58; Start 10/21/20 at 13:15 Lorazepam (Ativan Inj) 2 mg 1X ONCE IVP Last administered on 10/21/20at 13:31; Start 10/21/20 at 13:15; Stop 10/21/20 at 13:17; Status DC Fentanyl Citrate (Fentanyl 2ml Vial) 100 mcg 1X ONCE IVP Last administered on 10/21/20at 13:32; Start 10/21/20 at 13:15; Stop 10/21/20 at 13:17; Status DC Heparin Sodium/ Dextrose 250 ml @ 16 mls/hr CONT PRN IV PER PROTOCOL Last administered on 10/28/20at 05:01; Start 10/21/20 at 13:30; Stop 10/28/20 at 10:53; Status DC Heparin Sodium (Porcine) (Heparin Sodium) 3,000 unit PRN Q6HRS PRN IV FOR UFH LEVEL LESS THAN 0.2 Last administered on 10/28/20at 08:02; Start 10/21/20 at 13:30; Stop 10/28/20 at 10:53; Status DC Heparin Sodium (Porcine) (Heparin Sodium) 1,500 unit PRN Q6HRS PRN IV FOR UFH LEVEL 0.2 - 0.29; Start 10/21/20 at 13:30; Stop 10/28/20 at 10:53; Status DC Remdesivir 200 mg/ Sodium Chloride 210 ml @ 210 mls/hr 1X ONCE IV Last administered on 10/21/20at 17:29; Start 10/21/20 at 15:00; Stop 10/21/20 at 15:59; Status DC Remdesivir 100 mg/ Sodium Chloride 230 ml @ 460 mls/hr Q24H IV Last administered on 10/25/20at 15:06; Start 10/22/20 at 15:00; Stop 10/25/20 at 15:29; Status DC Bumetanide (Bumex) 1 mg 1X ONCE IV ; Start 10/21/20 at 13:30; Stop 10/21/20 at 13:37; Status DC Vecuronium [place] (Norcuron Bolus) 10 mg 1X ONCE IV Last administered on 10/21/20at 13:45; Start 10/21/20 at 13:45; Stop 10/21/20 at 13:46; Status DC Vecuronium [place] (Norcuron Bolus) 6 mg PRN Q4HRS ONCE IV Last administered on 10/21/20at 15:19; Start 10/21/20 at 14:15; Stop 10/21/20 at 14:16; Status DC Famotidine (Pepcid Vial) 20 mg BID IVP Last administered on 10/30/20at 07:48; Start 10/21/20 at 21:00 Rocuronium [place] (Zemuron) 50 mg STK-MED ONCE .ROUTE ; Start 10/21/20 at 18:59; Stop 10/21/20 at 18:59; Status DC Etomidate (Amidate) 20 mg STK-MED ONCE IV ; Start 10/21/20 at 18:59; Stop 10/21/20 at 19:00; Status DC Insulin Human Lispro (HumaLOG) 0-9 UNITS Q6HRS SQ Last administered on 10/22/20at 06:01; Start 10/22/20 at 00:00; Stop 10/22/20 at 09:52; Status DC Fentanyl Citrate 55 ml @ 0 mls/hr CONT PRN PRN IV PAIN CONTROL Last administered on 10/30/20at 12:36; Start 10/22/20 at 06:30 Insulin Human Regular 100 unit/ Sodium Chloride 101 ml @ 0 mls/hr CONT PRN IV SEE I/O RECORD; Start 10/22/20 at 09:15; Stop 10/22/20 at 09:49; Status DC Dextrose (Dextrose 50%-Water Syringe) 12.5 gm PRN Q15MIN PRN IV LOW BLOOD SUGAR; Start 10/22/20 at 09:15; Stop 10/22/20 at 09:49; Status DC Insulin Human Lispro (HumaLOG) 0-9 UNITS TIDWMEALS SQ Last administered on 10/22/20at 12:14; Start 10/22/20 at 12:00; Stop 10/22/20 at 19:52; Status DC Dextrose (Dextrose 50%-Water Syringe) 12.5 gm PRN Q15MIN PRN IV SEE COMMENTS; Start 10/22/20 at 09:45 Insulin Glargine (Lantus Syringe) 10 unit 1X ONCE SQ Last administered on 10/22/20at 11:01; Start 10/22/20 at 10:30; Stop 10/22/20 at 10:31; Status DC Insulin Human Regular 100 unit/ Sodium Chloride 101 ml @ 0 mls/hr CONT PRN IV SEE I/O RECORD Last administered on 10/23/20at 02:14; Start 10/22/20 at 18:30 Insulin Human Lispro (HumaLOG) 0-9 UNITS Q6H SQ ; Start 10/23/20 at 00:00; Stop 10/23/20 at 09:42; Status DC Ascorbic Acid (Vitamin C) 3,000 mg TID PO Last administered on 10/29/20at 21:29; Start 10/23/20 at 09:00 Insulin Human Lispro (HumaLOG) 0-9 UNITS Q6HRS SQ Last administered on 10/30/20at 12:02; Start 10/23/20 at 12:00 Info (Anti-Coagulation Monitoring By Pharmacy) 1 each PRN DAILY PRN MC SEE COMMENTS Last administered on 10/24/20at 10:41; Start 10/24/20 at 07:45; Stop 10/29/20 at 14:45; Status DC Insulin Glargine (Lantus Syringe) 30 unit DAILY10 SQ Last administered on 10/25/20at 11:29; Start 10/24/20 at 12:00; Stop 10/25/20 at 14:27; Status DC Insulin Human Lispro (HumaLOG) 11 units 1X ONCE SQ Last administered on 10/25/20at 05:46; Start 10/25/20 at 05:45; Stop 10/25/20 at 05:48; Status DC Insulin Glargine (Lantus Syringe) 30 unit BID SQ Last administered on 10/26/20at 09:00; Start 10/25/20 at 21:00; Stop 10/26/20 at 09:39; Status DC Insulin Human Lispro (HumaLOG) 11 units 1X ONCE SQ Last administered on 10/25/20at 15:09; Start 10/25/20 at 15:15; Stop 10/25/20 at 15:16; Status DC Piperacillin Sod/ Tazobactam Sod (Zosyn Per Pharmacy) 1 each PRN DAILY PRN MC SEE COMMENTS; Start 10/26/20 at 09:45; Stop 10/30/20 at 13:48; Status DC Furosemide (Lasix) 20 mg 1X ONCE IVP Last administered on 10/26/20at 09:59; Start 10/26/20 at 09:45; Stop 10/26/20 at 09:46; Status DC Insulin Glargine (Lantus Syringe) 40 unit BID SQ Last administered on 10/27/20at 09:02; Start 10/26/20 at 21:00; Stop 10/27/20 at 09:38; Status DC Piperacillin Sod/ Tazobactam Sod 3.375 gm/Sodium Chloride 50 ml @ 100 mls/hr Q6H IV Last administered on 10/30/20at 09:46; Start 10/26/20 at 10:00; Stop 10/30/20 at 13:48; Status DC Insulin Glargine (Lantus Syringe) 50 unit BID SQ Last administered on 10/28/20at 09:02; Start 10/27/20 at 21:00; Stop 10/28/20 at 13:49; Status DC Insulin Human Lispro (HumaLOG) 15 units 1X ONCE SQ Last administered on 10/27/20at 10:23; Start 10/27/20 at 09:45; Stop 10/27/20 at 09:46; Status DC Thiamine Mononitrate (Vitamin B-1) 100 mg Q8HRS GT Last administered on 10/30/20at 05:48; Start 10/27/20 at 14:00 Info (Tpn Per Pharmacy) 1 each PRN DAILY PRN MC SEE COMMENTS Last administered on 10/30/20at 09:46; Start 10/27/20 at 12:00 Zinc Sulfate (Orazinc) 220 mg DAILY PO Last administered on 10/28/20at 09:02; Start 10/28/20 at 09:00 Sodium Chloride 90 meq/Potassium Chloride 50 meq/ Potassium Phosphate 5 mmol/ Magnesium Sulfate 10 meq/Calcium Gluconate 10 meq/ Multivitamins 5 ml/Zinc/Copper/ Manganese/ Selenium 1 ml/ Total Parenteral Nutrition/Amino Acids/Dextrose 1,512 ml @ 63 mls/hr TPN CONT IV Last administered on 10/27/20at 21:45; Start 10/27/20 at 22:00; Stop 10/28/20 at 21:59; Status DC Heparin Sodium (Porcine) (Heparin Sodium) 5,000 unit BID SQ Last administered on 10/30/20at 10:06; Start 10/28/20 at 21:00 Vancomycin HCl (Vanco Per Pharmacy) 1 each PRN DAILY PRN MC SEE COMMENTS Last administered on 10/29/20at 12:50; Start 10/28/20 at 11:30; Stop 10/30/20 at 13:48; Status DC Vancomycin HCl 2 gm/Sodium Chloride 500 ml @ 250 mls/hr ONCE ONCE IV Last administered on 10/28/20at 11:38; Start 10/28/20 at 12:00; Stop 10/28/20 at 13:59; Status DC Sodium Chloride 90 meq/Potassium Chloride 50 meq/ Potassium Phosphate 5 mmol/ Magnesium Sulfate 10 meq/Calcium Gluconate 8 meq/ Multivitamins 5 ml/Zinc/Copper/ Manganese/ Selenium 1 ml/ Total Parenteral Nutrition/Amino Acids/Dextrose 1,512 ml @ 63 mls/hr TPN CONT IV Last administered on 10/28/20at 21:45; Start 10/28/20 at 22:00; Stop 10/29/20 at 21:59; Status DC Vancomycin HCl 1.25 gm/Sodium Chloride 250 ml @ 167 mls/hr Q8H IV Last admin istered on 10/29/20at 04:06; Start 10/28/20 at 20:00; Stop 10/29/20 at 12:24; Status DC Vancomycin HCl (Vancomycin Trough Level) 1 each 1X ONCE MC Last administered on 10/29/20at 11:30; Start 10/29/20 at 11:30; Stop 10/29/20 at 11:31; Status DC Insulin Glargine (Lantus Syringe) 60 unit BID SQ Last administered on 10/30/20at 09:46; Start 10/28/20 at 21:00 Insulin Human Lispro (HumaLOG) 22 units 1X ONCE SQ Last administered on 10/28/20at 14:14; Start 10/28/20 at 14:00; Stop 10/28/20 at 14:01; Status DC Insulin Human Lispro (HumaLOG) 20 units 1X ONCE SQ Last administered on 10/29/20at 10:48; Start 10/29/20 at 10:15; Stop 10/29/20 at 10:25; Status DC Vancomycin HCl 1.5 gm/Sodium Chloride 500 ml @ 250 mls/hr Q8H IV Last administered on 10/30/20at 04:40; Start 10/29/20 at 13:00; Stop 10/30/20 at 13:48; Status DC Vancomycin HCl (Vancomycin Trough Level) 1 each 1X ONCE MC Last administered on 10/30/20at 12:30; Start 10/30/20 at 12:30; Stop 10/30/20 at 12:31; Status DC Sodium Chloride 90 meq/Potassium Chloride 50 meq/ Potassium Phosphate 5 mmol/ Magnesium Sulfate 10 meq/Calcium Gluconate 8 meq/ Multivitamins 5 ml/Zinc/Copper/ Manganese/ Selenium 1 ml/ Total Parenteral Nutrition/Amino Acids/Dextrose 1,512 ml @ 63 mls/hr TPN CONT IV Last administered on 10/29at 21:39; Start 10/29/20 at 22:00; Stop 10/30/20 at 21:59 Sodium Chloride 90 meq/Potassium Chloride 50 meq/ Potassium Phosphate 5 mmol/ Magnesium Sulfate 10 meq/Calcium Gluconate 8 meq/ Multivitamins 5 ml/Zinc/Copper/ Manganese/ Selenium 1 ml/ Insulin Human Regular 10 unit/ Total Parenteral Nutrition/Amino Acids/Dextrose 1,512 ml @ 63 mls/hr TPN CONT IV ; Start 10/30/20 at 22:00; Stop 10/31/20 at 21:59 Insulin Human Lispro (HumaLOG) 18 units 1X ONCE SQ Last administered on 10/30/20at 09:50; Start 10/30/20 at 10:00; Stop 10/30/20 at 10:01; Status DC Cefazolin Sodium/ Dextrose 50 ml @ 100 mls/hr Q8HRS IV ; Start 10/30/20 at 14 :30; Stop 10/30/20 at 13:55; Status DC Cefazolin Sodium/ Dextrose 50 ml @ 100 mls/hr Q6HRS IV Last administered on 10/30/20at 14:01; Start 10/30/20 at 14:30 Vitals/I & O Vital Sign - Last 24 Hours 10/29/20 10/29/20 10/29/20 10/29/20 15:00 15:40 16:00 16:00 Temp 98.6 98.6 Pulse 52 60 Resp 26 29 B/P (MAP) 120/65 (83) 111/60 (77) Pulse Ox 99 99 98 O2 Delivery Ventilator Ventilator Mechanical Ventilator Ventilator 10/29/20 10/29/20 10/29/20 10/29/20 17:00 18:00 19:00 19:51 Pulse 58 42 40 Resp B/P (MAP) 177/86 (116) 114/63 (80) 121/64 (83) Pulse Ox 96 97 99 99 O2 Delivery Ventilator Ventilator Ventilator Ventilator 10/29/20 10/29/20 10/29/20 10/29/20 20:00 20:00 21:00 22:00 Temp 98.0 98.0 Pulse 40 48 40 Resp 28 B/P (MAP) 116/64 (81) 158/80 (106) 108/60 (76) Pulse Ox 99 98 97 O2 Delivery Ventilator Mechanical Ventilator Ventilator Ventilator 10/29/20 10/29/20 10/30/20 10/30/20 23:00 23:37 00:00 01:00 Temp 98.6 98.6 Pulse 39 50 65 Resp B/P (MAP) 119/64 (82) 147/78 (101) 165/92 (116) Pulse Ox 99 95 99 O2 Delivery Ventilator Mechanical Ventilator Ventilator Ventilator 10/30/20 10/30/20 10/30/20 10/30/20 01:11 02:00 03:00 03:45 Pulse 83 65 B/P (MAP) 140/74 (96) 110/58 (75) Pulse Ox 99 97 97 99 O2 Delivery Ventilator Ventilator Ventilator Ventilator 10/30/20 10/30/20 10/30/20 10/30/20 04:00 04:00 05:00 06:00 Temp 98.7 98.7 Pulse 49 45 50 B/P (MAP) 112/58 (76) 125/66 (85) 117/59 (78) Pulse Ox 97 97 97 O2 Delivery Mechanical Ventilator Ventilator Ventilator Ventilator 10/30/20 10/30/20 10/30/20 10/30/20 07:00 08:00 08:00 08:10 Temp 98.4 98.4 Pulse 48 46 Resp B/P (MAP) 121/61 (81) 136/65 (88) Pulse Ox 96 95 98 O2 Delivery Ventilator Ventilator Mechanical Ventilator Ventilator 10/30/20 10/30/20 10/30/20 10/30/20 09:00 10:00 11:00 11:37 Pulse 76 66 42 Resp B/P (MAP) 166/76 (106) 159/76 (103) 123/63 (83) Pulse Ox 95 95 95 O2 Delivery Ventilator Ventilator Ventilator Mechanical Ventilator 10/30/20 10/30/20 10/30/20 12:00 12:24 13:00 Temp 98.8 98.8 Pulse 48 72 Resp 26 30 B/P (MAP) 152/63 (92) 145/65 (91) Pulse Ox 94 95 92 O2 Delivery Ventilator Ventilator Ventilator Intake and Output 10/29/20 10/29/20 10/30/20 15:00 23:00 07:00 Intake Total 50 ml 2328.15 ml 1534 ml Output Total 890 ml 1030 ml 675 ml Balance -840 ml 1298.15 ml 859 ml Justicifation of Admission Dx: Justifications for Admission: Justification of Admission Dx: Yes (sepsis, covid, resp failure) KAHLIL ALMAZAN MD Oct 30, 2020 14:31
[2020-10-30 18:05] LABS: HEMATOCRIT 36.3 % (39.0-53.0); RED BLOOD COUNT 4.08 x10^6/uL (4.30-5.70); RED CELL DISTRIBUTION WIDTH 14.3 % (11.5-14.5); WHITE BLOOD COUNT 6.6 x10^3/uL (4.0-11.0)
[2020-10-30] MEDS ORDERED: TOTAL PARENTERAL NUTRITION IV SCH (22:00)
[2020-10-30] MEDS ORDERED: AMINO ACID IV SCH (22:00)
[2020-10-30] MEDS ORDERED: DEXTROSE 70% IV SCH (22:00)
[2020-10-30] MEDS ORDERED: [UNRECOGNIZED DRUG - OTHER] IV SCH (22:00)
[2020-10-31] VITALS (24 sets, daily range): BP systolic 106–164; BP diastolic 56–81
[2020-10-31] MEDS: INSULIN LISPRO 300 UNITS/3 ML VIAL. SQ SCH ×5 (00:15→23:46)
--- NOTE | 2020-10-31 00:45 | NUR ---
pt's SBP reaches up to 190s when out of sync with the vent, coughing and HR is in the 110s. Dr Henson paged and notified, new orders received and noted. will pass on in report, will continue to closely monitor.
[2020-10-31] MEDS ORDERED: hydrALAZINE 20 MG/ML VIAL. IVP PRN (01:00)
[2020-10-31] MEDS: PROPOFOL 100 ML IV PRN ×7 (01:09→21:36)
[2020-10-31] MEDS: THIAMINE 100 MG TABLET. GT SCH ×3 (06:17→21:21)
[2020-10-31 07:08] LABS: ALBUMIN 1.9 g/dL (3.4-5.0); ALBUMIN/GLOBULIN RATIO 0.5 (1.0-1.7); CALCIUM 8.4 mg/dL (8.5-10.1); CREATININE 0.6 mg/dL (0.7-1.3); GFR 139.9; MAGNESIUM 2.1 mg/dL (1.8-2.4); PHOSPHORUS 3.8 mg/dL (2.6-4.7); POTASSIUM 4.3 mmol/L (3.5-5.1); TOTAL BILIRUBIN 0.7 mg/dL (0.2-1.0); TOTAL PROTEIN 5.9 g/dL (6.4-8.2)
[2020-10-31 08:52] LABS: BASE EXCESS ABG 3 mmol/L (-3-3); HCO3 ABG 28 mmol/L (21-28); PCO2 ABG 41 mmHg (35-46); PO2 ABG 66 mmHg (75-108); SAT O2 ABG 93 % (92-99)
[2020-10-31] MEDS: DEXAMETHASONE SOD PHOS 4 MG/ML VIAL IVP SCH ×2 (08:54→21:21)
[2020-10-31] MEDS: FAMOTIDINE 20 MG/2 ML VIAL IVP SCH ×2 (08:55→21:21)
[2020-10-31] MEDS: ASCORBIC ACID 1,000 MG TABLET PO SCH ×3 (08:55→21:21)
[2020-10-31] MEDS: ZINC SULFATE 220 MG CAPSULE. PO SCH (08:55)
[2020-10-31] MEDS: INSULIN GLARGINE SYRINGE. SQ SCH ×2 (08:56→21:23)
[2020-10-31] MEDS: HEPARIN for SUB-Q USE 5,000 UNIT/ML VIAL. SQ SCH ×2 (08:56→21:23)
[2020-10-31 09:21] LABS: FIO2 ABG 40%
[2020-10-31] MEDS: TPN PER PHARMACY MC PRN (11:15)
--- NOTE | 2020-10-31 11:15 | NUR ---
Pharmacy TPN Dosing Note S: CELIO BLAKE is a 55 year old M Currently receiving Central Continuous TPN started 10/27/20 B:Pertinent PMH: TF INTOLERANCE, STOPPED 10/27 Height: 5 feet, 6 inches Weight: 98.079675 kg Current diet: LABS: Sodium: 140 Potassium: 4.3 Chloride: 105 Calcium: 8.4 Corrected Calcium: 10.08 Magnesium: 2.1 CO2: 27 SCr: 0.6 Glucose: 187-263 Albumin: 1.9 AST: 15 ALT: 16 TPN FORMULA: TPN TYPE: Central Continuous AMINO ACIDS: 100 gm DEXTROSE: 225 gm SODIUM CHLORIDE: 90 mEq POTASSIUM CHLORIDE: 50 mEq POTASSIUM PHOSPHATE: 5 mmol MAGNESIUM: 10 mEq CALCIUM: 8 mEq INSULIN: 10 units MULTIPLE VITAMIN: 5 ml TRACE ELEMENTS: 1 ml(s) TPN PLAN: Electrolyes wnl, pt remains on propofol so cont to hold lipids -No labs ordered for AM d/t stablility R: Continue same TPN formula. Will monitor electrolytes, glucose, and tolerance to TPN. MATT FABIAN RP, 10/31/20 [id number]
--- NOTE | 2020-10-31 12:03 | NUR ---
At 1115 Pt O2 sats dropped into the low 80's while RT here. RT suctioned large amount of thick yellow/lees secretions and then had to bag pt to bring O2 sats up into the 90's. Dr. Morrow here and notified that the sats would come up to the low 90's then would steadily drop into the 80's. Stat chest xray obtained and vent settings increased to FiO2 of 100% and Peep of 8. Pt sats are now 100% and RT will attempt to titrate Fio2 and peep down as pt tolerates.
--- NOTE | 2020-10-31 12:05 | PDOC ---
PULMONARY PROGRESS NOTES DATE: 10/31/20 TIME: 12:00 Subjective O2 requirement increased today off Heparin drip smll blood tinged ett secretion Vitals Vital Signs Date Time Temp Pulse Resp B/P (MAP) Pulse Ox O2 Delivery O2 Flow Rate FiO2 10/31/20 11:24 90 Ventilator 10/31/20 10:00 80 26 114/74 (87) 10/31/20 08:00 97.2 97.2 Comments intubated sedated nc at Bradycardia no accessory muscle use abd obese no rash Labs Laboratory Tests Test 10/29/20 18:04 10/29/20 23:50 10/30/20 05:10 10/30/20 05:15 Glucose (Fingerstick) 206 mg/dL (70-99) 268 mg/dL (70-99) 254 mg/dL (70-99) Sodium Level 142 mmol/L (136-145) Potassium Level 4.6 mmol/L (3.5-5.1) Chloride Level 107 mmol/L (98-107) Carbon Dioxide Level 28 mmol/L (21-32) Anion Gap 7 (6-14) Blood Urea Nitrogen 29 mg/dL (8-26) Creatinine 0.7 mg/dL (0.7-1.3) Estimated GFR (Cockcroft-Gault) 117.1 Glucose Level 261 mg/dL (70-99) Calcium Level 8.6 mg/dL (8.5-10.1) Phosphorus Level 3.8 mg/dL (2.6-4.7) Magnesium Level 2.1 mg/dL (1.8-2.4) Test 10/30/20 08:10 10/30/20 11:57 10/30/20 12:30 10/30/20 17:49 O2 Saturation 96 % (92-99) Arterial Blood pH 7.44 (7.35-7.45) Arterial Blood pCO2 at Patient Temp 43 mmHg (35-46) Arterial Blood pO2 at Patient Temp 85 mmHg (75-108) Arterial Blood HCO3 29 mmol/L (21-28) Arterial Blood Base Excess 4 mmol/L (-3-3) FiO2 45 Glucose (Fingerstick) 226 mg/dL (70-99) 210 mg/dL (70-99) Vancomycin Level Trough 7.6 mcg/mL (10.0-20.0) Vancomycin Last Dose Date 10/30/20 Vancomycin Last Dose Time 0500 Test 10/30/20 18:00 10/30/20 23:00 10/31/20 00:14 10/31/20 06:23 White Blood Count 6.6 x10^3/uL (4.0-11.0) Red Blood Count 4.08 x10^6/uL (4.30-5.70) Hemoglobin 12.0 g/dL (13.0-17.5) Hematocrit 36.3 % (39.0-53.0) Mean Corpuscular Volume 89 fL (79-100) Mean Corpuscular Hemoglobin 30 pg (25-35) Mean Corpuscular Hemoglobin Concent 33 g/dL (31-37) Red Cell Distribution Width 14.3 % (11.5-14.5) Platelet Count 183 x10^3/uL (140-400) Glucose (Fingerstick) 191 mg/dL (70-99) 187 mg/dL (70-99) 263 mg/dL (70-99) Test 10/31/20 06:30 10/31/20 08:40 10/31/20 11:48 Sodium Level 140 mmol/L (136-145) Potassium Level 4.3 mmol/L (3.5-5.1) Chloride Level 105 mmol/L (98-107) Carbon Dioxide Level 27 mmol/L (21-32) Anion Gap 8 (6-14) Blood Urea Nitrogen 23 mg/dL (8-26) Creatinine 0.6 mg/dL (0.7-1.3) Estimated GFR (Cockcroft-Gault) 139.9 BUN/Creatinine Ratio 38 (6-20) Glucose Level 263 mg/dL (70-99) Calcium Level 8.4 mg/dL (8.5-10.1) Phosphorus Level 3.8 mg/dL (2.6-4.7) Magnesium Level 2.1 mg/dL (1.8-2.4) Total Bilirubin 0.7 mg/dL (0.2-1.0) Aspartate Amino Transf (AST/SGOT) 15 U/L (15-37) Alanine Aminotransferase (ALT/SGPT) 16 U/L (16-63) Alkaline Phosphatase 45 U/L (46-116) Total Protein 5.9 g/dL (6.4-8.2) Albumin 1.9 g/dL (3.4-5.0) Albumin/Globulin Ratio 0.5 (1.0-1.7) O2 Saturation 93 % (92-99) Arterial Blood pH 7.45 (7.35-7.45) Arterial Blood pCO2 at Patient Temp 41 mmHg (35-46) Arterial Blood pO2 at Patient Temp 66 mmHg (75-108) Arterial Blood HCO3 28 mmol/L (21-28) Arterial Blood Base Excess 3 mmol/L (-3-3) FiO2 40% Glucose (Fingerstick) 251 mg/dL (70-99) Laboratory Tests Test 10/30/20 12:30 10/30/20 17:49 10/30/20 18:00 10/30/20 23:00 Vancomycin Level Trough 7.6 mcg/mL (10.0-20.0) Vancomycin Last Dose Date 10/30/20 Vancomycin Last Dose Time 0500 Glucose (Fingerstick) 210 mg/dL (70-99) 191 mg/dL (70-99) White Blood Count 6.6 x10^3/uL (4.0-11.0) Red Blood Count 4.08 x10^6/uL (4.30-5.70) Hemoglobin 12.0 g/dL (13.0-17.5) Hematocrit 36.3 % (39.0-53.0) Mean Corpuscular Volume 89 fL (79-100) Mean Corpuscular Hemoglobin 30 pg (25-35) Mean Corpuscular Hemoglobin Concent 33 g/dL (31-37) Red Cell Distribution Width 14.3 % (11.5-14.5) Platelet Count 183 x10^3/uL (140-400) Test 10/31/20 00:14 10/31/20 06:23 10/31/20 06:30 10/31/20 08:40 Glucose (Fingerstick) 187 mg/dL (70-99) 263 mg/dL (70-99) Sodium Level 140 mmol/L (136-145) Potassium Level 4.3 mmol/L (3.5-5.1) Chloride Level 105 mmol/L (98-107) Carbon Dioxide Level 27 mmol/L (21-32) Anion Gap 8 (6-14) Blood Urea Nitrogen 23 mg/dL (8-26) Creatinine 0.6 mg/dL (0.7-1.3) Estimated GFR (Cockcroft-Gault) 139.9 BUN/Creatinine Ratio 38 (6-20) Glucose Level 263 mg/dL (70-99) Calcium Level 8.4 mg/dL (8.5-10.1) Phosphorus Level 3.8 mg/dL (2.6-4.7) Magnesium Level 2.1 mg/dL (1.8-2.4) Total Bilirubin 0.7 mg/dL (0.2-1.0) Aspartate Amino Transf (AST/SGOT) 15 U/L (15-37) Alanine Aminotransferase (ALT/SGPT) 16 U/L (16-63) Alkaline Phosphatase 45 U/L (46-116) Total Protein 5.9 g/dL (6.4-8.2) Albumin 1.9 g/dL (3.4-5.0) Albumin/Globulin Ratio 0.5 (1.0-1.7) O2 Saturation 93 % (92-99) Arterial Blood pH 7.45 (7.35-7.45) Arterial Blood pCO2 at Patient Temp 41 mmHg (35-46) Arterial Blood pO2 at Patient Temp 66 mmHg (75-108) Arterial Blood HCO3 28 mmol/L (21-28) Arterial Blood Base Excess 3 mmol/L (-3-3) FiO2 40% Test 10/31/20 11:48 Glucose (Fingerstick) 251 mg/dL (70-99) Comments CXR IMPRESSION: Stable lines and tubes including endotracheal intubation with pulmonary vascular congestion and small right pleural effusion with associated atelectasis. Impression . IMPRESSION: 1. Acute hypoxemic respiratory failure secondary to COVID-19 viral pneumonia--increase O2 requirement, ? mucous plug, moderate secretions 2. COVID-19 viral pneumonia/sepsis. 3. Abnormal x-ray compatible with SARS-CoV-2 infection. 4. Acute kidney injury-- improved, azotemia 5. Severe hypoxemia, elevated D-dimer, possible thromboembolic disease. 6. Morbid obesity. 7. Protein malnutrition, present upon admission. 8. Elevated troponin. 9. CXR 10/26 , worsening infiltrates, possible aspiration 10. sputum culture positive for staph A. Plan . PLAN: Continue current ventilatory support, change FiO2 now at 100% and a PEEP of 8 Follow ABG/chest x-ray, COVID-19 positive Has completed full course of remdesivir Continue steroids patient will need a full 10-day course, taper slowly Clinically improving, dopplers with no DVT. D-Dimer trending down, D/C heparin gtt, heparin SQ BID ContinueTPN for nutritional support Sputum culture positive for Staph A. cefazolin prn lasix DVT/GI prophylaxis will need trach, Discussed with RN and RT critically ill Critical care time 30 min no overlap GEO VALENZUELA MD Oct 31, 2020 12:05
--- NOTE | 2020-10-31 12:14 | RAD ---
EXAM: XR CHEST 1V INDICATION: Reason: LOW o2 SATS / Spl. Instructions: / History: . TECHNIQUE: Single view COMPARISON: Chest x-ray 10/28/2020 at 5:33 AM FINDINGS: Patient remains intubated with the ET tube terminating 4.4 cm above the etienne. The right PICC line remains present with tip near the cavoatrial junction. Enteric tube passes below the diaphragms as before. Stable borderline enlarged heart size. The great vessels appear unremarkable. There is no hilar or mediastinal mass. Lungs show increased interstitial opacities bilaterally, right basilar atelectasis/consolidation. Dariusz g aeration is not significantly changed in the interval. No pneumothorax. Small right pleural effusion. There are no significant osseous abnormalities. IMPRESSION: Stable lines and tubes with persistent findings of pulmonary vascular congestion and a right pleural effusion. Superimposed atypical pneumonia not excluded. Electronically signed by: Partha Varela MD (10/31/2020 12:12 PM) [id number]
--- NOTE | 2020-10-31 13:37 | PDOC ---
[facility] [facility] PROGRESS NOTE Date of Service DOS: DATE: 10/31/20 TIME: 13:34 Chief Complaint Chief Complaint sepsis Acute hypoxemic respiratory failure secondary to COVID-19 viral pneumonia. intubated and sedated acute renal failure, vasomotor nephropathy and sepsis, ATN poss gram negative bacterial pneumonia Dm2, with hyperglycemia, poor control, obese, BMI 36 Severe protein malnutrition, present upon admission. History of Present Illness History of Present Illness 10/31/2020 No acute events overnight. Increasing O2 requirements to 100%. Current vent settings at 16/450/100%/5. Most recent ABG pH is 7.45, PCO2 41, PO2 66, HCO3 28.> 50% time spent in patient chart, labs, and imaging review and in discussion with RN and SW 10/30. FIO2 down to 40%, cont current, wean as able discussed with RN ' 10/29, down to PEEP 5, on 45 %, breathing better, still sedated, will try to allow to wake up and follow commands somewhat better still struggling, 10/28, I keep increasing his LANTUS insulin dosing, and his blood sugars are back up again today will increase lantus o 60 BID and do 22 u x1, cont the SSI, that is a dditional 42 u today 10/27. ABG didnt look very good this AM with ongoing hypoxia, oxygen Sa02 is 60%, still sedate 10/[address] Morrow, CXR worse, abx started, start zosyn, cover for pneumonia ICU care, 35min cont current follow labs, intubated and sedated changed insulin dose, lantus started yesterday, will make 30 BID, on tube feeds and on IV steroids, Vitals/I&O Vitals/I&O: Vital Signs Date Time Temp Pulse Resp B/P (MAP) Pulse Ox O2 Delivery O2 Flow Rate FiO2 10/31/20 13:00 55 26 120/63 (82) 100 Ventilator 10/31/20 12:00 97.8 97.8 I & O 10/30/20 10/30/20 10/31/20 15:00 23:00 07:00 Intake Total 100 ml 1034 ml 1241.5 ml Output Total 1625 ml 1475 ml 1275 ml Balance -1525 ml -441 ml -33.5 ml Physical Exam Physical Exam: intubated, sedated on vent, Heart: Regular rate Abdomen: Normal bowel sounds, Soft Extremities: No clubbing Skin: No rashes Labs Labs: Laboratory Tests Test 10/30/20 17:49 10/30/20 18:00 10/30/20 23:00 10/31/20 00:14 Glucose (Fingerstick) 210 mg/dL (70-99) 191 mg/dL (70-99) 187 mg/dL (70-99) White Blood Count 6.6 x10^3/uL (4.0-11.0) Red Blood Count 4.08 x10^6/uL (4.30-5.70) Hemoglobin 12.0 g/dL (13.0-17.5) Hematocrit 36.3 % (39.0-53.0) Mean Corpuscular Volume 89 fL (79-100) Mean Corpuscular Hemoglobin 30 pg (25-35) Mean Corpuscular Hemoglobin Concent 33 g/dL (31-37) Red Cell Distribution Width 14.3 % (11.5-14.5) Platelet Count 183 x10^3/uL (140-400) Test 10/31/20 06:23 10/31/20 06:30 10/31/20 08:40 10/31/20 11:48 Glucose (Fingerstick) 263 mg/dL (70-99) 251 mg/dL (70-99) Sodium Level 140 mmol/L (136-145) Potassium Level 4.3 mmol/L (3.5-5.1) Chloride Level 105 mmol/L (98-107) Carbon Dioxide Level 27 mmol/L (21-32) Anion Gap 8 (6-14) Blood Urea Nitrogen 23 mg/dL (8-26) Creatinine 0.6 mg/dL (0.7-1.3) Estimated GFR (Cockcroft-Gault) 139.9 BUN/Creatinine Ratio 38 (6-20) Glucose Level 263 mg/dL (70-99) Calcium Level 8.4 mg/dL (8.5-10.1) Phosphorus Level 3.8 mg/dL (2.6-4.7) Magnesium Level 2.1 mg/dL (1.8-2.4) Total Bilirubin 0.7 mg/dL (0.2-1.0) Aspartate Amino Transf (AST/SGOT) 15 U/L (15-37) Alanine Aminotransferase (ALT/SGPT) 16 U/L (16-63) Alkaline Phosphatase 45 U/L (46-116) Total Protein 5.9 g/dL (6.4-8.2) Albumin 1.9 g/dL (3.4-5.0) Albumin/Globulin Ratio 0.5 (1.0-1.7) O2 Saturation 93 % (92-99) Arterial Blood pH 7.45 (7.35-7.45) Arterial Blood pCO2 at Patient Temp 41 mmHg (35-46) Arterial Blood pO2 at Patient Temp 66 mmHg (75-108) Arterial Blood HCO3 28 mmol/L (21-28) Arterial Blood Base Excess 3 mmol/L (-3-3) FiO2 40% Assessment and Plan Assessmemt and Plan Problems Medical Problems: (1) Hyperglycemia Status: Acute (2) Hypoxia Status: Acute (3) Pneumonia due to COVID-19 virus Status: Acute (4) Respiratory failure Status: Acute (5) Septic shock Status: Acute Comment Review of Relevant I have reviewed the following items andrew (where applicable) has been applied. Medications: Current Medications Medications (Trade) Dose Ordered Sig/Gaston Route PRN Reason Start Time Stop Time Status Last Admin Dose Admin Sodium Chloride 90 meq/Potassium Chloride 50 meq/ Potassium Phosphate 5 mmol/ Magnesium Sulfate 10 meq/Calcium Gluconate 8 meq/ Multivitamins 5 ml/Zinc/Copper/ Manganese/ Selenium 1 ml/ Insulin Human Regular 10 unit/ Total Parenteral Nutrition/Amino Acids/Dextrose 1,512 ml @ 63 mls/hr TPN CONT IV 10/30/20 22:00 10/31/20 21:59 10/30/20 22:51 Cefazolin Sodium/ Dextrose 50 ml @ 100 mls/hr Q6HRS IV 10/30/20 14:30 10/31/20 11:19 Justifications for Admission Other Justification COVID infection PHILIP VALDEZ MD Oct 31, 2020 13:37
--- NOTE | 2020-10-31 15:38 | NUR ---
SW following today for discharge planning. Spoke with RN and reviewed chart. Pt remains on a ventilator and not medically stable.
[2020-10-31] MEDS: fentaNYL HIGH DOSE PCA 55 ML IV PRN (16:48)
[2020-10-31] MEDS ORDERED: DEXTROSE 70% IV SCH (22:00)
[2020-10-31] MEDS ORDERED: TOTAL PARENTERAL NUTRITION IV SCH (22:00)
[2020-10-31] MEDS ORDERED: [UNRECOGNIZED DRUG - OTHER] IV SCH (22:00)
[2020-10-31] MEDS ORDERED: AMINO ACID IV SCH (22:00)
[2020-11-01] VITALS (24 sets, daily range): BP systolic 101–180; BP diastolic 54–93
[2020-11-01] MEDS: PROPOFOL 100 ML IV PRN ×7 (01:51→23:34)
[2020-11-01] MEDS: THIAMINE 100 MG TABLET. GT SCH ×3 (05:24→21:37)
[2020-11-01] MEDS: INSULIN LISPRO 300 UNITS/3 ML VIAL. SQ SCH ×4 (05:44→23:24)
[2020-11-01 08:50] LABS: BASE EXCESS ABG 4 mmol/L (-3-3); HCO3 ABG 28 mmol/L (21-28); PCO2 ABG 42 mmHg (35-46); PO2 ABG 89 mmHg (75-108); SAT O2 ABG 96 % (92-99)
[2020-11-01 09:21] LABS: FIO2 ABG 50/VENT
[2020-11-01] MEDS: ZINC SULFATE 220 MG CAPSULE. PO SCH (09:33)
[2020-11-01] MEDS: ASCORBIC ACID 1,000 MG TABLET PO SCH ×3 (09:33→21:38)
[2020-11-01] MEDS: INSULIN GLARGINE SYRINGE. SQ SCH ×2 (09:34→21:39)
[2020-11-01] MEDS: FAMOTIDINE 20 MG/2 ML VIAL IVP SCH ×2 (09:34→21:38)
[2020-11-01] MEDS: DEXAMETHASONE SOD PHOS 4 MG/ML VIAL IVP SCH (09:34)
[2020-11-01] MEDS: HEPARIN for SUB-Q USE 5,000 UNIT/ML VIAL. SQ SCH ×2 (09:34→21:38)
[2020-11-01] MEDS: TPN PER PHARMACY MC PRN (09:38)
--- NOTE | 2020-11-01 09:38 | NUR ---
Pharmacy TPN Dosing Note S: CELIO BLAKE is a 55 year old M Currently receiving Central Continuous TPN started 10/27/20 B:Pertinent PMH: TF INTOLERANCE, STOPPED 10/27 Height: 5 feet, 6 inches Weight: 97.5 kg Current diet: LABS: Sodium: 140 Potassium: 4.3 Chloride: 105 Calcium: 8.4 Corrected Calcium: 10.08 Magnesium: 2.1 CO2: 27 SCr: 0.6 Glucose: 187-263 Albumin: 1.9 AST: 15 ALT: 16 TPN FORMULA: TPN TYPE: Central Continuous AMINO ACIDS: 100 gm DEXTROSE: 225 gm LIPIDS: 0 gm SODIUM CHLORIDE: 90 mEq SODIUM ACETATE: mEq SODIUM PHOSPHATE: mmol POTASSIUM CHLORIDE: 50 mEq POTASSIUM ACETATE: mEq POTASSIUM PHOSPHATE: 5 mmol MAGNESIUM: 10 mEq CALCIUM: 8 mEq INSULIN: 10 units MULTIPLE VITAMIN: 5 ml TRACE ELEMENTS: 1 ml(s) TPN PLAN: Pt remains on propofol so cont to hold lipids. BMP in am. - R: Continue TPN as ordered Will monitor electrolytes, glucose, and tolerance to TPN. CORAZON SILVERIO [facility], 11/01/20 [id number]
[2020-11-01 10:42] LABS: CALCIUM 7.8 mg/dL (8.5-10.1); CREATININE 0.7 mg/dL (0.7-1.3); GFR 117.1; MAGNESIUM 1.9 mg/dL (1.8-2.4); POTASSIUM 4.4 mmol/L (3.5-5.1)
--- NOTE | 2020-11-01 10:49 | PDOC ---
[employer] PROGRESS NOTE Date of Service DOS: DATE: 11/01/20 TIME: 10:47 Chief Complaint Chief Complaint sepsis Acute hypoxemic respiratory failure secondary to COVID-19 viral pneumonia. intubated and sedated acute renal failure, vasomotor nephropathy and sepsis, ATN poss gram negative bacterial pneumonia Dm2, with hyperglycemia, poor control, obese, BMI 36 Severe protein malnutrition, present upon admission. History of Present Illness History of Present Illness 11/01/2020 No acute events overnight. Patient saturating 100% on vent settings of 26/500/50%/7. ABG is pH is 7.45, PCO2 42, PO2 89, HCO3 28.> 50% time spent in patient chart, labs, and imaging review and in discussion with RN and SW 10/31/2020 No acute events overnight. Increasing O2 requirements to 100%. Current vent settings at 16/450/100%/5. Most recent ABG pH is 7.45, PCO2 41, PO2 66, HCO3 28.> 50% time spent in patient chart, labs, and imaging review and in discussion with RN and SW 10/30. FIO2 down to 40%, cont current, wean as able discussed with RN ' 10/29, down to PEEP 5, on 45 %, breathing better, still sedated, will try to allow to wake up and follow commands somewhat better still struggling, 10/28, I keep increasing his LANTUS insulin dosing, and his blood sugars are back up again today will increase lantus o 60 BID and do 22 u x1, cont the SSI, that is additional 42 u today 10/27. ABG didnt look very good this AM with ongoing hypoxia, oxygen Sa02 is 60%, still sedate 10/[address] Morrow, CXR worse, abx started, start zosyn, cover for pneumonia ICU care, 35min cont current follow labs, intubated and sedated changed insulin dose, lantus started yesterday, will make 30 BID, on tube feeds and on IV steroids, Vitals/I&O Vitals/I&O: Vital Signs Date Time Temp Pulse Resp B/P (MAP) Pulse Ox O2 Delivery O2 Flow Rate FiO2 11/01/20 10:00 49 26 110/62 (78) 99 Ventilator 11/01/20 08:00 97.8 97.8 I & O 10/31/20 10/31/20 11/01/20 15:00 23:00 07:00 Intake Total 50 ml 1105 ml 1150 ml Output Total 1105 ml 650 ml 660 ml Balance -1055 ml 455 ml 490 ml Physical Exam Physical Exam: intubated, sedated on vent, Heart: Regular rate Abdomen: Normal bowel sounds, Soft Extremities: No clubbing Skin: No rashes Labs Labs: Laboratory Tests Test 10/31/20 11:48 10/31/20 23:14 11/01/20 05:34 11/01/20 07:40 Glucose (Fingerstick) 251 mg/dL (70-99) 222 mg/dL (70-99) 253 mg/dL (70-99) Phosphorus Level 4.0 mg/dL (2.6-4.7) Test 11/01/20 08:00 11/01/20 09:50 O2 Saturation 96 % (92-99) Arterial Blood pH 7.45 (7.35-7.45) Arterial Blood pCO2 at Patient Temp 42 mmHg (35-46) Arterial Blood pO2 at Patient Temp 89 mmHg (75-108) Arterial Blood HCO3 28 mmol/L (21-28) Arterial Blood Base Excess 4 mmol/L (-3-3) FiO2 50/vent Sodium Level 136 mmol/L (136-145) Potassium Level 4.4 mmol/L (3.5-5.1) Chloride Level 101 mmol/L (98-107) Carbon Dioxide Level 28 mmol/L (21-32) Anion Gap 7 (6-14) Blood Urea Nitrogen 28 mg/dL (8-26) Creatinine 0.7 mg/dL (0.7-1.3) Estimated GFR (Cockcroft-Gault) 117.1 Glucose Level 256 mg/dL (70-99) Calcium Level 7.8 mg/dL (8.5-10.1) Magnesium Level 1.9 mg/dL (1.8-2.4) Assessment and Plan Assessmemt and Plan Problems Medical Problems: (1) Hyperglycemia Status: Acute (2) Hypoxia Status: Acute (3) Pneumonia due to COVID-19 virus Status: Acute (4) Respiratory failure Status: Acute (5) Septic shock Status: Acute Comment Review of Relevant I have reviewed the following items andrew (where applicable) has been applied. Medications: Current Medications Medications (Trade) Dose Ordered Sig/Gaston Route PRN Reason Start Time Stop Time Status Last Admin Dose Admin Sodium Chloride 90 meq/Potassium Chloride 50 meq/ Potassium Phosphate 5 mmol/ Magnesium Sulfate 10 meq/Calcium Gluconate 8 meq/ Multivitamins 5 ml/Zinc/Copper/ Manganese/ Selenium 1 ml/ Insulin Human Regular 10 unit/ Total Parenteral Nutrition/Amino Acids/Dextrose 1,512 ml @ 63 mls/hr TPN CONT IV 10/31/20 22:00 11/01/20 21:59 10/31/20 21:24 Dexamethasone Sodium Phosphate (Decadron) 4 mg DAILY IVP 11/01/20 09:00 11/01/20 09:34 Justifications for Admission Other Justification COVID infection PHILIP VALDEZ MD Nov 01, 2020 10:49
--- NOTE | 2020-11-01 11:03 | NUR ---
Sedation turned off at [address] Morrow's request. By 1050 Pt heart rate was in the 130's and RR in the upper 30's to 40's. Sedation restarted per Dr. Morrow's request.
--- NOTE | 2020-11-01 11:07 | PDOC ---
PULMONARY PROGRESS NOTES DATE: 11/01/20 TIME: 11:03 Subjective Remains on vent support 50% and PEEP of 7 very agitated off sedation Vitals Vital Signs Date Time Temp Pulse Resp B/P (MAP) Pulse Ox O2 Delivery O2 Flow Rate FiO2 11/01/20 10:00 49 26 110/62 (78) 99 Ventilator 11/01/20 08:00 97.8 97.8 Comments intubated sedated no accessory muscle use abd obese no rash Labs Laboratory Tests Test 10/30/20 11:57 10/30/20 12:30 10/30/20 17:49 10/30/20 18:00 Glucose (Fingerstick) 226 mg/dL (70-99) 210 mg/dL (70-99) Vancomycin Level Trough 7.6 mcg/mL (10.0-20.0) Vancomycin Last Dose Date 10/30/20 Vancomycin Last Dose Time 0500 White Blood Count 6.6 x10^3/uL (4.0-11.0) Red Blood Count 4.08 x10^6/uL (4.30-5.70) Hemoglobin 12.0 g/dL (13.0-17.5) Hematocrit 36.3 % (39.0-53.0) Mean Corpuscular Volume 89 fL (79-100) Mean Corpuscular Hemoglobin 30 pg (25-35) Mean Corpuscular Hemoglobin Concent 33 g/dL (31-37) Red Cell Distribution Width 14.3 % (11.5-14.5) Platelet Count 183 x10^3/uL (140-400) Test 10/30/20 23:00 10/31/20 00:14 10/31/20 06:23 10/31/20 06:30 Glucose (Fingerstick) 191 mg/dL (70-99) 187 mg/dL (70-99) 263 mg/dL (70-99) Sodium Level 140 mmol/L (136-145) Potassium Level 4.3 mmol/L (3.5-5.1) Chloride Level 105 mmol/L (98-107) Carbon Dioxide Level 27 mmol/L (21-32) Anion Gap 8 (6-14) Blood Urea Nitrogen 23 mg/dL (8-26) Creatinine 0.6 mg/dL (0.7-1.3) Estimated GFR (Cockcroft-Gault) 139.9 BUN/Creatinine Ratio 38 (6-20) Glucose Level 263 mg/dL (70-99) Calcium Level 8.4 mg/dL (8.5-10.1) Phosphorus Level 3.8 mg/dL (2.6-4.7) Magnesium Level 2.1 mg/dL (1.8-2.4) Total Bilirubin 0.7 mg/dL (0.2-1.0) Aspartate Amino Transf (AST/SGOT) 15 U/L (15-37) Alanine Aminotransferase (ALT/SGPT) 16 U/L (16-63) Alkaline Phosphatase 45 U/L (46-116) Total Protein 5.9 g/dL (6.4-8.2) Albumin 1.9 g/dL (3.4-5.0) Albumin/Globulin Ratio 0.5 (1.0-1.7) Test 10/31/20 08:40 10/31/20 11:48 10/31/20 23:14 11/01/20 05:34 O2 Saturation 93 % (92-99) Arterial Blood pH 7.45 (7.35-7.45) Arterial Blood pCO2 at Patient Temp 41 mmHg (35-46) Arterial Blood pO2 at Patient Temp 66 mmHg (75-108) Arterial Blood HCO3 28 mmol/L (21-28) Arterial Blood Base Excess 3 mmol/L (-3-3) FiO2 40% Glucose (Fingerstick) 251 mg/dL (70-99) 222 mg/dL (70-99) 253 mg/dL (70-99) Test 11/01/20 07:40 11/01/20 08:00 11/01/20 09:50 Phosphorus Level 4.0 mg/dL (2.6-4.7) O2 Saturation 96 % (92-99) Arterial Blood pH 7.45 (7.35-7.45) Arterial Blood pCO2 at Patient Temp 42 mmHg (35-46) Arterial Blood pO2 at Patient Temp 89 mmHg (75-108) Arterial Blood HCO3 28 mmol/L (21-28) Arterial Blood Base Excess 4 mmol/L (-3-3) FiO2 50/vent Sodium Level 136 mmol/L (136-145) Potassium Level 4.4 mmol/L (3.5-5.1) Chloride Level 101 mmol/L (98-107) Carbon Dioxide Level 28 mmol/L (21-32) Anion Gap 7 (6-14) Blood Urea Nitrogen 28 mg/dL (8-26) Creatinine 0.7 mg/dL (0.7-1.3) Estimated GFR (Cockcroft-Gault) 117.1 Glucose Level 256 mg/dL (70-99) Calcium Level 7.8 mg/dL (8.5-10.1) Magnesium Level 1.9 mg/dL (1.8-2.4) Laboratory Tests Test 10/31/20 11:48 10/31/20 23:14 11/01/20 05:34 11/01/20 07:40 Glucose (Fingerstick) 251 mg/dL (70-99) 222 mg/dL (70-99) 253 mg/dL (70-99) Phosphorus Level 4.0 mg/dL (2.6-4.7) Test 11/01/20 08:00 11/01/20 09:50 O2 Saturation 96 % (92-99) Arterial Blood pH 7.45 (7.35-7.45) Arterial Blood pCO2 at Patient Temp 42 mmHg (35-46) Arterial Blood pO2 at Patient Temp 89 mmHg (75-108) Arterial Blood HCO3 28 mmol/L (21-28) Arterial Blood Base Excess 4 mmol/L (-3-3) FiO2 50/vent Sodium Level 136 mmol/L (136-145) Potassium Level 4.4 mmol/L (3.5-5.1) Chloride Level 101 mmol/L (98-107) Carbon Dioxide Level 28 mmol/L (21-32) Anion Gap 7 (6-14) Blood Urea Nitrogen 28 mg/dL (8-26) Creatinine 0.7 mg/dL (0.7-1.3) Estimated GFR (Cockcroft-Gault) 117.1 Glucose Level 256 mg/dL (70-99) Calcium Level 7.8 mg/dL (8.5-10.1) Magnesium Level 1.9 mg/dL (1.8-2.4) Comments CXR IMPRESSION: Stable lines and tubes including endotracheal intubation with pulmonary vascular congestion and small right pleural effusion with associated atelectasis. Impression . IMPRESSION: 1. Acute hypoxemic respiratory failure secondary to COVID-19 viral pneumoni a--increase O2 requirement, ? mucous plug, moderate secretions 2. COVID-19 viral pneumonia/sepsis. 3. Abnormal x-ray compatible with SARS-CoV-2 infection. 4. Acute kidney injury-- improved, azotemia 5. Severe hypoxemia, elevated D-dimer, possible thromboembolic disease. 6. Morbid obesity. 7. Protein malnutrition, present upon admission. 8. Elevated troponin. 9. CXR 10/26 , worsening infiltrates, possible aspiration 10. sputum culture positive for staph A. Plan . PLAN: Continue current ventilatory support, change FiO2 now at 50% and a PEEP of 7 Follow ABG/chest x-ray, Consult surgery for trach, Discussed with jose, they are agreeable COVID-19 positive Has completed full course of remdesivir Continue steroids patient will need a full 10-day course, taper slowly Clinically improving, dopplers with no DVT. heparin SQ BID Continue for nutritional support Sputum culture positive for Staph A. now on cefazolin DVT/GI prophylaxis Discussed with RN and RT critically ill Critical care time 30 min no overlap GEO VALENZUELA MD Nov 01, 2020 11:07
--- NOTE | 2020-11-01 13:11 | PDOC2 ---
RACIEL WHATLEY Justin ANNOUNCER 11/01/20 1311: CONSULT Date of Consult Date of Consult DATE: 11/01/20 TIME: 12:32 Reason for Consult Reason for Consult: trach Referring Physician Referring Physician: Dr Morrow Identification/Chief Complaint Chief Complaint resp failure Source Source: Chart review, Patient History of Present Illness Reason for Visit: Covid + with increasing resp distress, required intubation d/w nursing, not doing well without sedation Past Medical History Pulmonary: Pulmonary embolus Endocrine: Diabetes Family History Family History: Family History Unknown Social History Social History chew ALCOHOL: rare Lives: with Family Current Problem List Problem List Problems Medical Problems: (1) Hyperglycemia Status: Acute (2) Hypoxia Status: Acute (3) Pneumonia due to COVID-19 virus Status: Acute (4) Respiratory failure Status: Acute (5) Septic shock Status: Acute Current Medications Current Medications Current Medications Sodium Chloride 1,000 ml @ 1,000 mls/hr Q1H IV Last administered on 10/21/20at 09:31; Start 10/21/20 at 08:45; Stop 10/21/20 at 09:44; Status DC Dexamethasone Sodium Phosphate (Decadron) 10 mg 1X ONCE IVP Last administered on 10/21/20at 09:32; Start 10/21/20 at 08:45; Stop 10/21/20 at 09:11; Status DC Piperacillin Sod/ Tazobactam Sod 4.5 gm/Sodium Chloride 100 ml @ 200 mls/hr 1X ONCE IV Last administered on 10/21/20at 11:18; Start 10/21/20 at 10:30; Stop 10/21/20 at 10:59; Status DC Azithromycin 250 ml @ 250 mls/hr 1X ONCE IV Last administered on 10/21/20at 11:18; Start 10/21/20 at 10:30; Stop 10/21/20 at 11:29; Status DC Aspirin (Ecotrin) 325 mg 1X ONCE PO Last administered on 10/21/20at 11:17; Start 10/21/20 at 10:30; Stop 10/21/20 at 10:31; Status DC Insulin Human Regular (HumuLIN R VIAL) 14 unit 1X ONCE SQ Last administered on 10/21/20at 11:28; Start 10/21/20 at 10:30; Stop 10/21/20 at 10:31; Status DC Sodium Chloride 1,000 ml @ 1,000 mls/hr 1X ONCE IV Last administered on 10/21/20at 11:18; Start 10/21/20 at 10:30; Stop 10/21/20 at 11:29; Status DC Iohexol (Omnipaque 350 Mg/ml) 90 ml 1X ONCE IV ; Start 10/21/20 at 10:45; Stop 10/21/20 at 10:46; Status DC Info (CONTRAST GIVEN -- Rx MONITORING) 1 each PRN DAILY PRN MC SEE COMMENTS; Start 10/21/20 at 10:45; Stop 10/23/20 at 10:44; Status DC Acetaminophen (Tylenol) 500 mg 1X ONCE PO Last administered on 10/21/20at 11:3 0; Start 10/21/20 at 11:15; Stop 10/21/20 at 11:16; Status DC Lorazepam (Ativan Inj) 0.5 mg 1X ONCE IVP Last administered on 10/21/20at 11:20; Start 10/21/20 at 11:15; Stop 10/21/20 at 11:16; Status DC Ondansetron HCl (Zofran) 4 mg PRN Q8HRS PRN IV NAUSEA/VOMITING; Start 10/21/20 at 11:30; Stop 10/21/20 at 13:29; Status DC Fentanyl Citrate (Fentanyl 2ml Vial) 50 mcg PRN Q2HR PRN IV PAIN; Start 10/21/20 at 11:30; Stop 10/22/20 at 06:16; Status DC Sodium Chloride 1,000 ml @ 100 mls/hr Q10H IV Last administered on 10/22/20at 13:36; Start 10/21/20 at 11:30; Stop 10/22/20 at 11:29; Status DC Acetaminophen (Tylenol) 650 mg PRN Q4HRS PRN PO FEVER > 100.3'F; Start 10/21/20 at 11:30; Stop 10/22/20 at 06:17; Status DC Sennosides (Senna) 17.2 mg PRN BID PRN PO CONSTIPATION; Start 10/21/20 at 12:00 Docusate Sodium (Colace) 100 mg PRN DAILY PRN PO HARD STOOLS; Start 10/21/20 at 12:00 Ondansetron HCl (Zofran) 4 mg PRN Q6HRS PRN IVP NAUSEA/VOMITING; Start 10/21/20 at 12:00 Insulin Human Lispro (HumaLOG) 0-9 UNITS TIDWMEALS SQ Last administered on 10/21/20at 18:15; Start 10/21/20 at 12:00; Stop 10/21/20 at 22:22; Status DC Dextrose (Dextrose 50%-Water Syringe) 12.5 gm PRN Q15MIN PRN IV SEE COMMENTS; Start 10/21/20 at 12:00; Stop 10/22/20 at 09:30; Status DC Acetaminophen (Tylenol) 650 mg PRN Q4HRS PRN PO TEMP OVER 100.4F OR MILD PAIN Last administered on 10/25/20at 05:36; Start 10/21/20 at 12:00 Enoxaparin Sodium (Lovenox 40mg Syringe) 40 mg Q24H SQ ; Start 10/21/20 at 13:00; Status Cancel Ascorbic Acid (Vitamin C) 3,000 mg TID PO Last administered on 10/22/20at 21:28; Start 10/21/20 at 14:00; Stop 10/23/20 at 08:20; Status DC Thiamine HCl 100 mg/Dextrose 51 ml @ 102 mls/hr Q8HRS IV Last administered on 10/27/20at 05:55; Start 10/21/20 at 14:00; Stop 10/27/20 at 10:00; Status DC Dexamethasone Sodium Phosphate (Decadron) 4 mg Q12HR IVP Last administered on 10/31/20at 21:21; Start 10/21/20 at 21:00; Stop 11/01/20 at 07:15; Status DC Lorazepam (Ativan Inj) 0.5 mg 1X ONCE IVP Last administered on 10/21/20at 11 :59; Start 10/21/20 at 12:00; Stop 10/21/20 at 12:15; Status DC Propofol 100 ml @ As Directed STK-MED ONCE IV ; Start 10/21/20 at 12:47; Stop 10/21/20 at 12:47; Status DC Etomidate (Amidate) 20 mg 1X ONCE IV ; Start 10/21/20 at 13:00; Stop 10/21/20 at 13:05; Status DC Rocuronium Cashiers (Zemuron) 50 mg 1X ONCE IV ; Start 10/21/20 at 13:00; Stop 10/21/20 at 13:05; Status DC Propofol 100 ml @ 0 mls/hr CONT PRN IV PER PROTOCOL Last administered on 11/01/20at 08:29; Start 10/21/20 at 13:00 Chlorhexidine Gluconate (Peridex) 15 ml BID MM Last administered on 10/22/20at 21:28; Start 10/21/20 at 21:00; Stop 10/23/20 at 08:12; Status DC Fentanyl Citrate 30 ml @ 0 mls/hr CONT PRN IV SEE PROTOCOL Last administered on 10/22/20at 00:28; Start 10/21/20 at 13:15; Stop 10/22/20 at 06:16; Status DC Midazolam HCl 100 ml @ 0 mls/hr CONT PRN IV SEE PROTOCOL Last administered on 10/30/20at 03:58; Start 10/21/20 at 13:15 Lorazepam (Ativan Inj) 2 mg 1X ONCE IVP Last administered on 10/21/20at 13:31; Start 10/21/20 at 13:15; Stop 10/21/20 at 13:17; Status DC Fentanyl Citrate (Fentanyl 2ml Vial) 100 mcg 1X ONCE IVP Last administered on 10/21/20at 13:32; Start 10/21/20 at 13:15; Stop 10/21/20 at 13:17; Status DC Heparin Sodium/ Dextrose 250 ml @ 16 mls/hr CONT PRN IV PER PROTOCOL Last administered on 10/28/20at 05:01; Start 10/21/20 at 13:30; Stop 10/28/20 at 10:53; Status DC Heparin Sodium (Porcine) (Heparin Sodium) 3,000 unit PRN Q6HRS PRN IV FOR UFH LEVEL LESS THAN 0.2 Last administered on 10/28/20at 08:02; Start 10/21/20 at 13:30; Stop 10/28/20 at 10:53; Status DC Heparin Sodium (Porcine) (Heparin Sodium) 1,500 unit PRN Q6HRS PRN IV FOR UFH LEVEL 0.2 - 0.29; Start 10/21/20 at 13:30; Stop 10/28/20 at 10:53; Status DC Remdesivir 200 mg/ Sodium Chloride 210 ml @ 210 mls/hr 1X ONCE IV Last administered on 10/21/20at 17:29; Start 10/21/20 at 15:00; Stop 10/21/20 at 15:59; Status DC Remdesivir 100 mg/ Sodium Chloride 230 ml @ 460 mls/hr Q24H IV Last administered on 10/25/20at 15:06; Start 10/22/20 at 15:00; Stop 10/25/20 at 15:29; Status DC Bumetanide (Bumex) 1 mg 1X ONCE IV ; Start 10/21/20 at 13:30; Stop 10/21/20 at 13:37; Status DC Vecuronium Cashiers (Norcuron Bolus) 10 mg 1X ONCE IV Last administered on 10/21/20at 13:45; Start 10/21/20 at 13:45; Stop 10/21/20 at 13:46; Status DC Vecuronium Cashiers (Norcuron Bolus) 6 mg PRN Q4HRS ONCE IV Last administered on 10/21/20at 15:19; Start 10/21/20 at 14:15; Stop 10/21/20 at 14:16; Status DC Famotidine (Pepcid Vial) 20 mg BID IVP Last administered on 11/01/20at 09:34; Start 10/21/20 at 21:00 Rocuronium Cashiers (Zemuron) 50 mg STK-MED ONCE .ROUTE ; Start 10/21/20 at 18:59; Stop 10/21/20 at 18:59; Status DC Etomidate (Amidate) 20 mg STK-MED ONCE IV ; Start 10/21/20 at 18:59; Stop 10/21/20 at 19:00; Status DC Insulin Human Lispro (HumaLOG) 0-9 UNITS Q6HRS SQ Last administered on 10/22/20at 06:01; Start 10/22/20 at 00:00; Stop 10/22/20 at 09:52; Status DC Fentanyl Citrate 55 ml @ 0 mls/hr CONT PRN PRN IV PAIN CONTROL Last administered on 10/31/20at 16:48; Start 10/22/20 at 06:30 Insulin Human Regular 100 unit/ Sodium Chloride 101 ml @ 0 mls/hr CONT PRN IV SEE I/O RECORD; Start 10/22/20 at 09:15; Stop 10/22/20 at 09:49; Status DC Dextrose (Dextrose 50%-Water Syringe) 12.5 gm PRN Q15MIN PRN IV LOW BLOOD SUGAR; Start 10/22/20 at 09:15; Stop 10/22/20 at 09:49; Status DC Insulin Human Lispro (HumaLOG) 0-9 UNITS TIDWMEALS SQ Last administered on 10/07 03/27at 12:14; Start 10/22/20 at 12:00; Stop 10/22/20 at 19:52; Status DC Dextrose (Dextrose 50%-Water Syringe) 12.5 gm PRN Q15MIN PRN IV SEE COMMENTS; Start 10/22/20 at 09:45 Insulin Glargine (Lantus Syringe) 10 unit 1X ONCE SQ Last administered on 10/07 03/27at 11:01; Start 10/22/20 at 10:30; Stop 10/22/20 at 10:31; Status DC Insulin Human Regular 100 unit/ Sodium Chloride 101 ml @ 0 mls/hr CONT PRN IV SEE I/O RECORD Last administered on 10/23/20at 02:14; Start 10/22/20 at 18:30 Insulin Human Lispro (HumaLOG) 0-9 UNITS Q6H SQ ; Start 10/23/20 at 00:00; Stop 10/23/20 at 09:42; Status DC Ascorbic Acid (Vitamin C) 3,000 mg TID PO Last administered on 11/01/20at 09:33; Start 10/23/20 at 09:00 Insulin Human Lispro (HumaLOG) 0-9 UNITS Q6HRS SQ Last administered on 11/01/20at 12:18; Start 10/23/20 at 12:00 Info (Anti-Coagulation Monitoring By Pharmacy) 1 each PRN DAILY PRN MC SEE COMMENTS Last administered on 10/24/20at 10:41; Start 10/24/20 at 07:45; Stop 10/29/20 at 14:45; Status DC Insulin Glargine (Lantus Syringe) 30 unit DAILY10 SQ Last administered on 10/25/20at 11:29; Start 10/24/20 at 12:00; Stop 10/25/20 at 14:27; Status DC Insulin Human Lispro (HumaLOG) 11 units 1X ONCE SQ Last administered on 10/25/20at 05:46; Start 10/25/20 at 05:45; Stop 10/25/20 at 05:48; Status DC Insulin Glargine (Lantus Syringe) 30 unit BID SQ Last administered on 10/26/20at 09:00; Start 10/25/20 at 21:00; Stop 10/26/20 at 09:39; Status DC Insulin Human Lispro (HumaLOG) 11 units 1X ONCE SQ Last administered on 10/25/20at 15:09; Start 10/25/20 at 15:15; Stop 10/25/20 at 15:16; Status DC Piperacillin Sod/ Tazobactam Sod (Zosyn Per Pharmacy) 1 each PRN DAILY PRN MC SEE COMMENTS; Start 10/26/20 at 09:45; Stop 10/30/20 at 13:48; Status DC Furosemide (Lasix) 20 mg 1X ONCE IVP Last administered on 10/26/20at 09:59; Start 10/26/20 at 09:45; Stop 10/26/20 at 09:46; Status DC Insulin Glargine (Lantus Syringe) 40 unit BID SQ Last administered on 10/27/20at 09:02; Start 10/26/20 at 21:00; Stop 10/27/20 at 09:38; Status DC Piperacillin Sod/ Tazobactam Sod 3.375 gm/Sodium Chloride 50 ml @ 100 mls/hr Q6H IV Last administered on 10/30/20at 09:46; Start 10/26/20 at 10:00; Stop 10/30/20 at 13:48; Status DC Insulin Glargine (Lantus Syringe) 50 unit BID SQ Last administered on 10/28/20at 09:02; Start 10/27/20 at 21:00; Stop 10/28/20 at 13:49; Status DC Insulin Human Lispro (HumaLOG) 15 units 1X ONCE SQ Last administered on 10/27/20at 10:23; Start 10/27/20 at 09:45; Stop 10/27/20 at 09:46; Status DC Thiamine Mononitrate (Vitamin B-1) 100 mg Q8HRS GT Last administered on 11/01/20at 05:24; Start 10/27/20 at 14:00 Info (Tpn Per Pharmacy) 1 each PRN DAILY PRN MC SEE COMMENTS Last administered on 11/01/20at 09:38; Start 10/27/20 at 12:00 Zinc Sulfate (Orazinc) 220 mg DAILY PO Last administered on 11/01/20at 09:33; Start 10/28/20 at 09:00 Sodium Chloride 90 meq/Potassium Chloride 50 meq/ Potassium Phosphate 5 mmol/ Magnesium Sulfate 10 meq/Calcium Gluconate 10 meq/ Multivitamins 5 ml/Zinc/Copper/ Manganese/ Selenium 1 ml/ Total Parenteral Nutrition/Amino Acids/Dextrose 1,512 ml @ 63 mls/hr TPN CONT IV Last administered on 10/27/20at 21:45; Start 10/27/20 at 22:00; Stop 10/28/20 at 21:59; Status DC Heparin Sodium (Porcine) (Heparin Sodium) 5,000 unit BID SQ Last administered on 11/01/20at 09:34; Start 10/28/20 at 21:00 Vancomycin HCl (Vanco Per Pharmacy) 1 each PRN DAILY PRN MC SEE COMMENTS Last administered on 10/29/20at 12:50; Start 10/28/20 at 11:30; Stop 10/30/20 at 13:48; Status DC Vancomycin HCl 2 gm/Sodium Chloride 500 ml @ 250 mls/hr ONCE ONCE IV Last administered on 10/28/20at 11:38; Start 10/28/20 at 12:00; Stop 10/28/20 at 13:59; Status DC Sodium Chloride 90 meq/Potassium Chloride 50 meq/ Potassium Phosphate 5 mmol/ Magnesium Sulfate 10 meq/Calcium Gluconate 8 meq/ Multivitamins 5 ml /Zinc/Copper/ Manganese/ Selenium 1 ml/ Total Parenteral Nutrition/Amino Acids/Dextrose 1,512 ml @ 63 mls/hr TPN CONT IV Last administered on 10/28/20at 21:45; Start 10/28/20 at 22:00; Stop 10/29/20 at 21:59; Status DC Vancomycin HCl 1.25 gm/Sodium Chloride 250 ml @ 167 mls/hr Q8H IV Last administered on 10/29/20at 04:06; Start 10/28/20 at 20:00; Stop 10/29/20 at 12:24; Status DC Vancomycin HCl (Vancomycin Trough Level) 1 each 1X ONCE MC Last administered on 10/29/20at 11:30; Start 10/29/20 at 11:30; Stop 10/29/20 at 11:31; Status DC Insulin Glargine (Lantus Syringe) 60 unit BID SQ Last administered on 11/01/20at 09:34; Start 10/28/20 at 21:00 Insulin Human Lispro (HumaLOG) 22 units 1X ONCE SQ Last administered on 10/28/20at 14:14; Start 10/28/20 at 14:00; Stop 10/28/20 at 14:01; Status DC Insulin Human Lispro (HumaLOG) 20 units 1X ONCE SQ Last administered on 10/29/20at 10:48; Start 10/29/20 at 10:15; Stop 10/29/20 at 10:25; Status DC Vancomycin HCl 1.5 gm/Sodium Chloride 500 ml @ 250 mls/hr Q8H IV Last administered on 10/30/20at 04:40; Start 10/29/20 at 13:00; Stop 10/30/20 at 13:48; Status DC Vancomycin HCl (Vancomycin Trough Level) 1 each 1X ONCE MC Last administered on 10/30/20at 12:30; Start 10/30/20 at 12:30; Stop 10/30/20 at 12:31; Status DC Sodium Chloride 90 meq/Potassium Chloride 50 meq/ Potassium Phosphate 5 mmol/ Magnesium Sulfate 10 meq/Calcium Gluconate 8 meq/ Multivitamins 5 ml/Zinc/Copper/ Manganese/ Selenium 1 ml/ Total Parenteral Nutrition/Amino Acids/Dextrose 1,512 ml @ 63 mls/hr TPN CONT IV Last administered on 10/29/20at 21:39; Start 10/29/20 at 22:00; Stop 10/30/20 at 21:59; Status DC Sodium Chloride 90 meq/Potassium Chloride 50 meq/ Potassium Phosphate 5 mmol/ Magnesium Sulfate 10 meq/Calcium Gluconate 8 meq/ Multivitamins 5 ml/Zinc/Copper/ Manganese/ Selenium 1 ml/ Insulin Human Regular 10 unit/ Total Parenteral Nutrition/Amino Acids/Dextrose 1,512 ml @ 63 mls/hr TPN CONT IV Last administered on 10/30/20at 22:51; Start 10/30/20 at 22:00; Stop 10/31/20 at 21:59; Status DC Insulin Human Lispro (HumaLOG) 18 units 1X ONCE SQ Last administered on 10/30/20at 09:50; Start 10/30/20 at 10:00; Stop 10/30/20 at 10:01; Status DC Cefazolin Sodium/ Dextrose 50 ml @ 100 mls/hr Q8HRS IV ; Start 10/30/20 at 14:30; Stop 10/30/20 at 13:55; Status DC Cefazolin Sodium/ Dextrose 50 ml @ 100 mls/hr Q6HRS IV Last administered on 11/01/20at 12:17; Start 10/30/20 at 14:30 Hydralazine HCl (Apresoline Inj) 10 mg PRN Q4HRS PRN IVP ELEVATED BP, SEE COMMENTS; Start 10/31/20 at 01:00 Sodium Chloride 90 meq/Potassium Chloride 50 meq/ Potassium Phosphate 5 mmol/ Magnesium Sulfate 10 meq/Calcium Gluconate 8 meq/ Multivitamins 5 ml/Zinc/Copper/ Manganese/ Selenium 1 ml/ Insulin Human Regular 10 unit/ Total Parenteral Nutrition/Amino Acids/Dextrose 1,512 ml @ 63 mls/hr TPN CONT IV Last administered on 10/31/20at 21:24; Start 10/31/20 at 22:00; Stop 11/01/20 at 21:59 Dexamethasone Sodium Phosphate (Decadron) 4 mg DAILY IVP Last administered on 11/01/20at 09:34; Start 11/01/20 at 09:00 Sodium Chloride 90 meq/Potassium Chloride 50 meq/ Potassium Phosphate 5 mmol/ Magnesium Sulfate 10 meq/Calcium Gluconate 8 meq/ Multivitamins 5 ml/Zinc/Copper/ Manganese/ Selenium 1 ml/ Insulin Human Regular 10 unit/ Total Parenteral Nutrition/Amino Acids/Dextrose 1,512 ml @ 63 mls/hr TPN CONT IV ; Start 11/01/20 at 22:00; Stop 11/02/20 at 21:59 Allergies Allergies: Coded Allergies: No Known Drug Allergies (Unverified , 10/21/20) ROS Review of System unable to obtain Physical Exam General: Other (sedated ) HEENT: Atraumatic, Other (mech vent) Heart: Normal S1, Normal S2 Abdomen: Normal bowel sounds, Soft Extremities: No clubbing, No cyanosis Vitals VITALS Vital Signs Date Time Temp Pulse Resp B/P (MAP) Pulse Ox O2 Delivery O2 Flow Rate FiO2 11/01/20 12:00 Mechanical Ventilator 11/01/20 11:59 100 11/01/20 11:00 92 28 135/80 (98) 11/01/20 08:00 97.8 97.8 Labs Labs Laboratory Tests Test 10/30/20 17:49 10/30/20 18:00 10/30/20 23:00 10/31/20 00:14 Glucose (Fingerstick) 210 mg/dL (70-99) 191 mg/dL (70-99) 187 mg/dL (70-99) White Blood Count 6.6 x10^3/uL (4.0-11.0) Red Blood Count 4.08 x10^6/uL (4.30-5.70) Hemoglobin 12.0 g/dL (13.0-17.5) Hematocrit 36.3 % (39.0-53.0) Mean Corpuscular Volume 89 fL (79-100) Mean Corpuscular Hemoglobin 30 pg (25-35) Mean Corpuscular Hemoglobin Concent 33 g/dL (31-37) Red Cell Distribution Width 14.3 % (11.5-14.5) Platelet Count 183 x10^3/uL (140-400) Test 10/31/20 06:23 10/31/20 06:30 10/31/20 08:40 10/31/20 11:48 Glucose (Fingerstick) 263 mg/dL (70-99) 251 mg/dL (70-99) Sodium Level 140 mmol/L (136-145) Potassium Level 4.3 mmol/L (3.5-5.1) Chloride Level 105 mmol/L (98-107) Carbon Dioxide Level 27 mmol/L (21-32) Anion Gap 8 (6-14) Blood Urea Nitrogen 23 mg/dL (8-26) Creatinine 0.6 mg/dL (0.7-1.3) Estimated GFR (Cockcroft-Gault) 139.9 BUN/Creatinine Ratio 38 (6-20) Glucose Level 263 mg/dL (70-99) Calcium Level 8.4 mg/dL (8.5-10.1) Phosphorus Level 3.8 mg/dL (2.6-4.7) Magnesium Level 2.1 mg/dL (1.8-2.4) Total Bilirubin 0.7 mg/dL (0.2-1.0) Aspartate Amino Transf (AST/SGOT) 15 U/L (15-37) Alanine Aminotransferase (ALT/SGPT) 16 U/L (16-63) Alkaline Phosphatase 45 U/L (46-116) Total Protein 5.9 g/dL (6.4-8.2) Albumin 1.9 g/dL (3.4-5.0) Albumin/Globulin Ratio 0.5 (1.0-1.7) O2 Saturation 93 % (92-99) Arterial Blood pH 7.45 (7.35-7.45) Arterial Blood pCO2 at Patient Temp 41 mmHg (35-46) Arterial Blood pO2 at Patient Temp 66 mmHg (75-108) Arterial Blood HCO3 28 mmol/L (21-28) Arterial Blood Base Excess 3 mmol/L (-3-3) FiO2 40% Test 10/31/20 23:14 11/01/20 05:34 11/01/20 07:40 11/01/20 08:00 Glucose (Fingerstick) 222 mg/dL (70-99) 253 mg/dL (70-99) Phosphorus Level 4.0 mg/dL (2.6-4.7) O2 Saturation 96 % (92-99) Arterial Blood pH 7.45 (7.35-7.45) Arterial Blood pCO2 at Patient Temp 42 mmHg (35-46) Arterial Blood pO2 at Patient Temp 89 mmHg (75-108) Arterial Blood HCO3 28 mmol/L (21-28) Arterial Blood Base Excess 4 mmol/L (-3-3) FiO2 50/vent Test 11/01/20 09:50 11/01/20 12:15 Sodium Level 136 mmol/L (136-145) Potassium Level 4.4 mmol/L (3.5-5.1) Chloride Level 101 mmol/L (98-107) Carbon Dioxide Level 28 mmol/L (21-32) Anion Gap 7 (6-14) Blood Urea Nitrogen 28 mg/dL (8-26) Creatinine 0.7 mg/dL (0.7-1.3) Estimated GFR (Cockcroft-Gault) 117.1 Glucose Level 256 mg/dL (70-99) Calcium Level 7.8 mg/dL (8.5-10.1) Magnesium Level 1.9 mg/dL (1.8-2.4) Glucose (Fingerstick) 252 mg/dL (70-99) Laboratory Tests Test 10/31/20 23:14 11/01/20 05:34 11/01/20 07:40 11/01/20 08:00 Glucose (Fingerstick) 222 mg/dL (70-99) 253 mg/dL (70-99) Phosphorus Level 4.0 mg/dL (2.6-4.7) O2 Saturation 96 % (92-99) Arterial Blood pH 7.45 (7.35-7.45) Arterial Blood pCO2 at Patient Temp 42 mmHg (35-46) Arterial Blood pO2 at Patient Temp 89 mmHg (75-108) Arterial Blood HCO3 28 mmol/L (21-28) Arterial Blood Base Excess 4 mmol/L (-3-3) FiO2 50/vent Test 11/01/20 09:50 11/01/20 12:15 Sodium Level 136 mmol/L (136-145) Potassium Level 4.4 mmol/L (3.5-5.1) Chloride Level 101 mmol/L (98-107) Carbon Dioxide Level 28 mmol/L (21-32) Anion Gap 7 (6-14) Blood Urea Nitrogen 28 mg/dL (8-26) Creatinine 0.7 mg/dL (0.7-1.3) Estimated GFR (Cockcroft-Gault) 117.1 Glucose Level 256 mg/dL (70-99) Calcium Level 7.8 mg/dL (8.5-10.1) Magnesium Level 1.9 mg/dL (1.8-2.4) Glucose (Fingerstick) 252 mg/dL (70-99) Assessment/Plan Assessment/Plan resp failure will follow for possible trach needs KIRT KIDD MD 11/01/20 1454: CONSULT Assessment/Plan Assessment/Plan Pt seen and examined. Agree with Adeline's note Pt orally intubated will follow for possible trach Thanks for consult! RACIEL WHATLEY APRN Nov 01, 2020 13:11 KIRT KIDD MD Nov 01, 2020 14:54
--- NOTE | 2020-11-01 15:47 | NUR ---
SS following for discharge planning. SS reviewed pt chart and discussed with pt RN. Pt is currently on the vent at 50%. COVID19 positive. Pt on TPN and IV Cefazolin. Not stable for trial today. SS will continue to follow for discharge planning.
[2020-11-01] MEDS: fentaNYL HIGH DOSE PCA 55 ML IV PRN (19:26)
[2020-11-01] MEDS ORDERED: AMINO ACID IV SCH (22:00)
[2020-11-01] MEDS ORDERED: [UNRECOGNIZED DRUG - OTHER] IV SCH (22:00)
[2020-11-01] MEDS ORDERED: DEXTROSE 70% IV SCH (22:00)
[2020-11-01] MEDS ORDERED: TOTAL PARENTERAL NUTRITION IV SCH (22:00)
[2020-11-02] VITALS (24 sets, daily range): BP systolic 95–167; BP diastolic 60–88
[2020-11-02] MEDS: PROPOFOL 100 ML IV PRN ×6 (03:03→21:47)
[2020-11-02] MEDS: THIAMINE 100 MG TABLET. GT SCH ×3 (05:20→21:23)
[2020-11-02] MEDS: INSULIN LISPRO 300 UNITS/3 ML VIAL. SQ SCH ×3 (05:57→18:05)
[2020-11-02 06:09] LABS: CALCIUM 8.5 mg/dL (8.5-10.1); CREATININE 0.6 mg/dL (0.7-1.3); GFR 139.9; POTASSIUM 3.6 mmol/L (3.5-5.1)
[2020-11-02] MEDS: ZINC SULFATE 220 MG CAPSULE. PO SCH (08:07)
[2020-11-02] MEDS: ASCORBIC ACID 1,000 MG TABLET PO SCH ×3 (08:07→21:23)
[2020-11-02] MEDS: HEPARIN for SUB-Q USE 5,000 UNIT/ML VIAL. SQ SCH ×2 (08:08→21:24)
[2020-11-02] MEDS: FAMOTIDINE 20 MG/2 ML VIAL IVP SCH ×2 (08:08→21:24)
[2020-11-02] MEDS: DEXAMETHASONE SOD PHOS 4 MG/ML VIAL IVP SCH (08:08)
[2020-11-02 09:12] LABS: BASE EXCESS ABG 3 mmol/L (-3-3); HCO3 ABG 26 mmol/L (21-28); PCO2 ABG 35 mmHg (35-46); PO2 ABG 87 mmHg (75-108); SAT O2 ABG 97 % (92-99)
[2020-11-02 09:15] LABS: FIO2 ABG 50
[2020-11-02] MEDS: INSULIN GLARGINE SYRINGE. SQ SCH ×2 (09:44→21:26)
--- NOTE | 2020-11-02 11:00 | PDOC ---
[employer] PROGRESS NOTE Date of Service DOS: DATE: 11/02/20 TIME: 10:58 Chief Complaint Chief Complaint sepsis Acute hypoxemic respiratory failure secondary to COVID-19 viral pneumonia. intubated and sedated acute renal failure, vasomotor nephropathy and sepsis, ATN poss gram negative bacterial pneumonia Dm2, with hyperglycemia, poor control, obese, BMI 36 Severe protein malnutrition, present upon admission. History of Present Illness History of Present Illness 11/02/2020 No acute events overnight. Current vent settings are 26/500/50%/6 PEEP. Patient still sedated and intubated. Plan for trach sometime this week. General surgery consulted. Patient's chart, labs, images were reviewed and discussed with RN 11/01/2020 No acute events overnight. Patient saturating 100% on vent settings of 26/500/50%/7. ABG is pH is 7.45, PCO2 42, PO2 89, HCO3 28.> 50% time spent in patient chart, labs, and imaging review and in discussion with RN and SW 10/31/2020 No acute events overnight. Increasing O2 requirements to 100%. Current vent settings at 16/450/100%/5. Most recent ABG pH is 7.45, PCO2 41, PO2 66, HCO3 28.> 50% time spent in patient chart, labs, and imaging review and in discussion with RN and SW 10/30. FIO2 down to 40%, cont current, wean as able discussed with RN ' 10/29, down to PEEP 5, on 45 %, breathing better, still sedated, will try to allow to wake up and follow commands somewhat better still struggling, 10/28, I keep increasing his LANTUS insulin dosing, and his blood sugars are back up again today will increase lantus o 60 BID and do 22 u x1, cont the SSI, that is additional 42 u today 10/27. ABG didnt look very good this AM with ongoing hypoxia, oxygen Sa02 is 60%, still sedate 10/[address] Morrow, CXR worse, abx started, start zosyn, cover for pneumonia ICU care, 35min cont current follow labs, intubated and sedated changed insulin dose, lantus started yesterday, will make 30 BID, on tube feeds and on IV steroids, Vitals/I&O Vitals/I&O: Vital Signs Date Time Temp Pulse Resp B/P (MAP) Pulse Ox O2 Delivery O2 Flow Rate FiO2 11/02/20 10:00 86 26 115/70 (85) 100 Ventilator 11/02/20 08:00 99.8 99.8 I & O 0 11/01/20 11/01/20 11/02/20 15:00 23:00 07:00 Intake Total 52 ml 1042 ml 1161 ml Output Total 765 ml 1520 ml 1075 ml Balance -713 ml -478 ml 86 ml Physical Exam Physical Exam: intubated, sedated on vent, General: Other (sedated ) Heart: Normal S1, Normal S2 Abdomen: Normal bowel sounds, Soft Extremities: No clubbing, No cyanosis Skin: No rashes Labs Labs: Laboratory Tests Test 11/01/20 12:15 11/01/20 17:34 11/01/20 22:57 11/02/20 05:24 Glucose (Fingerstick) 252 mg/dL (70-99) 226 mg/dL (70-99) 190 mg/dL (70-99) 127 mg/dL (70-99) Test 11/02/20 05:30 11/02/20 09:05 Sodium Level 141 mmol/L (136-145) Potassium Level 3.6 mmol/L (3.5-5.1) Chloride Level 103 mmol/L (98-107) Carbon Dioxide Level 29 mmol/L (21-32) Anion Gap 9 (6-14) Blood Urea Nitrogen 26 mg/dL (8-26) Creatinine 0.6 mg/dL (0.7-1.3) Estimated GFR (Cockcroft-Gault) 139.9 Glucose Level 131 mg/dL (70-99) Calcium Level 8.5 mg/dL (8.5-10.1) O2 Saturation 97 % (92-99) Arterial Blood pH 7.49 (7.35-7.45) Arterial Blood pCO2 at Patient Temp 35 mmHg (35-46) Arterial Blood pO2 at Patient Temp 87 mmHg (75-108) Arterial Blood HCO3 26 mmol/L (21-28) Arterial Blood Base Excess 3 mmol/L (-3-3) FiO2 50 Assessment and Plan Assessmemt and Plan Problems Medical Problems: (1) Hyperglycemia Status: Acute (2) Hypoxia Status: Acute (3) Pneumonia due to COVID-19 virus Status: Acute (4) Respiratory failure Status: Acute (5) Septic shock Status: Acute Comment Review of Relevant I have reviewed the following items andrew (where applicable) has been applied. Medications: Current Medications Medications (Trade) Dose Ordered Sig/Gaston Route PRN Reason Start Time Stop Time Status Last Admin Dose Admin Sodium Chloride 90 meq/Potassium Chloride 50 meq/ Potassium Phosphate 5 mmol/ Magnesium Sulfate 10 meq/Calcium Gluconate 8 meq/ Multivitamins 5 ml/Zinc/Copper/ Manganese/ Selenium 1 ml/ Insulin Human Regular 10 unit/ Total Parenteral Nutrition/Amino Acids/Dextrose 1,512 ml @ 63 mls/hr TPN CONT IV 11/01/20 22:00 11/02/20 21:59 11/01/20 21:40 Justifications for Admission Other Justification COVID infection PHILIP VALDEZ MD Nov 02, 2020 11:00
--- NOTE | 2020-11-02 11:01 | PDOC ---
PULMONARY PROGRESS NOTES DATE: 11/02/20 TIME: 11:00 Subjective Remains on vent support 50% and PEEP of 7 very agitated off sedation Vitals Vital Signs Date Time Temp Pulse Resp B/P (MAP) Pulse Ox O2 Delivery O2 Flow Rate FiO2 11/02/20 10:00 86 26 115/70 (85) 100 Ventilator 11/02/20 08:00 99.8 99.8 Comments intubated sedated no accessory muscle use abd obese no rash Labs Laboratory Tests Test 10/31/20 11:48 10/31/20 23:14 11/01/20 05:34 11/01/20 07:40 Glucose (Fingerstick) 251 mg/dL (70-99) 222 mg/dL (70-99) 253 mg/dL (70-99) Phosphorus Level 4.0 mg/dL (2.6-4.7) Test 11/01/20 08:00 11/01/20 09:50 11/01/20 12:15 11/01/20 17:34 O2 Saturation 96 % (92-99) Arterial Blood pH 7.45 (7.35-7.45) Arterial Blood pCO2 at Patient Temp 42 mmHg (35-46) Arterial Blood pO2 at Patient Temp 89 mmHg (75-108) Arterial Blood HCO3 28 mmol/L (21-28) Arterial Blood Base Excess 4 mmol/L (-3-3) FiO2 50/vent Sodium Level 136 mmol/L (136-145) Potassium Level 4.4 mmol/L (3.5-5.1) Chloride Level 101 mmol/L (98-107) Carbon Dioxide Level 28 mmol/L (21-32) Anion Gap 7 (6-14) Blood Urea Nitrogen 28 mg/dL (8-26) Creatinine 0.7 mg/dL (0.7-1.3) Estimated GFR (Cockcroft-Gault) 117.1 Glucose Level 256 mg/dL (70-99) Calcium Level 7.8 mg/dL (8.5-10.1) Magnesium Level 1.9 mg/dL (1.8-2.4) Glucose (Fingerstick) 252 mg/dL (70-99) 226 mg/dL (70-99) Test 11/01/20 22:57 11/02/20 05:24 11/02/20 05:30 11/02/20 09:05 Glucose (Fingerstick) 190 mg/dL (70-99) 127 mg/dL (70-99) Sodium Level 141 mmol/L (136-145) Potassium Level 3.6 mmol/L (3.5-5.1) Chloride Level 103 mmol/L (98-107) Carbon Dioxide Level 29 mmol/L (21-32) Anion Gap 9 (6-14) Blood Urea Nitrogen 26 mg/dL (8-26) Creatinine 0.6 mg/dL (0.7-1.3) Estimated GFR (Cockcroft-Gault) 139.9 Glucose Level 131 mg/dL (70-99) Calcium Level 8.5 mg/dL (8.5-10.1) O2 Saturation 97 % (92-99) Arterial Blood pH 7.49 (7.35-7.45) Arterial Blood pCO2 at Patient Temp 35 mmHg (35-46) Arterial Blood pO2 at Patient Temp 87 mmHg (75-108) Arterial Blood HCO3 26 mmol/L (21-28) Arterial Blood Base Excess 3 mmol/L (-3-3) FiO2 50 Laboratory Tests Test 11/01/20 12:15 11/01/20 17:34 11/01/20 22:57 11/02/20 05:24 Glucose (Fingerstick) 252 mg/dL (70-99) 226 mg/dL (70-99) 190 mg/dL (70-99) 127 mg/dL (70-99) Test 11/02/20 05:30 11/02/20 09:05 Sodium Level 141 mmol/L (136-145) Potassium Level 3.6 mmol/L (3.5-5.1) Chloride Level 103 mmol/L (98-107) Carbon Dioxide Level 29 mmol/L (21-32) Anion Gap 9 (6-14) Blood Urea Nitrogen 26 mg/dL (8-26) Creatinine 0.6 mg/dL (0.7-1.3) Estimated GFR (Cockcroft-Gault) 139.9 Glucose Level 131 mg/dL (70-99) Calcium Level 8.5 mg/dL (8.5-10.1) O2 Saturation 97 % (92-99) Arterial Blood pH 7.49 (7.35-7.45) Arterial Blood pCO2 at Patient Temp 35 mmHg (35-46) Arterial Blood pO2 at Patient Temp 87 mmHg (75-108) Arterial Blood HCO3 26 mmol/L (21-28) Arterial Blood Base Excess 3 mmol/L (-3-3) FiO2 50 Comments CXR IMPRESSION: Stable lines and tubes including endotracheal intubation with pulmonary vascular congestion and small right pleural effusion with associated atelectasis. Impression . IMPRESSION: 1. Acute hypoxemic respiratory failure secondary to COVID-19 viral pneumonia--moderate secretions 2. COVID-19 viral pneumonia/sepsis. 3. Abnormal x-ray compatible with SARS-CoV-2 infection. 4. Acute kidney injury-- improved, azotemia 5. Severe hypoxemia, elevated D-dimer, possible thromboembolic disease. 6. Morbid obesity. 7. Protein malnutrition, present upon admission. 8. Elevated troponin. 9. CXR 10/26 , worsening infiltrates, possible aspiration 10. sputum culture positive for staph A. Plan . PLAN: Continue current ventilatory support, change FiO2 now at 50% and a PEEP of 7 Follow ABG/chest x-ray, Consult surgery for trach, Discussed with jose, they are agreeable COVID-19 positive Has completed full course of remdesivir Continue steroids patient will need a full 10-day course, taper slowly Clinically improving, dopplers with no DVT. heparin SQ BID Continue for nutritional support Sputum culture positive for Staph A. now on cefazolin DVT/GI prophylaxis Discussed with RN and RT critically ill awaiting trach Critical care time 30 min no overlap GEO VALENZUELA MD Nov 02, 2020 11:01
[2020-11-02] MEDS: TPN PER PHARMACY MC PRN (12:45)
--- NOTE | 2020-11-02 15:13 | PDOC ---
SURGICAL PROGRESS NOTE DATE: 11/02/20 TIME: 15:12 Subjective Pt orally intubated Vital Signs Vital Signs Date Time Temp Pulse Resp B/P (MAP) Pulse Ox O2 Delivery O2 Flow Rate FiO2 11/02/20 13:00 78 26 142/76 (98) 100 Ventilator 11/02/20 12:00 98.9 98.9 I&O Intake and Output 11/02/20 07:00 Intake Total 2255 ml Output Total 3360 ml Balance -1105 ml Intake Oral 0 ml IV Total 2255 ml Output Urine Total 2160 ml Gastric Drainage Total 1200 ml General: No acute distress HEENT: Other (orally intubated) Labs Laboratory Tests Test 10/31/20 23:14 11/01/20 05:34 11/01/20 07:40 11/01/20 08:00 Glucose (Fingerstick) 222 mg/dL (70-99) 253 mg/dL (70-99) Phosphorus Level 4.0 mg/dL (2.6-4.7) O2 Saturation 96 % (92-99) Arterial Blood pH 7.45 (7.35-7.45) Arterial Blood pCO2 at Patient Temp 42 mmHg (35-46) Arterial Blood pO2 at Patient Temp 89 mmHg (75-108) Arterial Blood HCO3 28 mmol/L (21-28) Arterial Blood Base Excess 4 mmol/L (-3-3) FiO2 50/vent Test 11/01/20 09:50 11/01/20 12:15 11/01/20 17:34 11/01/20 22:57 Sodium Level 136 mmol/L (136-145) Potassium Level 4.4 mmol/L (3.5-5.1) Chloride Level 101 mmol/L (98-107) Carbon Dioxide Level 28 mmol/L (21-32) Anion Gap 7 (6-14) Blood Urea Nitrogen 28 mg/dL (8-26) Creatinine 0.7 mg/dL (0.7-1.3) Estimated GFR (Cockcroft-Gault) 117.1 Glucose Level 256 mg/dL (70-99) Calcium Level 7.8 mg/dL (8.5-10.1) Magnesium Level 1.9 mg/dL (1.8-2.4) Glucose (Fingerstick) 252 mg/dL (70-99) 226 mg/dL (70-99) 190 mg/dL (70-99) Test 11/02/20 05:24 11/02/20 05:30 11/02/20 09:05 11/02/20 12:15 Glucose (Fingerstick) 127 mg/dL (70-99) 232 mg/dL (70-99) Sodium Level 141 mmol/L (136-145) Potassium Level 3.6 mmol/L (3.5-5.1) Chloride Level 103 mmol/L (98-107) Carbon Dioxide Level 29 mmol/L (21-32) Anion Gap 9 (6-14) Blood Urea Nitrogen 26 mg/dL (8-26) Creatinine 0.6 mg/dL (0.7-1.3) Estimated GFR (Cockcroft-Gault) 139.9 Glucose Level 131 mg/dL (70-99) Calcium Level 8.5 mg/dL (8.5-10.1) O2 Saturation 97 % (92-99) Arterial Blood pH 7.49 (7.35-7.45) Arterial Blood pCO2 at Patient Temp 35 mmHg (35-46) Arterial Blood pO2 at Patient Temp 87 mmHg (75-108) Arterial Blood HCO3 26 mmol/L (21-28) Arterial Blood Base Excess 3 mmol/L (-3-3) FiO2 50 Laboratory Tests Test 11/01/20 17:34 11/01/20 22:57 11/02/20 05:24 11/02/20 05:30 Glucose (Fingerstick) 226 mg/dL (70-99) 190 mg/dL (70-99) 127 mg/dL (70-99) Sodium Level 141 mmol/L (136-145) Potassium Level 3.6 mmol/L (3.5-5.1) Chloride Level 103 mmol/L (98-107) Carbon Dioxide Level 29 mmol/L (21-32) Anion Gap 9 (6-14) Blood Urea Nitrogen 26 mg/dL (8-26) Creatinine 0.6 mg/dL (0.7-1.3) Estimated GFR (Cockcroft-Gault) 139.9 Glucose Level 131 mg/dL (70-99) Calcium Level 8.5 mg/dL (8.5-10.1) Test 11/02/20 09:05 11/02/20 12:15 O2 Saturation 97 % (92-99) Arterial Blood pH 7.49 (7.35-7.45) Arterial Blood pCO2 at Patient Temp 35 mmHg (35-46) Arterial Blood pO2 at Patient Temp 87 mmHg (75-108) Arterial Blood HCO3 26 mmol/L (21-28) Arterial Blood Base Excess 3 mmol/L (-3-3) FiO2 50 Glucose (Fingerstick) 232 mg/dL (70-99) Problem List Problems Medical Problems: (1) Hyperglycemia Status: Acute (2) Hypoxia Status: Acute (3) Pneumonia due to COVID-19 virus Status: Acute (4) Respiratory failure Status: Acute (5) Septic shock Status: Acute Assessment/Plan Respiratory failure will tentatively plan tracheostomy on 11/04 d/w pulm Justicifation of Admission Dx: Justifications for Admission: Justification of Admission Dx: Yes (sepsis, covid, resp failure) KIRT KIDD MD Nov 02, 2020 15:13
--- NOTE | 2020-11-02 16:10 | NUR ---
SS following up with discharge planning. SS reviewed pt chart and discussed with pt RN. Pt is currently on the vent at 50%. COVID19 positive. Pt on TPN and IV Cefazolin. Dr. Kirby consulted and trach placement scheduled for 11/04/2020. SS contacted pt's spouse and discussed LTACH. Pt's spouse agreeable to LTACH at [facility], ; fax [phone]. SS phoned and faxed referral as requested. SS will continue to follow for discharge planning.
[2020-11-02] MEDS ORDERED: AMINO ACID IV SCH (22:00)
[2020-11-02] MEDS ORDERED: [UNRECOGNIZED DRUG - OTHER] IV SCH (22:00)
[2020-11-02] MEDS ORDERED: TOTAL PARENTERAL NUTRITION IV SCH (22:00)
[2020-11-02] MEDS ORDERED: DEXTROSE 70% IV SCH (22:00)
[2020-11-02] MEDS: fentaNYL HIGH DOSE PCA 55 ML IV PRN (22:24)
[2020-11-03] VITALS (24 sets, daily range): BP systolic 83–149; BP diastolic 46–88
[2020-11-03] MEDS: INSULIN LISPRO 300 UNITS/3 ML VIAL. SQ SCH ×4 (00:03→17:25)
[2020-11-03] MEDS: PROPOFOL 100 ML IV PRN ×6 (00:53→22:02)
--- NOTE | 2020-11-03 03:55 | RAD ---
XR CHEST 1V Clinical Indication: Reason: Vent 105 Comparison: AP chest, 3 days ago Findings: Endotracheal tube tip is 4.7 cm superior to the etienne. Enteric tube courses below left hemidiaphragm , tip outside of [id number]. Right PICC, tip in right atrium. Cardiac silhouette is probably stabl e. Bilateral diffuse interstitial opacities and patchy alveolar opacities are not significantly ordoñez ed. No definite pleural effusion. No pneumothorax. IMPRESSION: 1. Life support devices as above. 2. Bilateral diffuse interstitial opacities and patchy alveolar opacities are unchanged. Electronically signed by: Albino Irizarry MD (11/03/2020 3:53 AM) [facility]
[2020-11-03] MEDS: THIAMINE 100 MG TABLET. GT SCH ×3 (05:47→21:22)
[2020-11-03 06:16] LABS: BASO % 0 % (0-3); EOS # 0.1 x10^3/uL (0.0-0.7); EOS % 1 % (0-3); HEMATOCRIT 35.2 % (39.0-53.0); HEMOGLOBIN 11.9 g/dL (13.0-17.5); LYMPH # 0.6 x10^3/uL (1.0-4.8); LYMPH % 10 % (24-48); MEAN CORPUSCULAR HEMOGLOBIN 30 pg (25-35); MEAN CORPUSCULAR HGB CONC 34 g/dL (31-37); MEAN CORPUSCULAR VOLUME 88 fL (79-100); MONO # 0.4 x10^3/uL (0.0-1.1); MONO % 7 % (0-9); NEUT # 4.8 x10^3/uL (1.8-7.7); NEUT % 82 % (31-73); PLATELET COUNT 154 x10^3/uL (140-400); RED BLOOD COUNT 4.02 x10^6/uL (4.30-5.70); RED CELL DISTRIBUTION WIDTH 14.3 % (11.5-14.5); WHITE BLOOD COUNT 5.8 x10^3/uL (4.0-11.0)
[2020-11-03 06:22] LABS: CALCIUM 8.2 mg/dL (8.5-10.1); CREATININE 0.6 mg/dL (0.7-1.3); GFR 139.9
[2020-11-03 06:25] LABS: MAGNESIUM 1.9 mg/dL (1.8-2.4); PHOSPHORUS 3.4 mg/dL (2.6-4.7)
[2020-11-03 08:24] LABS: BASE EXCESS ABG 4 mmol/L (-3-3); HCO3 ABG 27 mmol/L (21-28); PCO2 ABG 36 mmHg (35-46); PO2 ABG 133 mmHg (75-108); SAT O2 ABG 98 % (92-99)
[2020-11-03 08:32] LABS: FIO2 ABG 50
[2020-11-03] MEDS: FAMOTIDINE 20 MG/2 ML VIAL IVP SCH ×2 (08:46→21:22)
[2020-11-03] MEDS: DEXAMETHASONE SOD PHOS 4 MG/ML VIAL IVP SCH (08:46)
[2020-11-03] MEDS: ASCORBIC ACID 1,000 MG TABLET PO SCH ×3 (08:47→21:22)
[2020-11-03] MEDS: INSULIN GLARGINE SYRINGE. SQ SCH ×2 (08:47→21:24)
[2020-11-03] MEDS: ZINC SULFATE 220 MG CAPSULE. PO SCH (08:47)
[2020-11-03] MEDS: HEPARIN for SUB-Q USE 5,000 UNIT/ML VIAL. SQ SCH ×2 (08:51→19:14)
--- NOTE | 2020-11-03 09:49 | PDOC ---
RACIEL WHATLEY ORDER TAKER 11/03/20 0949: SURGICAL PROGRESS NOTE DATE: 11/03/20 TIME: 09:48 Subjective intubated Vital Signs Vital Signs Date Time Temp Pulse Resp B/P (MAP) Pulse Ox O2 Delivery O2 Flow Rate FiO2 11/03/20 09:00 60 26 111/58 (75) 100 Ventilator 11/03/20 08:00 98.6 98.6 I&O Intake and Output 11/03/20 07:00 Intake Total 2370 ml Output Total 2520 ml Balance -150 ml IV Total 2370 ml Output Urine Total 1920 ml Gastric Drainage Total 600 ml General: Other (sedated ) HEENT: Other (mech vent) Labs Laboratory Tests Test 11/01/20 09:50 11/01/20 12:15 11/01/20 17:34 11/01/20 22:57 Sodium Level 136 mmol/L (136-145) Potassium Level 4.4 mmol/L (3.5-5.1) Chloride Level 101 mmol/L (98-107) Carbon Dioxide Level 28 mmol/L (21-32) Anion Gap 7 (6-14) Blood Urea Nitrogen 28 mg/dL (8-26) Creatinine 0.7 mg/dL (0.7-1.3) Estimated GFR (Cockcroft-Gault) 117.1 Glucose Level 256 mg/dL (70-99) Calcium Level 7.8 mg/dL (8.5-10.1) Magnesium Level 1.9 mg/dL (1.8-2.4) Glucose (Fingerstick) 252 mg/dL (70-99) 226 mg/dL (70-99) 190 mg/dL (70-99) Test 11/02/20 05:24 11/02/20 05:30 11/02/20 09:05 11/02/20 12:15 Glucose (Fingerstick) 127 mg/dL (70-99) 232 mg/dL (70-99) Sodium Level 141 mmol/L (136-145) Potassium Level 3.6 mmol/L (3.5-5.1) Chloride Level 103 mmol/L (98-107) Carbon Dioxide Level 29 mmol/L (21-32) Anion Gap 9 (6-14) Blood Urea Nitrogen 26 mg/dL (8-26) Creatinine 0.6 mg/dL (0.7-1.3) Estimated GFR (Cockcroft-Gault) 139.9 Glucose Level 131 mg/dL (70-99) Calcium Level 8.5 mg/dL (8.5-10.1) O2 Saturation 97 % (92-99) Arterial Blood pH 7.49 (7.35-7.45) Arterial Blood pCO2 at Patient Temp 35 mmHg (35-46) Arterial Blood pO2 at Patient Temp 87 mmHg (75-108) Arterial Blood HCO3 26 mmol/L (21-28) Arterial Blood Base Excess 3 mmol/L (-3-3) FiO2 50 Test 11/02/20 17:46 11/02/20 21:55 11/02/20 23:54 11/03/20 05:45 Glucose (Fingerstick) 239 mg/dL (70-99) 271 mg/dL (70-99) 240 mg/dL (70-99) White Blood Count 5.8 x10^3/uL (4.0-11.0) Red Blood Count 4.02 x10^6/uL (4.30-5.70) Hemoglobin 11.9 g/dL (13.0-17.5) Hematocrit 35.2 % (39.0-53.0) Mean Corpuscular Volume 88 fL (79-100) Mean Corpuscular Hemoglobin 30 pg (25-35) Mean Corpuscular Hemoglobin Concent 34 g/dL (31-37) Red Cell Distribution Width 14.3 % (11.5-14.5) Platelet Count 154 x10^3/uL (140-400) Neutrophils (%) (Auto) 82 % (31-73) Lymphocytes (%) (Auto) 10 % (24-48) Monocytes (%) (Auto) 7 % (0-9) Eosinophils (%) (Auto) 1 % (0-3) Basophils (%) (Auto) 0 % (0-3) Neutrophils # (Auto) 4.8 x10^3/uL (1.8-7.7) Lymphocytes # (Auto) 0.6 x10^3/uL (1.0-4.8) Monocytes # (Auto) 0.4 x10^3/uL (0.0-1.1) Eosinophils # (Auto) 0.1 x10^3/uL (0.0-0.7) Basophils # (Auto) 0.0 x10^3/uL (0.0-0.2) Sodium Level 138 mmol/L (136-145) Potassium Level 4.0 mmol/L (3.5-5.1) Chloride Level 103 mmol/L (98-107) Carbon Dioxide Level 28 mmol/L (21-32) Anion Gap 7 (6-14) Blood Urea Nitrogen 30 mg/dL (8-26) Creatinine 0.6 mg/dL (0.7-1.3) Estimated GFR (Cockcroft-Gault) 139.9 Glucose Level 193 mg/dL (70-99) Calcium Level 8.2 mg/dL (8.5-10.1) Phosphorus Level 3.4 mg/dL (2.6-4.7) Magnesium Level 1.9 mg/dL (1.8-2.4) Test 11/03/20 05:52 11/03/20 08:20 Glucose (Fingerstick) 223 mg/dL (70-99) O2 Saturation 98 % (92-99) Arterial Blood pH 7.50 (7.35-7.45) Arterial Blood pCO2 at Patient Temp 36 mmHg (35-46) Arterial Blood pO2 at Patient Temp 133 mmHg (75-108) Arterial Blood HCO3 27 mmol/L (21-28) Arterial Blood Base Excess 4 mmol/L (-3-3) FiO2 50 Laboratory Tests Test 11/02/20 12:15 11/02/20 17:46 11/02/20 21:55 11/02/20 23:54 Glucose (Fingerstick) 232 mg/dL (70-99) 239 mg/dL (70-99) 271 mg/dL (70-99) 240 mg/dL (70-99) Test 11/03/20 05:45 11/03/20 05:52 11/03/20 08:20 White Blood Count 5.8 x10^3/uL (4.0-11.0) Red Blood Count 4.02 x10^6/uL (4.30-5.70) Hemoglobin 11.9 g/dL (13.0-17.5) Hematocrit 35.2 % (39.0-53.0) Mean Corpuscular Volume 88 fL (79-100) Mean Corpuscular Hemoglobin 30 pg (25-35) Mean Corpuscular Hemoglobin Concent 34 g/dL (31-37) Red Cell Distribution Width 14.3 % (11.5-14.5) Platelet Count 154 x10^3/uL (140-400) Neutrophils (%) (Auto) 82 % (31-73) Lymphocytes (%) (Auto) 10 % (24-48) Monocytes (%) (Auto) 7 % (0-9) Eosinophils (%) (Auto) 1 % (0-3) Basophils (%) (Auto) 0 % (0-3) Neutrophils # (Auto) 4.8 x10^3/uL (1.8-7.7) Lymphocytes # (Auto) 0.6 x10^3/uL (1.0-4.8) Monocytes # (Auto) 0.4 x10^3/uL (0.0-1.1) Eosinophils # (Auto) 0.1 x10^3/uL (0.0-0.7) Basophils # (Auto) 0.0 x10^3/uL (0.0-0.2) Sodium Level 138 mmol/L (136-145) Potassium Level 4.0 mmol/L (3.5-5.1) Chloride Level 103 mmol/L (98-107) Carbon Dioxide Level 28 mmol/L (21-32) Anion Gap 7 (6-14) Blood Urea Nitrogen 30 mg/dL (8-26) Creatinine 0.6 mg/dL (0.7-1.3) Estimated GFR (Cockcroft-Gault) 139.9 Glucose Level 193 mg/dL (70-99) Calcium Level 8.2 mg/dL (8.5-10.1) Phosphorus Level 3.4 mg/dL (2.6-4.7) Magnesium Level 1.9 mg/dL (1.8-2.4) Glucose (Fingerstick) 223 mg/dL (70-99) O2 Saturation 98 % (92-99) Arterial Blood pH 7.50 (7.35-7.45) Arterial Blood pCO2 at Patient Temp 36 mmHg (35-46) Arterial Blood pO2 at Patient Temp 133 mmHg (75-108) Arterial Blood HCO3 27 mmol/L (21-28) Arterial Blood Base Excess 4 mmol/L (-3-3) FiO2 50 Problem List Problems Medical Problems: (1) Hyperglycemia Status: Acute (2) Hypoxia Status: Acute (3) Pneumonia due to COVID-19 virus Status: Acute (4) Respiratory failure Status: Acute (5) Septic shock Status: Acute Assessment/Plan plan trach 11/04 hold TF and heparin Justicifation of Admission Dx: Justifications for Admission: Justification of Admission Dx: Yes (sepsis, covid, resp failure) KIRT KIDD MD 11/03/20 1318: SURGICAL PROGRESS NOTE Assessment/Plan Pt seen and examined. Agree with Ms. Whatley's note Pt intubated plan trach in AM. RACIEL WHATLEY APRN Nov 03, 2020 09:49 KIRT KIDD MD Nov 03, 2020 13:18
--- NOTE | 2020-11-03 10:36 | PDOC ---
PULMONARY PROGRESS NOTES DATE: 11/03/20 TIME: 10:33 Subjective Remains on vent support 50% and PEEP of 7 very agitated off sedation Vitals Vital Signs Date Time Temp Pulse Resp B/P (MAP) Pulse Ox O2 Delivery O2 Flow Rate FiO2 11/03/20 10:00 51 26 106/58 (74) 100 Ventilator 11/03/20 08:00 98.6 98.6 Comments intubated sedated no accessory muscle use abd obese no rash Labs Laboratory Tests Test 11/01/20 12:15 11/01/20 17:34 11/01/20 22:57 11/02/20 05:24 Glucose (Fingerstick) 252 mg/dL (70-99) 226 mg/dL (70-99) 190 mg/dL (70-99) 127 mg/dL (70-99) Test 11/02/20 05:30 11/02/20 09:05 11/02/20 12:15 11/02/20 17:46 Sodium Level 141 mmol/L (136-145) Potassium Level 3.6 mmol/L (3.5-5.1) Chloride Level 103 mmol/L (98-107) Carbon Dioxide Level 29 mmol/L (21-32) Anion Gap 9 (6-14) Blood Urea Nitrogen 26 mg/dL (8-26) Creatinine 0.6 mg/dL (0.7-1.3) Estimated GFR (Cockcroft-Gault) 139.9 Glucose Level 131 mg/dL (70-99) Calcium Level 8.5 mg/dL (8.5-10.1) O2 Saturation 97 % (92-99) Arterial Blood pH 7.49 (7.35-7.45) Arterial Blood pCO2 at Patient Temp 35 mmHg (35-46) Arterial Blood pO2 at Patient Temp 87 mmHg (75-108) Arterial Blood HCO3 26 mmol/L (21-28) Arterial Blood Base Excess 3 mmol/L (-3-3) FiO2 50 Glucose (Fingerstick) 232 mg/dL (70-99) 239 mg/dL (70-99) Test 11/02/20 21:55 11/02/20 23:54 11/03/20 05:45 11/03/20 05:52 Glucose (Fingerstick) 271 mg/dL (70-99) 240 mg/dL (70-99) 223 mg/dL (70-99) White Blood Count 5.8 x10^3/uL (4.0-11.0) Red Blood Count 4.02 x10^6/uL (4.30-5.70) Hemoglobin 11.9 g/dL (13.0-17.5) Hematocrit 35.2 % (39.0-53.0) Mean Corpuscular Volume 88 fL (79-100) Mean Corpuscular Hemoglobin 30 pg (25-35) Mean Corpuscular Hemoglobin Concent 34 g/dL (31-37) Red Cell Distribution Width 14.3 % (11.5-14.5) Platelet Count 154 x10^3/uL (140-400) Neutrophils (%) (Auto) 82 % (31-73) Lymphocytes (%) (Auto) 10 % (24-48) Monocytes (%) (Auto) 7 % (0-9) Eosinophils (%) (Auto) 1 % (0-3) Basophils (%) (Auto) 0 % (0-3) Neutrophils # (Auto) 4.8 x10^3/uL (1.8-7.7) Lymphocytes # (Auto) 0.6 x10^3/uL (1.0-4.8) Monocytes # (Auto) 0.4 x10^3/uL (0.0-1.1) Eosinophils # (Auto) 0.1 x10^3/uL (0.0-0.7) Basophils # (Auto) 0.0 x10^3/uL (0.0-0.2) Sodium Level 138 mmol/L (136-145) Potassium Level 4.0 mmol/L (3.5-5.1) Chloride Level 103 mmol/L (98-107) Carbon Dioxide Level 28 mmol/L (21-32) Anion Gap 7 (6-14) Blood Urea Nitrogen 30 mg/dL (8-26) Creatinine 0.6 mg/dL (0.7-1.3) Estimated GFR (Cockcroft-Gault) 139.9 Glucose Level 193 mg/dL (70-99) Calcium Level 8.2 mg/dL (8.5-10.1) Phosphorus Level 3.4 mg/dL (2.6-4.7) Magnesium Level 1.9 mg/dL (1.8-2.4) Test 11/03/20 08:20 O2 Saturation 98 % (92-99) Arterial Blood pH 7.50 (7.35-7.45) Arterial Blood pCO2 at Patient Temp 36 mmHg (35-46) Arterial Blood pO2 at Patient Temp 133 mmHg (75-108) Arterial Blood HCO3 27 mmol/L (21-28) Arterial Blood Base Excess 4 mmol/L (-3-3) FiO2 50 Laboratory Tests Test 11/02/20 12:15 11/02/20 17:46 11/02/20 21:55 11/02/20 23:54 Glucose (Fingerstick) 232 mg/dL (70-99) 239 mg/dL (70-99) 271 mg/dL (70-99) 240 mg/dL (70-99) Test 11/03/20 05:45 11/03/20 05:52 11/03/20 08:20 White Blood Count 5.8 x10^3/uL (4.0-11.0) Red Blood Count 4.02 x10^6/uL (4.30-5.70) Hemoglobin 11.9 g/dL (13.0-17.5) Hematocrit 35.2 % (39.0-53.0) Mean Corpuscular Volume 88 fL (79-100) Mean Corpuscular Hemoglobin 30 pg (25-35) Mean Corpuscular Hemoglobin Concent 34 g/dL (31-37) Red Cell Distribution Width 14.3 % (11.5-14.5) Platelet Count 154 x10^3/uL (140-400) Neutrophils (%) (Auto) 82 % (31-73) Lymphocytes (%) (Auto) 10 % (24-48) Monocytes (%) (Auto) 7 % (0-9) Eosinophils (%) (Auto) 1 % (0-3) Basophils (%) (Auto) 0 % (0-3) Neutrophils # (Auto) 4.8 x10^3/uL (1.8-7.7) Lymphocytes # (Auto) 0.6 x10^3/uL (1.0-4.8) Monocytes # (Auto) 0.4 x10^3/uL (0.0-1.1) Eosinophils # (Auto) 0.1 x10^3/uL (0.0-0.7) Basophils # (Auto) 0.0 x10^3/uL (0.0-0.2) Sodium Level 138 mmol/L (136-145) Potassium Level 4.0 mmol/L (3.5-5.1) Chloride Level 103 mmol/L (98-107) Carbon Dioxide Level 28 mmol/L (21-32) Anion Gap 7 (6-14) Blood Urea Nitrogen 30 mg/dL (8-26) Creatinine 0.6 mg/dL (0.7-1.3) Estimated GFR (Cockcroft-Gault) 139.9 Glucose Level 193 mg/dL (70-99) Calcium Level 8.2 mg/dL (8.5-10.1) Phosphorus Level 3.4 mg/dL (2.6-4.7) Magnesium Level 1.9 mg/dL (1.8-2.4) Glucose (Fingerstick) 223 mg/dL (70-99) O2 Saturation 98 % (92-99) Arterial Blood pH 7.50 (7.35-7.45) Arterial Blood pCO2 at Patient Temp 36 mmHg (35-46) Arterial Blood pO2 at Patient Temp 133 mmHg (75-108) Arterial Blood HCO3 27 mmol/L (21-28) Arterial Blood Base Excess 4 mmol/L (-3-3) FiO2 50 Comments CXR 11/03 bilateral unchanged infiltrates Impression . IMPRESSION: 1. Acute hypoxemic respiratory failure secondary to COVID-19 viral pneumonia--moderate secretions 2. COVID-19 viral pneumonia/sepsis. 3. Abnormal x-ray compatible with SARS-CoV-2 infection. 4. Acute kidney injury-- improved, azotemia 5. Severe hypoxemia, elevated D-dimer, possible thromboembolic disease. 6. Morbid obesity. 7. Protein malnutrition, present upon admission. 8. Elevated troponin. 9. CXR 10/26 , worsening infiltrates, possible aspiration 10. sputum culture positive for staph A. Plan . PLAN: Continue current ventilatory support, change FiO2 now at 50% and a PEEP of 7 Follow ABG/chest x-ray, Consult surgery for trach, Discussed with jose, she is agreeable , scheduled in am will try off sedation again today. Po2 is sig improved. COVID-19 positive Has completed full course of remdesivir Continue steroids patient will need a full 10-day course, taper slowly Clinically improving, dopplers with no DVT. heparin SQ BID Continue for nutritional support Sputum culture positive for Staph A. now on cefazolin DVT/GI prophylaxis Discussed with RN and RT critically ill awaiting trach Critical care time 30 min no overlap GEO VALENZUELA MD Nov 03, 2020 10:36
--- NOTE | 2020-11-03 12:52 | PDOC ---
[employer] PROGRESS NOTE Date of Service DOS: DATE: 11/03/20 TIME: 12:49 Chief Complaint Chief Complaint sepsis Acute hypoxemic respiratory failure secondary to COVID-19 viral pneumonia. intubated and sedated acute renal failure, vasomotor nephropathy and sepsis, ATN poss gram negative bacterial pneumonia Dm2, with hyperglycemia, poor control, obese, BMI 36 Severe protein malnutrition, present upon admission. History of Present Illness History of Present Illness 11/03/2020 No acute events overnight. Patient's vent settings are 26/500/40%/5. Pending tracheostomy tomorrow. Will hold tube feeds and heparin. Patient's chart, labs, images were reviewed and discussed with RN 11/02/2020 No acute events overnight. Current vent settings are 26/500/50%/6 PEEP. Patient still sedated and intubated. Plan for trach sometime this week. General surgery consulted. Patient's chart, labs, images were reviewed and discussed with RN 11/01/2020 No acute events overnight. Patient saturating 100% on vent settings of 26/500/50%/7. ABG is pH is 7.45, PCO2 42, PO2 89, HCO3 28.> 50% time spent in patient chart, labs, and imaging review and in discussion with RN and SW 10/31/2020 No acute events overnight. Increasing O2 requirements to 100%. Current vent settings at 16/450/100%/5. Most recent ABG pH is 7.45, PCO2 41, PO2 66, HCO3 28.> 50% time spent in patient chart, labs, and imaging review and in discussion with RN and SW 10/30. FIO2 down to 40%, cont current, wean as able discussed with RN ' 10/29, down to PEEP 5, on 45 %, breathing better, still sedated, will try to allow to wake up and follow commands somewhat better still struggling, 10/28, I keep increasing his LANTUS insulin dosing, and his blood sugars are back up again today will increase lantus o 60 BID and do 22 u x1, cont the SSI, that is additional 42 u today 10/27. ABG didnt look very good this AM with ongoing hypoxia, oxygen Sa02 is 60%, still sedate 10/[address] Morrow, CXR worse, abx started, start zosyn, cover for pneumonia ICU care, 35min cont current follow labs, intubated and sedated changed insulin dose, lantus started yesterday, will make 30 BID, on tube feeds and on IV steroids, Vitals/I&O Vitals/I&O: Vital Signs Date Time Temp Pulse Resp B/P (MAP) Pulse Ox O2 Delivery O2 Flow Rate FiO2 11/03/20 12:00 Mechanical Ventilator 11/03/20 12:00 98.6 47 26 120/61 (80) 100 98.6 I & O 11/02/20 11/02/20 11/03/20 15:00 23:00 07:00 Intake Total 50 ml 1199 ml 1121 ml Output Total 1025 ml 1030 ml 465 ml Balance -975 ml 169 ml 656 ml Physical Exam Physical Exam: intubated, sedated on vent, General: Other (sedated ) Heart: Normal S1, Normal S2 Abdomen: Normal bowel sounds, Soft Extremities: No clubbing, No cyanosis Skin: No rashes Labs Labs: Laboratory Tests Test 11/02/20 17:46 11/02/20 21:55 11/02/20 23:54 11/03/20 05:45 Glucose (Fingerstick) 239 mg/dL (70-99) 271 mg/dL (70-99) 240 mg/dL (70-99) White Blood Count 5.8 x10^3/uL (4.0-11.0) Red Blood Count 4.02 x10^6/uL (4.30-5.70) Hemoglobin 11.9 g/dL (13.0-17.5) Hematocrit 35.2 % (39.0-53.0) Mean Corpuscular Volume 88 fL (79-100) Mean Corpuscular Hemoglobin 30 pg (25-35) Mean Corpuscular Hemoglobin Concent 34 g/dL (31-37) Red Cell Distribution Width 14.3 % (11.5-14.5) Platelet Count 154 x10^3/uL (140-400) Neutrophils (%) (Auto) 82 % (31-73) Lymphocytes (%) (Auto) 10 % (24-48) Monocytes (%) (Auto) 7 % (0-9) Eosinophils (%) (Auto) 1 % (0-3) Basophils (%) (Auto) 0 % (0-3) Neutrophils # (Auto) 4.8 x10^3/uL (1.8-7.7) Lymphocytes # (Auto) 0.6 x10^3/uL (1.0-4.8) Monocytes # (Auto) 0.4 x10^3/uL (0.0-1.1) Eosinophils # (Auto) 0.1 x10^3/uL (0.0-0.7) Basophils # (Auto) 0.0 x10^3/uL (0.0-0.2) Sodium Level 138 mmol/L (136-145) Potassium Level 4.0 mmol/L (3.5-5.1) Chloride Level 103 mmol/L (98-107) Carbon Dioxide Level 28 mmol/L (21-32) Anion Gap 7 (6-14) Blood Urea Nitrogen 30 mg/dL (8-26) Creatinine 0.6 mg/dL (0.7-1.3) Estimated GFR (Cockcroft-Gault) 139.9 Glucose Level 193 mg/dL (70-99) Calcium Level 8.2 mg/dL (8.5-10.1) Phosphorus Level 3.4 mg/dL (2.6-4.7) Magnesium Level 1.9 mg/dL (1.8-2.4) Test 11/03/20 05:52 11/03/20 08:20 Glucose (Fingerstick) 223 mg/dL (70-99) O2 Saturation 98 % (92-99) Arterial Blood pH 7.50 (7.35-7.45) Arterial Blood pCO2 at Patient Temp 36 mmHg (35-46) Arterial Blood pO2 at Patient Temp 133 mmHg (75-108) Arterial Blood HCO3 27 mmol/L (21-28) Arterial Blood Base Excess 4 mmol/L (-3-3) FiO2 50 Assessment and Plan Assessmemt and Plan Problems Medical Problems: (1) Hyperglycemia Status: Acute (2) Hypoxia Status: Acute (3) Pneumonia due to COVID-19 virus Status: Acute (4) Respiratory failure Status: Acute (5) Septic shock Status: Acute Comment Review of Relevant I have reviewed the following items andrew (where applicable) has been applied. Medications: Current Medications Medications (Trade) Dose Ordered Sig/Gaston Route PRN Reason Start Time Stop Time Status Last Admin Dose Admin Sodium Chloride 90 meq/Potassium Chloride 80 meq/ Potassium Phosphate 5 mmol/ Magnesium Sulfate 10 meq/Calcium Gluconate 8 meq/ Multivitamins 5 ml/Zinc/Copper/ Manganese/ Selenium 1 ml/ Insulin Human Regular 10 unit/ Total Parenteral Nutrition/Amino Acids/Dextrose 1,512 ml @ 63 mls/hr TPN CONT IV 11/02/20 22:00 11/03/20 21:59 11/02/20 21:24 Justifications for Admission Other Justification COVID infection PHILIP VALDEZ MD Nov 03, 2020 12:52
[2020-11-03] MEDS: TPN PER PHARMACY MC PRN (13:56)
--- NOTE | 2020-11-03 13:56 | NUR ---
Pharmacy TPN Dosing Note S: CELIO BLAKE is a 55 year old M Currently receiving Central Continuous TPN started 10/27/20 B:Pertinent PMH: TF INTOLERANCE, STOPPED 10/27 Height: 5 feet, 6 inches Weight: 92.894515 kg Current diet: NPO LABS: Sodium: 138 Potassium: 4 Chloride: 103 Calcium: 8.2 Corrected Calcium: 9.88 Magnesium: 1.9 CO2: 28 SCr: 0.6 Glucose: 193-240 Albumin: 1.9 AST: 15 ALT: 16 TPN FORMULA: TPN TYPE: Central Continuous AMINO ACIDS: 100 gm DEXTROSE: 225 gm LIPIDS: 0 gm SODIUM CHLORIDE: 90 mEq SODIUM ACETATE: mEq SODIUM PHOSPHATE: mmol POTASSIUM CHLORIDE: 80 mEq POTASSIUM ACETATE: mEq POTASSIUM PHOSPHATE: 5 mmol MAGNESIUM: 10 mEq CALCIUM: 8 mEq INSULIN: 10 units MULTIPLE VITAMIN: 5 ml TRACE ELEMENTS: 1 ml(s) TPN PLAN: Lytes stable. Fifteen units SSI given since TPN bag hung, last change to dexamethasone dose 11/01. Added 5 more units insulin to bag, total 15 units. No other changes, next labs 11/07. R: Continue TPN ABOVE. Will monitor electrolytes, glucose, and tolerance to TPN. MARTÍNEZ BRUCE [facility], 11/03/20 [id number]
--- NOTE | 2020-11-03 14:42 | PDOC2 ---
GI CONSULT Date of Service: DATE: 11/03/20 TIME: 14:36 Reason For Consult: PEG HPI: HPI: 55 y/o male admitted 10/21/20 w/ COVID infection (chart indicates positive test on 10/20). Remains on ventilator in ICU w/ plans for tracheostomy tomorrow. D/w nurse - didn't tolerate tube feeds well and has had a lot of OG tube output. On TPN and IV H2 paige. INR was 1.1 on 10/21. PMH: PMH: per chart: PE, DM, HLD, neuropathy, pilonidal cyst Social History: Smoke: No (chews) ALCOHOL: rare ROS: Unable to obtain. Vitals: Vitals: Vital Signs Date Time Temp Pulse Resp B/P (MAP) Pulse Ox O2 Delivery O2 Flow Rate FiO2 11/03/20 13:00 45 26 105/57 (73) 100 Ventilator 11/03/20 12:00 98.6 98.6 Labs: Labs: Laboratory Tests Test 11/02/20 17:46 11/02/20 21:55 11/02/20 23:54 11/03/20 05:45 Glucose (Fingerstick) 239 mg/dL (70-99) 271 mg/dL (70-99) 240 mg/dL (70-99) White Blood Count 5.8 x10^3/uL (4.0-11.0) Red Blood Count 4.02 x10^6/uL (4.30-5.70) Hemoglobin 11.9 g/dL (13.0-17.5) Hematocrit 35.2 % (39.0-53.0) Mean Corpuscular Volume 88 fL (79-100) Mean Corpuscular Hemoglobin 30 pg (25-35) Mean Corpuscular Hemoglobin Concent 34 g/dL (31-37) Red Cell Distribution Width 14.3 % (11.5-14.5) Platelet Count 154 x10^3/uL (140-400) Neutrophils (%) (Auto) 82 % (31-73) Lymphocytes (%) (Auto) 10 % (24-48) Monocytes (%) (Auto) 7 % (0-9) Eosinophils (%) (Auto) 1 % (0-3) Basophils (%) (Auto) 0 % (0-3) Neutrophils # (Auto) 4.8 x10^3/uL (1.8-7.7) Lymphocytes # (Auto) 0.6 x10^3/uL (1.0-4.8) Monocytes # (Auto) 0.4 x10^3/uL (0.0-1.1) Eosinophils # (Auto) 0.1 x10^3/uL (0.0-0.7) Basophils # (Auto) 0.0 x10^3/uL (0.0-0.2) Sodium Level 138 mmol/L (136-145) Potassium Level 4.0 mmol/L (3.5-5.1) Chloride Level 103 mmol/L (98-107) Carbon Dioxide Level 28 mmol/L (21-32) Anion Gap 7 (6-14) Blood Urea Nitrogen 30 mg/dL (8-26) Creatinine 0.6 mg/dL (0.7-1.3) Estimated GFR (Cockcroft-Gault) 139.9 Glucose Level 193 mg/dL (70-99) Calcium Level 8.2 mg/dL (8.5-10.1) Phosphorus Level 3.4 mg/dL (2.6-4.7) Magnesium Level 1.9 mg/dL (1.8-2.4) Test 11/03/20 05:52 11/03/20 08:20 Glucose (Fingerstick) 223 mg/dL (70-99) O2 Saturation 98 % (92-99) Arterial Blood pH 7.50 (7.35-7.45) Arterial Blood pCO2 at Patient Temp 36 mmHg (35-46) Arterial Blood pO2 at Patient Temp 133 mmHg (75-108) Arterial Blood HCO3 27 mmol/L (21-28) Arterial Blood Base Excess 4 mmol/L (-3-3) FiO2 50 Allergies: Coded Allergies: No Known Drug Allergies (Unverified , 10/21/20) Medications: Current Medications Medications (Trade) Dose Ordered Sig/Gaston Route PRN Reason Start Time Stop Time Status Last Admin Dose Admin Sodium Chloride 90 meq/Potassium Chloride 80 meq/ Potassium Phosphate 5 mmol/ Magnesium Sulfate 10 meq/Calcium Gluconate 8 meq/ Multivitamins 5 ml/Zinc/Copper/ Manganese/ Selenium 1 ml/ Insulin Human Regular 10 unit/ Total Parenteral Nutrition/Amino Acids/Dextrose 1,512 ml @ 63 mls/hr TPN CONT IV 11/02/20 22:00 11/03/20 21:59 11/02/20 21:24 Imaging: Imaging: CXR 11/03 IMPRESSION: 1. Life support devices as above. 2. Bilateral diffuse interstitial opacities and patchy alveolar opacities are unchanged. KUB 10/29 Impression: 1. Feeding tube appears to be in satisfactory position. PE: GEN: in COVID isolation/ICU - visual exam done HEENT: Atraumatic LUNGS: vent HEART: some bradycardia noted in chart ABD: bilious NG output, non-distended NEURO/PSYCH: sedated A/P: A/P: COVID infection/resp failure Normocytic anemia -- Plans for tracheostomy placement. Not a good candidate for PEG - didn't tolerate tube feeds, +COVID (test results 14 days ago). KULWINDER-IVY NEWTON Nov 03, 2020 14:42
--- NOTE | 2020-11-03 16:05 | NUR ---
SS following up with discharge planning. SS reviewed pt chart and discussed with pt RN. Pt is currently on the vent at 40%. COVID19 positive. Pt scheduled for trach placement on 11/04/2020. Pt on TPN and IV Cefazolin. Dobhoff in place. SS notified that GI wants to hold on PEG placement until COVID recovered. SS also notified that pt is not tolerating tube feeds. Pt accepted at [facility], ; fax [phone], pending insurance authorization. SS will continue to follow for discharge planning.
[2020-11-03] MEDS: fentaNYL HIGH DOSE PCA 55 ML IV PRN (21:26)
[2020-11-03] MEDS ORDERED: TOTAL PARENTERAL NUTRITION IV SCH (22:00)
[2020-11-03] MEDS ORDERED: AMINO ACID IV SCH (22:00)
[2020-11-03] MEDS ORDERED: DEXTROSE 70% IV SCH (22:00)
[2020-11-03] MEDS ORDERED: [UNRECOGNIZED DRUG - OTHER] IV SCH (22:00)
[2020-11-04] VITALS (24 sets, daily range): BP systolic 87–157; BP diastolic 49–84
[2020-11-04] MEDS: INSULIN LISPRO 300 UNITS/3 ML VIAL. SQ SCH ×4 (00:46→17:05)
[2020-11-04] MEDS: PROPOFOL 100 ML IV PRN ×4 (02:04→17:23)
[2020-11-04] MEDS: THIAMINE 100 MG TABLET. GT SCH ×3 (05:54→20:15)
[2020-11-04] MEDS ORDERED: PROCHLORPERAZINE 10 MG/2 ML VIAL. IVP PRN (06:00)
[2020-11-04] MEDS ORDERED: fentaNYL PF VIAL 100 MCG/2 ML VIAL IVP PRN ×2 (06:00)
[2020-11-04] MEDS ORDERED: HYDROmorphone 2 MG/ML VIAL IVP PRN (06:00)
[2020-11-04] MEDS ORDERED: MORPHINE SULFATE 2 MG/ML VIAL. IVP PRN (06:00)
[2020-11-04] MEDS ORDERED: IV RINGERS,LACTATED 1000ML 1,000 ML IV SCH (06:00)
--- NOTE | 2020-11-04 07:16 | PDOC ---
PULMONARY PROGRESS NOTES DATE: 11/04/20 TIME: 06:56 Subjective Patient remains on ventilatory support, 40% and PEEP of 5 Sedated on propofol and fentanyl Needs with TPN Low Grade fever overnight No other concerns from nursing Vitals Vital Signs Date Time Temp Pulse Resp B/P (MAP) Pulse Ox O2 Delivery O2 Flow Rate FiO2 11/04/20 06:00 80 26 117/62 (80) 100 Ventilator 11/04/20 04:00 99.0 99.0 Comments intubated sedated no accessory muscle use abd obese no rash Labs Laboratory Tests Test 11/02/20 09:05 11/02/20 12:15 11/02/20 17:46 11/02/20 21:55 O2 Saturation 97 % (92-99) Arterial Blood pH 7.49 (7.35-7.45) Arterial Blood pCO2 at Patient Temp 35 mmHg (35-46) Arterial Blood pO2 at Patient Temp 87 mmHg (75-108) Arterial Blood HCO3 26 mmol/L (21-28) Arterial Blood Base Excess 3 mmol/L (-3-3) FiO2 50 Glucose (Fingerstick) 232 mg/dL (70-99) 239 mg/dL (70-99) 271 mg/dL (70-99) Test 11/02/20 23:54 11/03/20 05:45 11/03/20 05:52 11/03/20 08:20 Glucose (Fingerstick) 240 mg/dL (70-99) 223 mg/dL (70-99) White Blood Count 5.8 x10^3/uL (4.0-11.0) Red Blood Count 4.02 x10^6/uL (4.30-5.70) Hemoglobin 11.9 g/dL (13.0-17.5) Hematocrit 35.2 % (39.0-53.0) Mean Corpuscular Volume 88 fL (79-100) Mean Corpuscular Hemoglobin 30 pg (25-35) Mean Corpuscular Hemoglobin Concent 34 g/dL (31-37) Red Cell Distribution Width 14.3 % (11.5-14.5) Platelet Count 154 x10^3/uL (140-400) Neutrophils (%) (Auto) 82 % (31-73) Lymphocytes (%) (Auto) 10 % (24-48) Monocytes (%) (Auto) 7 % (0-9) Eosinophils (%) (Auto) 1 % (0-3) Basophils (%) (Auto) 0 % (0-3) Neutrophils # (Auto) 4.8 x10^3/uL (1.8-7.7) Lymphocytes # (Auto) 0.6 x10^3/uL (1.0-4.8) Monocytes # (Auto) 0.4 x10^3/uL (0.0-1.1) Eosinophils # (Auto) 0.1 x10^3/uL (0.0-0.7) Basophils # (Auto) 0.0 x10^3/uL (0.0-0.2) Sodium Level 138 mmol/L (136-145) Potassium Level 4.0 mmol/L (3.5-5.1) Chloride Level 103 mmol/L (98-107) Carbon Dioxide Level 28 mmol/L (21-32) Anion Gap 7 (6-14) Blood Urea Nitrogen 30 mg/dL (8-26) Creatinine 0.6 mg/dL (0.7-1.3) Estimated GFR (Cockcroft-Gault) 139.9 Glucose Level 193 mg/dL (70-99) Calcium Level 8.2 mg/dL (8.5-10.1) Phosphorus Level 3.4 mg/dL (2.6-4.7) Magnesium Level 1.9 mg/dL (1.8-2.4) O2 Saturation 98 % (92-99) Arterial Blood pH 7.50 (7.35-7.45) Arterial Blood pCO2 at Patient Temp 36 mmHg (35-46) Arterial Blood pO2 at Patient Temp 133 mmHg (75-108) Arterial Blood HCO3 27 mmol/L (21-28) Arterial Blood Base Excess 4 mmol/L (-3-3) FiO2 50 Test 11/03/20 11:50 11/03/20 17:21 11/04/20 00:17 11/04/20 06:01 Glucose (Fingerstick) 230 mg/dL (70-99) 256 mg/dL (70-99) 214 mg/dL (70-99) 168 mg/dL (70-99) Laboratory Tests Test 11/03/20 08:20 11/03/20 11:50 11/03/20 17:21 11/04/20 00:17 O2 Saturation 98 % (92-99) Arterial Blood pH 7.50 (7.35-7.45) Arterial Blood pCO2 at Patient Temp 36 mmHg (35-46) Arterial Blood pO2 at Patient Temp 133 mmHg (75-108) Arterial Blood HCO3 27 mmol/L (21-28) Arterial Blood Base Excess 4 mmol/L (-3-3) FiO2 50 Glucose (Fingerstick) 230 mg/dL (70-99) 256 mg/dL (70-99) 214 mg/dL (70-99) Test 11/04/20 06:01 Glucose (Fingerstick) 168 mg/dL (70-99) Comments CXR 11/03 bilateral unchanged infiltrates Impression . IMPRESSION: 1. Acute hypoxemic respiratory failure secondary to COVID-19 viral pneumonia--moderate secretions--plan for tracheostomy 2. COVID-19 viral pneumonia/sepsis. 3. Abnormal x-ray compatible with SARS-CoV-2 infection. 4. Acute kidney injury-- improved, azotemia 5. Severe hypoxemia, elevated D-dimer, possible thromboembolic disease. 6. Morbid obesity. 7. Protein malnutrition, present upon admission. 8. Elevated troponin. 9. CXR 10/26 , worsening infiltrates, possible aspiration 10. sputum culture positive for staph A. Plan . PLAN: Continue current ventilatory support, 26/500/40/%/5 Follow ABG/chest x-ray, changes as needed Tube feeding on hold, plan for tracheostomy today at 2:45 COVID-19 positive Has completed full course of remdesivir Discontinue dexamethasone as patient has completed a full 10-day course Clinically improving, dopplers with no DVT. heparin SQ BID Follow GI recommendations Continue TPN for nutritional support Sputum culture positive for Staph A. now on cefazolin DVT/GI prophylaxis Discussed with RN and RT critically ill Critical care time [id number] ASIA MOTTA MD Nov 04, 2020 07:16
[2020-11-04] MEDS: MIDAZOLAM 100mg/100ml NS BAG 100 ML IV PRN ×2 (08:02→17:23)
[2020-11-04] MEDS: FAMOTIDINE 20 MG/2 ML VIAL IVP SCH ×2 (08:58→20:16)
[2020-11-04] MEDS: ASCORBIC ACID 1,000 MG TABLET PO SCH ×3 (08:58→20:15)
[2020-11-04] MEDS: ZINC SULFATE 220 MG CAPSULE. PO SCH (08:58)
[2020-11-04] MEDS: INSULIN GLARGINE SYRINGE. SQ SCH ×2 (08:59→20:17)
--- NOTE | 2020-11-04 10:03 | PDOC ---
[employer] PROGRESS NOTE Date of Service DOS: DATE: 11/04/20 TIME: 10:02 Chief Complaint Chief Complaint sepsis Acute hypoxemic respiratory failure secondary to COVID-19 viral pneumonia. intubated and sedated acute renal failure, vasomotor nephropathy and sepsis, ATN poss gram negative bacterial pneumonia Dm2, with hyperglycemia, poor control, obese, BMI 36 Severe protein malnutrition, present upon admission. History of Present Illness History of Present Illness 11/04/2020 No acute events overnight. Afebrile. Vent settings 26/500/40 %/5. Pending tracheostomy today. Patient's chart, labs, images were reviewed and discussed with RN 11/03/2020 No acute events overnight. Patient's vent settings are 26/500/40%/5. Pending tracheostomy tomorrow. Will hold tube feeds and heparin. Patient's chart, labs, images were reviewed and discussed with RN 11/02/2020 No acute events overnight. Current vent settings are 26/500/50%/6 PEEP. Patient still sedated and intubated. Plan for trach sometime this week. General surgery consulted. Patient's chart, labs, images were reviewed and discussed with RN 11/01/2020 No acute events overnight. Patient saturating 100% on vent settings of 26/500/50%/7. ABG is pH is 7.45, PCO2 42, PO2 89, HCO3 28.> 50% time spent in patient chart, labs, and imaging review and in discussion with RN and SW 10/31/2020 No acute events overnight. Increasing O2 requirements to 100%. Current vent settings at 16/450/100%/5. Most recent ABG pH is 7.45, PCO2 41, PO2 66, HCO3 28.> 50% time spent in patient chart, labs, and imaging review and in discussion with RN and SW 10/30. FIO2 down to 40%, cont current, wean as able discussed with RN ' 10/29, down to PEEP 5, on 45 %, breathing better, still sedated, will try to allow to wake up and follow commands somewhat better still struggling, 10/28, I keep increasing his LANTUS insulin dosing, and his blood sugars are back up again today will increase lantus o 60 BID and do 22 u x1, cont the SSI, that is additional 42 u today 10/27. ABG didnt look very good this AM with ongoing hypoxia, oxygen Sa02 is 60%, still sedate 10/[address] Morrow, CXR worse, abx started, start zosyn, cover for pneumonia ICU care, 35min cont current follow labs, intubated and sedated changed insulin dose, lantus started yesterday, will make 30 BID, on tube feeds and on IV steroids, Vitals/I&O Vitals/I&O: Vital Signs Date Time Temp Pulse Resp B/P (MAP) Pulse Ox O2 Delivery O2 Flow Rate FiO2 11/04/20 09:00 80 26 111/83 (92) 100 Ventilator 11/04/20 08:00 98.9 98.9 I & O 11/03/20 11/03/20 11/04/20 14:59 22:59 06:59 Intake Total 1196.9 ml 1276.29 ml Output Total 525 ml 1145 ml 750 ml Balance -525 ml 51.9 ml 526.29 ml Physical Exam Physical Exam: intubated, sedated on vent, General: Other (sedated ) Heart: Normal S1, Normal S2 Abdomen: Normal bowel sounds, Soft Extremities: No clubbing, No cyanosis Skin: No rashes Labs Labs: Laboratory Tests Test 11/03/20 11:50 11/03/20 17:21 11/04/20 00:17 11/04/20 06:01 Glucose (Fingerstick) 230 mg/dL (70-99) 256 mg/dL (70-99) 214 mg/dL (70-99) 168 mg/dL (70-99) Assessment and Plan Assessmemt and Plan Problems Medical Problems: (1) Hyperglycemia Status: Acute (2) Hypoxia Status: Acute (3) Pneumonia due to COVID-19 virus Status: Acute (4) Respiratory failure Status: Acute (5) Septic shock Status: Acute Comment Review of Relevant I have reviewed the following items andrew (where applicable) has been applied. Medications: Current Medications Medications (Trade) Dose Ordered Sig/Gaston Route PRN Reason Start Time Stop Time Status Last Admin Dose Admin Sodium Chloride 90 meq/Potassium Chloride 80 meq/ Potassium Phosphate 5 mmol/ Magnesium Sulfate 10 meq/Calcium Gluconate 8 meq/ Multivitamins 5 ml/Zinc/Copper/ Manganese/ Selenium 1 ml/ Insulin Human Regular 15 unit/ Total Parenteral Nutrition/Amino Acids/Dextrose 1,512 ml @ 63 mls/hr TPN CONT IV 11/03/20 22:00 11/04/20 21:59 11/03/20 22:03 Justifications for Admission Other Justification COVID infection PHILIP VALDEZ MD Nov 04, 2020 10:03
--- NOTE | 2020-11-04 10:58 | PDOC ---
Date of Service: DATE: 11/04/20 TIME: 10:57 Objective: Objective: D/w nurse - for trach today, still significant NG output. Vital Signs: Vital Signs Date Time Temp Pulse Resp B/P (MAP) Pulse Ox O2 Delivery O2 Flow Rate FiO2 11/04/20 10:00 64 26 87/49 (62) 100 Ventilator 11/04/20 08:00 98.9 98.9 Labs: Laboratory Tests Test 11/03/20 11:50 11/03/20 17:21 11/04/20 00:17 11/04/20 06:01 Glucose (Fingerstick) 230 mg/dL (70-99) 256 mg/dL (70-99) 214 mg/dL (70-99) 168 mg/dL (70-99) PE: GEN: COVID isolation/visual exam LUNGS: vent HEART: RR ABD: non-distended, brownish/bilious output from gastric tube NEURO/PSYCH: A & O 3 A/P: COVID infection (+10/20)/resp failure -- Plans for trach, currently not a good PEG candidate. Justicifation of Admission Dx: Justifications for Admission: Justification of Admission Dx: Yes (sepsis, covid, resp failure) IVY JENKINS Nov 04, 2020 10:58
--- NOTE | 2020-11-04 11:00 | NUR ---
SS following up with discharge planning. SS reviewed pt chart and discussed with pt RN. Pt is currently on the vent at 40%. COVID19 positive. Pt scheduled for trach placement today. Pt on TPN and IV Cefazolin. Dobhoff in place. Pt accepted at [facility], ; fax [phone], pending insurance authorization. SS will continue to follow for discharge planning.
[2020-11-04] MEDS: TPN PER PHARMACY MC PRN ×2 (11:36→11:41)
--- NOTE | 2020-11-04 11:42 | NUR ---
Pharmacy TPN Dosing Note S: CELIO BLAKE is a 55 year old M Currently receiving Central Continuous TPN started 10/27/20 B:Pertinent PMH: TF INTOLERANCE, STOPPED 10/27 Height: 5 feet, 6 inches Weight: 92.4 kg Current diet: NPO LABS: Sodium: 138 Potassium: 4 Chloride: 103 Calcium: 8.2 Corrected Calcium: 9.88 Magnesium: 1.9 CO2: 28 SCr: 0.6 Glucose: 168-214 Albumin: 1.9 AST: 15 ALT: 16 TPN FORMULA: TPN TYPE: Central Continuous AMINO ACIDS: 100 gm DEXTROSE: 225 gm LIPIDS: 0 gm SODIUM CHLORIDE: 90 mEq SODIUM ACETATE: mEq SODIUM PHOSPHATE: mmol POTASSIUM CHLORIDE: 80 mEq POTASSIUM ACETATE: mEq POTASSIUM PHOSPHATE: 5 mmol MAGNESIUM: 10 mEq CALCIUM: 8 mEq INSULIN: 15 units MULTIPLE VITAMIN: 5 ml TRACE ELEMENTS: 1 ml(s) TPN PLAN: No labs today due to stability. BG 168-214 today but dexamethasone was DCed this AM so removed 5 units insulin from bag (10 units remain). No other changes, BMP in AM. R: Continue TPN ABOVE. Will monitor electrolytes, glucose, and tolerance to TPN. MARTÍNEZ BRUCE [facility], 11/04/20 [id number]
[2020-11-04] MEDS ORDERED: SURGICEL FIBRILLAR 1X2 EACH. ONE (11:54)
--- NOTE | 2020-11-04 12:00 | PDOC ---
SURGICAL PROGRESS NOTE DATE: 11/04/20 TIME: 11:58 Subjective Pre-Op Note 55 yo M respiratory failure secondary to covid Plan tracheostomy placement in ICU. R/R/B/A d/w pt's , via phone. Risks, including, but not limited to: bleeding, infection, damage to surrounding structures, risk of anesthesia. She appears to understand, her questions are answered and she elects to proceed. Vital Signs Vital Signs Date Time Temp Pulse Resp B/P (MAP) Pulse Ox O2 Delivery O2 Flow Rate FiO2 11/04/20 11:00 70 26 104/61 (75) 100 Ventilator 11/04/20 08:00 98.9 98.9 I&O Intake and Output 11/04/20 07:00 Intake Total 2473.19 ml Output Total 2420 ml Balance 53.19 ml Intake Oral 0 ml IV Total 2473.19 ml Output Urine Total 2420 ml Labs Laboratory Tests Test 11/02/20 12:15 11/02/20 17:46 11/02/20 21:55 11/02/20 23:54 Glucose (Fingerstick) 232 mg/dL (70-99) 239 mg/dL (70-99) 271 mg/dL (70-99) 240 mg/dL (70-99) Test 11/03/20 05:45 11/03/20 05:52 11/03/20 08:20 11/03/20 11:50 White Blood Count 5.8 x10^3/uL (4.0-11.0) Red Blood Count 4.02 x10^6/uL (4.30-5.70) Hemoglobin 11.9 g/dL (13.0-17.5) Hematocrit 35.2 % (39.0-53.0) Mean Corpuscular Volume 88 fL (79-100) Mean Corpuscular Hemoglobin 30 pg (25-35) Mean Corpuscular Hemoglobin Concent 34 g/dL (31-37) Red Cell Distribution Width 14.3 % (11.5-14.5) Platelet Count 154 x10^3/uL (140-400) Neutrophils (%) (Auto) 82 % (31-73) Lymphocytes (%) (Auto) 10 % (24-48) Monocytes (%) (Auto) 7 % (0-9) Eosinophils (%) (Auto) 1 % (0-3) Basophils (%) (Auto) 0 % (0-3) Neutrophils # (Auto) 4.8 x10^3/uL (1.8-7.7) Lymphocytes # (Auto) 0.6 x10^3/uL (1.0-4.8) Monocytes # (Auto) 0.4 x10^3/uL (0.0-1.1) Eosinophils # (Auto) 0.1 x10^3/uL (0.0-0.7) Basophils # (Auto) 0.0 x10^3/uL (0.0-0.2) Sodium Level 138 mmol/L (136-145) Potassium Level 4.0 mmol/L (3.5-5.1) Chloride Level 103 mmol/L (98-107) Carbon Dioxide Level 28 mmol/L (21-32) Anion Gap 7 (6-14) Blood Urea Nitrogen 30 mg/dL (8-26) Creatinine 0.6 mg/dL (0.7-1.3) Estimated GFR (Cockcroft-Gault) 139.9 Glucose Level 193 mg/dL (70-99) Calcium Level 8.2 mg/dL (8.5-10.1) Phosphorus Level 3.4 mg/dL (2.6-4.7) Magnesium Level 1.9 mg/dL (1.8-2.4) Glucose (Fingerstick) 223 mg/dL (70-99) 230 mg/dL (70-99) O2 Saturation 98 % (92-99) Arterial Blood pH 7.50 (7.35-7.45) Arterial Blood pCO2 at Patient Temp 36 mmHg (35-46) Arterial Blood pO2 at Patient Temp 133 mmHg (75-108) Arterial Blood HCO3 27 mmol/L (21-28) Arterial Blood Base Excess 4 mmol/L (-3-3) FiO2 50 Test 11/03/20 17:21 11/04/20 00:17 11/04/20 06:01 Glucose (Fingerstick) 256 mg/dL (70-99) 214 mg/dL (70-99) 168 mg/dL (70-99) Laboratory Tests Test 11/03/20 17:21 11/04/20 00:17 11/04/20 06:01 Glucose (Fingerstick) 256 mg/dL (70-99) 214 mg/dL (70-99) 168 mg/dL (70-99) Problem List Problems Medical Problems: (1) Hyperglycemia Status: Acute (2) Hypoxia Status: Acute (3) Pneumonia due to COVID-19 virus Status: Acute (4) Respiratory failure Status: Acute (5) Septic shock Status: Acute Justicifation of Admission Dx: Justifications for Admission: Justification of Admission Dx: Yes (sepsis, covid, resp failure) KIRT KIDD MD Nov 04, 2020 12:00
[2020-11-04] MEDS ORDERED: ROCURONIUM 50 MG/5 ML VIAL. ONE (12:05)
--- NOTE | 2020-11-04 13:29 | PDOC4 ---
OPERATIVE NOTE Date: Date: Nov 04, 2020 Pre-Op Diagnosis: Respiratory failure Post-Op Diagnosis: same Procedure Performed: Tracheostomy (specifically bedside percutaneous 8 shiley cuffed) Surgeon: Pete Kdid Anesthesia Type: GETA plus local Blood Loss: minimal Specimans Obtained: none Findings: normal anatomy Complications: none Operative Note: After obtaining informed consent, patient was induced under GETA by anesthesia and prepped in the usual fashion over the anterior neck. Vertical incision was made 2 cm above sternal notch. Seldinger technique used to access trachea and air aspirated. Blue rhino system used to dilated up tracheotomy. Shiley tracheostomy introduced and end tidal CO2 detected. Patient was successfully v entilated and oxygenated via tracheostomy. Tracheostomy secured with 3 0 prolene and trach collar. Patient tolerated procedure well. Wound class is 3. KIRT KIDD MD Nov 04, 2020 13:29
[2020-11-04] MEDS: HEPARIN for SUB-Q USE 5,000 UNIT/ML VIAL. SQ SCH (20:15)
[2020-11-04] MEDS: fentaNYL HIGH DOSE PCA 55 ML IV PRN (20:43)
[2020-11-04] MEDS ORDERED: DEXTROSE 70% IV SCH (22:00)
[2020-11-04] MEDS ORDERED: AMINO ACID IV SCH (22:00)
[2020-11-04] MEDS ORDERED: TOTAL PARENTERAL NUTRITION IV SCH (22:00)
[2020-11-04] MEDS ORDERED: [UNRECOGNIZED DRUG - OTHER] IV SCH (22:00)
[2020-11-05] VITALS (24 sets, daily range): BP systolic 98–134; BP diastolic 51–76
[2020-11-05] MEDS: ACETAMINOPHEN 325 MG TABLET. PO PRN (02:55)
--- NOTE | 2020-11-05 05:36 | NUR ---
fever of 102.5 at 3am. Tylenol given. Temp 102.[address] Still. Orders received.
[2020-11-05] MEDS: THIAMINE 100 MG TABLET. GT SCH ×3 (05:50→20:36)
[2020-11-05] MEDS: INSULIN LISPRO 300 UNITS/3 ML VIAL. SQ SCH ×4 (06:00→18:00)
--- NOTE | 2020-11-05 06:30 | NUR ---
Dr De Los Santos here for rounds. Notified of new consult due to fever during the night. Orders received
[2020-11-05 06:34] LABS: BASO % 0 % (0-3); EOS # 0.1 x10^3/uL (0.0-0.7); EOS % 1 % (0-3); HEMATOCRIT 36.4 % (39.0-53.0); HEMOGLOBIN 12.1 g/dL (13.0-17.5); LYMPH # 0.7 x10^3/uL (1.0-4.8); LYMPH % 8 % (24-48); MEAN CORPUSCULAR HEMOGLOBIN 29 pg (25-35); MEAN CORPUSCULAR HGB CONC 33 g/dL (31-37); MEAN CORPUSCULAR VOLUME 88 fL (79-100); MONO # 0.5 x10^3/uL (0.0-1.1); MONO % 6 % (0-9); NEUT # 6.9 x10^3/uL (1.8-7.7); NEUT % 85 % (31-73); PLATELET COUNT 148 x10^3/uL (140-400); RED BLOOD COUNT 4.14 x10^6/uL (4.30-5.70); RED CELL DISTRIBUTION WIDTH 14.5 % (11.5-14.5); WHITE BLOOD COUNT 8.1 x10^3/uL (4.0-11.0)
--- NOTE | 2020-11-05 06:35 | PDOC ---
Infectious Disease Note Vital Sign Vital Signs Vital Signs Date Time Temp Pulse Resp B/P (MAP) Pulse Ox O2 Delivery O2 Flow Rate FiO2 11/05/20 05:00 76 26 118/70 (86) 100 Ventilator 11/05/20 04:00 102.1 102.1 Physical Exam PHYSICAL EXAM intubated, sedated on vent, Labs Lab Laboratory Tests Test 11/04/20 16:27 11/05/20 00:03 11/05/20 06:04 Glucose (Fingerstick) 147 mg/dL (70-99) 120 mg/dL (70-99) 123 mg/dL (70-99) Micro Microbiology 10/26/20 Gram Stain Evaluation - Final, Complete 10/26/20 Respiratory Culture - Final, Complete 10/26/20 Antimicrobic Susceptibility - Final, Complete 10/21/20 Blood Culture - Final, Complete NO GROWTH AFTER 5 DAYS Objective Assessment Fever S/p Trach 11/04 H/o MSSA sputum 10/26 ? Gastroparesis Acute Hypoxic resp failure s/p Trach 40 % Fi 02 and 5 of PEEP Obesity H/o COVID s/p Dexamtheasone and Remdesivir. Last Dexa 11/04 On TPN DM Plan Plan of Care Blood cults already ordered Check Sputum and Urine Add Procalcitonin Begin Vanc/Cefepime/Flagyl/Fluconazole F/u labs D/w nursing 35 mins CC time Thank you # [phone] IVAN SANABRIA MD Nov 05, 2020 06:35
[2020-11-05 06:43] LABS: CALCIUM 8.3 mg/dL (8.5-10.1); CREATININE 0.6 mg/dL (0.7-1.3); GFR 139.9; POTASSIUM 3.9 mmol/L (3.5-5.1)
[2020-11-05] MEDS: MIDAZOLAM 100mg/100ml NS BAG 100 ML IV PRN (06:57)
[2020-11-05] MEDS: PROPOFOL 100 ML IV PRN ×2 (07:55→16:10)
--- NOTE | 2020-11-05 08:02 | PDOC ---
PULMONARY PROGRESS NOTES DATE: 11/05/20 TIME: 07:58 Subjective Patient remains on ventilatory support, 40% and PEEP of 5 S/P trach 11/04/20 fever overnight No other concerns from nursing Vitals Vital Signs Date Time Temp Pulse Resp B/P (MAP) Pulse Ox O2 Delivery O2 Flow Rate FiO2 11/05/20 07:00 78 26 114/66 (82) 100 Ventilator 11/05/20 04:00 102.1 102.1 Comments trach sedated no accessory muscle use abd obese no rash Labs Laboratory Tests Test 11/03/20 08:20 11/03/20 11:50 11/03/20 17:21 11/04/20 00:17 O2 Saturation 98 % (92-99) Arterial Blood pH 7.50 (7.35-7.45) Arterial Blood pCO2 at Patient Temp 36 mmHg (35-46) Arterial Blood pO2 at Patient Temp 133 mmHg (75-108) Arterial Blood HCO3 27 mmol/L (21-28) Arterial Blood Base Excess 4 mmol/L (-3-3) FiO2 50 Glucose (Fingerstick) 230 mg/dL (70-99) 256 mg/dL (70-99) 214 mg/dL (70-99) Test 11/04/20 06:01 11/04/20 16:27 11/05/20 00:03 11/05/20 05:30 Glucose (Fingerstick) 168 mg/dL (70-99) 147 mg/dL (70-99) 120 mg/dL (70-99) White Blood Count 8.1 x10^3/uL (4.0-11.0) Red Blood Count 4.14 x10^6/uL (4.30-5.70) Hemoglobin 12.1 g/dL (13.0-17.5) Hematocrit 36.4 % (39.0-53.0) Mean Corpuscular Volume 88 fL (79-100) Mean Corpuscular Hemoglobin 29 pg (25-35) Mean Corpuscular Hemoglobin Concent 33 g/dL (31-37) Red Cell Distribution Width 14.5 % (11.5-14.5) Platelet Count 148 x10^3/uL (140-400) Neutrophils (%) (Auto) 85 % (31-73) Lymphocytes (%) (Auto) 8 % (24-48) Monocytes (%) (Auto) 6 % (0-9) Eosinophils (%) (Auto) 1 % (0-3) Basophils (%) (Auto) 0 % (0-3) Neutrophils # (Auto) 6.9 x10^3/uL (1.8-7.7) Lymphocytes # (Auto) 0.7 x10^3/uL (1.0-4.8) Monocytes # (Auto) 0.5 x10^3/uL (0.0-1.1) Eosinophils # (Auto) 0.1 x10^3/uL (0.0-0.7) Basophils # (Auto) 0.0 x10^3/uL (0.0-0.2) Sodium Level 135 mmol/L (136-145) Potassium Level 3.9 mmol/L (3.5-5.1) Chloride Level 103 mmol/L (98-107) Carbon Dioxide Level 26 mmol/L (21-32) Anion Gap 6 (6-14) Blood Urea Nitrogen 26 mg/dL (8-26) Creatinine 0.6 mg/dL (0.7-1.3) Estimated GFR (Cockcroft-Gault) 139.9 Glucose Level 119 mg/dL (70-99) Calcium Level 8.3 mg/dL (8.5-10.1) Test 11/05/20 06:04 Glucose (Fingerstick) 123 mg/dL (70-99) Laboratory Tests Test 11/04/20 16:27 11/05/20 00:03 11/05/20 05:30 11/05/20 06:04 Glucose (Fingerstick) 147 mg/dL (70-99) 120 mg/dL (70-99) 123 mg/dL (70-99) White Blood Count 8.1 x10^3/uL (4.0-11.0) Red Blood Count 4.14 x10^6/uL (4.30-5.70) Hemoglobin 12.1 g/dL (13.0-17.5) Hematocrit 36.4 % (39.0-53.0) Mean Corpuscular Volume 88 fL (79-100) Mean Corpuscular Hemoglobin 29 pg (25-35) Mean Corpuscular Hemoglobin Concent 33 g/dL (31-37) Red Cell Distribution Width 14.5 % (11.5-14.5) Platelet Count 148 x10^3/uL (140-400) Neutrophils (%) (Auto) 85 % (31-73) Lymphocytes (%) (Auto) 8 % (24-48) Monocytes (%) (Auto) 6 % (0-9) Eosinophils (%) (Auto) 1 % (0-3) Basophils (%) (Auto) 0 % (0-3) Neutrophils # (Auto) 6.9 x10^3/uL (1.8-7.7) Lymphocytes # (Auto) 0.7 x10^3/uL (1.0-4.8) Monocytes # (Auto) 0.5 x10^3/uL (0.0-1.1) Eosinophils # (Auto) 0.1 x10^3/uL (0.0-0.7) Basophils # (Auto) 0.0 x10^3/uL (0.0-0.2) Sodium Level 135 mmol/L (136-145) Potassium Level 3.9 mmol/L (3.5-5.1) Chloride Level 103 mmol/L (98-107) Carbon Dioxide Level 26 mmol/L (21-32) Anion Gap 6 (6-14) Blood Urea Nitrogen 26 mg/dL (8-26) Creatinine 0.6 mg/dL (0.7-1.3) Estimated GFR (Cockcroft-Gault) 139.9 Glucose Level 119 mg/dL (70-99) Calcium Level 8.3 mg/dL (8.5-10.1) Comments CXR 11/03 bilateral unchanged infiltrates Impression . IMPRESSION: 1. Acute hypoxemic respiratory failure secondary to COVID-19 viral pneumonia--moderate secretions--S/P tracheostomy 10/27 2. COVID-19 viral pneumonia/sepsis. 3. Abnormal x-ray compatible with SARS-CoV-2 infection. 4. Acute kidney injury-- improved, azotemia 5. Severe hypoxemia, elevated D-dimer, possible thromboembolic disease. 6. Morbid obesity. 7. Protein malnutrition, present upon admission. 8. Elevated troponin. 9. CXR 10/26 , worsening infiltrates, possible aspiration 10. sputum culture positive for staph A. Plan . PLAN: Continue current ventilatory support, 40% and PEEP of 5 Follow ABG/chest x-ray, changes as needed S/P tracheostomy on 11/04/20-- hold weaning for 48 hours S/P trach COVID-19 positive Has completed full course of remdesivir Patient has completed a full 10-day course of steroids Clinically improving, dopplers with no DVT. heparin SQ BID Follow GI recommendations-- will need PEG Continue TPN for nutritional support Antibiotics Per ID-- Sputum culture positive for Staph A. DVT/GI prophylaxis Discussed with RN and RT critically ill Social work for D/C planning -- LTACH Critical care time [id number] ASIA MOTTA MD Nov 05, 2020 08:02
[2020-11-05] MEDS: FLUCONAZOLE 400MG/200ML PREMIX 200 ML IV SCH (08:43)
[2020-11-05] MEDS: FAMOTIDINE 20 MG/2 ML VIAL IVP SCH ×2 (08:45→20:34)
[2020-11-05] MEDS: ASCORBIC ACID 1,000 MG TABLET PO SCH ×3 (08:45→20:34)
[2020-11-05] MEDS: ZINC SULFATE 220 MG CAPSULE. PO SCH (08:46)
[2020-11-05] MEDS: CEFEPIME HCL IV Push 2 GM VIAL. IVP SCH ×2 (08:46→15:04)
[2020-11-05] MEDS: HEPARIN for SUB-Q USE 5,000 UNIT/ML VIAL. SQ SCH ×2 (08:46→20:35)
[2020-11-05] MEDS: INSULIN GLARGINE SYRINGE. SQ SCH ×2 (08:49→20:36)
[2020-11-05 09:08] LABS: BASE EXCESS ABG 1 mmol/L (-3-3); FIO2 ABG 40/VENT; HCO3 ABG 24 mmol/L (21-28); PCO2 ABG 33 mmHg (35-46); PO2 ABG 91 mmHg (75-108); SAT O2 ABG 97 % (92-99)
[2020-11-05] MEDS ORDERED: VANCOMYCIN PER PHARMACY MC PRN (09:15)
[2020-11-05 09:25] LABS: BILIRUBIN,URINE NEGATIVE (NEG); CLARITY,URINE CLEAR; COLOR,URINE AMBER; NITRITE,URINE NEGATIVE (NEG); PH,URINE 5.5 (<5.0-8.0); PROTEIN,URINE NEGATIVE (NEG-TRACE)
[2020-11-05] MEDS: TPN PER PHARMACY MC PRN (09:31)
--- NOTE | 2020-11-05 09:38 | CONS ---
DATE OF CONSULTATION: 11/05/2020 PATIENT'S ROOM: ICU 5. REQUESTING PHYSICIAN: Dr. Still. REASON FOR CONSULTATION: Fever. HISTORY OF PRESENT ILLNESS: The patient is currently intubated, sedated, unable to provide any past medical history, history of present illness or review of systems. This information is obtained mainly from the chart and discussion with the nurse. The patient is a 55-year-old gentleman brought in by EMS secondary to shortness of air on approximately 10/21/2020. He had tested positive reportedly on 10/20/2020 for COVID-19. He had been treated with remdesivir and dexamethasone. Additionally, he has received antibiotics including azithromycin, vancomycin as well as Zosyn. On 10/26/2020, he had a sputum that was positive for MSSA. He remains intubated; and yesterday, he underwent tracheostomy. He is having issues with gastroparesis so the PEG tube has not been able to be placed and he is on TPN. He spiked a temperature this morning of up to 102.5; hence, I have been consulted. PAST MEDICAL HISTORY: Positive for COVID, history of PE, diabetes, hyperlipidemia, neuropathy, pilonidal cyst, morbid obesity. PAST SURGICAL HISTORY: Positive for the above-mentioned trach. REVIEW OF SYSTEMS: Unavailable. SOCIAL HISTORY: No tobacco history listed, but he does chew. Alcohol, rare. FAMILY HISTORY: Noncontributory. ALLERGIES: No known drug allergies. CURRENT MEDICATIONS: Include cefazolin, Diprivan, fentanyl, insulin, ascorbic acid, he did receive dexamethasone until 11/04/2020, Pepcid, heparin, hydralazine, thiamine, TPN. PHYSICAL EXAMINATION: VITAL SIGNS: Current temperature of 102.1, pulse of 76, respirations 26, blood pressure 118/70, he is satting 100% on the ventilator, currently on 40% FiO2 and 5 of PEEP. GENERAL: He is intubated. He is sedated. HEENT: Pupils are small. Normal conjunctivae. OG tube and ET tube in place. NECK: Supple. LUNGS: Decreased in the bases. HEART: S1, S2. ABDOMEN: Obese, soft, decreased bowel sounds. GENITOURINARY: Thomson is in place. EXTREMITIES: Without clubbing, cyanosis or gross edema. SKIN: Warm to touch without signs of generalized rash. NEUROLOGICAL: He is intubated and sedated. ACCESS: PICC line in the right upper extremity without signs of any complications. LABORATORY DATA: Laboratory values from 11/03/2020: Recent white count 5.8, hemoglobin 11.9, platelets 154, neutrophils 82. Most recent glucose of 123. Blood cultures from 10/21/2020 negative. Again, the 10/26/2020 sputum has MSSA. IMAGING STUDIES: Chest x-ray from 11/03/2020, bilateral diffuse interstitial opacities and patchy alveolar opacities are unchanged. IMPRESSION: 1. Fever. 2. Status post tracheostomy on 11/04/2020. 3. 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 4. Gastroparesis, questionable. 5. Acute hypoxic respiratory failure, status post tracheostomy, 40% FiO2 and 5 of PEEP. 6. Obesity. 7. History of COVID, status post dexamethasone and remdesivir, last dexamethasone on 11/04/2020. Currently on TPN. 8. Diabetes. RECOMMENDATIONS: Blood cultures are already ordered. We will check sputum as well as urine. Add a procalcitonin to today's labs. Begin vancomycin, cefepime, Flagyl and fluconazole. Follow up labs. This was discussed with nursing. I spent 35 minutes of critical care time. Thank you for the patient's care. If you have any questions, please do not hesitate to contact me. IVAN SANABRIA MD DR: BREE/sonali JOB#: [id number] / [id number] SANDY
[2020-11-05 09:50] LABS: BACTERIA,URINE FEW /HPF (0-FEW); RBC,URINE RARE /HPF (0-2)
--- NOTE | 2020-11-05 10:58 | PDOC ---
[facility] PROGRESS NOTE Date of Service DOS: DATE: 11/05/20 TIME: 10:56 Chief Complaint Chief Complaint sepsis Acute hypoxemic respiratory failure secondary to COVID-19 viral pneumonia. intubated and sedated, status post tracheostomy 11/04/2020 acute renal failure, vasomotor nephropathy and sepsis, ATN poss gram negative bacterial pneumonia Dm2, with hyperglycemia, poor control, obese, BMI 36 Severe protein malnutrition, present upon admission. History of Present Illness History of Present Illness 11/05/2020 No acute events overnight. Fever of 102.5 last night. ID was consulted and empiric IV antibiotics and antifungal coverage was started. Tracheostomy completed yesterday. Current vent settings 26/500/35%/5. Patient's chart, labs, images were reviewed and discussed with RN 11/04/2020 No acute events overnight. Afebrile. Vent settings 26/500/40 %/5. Pending tracheostomy today. Patient's chart, labs, images were reviewed and discussed with RN 11/03/2020 No acute events overnight. Patient's vent settings are 26/500/40%/5. Pending tracheostomy tomorrow. Will hold tube feeds and heparin. Patient's chart, labs, images were reviewed and discussed with RN 11/02/2020 No acute events overnight. Current vent settings are 26/500/50%/6 PEEP. Patient still sedated and intubated. Plan for trach sometime this week. General surgery consulted. Patient's chart, labs, images were reviewed and di scussed with RN 11/01/2020 No acute events overnight. Patient saturating 100% on vent settings of 26/500/50%/7. ABG is pH is 7.45, PCO2 42, PO2 89, HCO3 28.> 50% time spent in patient chart, labs, and imaging review and in discussion with RN and SW 10/31/2020 No acute events overnight. Increasing O2 requirements to 100%. Current vent settings at 16/450/100%/5. Most recent ABG pH is 7.45, PCO2 41, PO2 66, HCO3 28.> 50% time spent in patient chart, labs, and imaging review and in discussion with RN and SW 10/30. FIO2 down to 40%, cont current, wean as able discussed with RN ' 10/29, down to PEEP 5, on 45 %, breathing better, still sedated, will try to allow to wake up and follow commands somewhat better still struggling, 10/28, I keep increasing his LANTUS insulin dosing, and his blood sugars are back up again today will increase lantus o 60 BID and do 22 u x1, cont the SSI, that is additional 42 u today 10/27. ABG didnt look very good this AM with ongoing hypoxia, oxygen Sa02 is 60%, still sedate 10/[address] Morrow, CXR worse, abx started, start zosyn, cover for pneumonia ICU care, 35min cont current follow labs, intubated and sedated changed insulin dose, lantus started yesterday, will make 30 BID, on tube feeds and on IV steroids, Vitals/I&O Vitals/I&O: Vital Signs Date Time Temp Pulse Resp B/P (MAP) Pulse Ox O2 Delivery O2 Flow Rate FiO2 11/05/20 10:00 76 26 103/62 (76) 100 Ventilator 11/05/20 08:00 99.6 99.6 I & O 11/04/20 11/04/20 11/05/20 15:00 23:00 07:00 Intake Total 1022 ml 1333.5 ml Output Total 875 ml 460 ml 850 ml Balance -875 ml 562 ml 483.5 ml Physical Exam Physical Exam: intubated, sedated on vent, General: Other (sedated ) Heart: Normal S1, Normal S2 Abdomen: Normal bowel sounds, Soft Extremities: No clubbing, No cyanosis Skin: No rashes Labs Labs: Laboratory Tests Test 11/04/20 16:27 11/05/20 00:03 11/05/20 05:30 11/05/20 06:04 Glucose (Fingerstick) 147 mg/dL (70-99) 120 mg/dL (70-99) 123 mg/dL (70-99) White Blood Count 8.1 x10^3/uL (4.0-11.0) Red Blood Count 4.14 x10^6/uL (4.30-5.70) Hemoglobin 12.1 g/dL (13.0-17.5) Hematocrit 36.4 % (39.0-53.0) Mean Corpuscular Volume 88 fL (79-100) Mean Corpuscular Hemoglobin 29 pg (25-35) Mean Corpuscular Hemoglobin Concent 33 g/dL (31-37) Red Cell Distribution Width 14.5 % (11.5-14.5) Platelet Count 148 x10^3/uL (140-400) Neutrophils (%) (Auto) 85 % (31-73) Lymphocytes (%) (Auto) 8 % (24-48) Monocytes (%) (Auto) 6 % (0-9) Eosinophils (%) (Auto) 1 % (0-3) Basophils (%) (Auto) 0 % (0-3) Neutrophils # (Auto) 6.9 x10^3/uL (1.8-7.7) Lymphocytes # (Auto) 0.7 x10^3/uL (1.0-4.8) Monocytes # (Auto) 0.5 x10^3/uL (0.0-1.1) Eosinophils # (Auto) 0.1 x10^3/uL (0.0-0.7) Basophils # (Auto) 0.0 x10^3/uL (0.0-0.2) Sodium Level 135 mmol/L (136-145) Potassium Level 3.9 mmol/L (3.5-5.1) Chloride Level 103 mmol/L (98-107) Carbon Dioxide Level 26 mmol/L (21-32) Anion Gap 6 (6-14) Blood Urea Nitrogen 26 mg/dL (8-26) Creatinine 0.6 mg/dL (0.7-1.3) Estimated GFR (Cockcroft-Gault) 139.9 Glucose Level 119 mg/dL (70-99) Calcium Level 8.3 mg/dL (8.5-10.1) Procalcitonin 0.12 ng/mL (0.00-0.10) Test 11/05/20 08:00 11/05/20 08:55 O2 Saturation 97 % (92-99) Arterial Blood pH 7.48 (7.35-7.45) Arterial Blood pCO2 at Patient Temp 33 mmHg (35-46) Arterial Blood pO2 at Patient Temp 91 mmHg (75-108) Arterial Blood HCO3 24 mmol/L (21-28) Arterial Blood Base Excess 1 mmol/L (-3-3) FiO2 40/vent Urine Collection Type Unknown Urine Color Zohreh Urine Clarity Clear Urine pH 5.5 (<5.0-8.0) Urine Specific [place] >=1.030 (1.000-1.030) Urine Protein Negative mg/dL (NEG-TRACE) Urine Glucose (UA) Negative mg/dL (NEG) Urine Ketones (Stick) Negative mg/dL (NEG) Urine Blood Negative (NEG) Urine Nitrite Negative (NEG) Urine Bilirubin Negative (NEG) Urine Urobilinogen Dipstick 1.0 mg/dL (0.2 mg/dL) Urine Leukocyte Esterase Moderate (NEG) Urine RBC Rare /HPF (0-2) Urine WBC 11-20 /HPF (0-4) Urine Squamous Epithelial Cells Few /LPF Urine Bacteria Few /HPF (0-FEW) Urine Mucus Slight /LPF Assessment and Plan Assessmemt and Plan Problems Medical Problems: (1) Hyperglycemia Status: Acute (2) Hypoxia Status: Acute (3) Pneumonia due to COVID-19 virus Status: Acute (4) Respiratory failure Status: Acute (5) Septic shock Status: Acute Comment Review of Relevant I have reviewed the following items andrew (where applicable) has been applied. Medications: Current Medications Medications (Trade) Dose Ordered Sig/Gaston Route PRN Reason Start Time Stop Time Status Last Admin Dose Admin Sodium Chloride 90 meq/Potassium Chloride 80 meq/ Potassium Phosphate 5 mmol/ Magnesium Sulfate 10 meq/Calcium Gluconate 8 meq/ Multivitamins 5 ml/Zinc/Copper/ Manganese/ Selenium 1 ml/ Insulin Human Regular 10 unit/ Total Parenteral Nutrition/Amino Acids/Dextrose 1,512 ml @ 63 mls/hr TPN CONT IV 11/04/20 22:00 11/05/20 21:59 11/04/20 23:59 Cefepime HCl (Maxipime) 2 gm Q8HRS IVP 11/05/20 07:00 11/05/20 08:46 Metronidazole 100 ml @ 100 mls/hr Q8HRS IV 11/05/20 07:00 11/05/20 08:44 Fluconazole/ Sodium Chloride 200 ml @ 100 mls/hr Q24H IV 11/05/20 08:00 11/05/20 08:43 Vancomycin HCl (Vanco Per Pharmacy) 1 each PRN DAILY PRN MC SEE COMMENTS 11/05/20 09:15 11/05/20 09:35 Justifications for Admission Other Justification COVID infection PHILIP VALDEZ MD Nov 05, 2020 10:58
[2020-11-05] MEDS: VANCOMYCIN 1.5 GM in IV NORMAL SALINE 500ML BAG 500 ML IV SCH ×2 (12:29→19:51)
--- NOTE | 2020-11-05 12:57 | PDOC ---
SURGICAL PROGRESS NOTE DATE: 11/05/20 TIME: 12:57 Subjective Pt appears stable trach intact will sign off, but please call for questions. Vital Signs Vital Signs Date Time Temp Pulse Resp B/P (MAP) Pulse Ox O2 Delivery O2 Flow Rate FiO2 11/05/20 12:00 99.2 69 26 99/62 (74) 100 Ventilator 99.2 I&O Intake and Output 11/05/20 07:00 Intake Total 2355.5 ml Output Total 2185 ml Balance 170.5 ml IV Total 2295.5 ml Other 60 ml Output Urine Total 2185 ml Labs Laboratory Tests Test 11/03/20 17:21 11/04/20 00:17 11/04/20 06:01 11/04/20 16:27 Glucose (Fingerstick) 256 mg/dL (70-99) 214 mg/dL (70-99) 168 mg/dL (70-99) 147 mg/dL (70-99) Test 11/05/20 00:03 11/05/20 05:30 11/05/20 06:04 11/05/20 08:00 Glucose (Fingerstick) 120 mg/dL (70-99) 123 mg/dL (70-99) White Blood Count 8.1 x10^3/uL (4.0-11.0) Red Blood Count 4.14 x10^6/uL (4.30-5.70) Hemoglobin 12.1 g/dL (13.0-17.5) Hematocrit 36.4 % (39.0-53.0) Mean Corpuscular Volume 88 fL (79-100) Mean Corpuscular Hemoglobin 29 pg (25-35) Mean Corpuscular Hemoglobin Concent 33 g/dL (31-37) Red Cell Distribution Width 14.5 % (11.5-14.5) Platelet Count 148 x10^3/uL (140-400) Neutrophils (%) (Auto) 85 % (31-73) Lymphocytes (%) (Auto) 8 % (24-48) Monocytes (%) (Auto) 6 % (0-9) Eosinophils (%) (Auto) 1 % (0-3) Basophils (%) (Auto) 0 % (0-3) Neutrophils # (Auto) 6.9 x10^3/uL (1.8-7.7) Lymphocytes # (Auto) 0.7 x10^3/uL (1.0-4.8) Monocytes # (Auto) 0.5 x10^3/uL (0.0-1.1) Eosinophils # (Auto) 0.1 x10^3/uL (0.0-0.7) Basophils # (Auto) 0.0 x10^3/uL (0.0-0.2) Sodium Level 135 mmol/L (136-145) Potassium Level 3.9 mmol/L (3.5-5.1) Chloride Level 103 mmol/L (98-107) Carbon Dioxide Level 26 mmol/L (21-32) Anion Gap 6 (6-14) Blood Urea Nitrogen 26 mg/dL (8-26) Creatinine 0.6 mg/dL (0.7-1.3) Estimated GFR (Cockcroft-Gault) 139.9 Glucose Level 119 mg/dL (70-99) Calcium Level 8.3 mg/dL (8.5-10.1) Procalcitonin 0.12 ng/mL (0.00-0.10) O2 Saturation 97 % (92-99) Arterial Blood pH 7.48 (7.35-7.45) Arterial Blood pCO2 at Patient Temp 33 mmHg (35-46) Arterial Blood pO2 at Patient Temp 91 mmHg (75-108) Arterial Blood HCO3 24 mmol/L (21-28) Arterial Blood Base Excess 1 mmol/L (-3-3) FiO2 40/vent Test 11/05/20 08:55 11/05/20 12:36 Urine Collection Type Unknown Urine Color Zohreh Urine Clarity Clear Urine pH 5.5 (<5.0-8.0) Urine Specific [place] >=1.030 (1.000-1.030) Urine Protein Negative mg/dL (NEG-TRACE) Urine Glucose (UA) Negative mg/dL (NEG) Urine Ketones (Stick) Negative mg/dL (NEG) Urine Blood Negative (NEG) Urine Nitrite Negative (NEG) Urine Bilirubin Negative (NEG) Urine Urobilinogen Dipstick 1.0 mg/dL (0.2 mg/dL) Urine Leukocyte Esterase Moderate (NEG) Urine RBC Rare /HPF (0-2) Urine WBC 11-20 /HPF (0-4) Urine Squamous Epithelial Cells Few /LPF Urine Bacteria Few /HPF (0-FEW) Urine Mucus Slight /LPF Glucose (Fingerstick) 188 mg/dL (70-99) Laboratory Tests Test 11/04/20 16:27 11/05/20 00:03 11/05/20 05:30 11/05/20 06:04 Glucose (Fingerstick) 147 mg/dL (70-99) 120 mg/dL (70-99) 123 mg/dL (70-99) White Blood Count 8.1 x10^3/uL (4.0-11.0) Red Blood Count 4.14 x10^6/uL (4.30-5.70) Hemoglobin 12.1 g/dL (13.0-17.5) Hematocrit 36.4 % (39.0-53.0) Mean Corpuscular Volume 88 fL (79-100) Mean Corpuscular Hemoglobin 29 pg (25-35) Mean Corpuscular Hemoglobin Concent 33 g/dL (31-37) Red Cell Distribution Width 14.5 % (11.5-14.5) Platelet Count 148 x10^3/uL (140-400) Neutrophils (%) (Auto) 85 % (31-73) Lymphocytes (%) (Auto) 8 % (24-48) Monocytes (%) (Auto) 6 % (0-9) Eosinophils (%) (Auto) 1 % (0-3) Basophils (%) (Auto) 0 % (0-3) Neutrophils # (Auto) 6.9 x10^3/uL (1.8-7.7) Lymphocytes # (Auto) 0.7 x10^3/uL (1.0-4.8) Monocytes # (Auto) 0.5 x10^3/uL (0.0-1.1) Eosinophils # (Auto) 0.1 x10^3/uL (0.0-0.7) Basophils # (Auto) 0.0 x10^3/uL (0.0-0.2) Sodium Level 135 mmol/L (136-145) Potassium Level 3.9 mmol/L (3.5-5.1) Chloride Level 103 mmol/L (98-107) Carbon Dioxide Level 26 mmol/L (21-32) Anion Gap 6 (6-14) Blood Urea Nitrogen 26 mg/dL (8-26) Creatinine 0.6 mg/dL (0.7-1.3) Estimated GFR (Cockcroft-Gault) 139.9 Glucose Level 119 mg/dL (70-99) Calcium Level 8.3 mg/dL (8.5-10.1) Procalcitonin 0.12 ng/mL (0.00-0.10) Test 11/05/20 08:00 11/05/20 08:55 11/05/20 12:36 O2 Saturation 97 % (92-99) Arterial Blood pH 7.48 (7.35-7.45) Arterial Blood pCO2 at Patient Temp 33 mmHg (35-46) Arterial Blood pO2 at Patient Temp 91 mmHg (75-108) Arterial Blood HCO3 24 mmol/L (21-28) Arterial Blood Base Excess 1 mmol/L (-3-3) FiO2 40/vent Urine Collection Type Unknown Urine Color Zohreh Urine Clarity Clear Urine pH 5.5 (<5.0-8.0) Urine Specific [place] >=1.030 (1.000-1.030) Urine Protein Negative mg/dL (NEG-TRACE) Urine Glucose (UA) Negative mg/dL (NEG) Urine Ketones (Stick) Negative mg/dL (NEG) Urine Blood Negative (NEG) Urine Nitrite Negative (NEG) Urine Bilirubin Negative (NEG) Urine Urobilinogen Dipstick 1.0 mg/dL (0.2 mg/dL) Urine Leukocyte Esterase Moderate (NEG) Urine RBC Rare /HPF (0-2) Urine WBC 11-20 /HPF (0-4) Urine Squamous Epithelial Cells Few /LPF Urine Bacteria Few /HPF (0-FEW) Urine Mucus Slight /LPF Glucose (Fingerstick) 188 mg/dL (70-99) Problem List Problems Medical Problems: (1) Hyperglycemia Status: Acute (2) Hypoxia Status: Acute (3) Pneumonia due to COVID-19 virus Status: Acute (4) Respiratory failure Status: Acute (5) Septic shock Status: Acute Justicifation of Admission Dx: Justifications for Admission: Justification of Admission Dx: Yes (sepsis, covid, resp failure) KIRT KIDD MD Nov 05, 2020 12:57
[2020-11-05] MEDS ORDERED: DEXTROSE 70% IV SCH (22:00)
[2020-11-05] MEDS ORDERED: TOTAL PARENTERAL NUTRITION IV SCH (22:00)
[2020-11-05] MEDS ORDERED: [UNRECOGNIZED DRUG - OTHER] IV SCH (22:00)
[2020-11-05] MEDS ORDERED: AMINO ACID IV SCH (22:00)
[2020-11-05] MEDS: fentaNYL HIGH DOSE PCA 55 ML IV PRN (22:35)
[2020-11-06] VITALS (23 sets, daily range): BP systolic 92–134; BP diastolic 51–84
[2020-11-06] MEDS: CEFEPIME HCL IV Push 2 GM VIAL. IVP SCH ×4 (00:19→22:24)
[2020-11-06] MEDS: PROPOFOL 100 ML IV PRN ×3 (01:54→23:49)
[2020-11-06] MEDS: ACETAMINOPHEN 325 MG TABLET. PO PRN (05:35)
[2020-11-06] MEDS: VANCOMYCIN 1.5 GM in IV NORMAL SALINE 500ML BAG 500 ML IV SCH (05:35)
[2020-11-06] MEDS: THIAMINE 100 MG TABLET. GT SCH ×3 (05:35→20:41)
[2020-11-06 05:59] LABS: ALBUMIN 1.9 g/dL (3.4-5.0); ALBUMIN/GLOBULIN RATIO 0.4 (1.0-1.7); CALCIUM 8.3 mg/dL (8.5-10.1); CREATININE 0.7 mg/dL (0.7-1.3); GFR 117.1; POTASSIUM 4.3 mmol/L (3.5-5.1); TOTAL BILIRUBIN 0.8 mg/dL (0.2-1.0); TOTAL PROTEIN 6.2 g/dL (6.4-8.2)
[2020-11-06] MEDS: INSULIN LISPRO 300 UNITS/3 ML VIAL. SQ SCH ×5 (06:00→23:50)
[2020-11-06 06:01] LABS: BASO % 1 % (0-3); EOS # 0.1 x10^3/uL (0.0-0.7); EOS % 1 % (0-3); HEMATOCRIT 33.4 % (39.0-53.0); HEMOGLOBIN 11.2 g/dL (13.0-17.5); LYMPH # 0.8 x10^3/uL (1.0-4.8); LYMPH % 10 % (24-48); MEAN CORPUSCULAR HEMOGLOBIN 29 pg (25-35); MEAN CORPUSCULAR HGB CONC 33 g/dL (31-37); MEAN CORPUSCULAR VOLUME 88 fL (79-100); MONO # 0.5 x10^3/uL (0.0-1.1); MONO % 7 % (0-9); NEUT # 6.4 x10^3/uL (1.8-7.7); NEUT % 82 % (31-73); PLATELET COUNT 123 x10^3/uL (140-400); RED CELL DISTRIBUTION WIDTH 14.5 % (11.5-14.5); WHITE BLOOD COUNT 7.8 x10^3/uL (4.0-11.0)
--- NOTE | 2020-11-06 06:57 | PDOC ---
Infectious Disease Note Subjective Subjective Intubated Sedated ROS ROS unable to obtain Vital Sign Vital Signs Vital Signs Date Time Temp Pulse Resp B/P (MAP) Pulse Ox O2 Delivery O2 Flow Rate FiO2 11/06/20 06:00 100 26 103/55 (71) 97 Ventilator 11/06/20 05:00 101.9 101.9 Physical Exam PHYSICAL EXAM GENERAL: He is intubated. He is sedated. HEENT: Pupils are small. Normal conjunctivae. OG tube and ET tube in place. NECK: Supple.trach clean LUNGS: Decreased in the bases. HEART: S1, S2. ABDOMEN: Obese, soft, decreased bowel sounds. GENITOURINARY: Sandra is in place. EXTREMITIES: Without clubbing, cyanosis or gross edema. SKIN: Warm to touch without signs of generalized rash. NEUROLOGICAL: He is intubated and sedated. ACCESS: PICC line in the right upper extremity without signs of any complications. Labs Lab Laboratory Tests Test 11/05/20 08:00 11/05/20 08:55 11/05/20 12:36 11/05/20 18:03 O2 Saturation 97 % (92-99) Arterial Blood pH 7.48 (7.35-7.45) Arterial Blood pCO2 at Patient Temp 33 mmHg (35-46) Arterial Blood pO2 at Patient Temp 91 mmHg (75-108) Arterial Blood HCO3 24 mmol/L (21-28) Arterial Blood Base Excess 1 mmol/L (-3-3) FiO2 40/vent Urine Collection Type Unknown Urine Color Zohreh Urine Clarity Clear Urine pH 5.5 (<5.0-8.0) Urine Specific [place] >=1.030 (1.000-1.030) Urine Protein Negative mg/dL (NEG-TRACE) Urine Glucose (UA) Negative mg/dL (NEG) Urine Ketones (Stick) Negative mg/dL (NEG) Urine Blood Negative (NEG) Urine Nitrite Negative (NEG) Urine Bilirubin Negative (NEG) Urine Urobilinogen Dipstick 1.0 mg/dL (0.2 mg/dL) Urine Leukocyte Esterase Moderate (NEG) Urine RBC Rare /HPF (0-2) Urine WBC 11-20 /HPF (0-4) Urine Squamous Epithelial Cells Few /LPF Urine Bacteria Few /HPF (0-FEW) Urine Mucus Slight /LPF Glucose (Fingerstick) 188 mg/dL (70-99) 129 mg/dL (70-99) Test 11/06/20 00:36 11/06/20 05:20 Glucose (Fingerstick) 118 mg/dL (70-99) White Blood Count 7.8 x10^3/uL (4.0-11.0) Red Blood Count 3.80 x10^6/uL (4.30-5.70) Hemoglobin 11.2 g/dL (13.0-17.5) Hematocrit 33.4 % (39.0-53.0) Mean Corpuscular Volume 88 fL (79-100) Mean Corpuscular Hemoglobin 29 pg (25-35) Mean Corpuscular Hemoglobin Concent 33 g/dL (31-37) Red Cell Distribution Width 14.5 % (11.5-14.5) Platelet Count 123 x10^3/uL (140-400) Neutrophils (%) (Auto) 82 % (31-73) Lymphocytes (%) (Auto) 10 % (24-48) Monocytes (%) (Auto) 7 % (0-9) Eosinophils (%) (Auto) 1 % (0-3) Basophils (%) (Auto) 1 % (0-3) Neutrophils # (Auto) 6.4 x10^3/uL (1.8-7.7) Lymphocytes # (Auto) 0.8 x10^3/uL (1.0-4.8) Monocytes # (Auto) 0.5 x10^3/uL (0.0-1.1) Eosinophils # (Auto) 0.1 x10^3/uL (0.0-0.7) Basophils # (Auto) 0.0 x10^3/uL (0.0-0.2) Sodium Level 133 mmol/L (136-145) Potassium Level 4.3 mmol/L (3.5-5.1) Chloride Level 102 mmol/L (98-107) Carbon Dioxide Level 24 mmol/L (21-32) Anion Gap 7 (6-14) Blood Urea Nitrogen 21 mg/dL (8-26) Creatinine 0.7 mg/dL (0.7-1.3) Estimated GFR (Cockcroft-Gault) 117.1 BUN/Creatinine Ratio 30 (6-20) Glucose Level 134 mg/dL (70-99) Calcium Level 8.3 mg/dL (8.5-10.1) Total Bilirubin 0.8 mg/dL (0.2-1.0) Aspartate Amino Transf (AST/SGOT) 29 U/L (15-37) Alanine Aminotransferase (ALT/SGPT) 47 U/L (16-63) Alkaline Phosphatase 66 U/L (46-116) Total Protein 6.2 g/dL (6.4-8.2) Albumin 1.9 g/dL (3.4-5.0) Albumin/Globulin Ratio 0.4 (1.0-1.7) Micro Microbiology 10/26/20 Gram Stain Evaluation - Final, Complete 10/26/20 Respiratory Culture - Final, Complete 10/26/20 Antimicrobic Susceptibility - Final, Complete 10/21/20 Blood Culture - Final, Complete NO GROWTH AFTER 5 DAYS Objective Assessment Fever - ? Vanc/some residuals - possible ileus but now some Flatus per nursing ? Urine S/p Trach 11/04 H/o MSSA sputum 10/26 ? Gastroparesis Acute Hypoxic resp failure s/p Trach 35 % Fi 02 and 5 of PEEP Obesity H/o COVID s/p Dexamtheasone and Remdesivir. Last Dexa 11/04 On TPN DM Plan Plan of Care Change sandra D/c Vanc with Fever (r/o drug) currently running and change to Zyvox May need KUB if residuals persist Cont Cefepime/Flagyl/Fluconazole 11/05 F/u labs/cults D/w nursing IVAN SANABRIA MD Nov 06, 2020 06:57
[2020-11-06] MEDS: MIDAZOLAM 100mg/100ml NS BAG 100 ML IV PRN (07:43)
--- NOTE | 2020-11-06 08:36 | PDOC ---
PULMONARY PROGRESS NOTES DATE: 11/06/20 TIME: 08:34 Subjective Patient remains on ventilatory support, 35% and PEEP of 5 S/P trach 11/04/20 fever overnight No other concerns from nursing Vitals Vital Signs Date Time Temp Pulse Resp B/P (MAP) Pulse Ox O2 Delivery O2 Flow Rate FiO2 11/06/20 08:14 100 Ventilator 11/06/20 07:00 83 26 101/55 (70) 11/06/20 05:00 101.9 101.9 Comments trach sedated no accessory muscle use abd obese no rash Labs Laboratory Tests Test 11/04/20 16:27 11/05/20 00:03 11/05/20 05:30 11/05/20 06:04 Glucose (Fingerstick) 147 mg/dL (70-99) 120 mg/dL (70-99) 123 mg/dL (70-99) White Blood Count 8.1 x10^3/uL (4.0-11.0) Red Blood Count 4.14 x10^6/uL (4.30-5.70) Hemoglobin 12.1 g/dL (13.0-17.5) Hematocrit 36.4 % (39.0-53.0) Mean Corpuscular Volume 88 fL (79-100) Mean Corpuscular Hemoglobin 29 pg (25-35) Mean Corpuscular Hemoglobin Concent 33 g/dL (31-37) Red Cell Distribution Width 14.5 % (11.5-14.5) Platelet Count 148 x10^3/uL (140-400) Neutrophils (%) (Auto) 85 % (31-73) Lymphocytes (%) (Auto) 8 % (24-48) Monocytes (%) (Auto) 6 % (0-9) Eosinophils (%) (Auto) 1 % (0-3) Basophils (%) (Auto) 0 % (0-3) Neutrophils # (Auto) 6.9 x10^3/uL (1.8-7.7) Lymphocytes # (Auto) 0.7 x10^3/uL (1.0-4.8) Monocytes # (Auto) 0.5 x10^3/uL (0.0-1.1) Eosinophils # (Auto) 0.1 x10^3/uL (0.0-0.7) Basophils # (Auto) 0.0 x10^3/uL (0.0-0.2) Sodium Level 135 mmol/L (136-145) Potassium Level 3.9 mmol/L (3.5-5.1) Chloride Level 103 mmol/L (98-107) Carbon Dioxide Level 26 mmol/L (21-32) Anion Gap 6 (6-14) Blood Urea Nitrogen 26 mg/dL (8-26) Creatinine 0.6 mg/dL (0.7-1.3) Estimated GFR (Cockcroft-Gault) 139.9 Glucose Level 119 mg/dL (70-99) Calcium Level 8.3 mg/dL (8.5-10.1) Procalcitonin 0.12 ng/mL (0.00-0.10) Test 11/05/20 08:00 11/05/20 08:55 11/05/20 12:36 11/05/20 18:03 O2 Saturation 97 % (92-99) Arterial Blood pH 7.48 (7.35-7.45) Arterial Blood pCO2 at Patient Temp 33 mmHg (35-46) Arterial Blood pO2 at Patient Temp 91 mmHg (75-108) Arterial Blood HCO3 24 mmol/L (21-28) Arterial Blood Base Excess 1 mmol/L (-3-3) FiO2 40/vent Urine Collection Type Unknown Urine Color Zohreh Urine Clarity Clear Urine pH 5.5 (<5.0-8.0) Urine Specific [place] >=1.030 (1.000-1.030) Urine Protein Negative mg/dL (NEG-TRACE) Urine Glucose (UA) Negative mg/dL (NEG) Urine Ketones (Stick) Negative mg/dL (NEG) Urine Blood Negative (NEG) Urine Nitrite Negative (NEG) Urine Bilirubin Negative (NEG) Urine Urobilinogen Dipstick 1.0 mg/dL (0.2 mg/dL) Urine Leukocyte Esterase Moderate (NEG) Urine RBC Rare /HPF (0-2) Urine WBC 11-20 /HPF (0-4) Urine Squamous Epithelial Cells Few /LPF Urine Bacteria Few /HPF (0-FEW) Urine Mucus Slight /LPF Glucose (Fingerstick) 188 mg/dL (70-99) 129 mg/dL (70-99) Test 11/06/20 00:36 11/06/20 05:20 Glucose (Fingerstick) 118 mg/dL (70-99) White Blood Count 7.8 x10^3/uL (4.0-11.0) Red Blood Count 3.80 x10^6/uL (4.30-5.70) Hemoglobin 11.2 g/dL (13.0-17.5) Hematocrit 33.4 % (39.0-53.0) Mean Corpuscular Volume 88 fL (79-100) Mean Corpuscular Hemoglobin 29 pg (25-35) Mean Corpuscular Hemoglobin Concent 33 g/dL (31-37) Red Cell Distribution Width 14.5 % (11.5-14.5) Platelet Count 123 x10^3/uL (140-400) Neutrophils (%) (Auto) 82 % (31-73) Lymphocytes (%) (Auto) 10 % (24-48) Monocytes (%) (Auto) 7 % (0-9) Eosinophils (%) (Auto) 1 % (0-3) Basophils (%) (Auto) 1 % (0-3) Neutrophils # (Auto) 6.4 x10^3/uL (1.8-7.7) Lymphocytes # (Auto) 0.8 x10^3/uL (1.0-4.8) Monocytes # (Auto) 0.5 x10^3/uL (0.0-1.1) Eosinophils # (Auto) 0.1 x10^3/uL (0.0-0.7) Basophils # (Auto) 0.0 x10^3/uL (0.0-0.2) Sodium Level 133 mmol/L (136-145) Potassium Level 4.3 mmol/L (3.5-5.1) Chloride Level 102 mmol/L (98-107) Carbon Dioxide Level 24 mmol/L (21-32) Anion Gap 7 (6-14) Blood Urea Nitrogen 21 mg/dL (8-26) Creatinine 0.7 mg/dL (0.7-1.3) Estimated GFR (Cockcroft-Gault) 117.1 BUN/Creatinine Ratio 30 (6-20) Glucose Level 134 mg/dL (70-99) Calcium Level 8.3 mg/dL (8.5-10.1) Total Bilirubin 0.8 mg/dL (0.2-1.0) Aspartate Amino Transf (AST/SGOT) 29 U/L (15-37) Alanine Aminotransferase (ALT/SGPT) 47 U/L (16-63) Alkaline Phosphatase 66 U/L (46-116) Total Protein 6.2 g/dL (6.4-8.2) Albumin 1.9 g/dL (3.4-5.0) Albumin/Globulin Ratio 0.4 (1.0-1.7) Laboratory Tests Test 11/05/20 08:55 11/05/20 12:36 11/05/20 18:03 11/06/20 00:36 Urine Collection Type Unknown Urine Color Zohreh Urine Clarity Clear Urine pH 5.5 (<5.0-8.0) Urine Specific [place] >=1.030 (1.000-1.030) Urine Protein Negative mg/dL (NEG-TRACE) Urine Glucose (UA) Negative mg/dL (NEG) Urine Ketones (Stick) Negative mg/dL (NEG) Urine Blood Negative (NEG) Urine Nitrite Negative (NEG) Urine Bilirubin Negative (NEG) Urine Urobilinogen Dipstick 1.0 mg/dL (0.2 mg/dL) Urine Leukocyte Esterase Moderate (NEG) Urine RBC Rare /HPF (0-2) Urine WBC 11-20 /HPF (0-4) Urine Squamous Epithelial Cells Few /LPF Urine Bacteria Few /HPF (0-FEW) Urine Mucus Slight /LPF Glucose (Fingerstick) 188 mg/dL (70-99) 129 mg/dL (70-99) 118 mg/dL (70-99) Test 11/06/20 05:20 White Blood Count 7.8 x10^3/uL (4.0-11.0) Red Blood Count 3.80 x10^6/uL (4.30-5.70) Hemoglobin 11.2 g/dL (13.0-17.5) Hematocrit 33.4 % (39.0-53.0) Mean Corpuscular Volume 88 fL (79-100) Mean Corpuscular Hemoglobin 29 pg (25-35) Mean Corpuscular Hemoglobin Concent 33 g/dL (31-37) Red Cell Distribution Width 14.5 % (11.5-14.5) Platelet Count 123 x10^3/uL (140-400) Neutrophils (%) (Auto) 82 % (31-73) Lymphocytes (%) (Auto) 10 % (24-48) Monocytes (%) (Auto) 7 % (0-9) Eosinophils (%) (Auto) 1 % (0-3) Basophils (%) (Auto) 1 % (0-3) Neutrophils # (Auto) 6.4 x10^3/uL (1.8-7.7) Lymphocytes # (Auto) 0.8 x10^3/uL (1.0-4.8) Monocytes # (Auto) 0.5 x10^3/uL (0.0-1.1) Eosinophils # (Auto) 0.1 x10^3/uL (0.0-0.7) Basophils # (Auto) 0.0 x10^3/uL (0.0-0.2) Sodium Level 133 mmol/L (136-145) Potassium Level 4.3 mmol/L (3.5-5.1) Chloride Level 102 mmol/L (98-107) Carbon Dioxide Level 24 mmol/L (21-32) Anion Gap 7 (6-14) Blood Urea Nitrogen 21 mg/dL (8-26) Creatinine 0.7 mg/dL (0.7-1.3) Estimated GFR (Cockcroft-Gault) 117.1 BUN/Creatinine Ratio 30 (6-20) Glucose Level 134 mg/dL (70-99) Calcium Level 8.3 mg/dL (8.5-10.1) Total Bilirubin 0.8 mg/dL (0.2-1.0) Aspartate Amino Transf (AST/SGOT) 29 U/L (15-37) Alanine Aminotransferase (ALT/SGPT) 47 U/L (16-63) Alkaline Phosphatase 66 U/L (46-116) Total Protein 6.2 g/dL (6.4-8.2) Albumin 1.9 g/dL (3.4-5.0) Albumin/Globulin Ratio 0.4 (1.0-1.7) Comments CXR 11/03 bilateral unchanged infiltrates Impression . IMPRESSION: 1. Acute hypoxemic respiratory failure secondary to COVID-19 viral pneumonia--moderate secretions--S/P tracheostomy 10/27 2. COVID-19 viral pneumonia/sepsis. 3. Abnormal x-ray compatible with SARS-CoV-2 infection. 4. Acute kidney injury-- improved, azotemia 5. Severe hypoxemia, elevated D-dimer, possible thromboembolic disease. 6. Morbid obesity. 7. Protein malnutrition, present upon admission. 8. Elevated troponin. 9. CXR 10/26 , worsening infiltrates, possible aspiration 10. sputum culture positive for staph A. Plan . PLAN: Continue current ventilatory support, 40% and PEEP of 5 Follow ABG/chest x-ray, changes as needed S/P tracheostomy on 11/04/20-- hold weaning for 48 hours S/P trach COVID-19 positive Has completed full course of remdesivir Patient has completed a full 10-day course of steroids Clinically improving, dopplers with no DVT. heparin SQ BID Follow GI recommendations-- will need PEG, D/C OG transition to NG until PEG Continue TPN for nutritional support Antibiotics Per ID-- Sputum culture positive for Staph A. DVT/GI prophylaxis Discussed with RN and RT critically ill Social work for D/C planning -- LTACH Critical care time [id number] ASIA MOTTA MD Nov 06, 2020 08:36
[2020-11-06] MEDS: FLUCONAZOLE 400MG/200ML PREMIX 200 ML IV SCH (08:38)
[2020-11-06] MEDS: ZINC SULFATE 220 MG CAPSULE. PO SCH (08:38)
[2020-11-06] MEDS: ASCORBIC ACID 1,000 MG TABLET PO SCH ×3 (08:39→20:41)
[2020-11-06] MEDS: HEPARIN for SUB-Q USE 5,000 UNIT/ML VIAL. SQ SCH ×2 (08:39→20:43)
[2020-11-06] MEDS: FAMOTIDINE 20 MG/2 ML VIAL IVP SCH ×2 (08:39→20:41)
[2020-11-06 08:41] LABS: BASE EXCESS ABG -3 mmol/L (-3-3); HCO3 ABG 22 mmol/L (21-28); PCO2 ABG 37 mmHg (35-46); PO2 ABG 77 mmHg (75-108); SAT O2 ABG 95 % (92-99)
[2020-11-06] MEDS: INSULIN GLARGINE SYRINGE. SQ SCH ×2 (08:55→20:42)
[2020-11-06] MEDS: TPN PER PHARMACY MC PRN (09:21)
--- NOTE | 2020-11-06 09:21 | NUR ---
Pharmacy TPN Dosing Note S: CELIO BLAKE is a 55 year old M Currently receiving Central Continuous TPN started 10/27/20 B:Pertinent PMH: TF INTOLERANCE Height: 5 feet, 6 inches Weight: 94.8 kg Current diet: NPO LABS: Sodium: 133 Potassium: 4.3 Chloride: 102 Calcium: 8.3 Corrected Calcium: 9.98 Magnesium: 1.9 CO2: 24 SCr: 0.7 Glucose: 134 Albumin: 1.9 AST: 29 ALT: 47 TPN FORMULA: TPN TYPE: Central Continuous AMINO ACIDS: 100 gm DEXTROSE: 225 gm LIPIDS: 0 gm SODIUM CHLORIDE: 90 mEq SODIUM ACETATE: 40 mEq SODIUM PHOSPHATE: mmol POTASSIUM CHLORIDE: 70 mEq POTASSIUM ACETATE: mEq POTASSIUM PHOSPHATE: 5 mmol MAGNESIUM: 10 mEq CALCIUM: 8 mEq INSULIN: 15 units MULTIPLE VITAMIN: 5 ml TRACE ELEMENTS: 1 ml(s) TPN PLAN: Has trach now but still on propofol, no lipids. TFs running @ 20 w/ residuals. Sodium trending down, will add some sodium acetate. Potassium trending up, will decrease KCL to 70meq. Labs in the am. R: Continue TPN as written above. Will monitor electrolytes, glucose, and tolerance to TPN. [facility], 11/06/20 [id number]
[2020-11-06 09:38] LABS: FIO2 ABG 35/VENT
--- NOTE | 2020-11-06 10:00 | RAD ---
Abdomen AP portable at 0911: Reason for examination: NG tube placement. Covid 19. An NG tube is present with the tip and side port in the proximal stomach. End of a PICC line is prese nt at the superior vena cava/right atrial junction. Lung bases show mild interstitial alveolar opacit ies. There is no gross organomegaly. Bowel gas pattern is nonspecific in the visualized portion of abdomen . IMPRESSION: NG tube tip and side port in the proximal stomach. Bilateral interstitial and alveolar opacities in the visualized portions of the lung bases. Electronically signed by: Chanel Alegria MD (11/06/2020 9:46 AM) [facility]
--- NOTE | 2020-11-06 10:41 | PDOC ---
[employer] PROGRESS NOTE Date of Service DOS: DATE: 11/06/20 TIME: 10:40 Chief Complaint Chief Complaint sepsis Acute hypoxemic respiratory failure secondary to COVID-19 viral pneumonia. intubated and sedated, status post tracheostomy 11/04/2020 acute renal failure, vasomotor nephropathy and sepsis, ATN poss gram negative bacterial pneumonia Dm2, with hyperglycemia, poor control, obese, BMI 36 Severe protein malnutrition, present upon admission. History of Present Illness History of Present Illness 11/06/2020 Fever of 101.9. Continue empiric IV antibiotic coverage. Vent settings: 26/500/35%/5. Started trickle feeds yesterday. Patient's chart, labs, images were reviewed and discussed with RN 11/05/2020 No acute events overnight. Fever of 102.5 last night. ID was consulted and empiric IV antibiotics and antifungal coverage was started. Tracheostomy completed yesterday. Current vent settings 26/500/35%/5. Patient's chart, labs, images were reviewed and discussed with RN 11/04/2020 No acute events overnight. Afebrile. Vent settings 26/500/40 %/5. Pending tracheostomy today. Patient's chart, labs, images were reviewed and discussed with RN 11/03/2020 No acute events overnight. Patient's vent settings are 26/500/40%/5. Pending tracheostomy tomorrow. Will hold tube feeds and heparin. Patient's chart, labs, images were reviewed and discussed with RN 11/02/2020 No acute events overnight. Current vent settings are 26/500/50%/6 PEEP. Patient still sedated and intubated. Plan for trach sometime this week. [facility] surgery consulted. Patient's chart, labs, images were reviewed and discussed with RN 11/01/2020 No acute events overnight. Patient saturating 100% on vent settings of 26/500/50%/7. ABG is pH is 7.45, PCO2 42, PO2 89, HCO3 28.> 50% time spent in patient chart, labs, and imaging review and in discussion with RN and SW 10/31/2020 No acute events overnight. Increasing O2 requirements to 100%. Current vent settings at 16/450/100%/5. Most recent ABG pH is 7.45, PCO2 41, PO2 66, HCO3 28.> 50% time spent in patient chart, labs, and imaging review and in discussion with RN and SW 10/30. FIO2 down to 40%, cont current, wean as able discussed with RN ' 10/29, down to PEEP 5, on 45 %, breathing better, still sedated, will try to allow to wake up and follow commands somewhat better still struggling, 10/28, I keep increasing his LANTUS insulin dosing, and his blood sugars are back up again today will increase lantus o 60 BID and do 22 u x1, cont the SSI, that is additio nal 42 u today 10/27. ABG didnt look very good this AM with ongoing hypoxia, oxygen Sa02 is 60%, still sedate 10/[address] Morrow, CXR worse, abx started, start zosyn, cover for pneumonia ICU care, 35min cont current follow labs, intubated and sedated changed insulin dose, lantus started yesterday, will make 30 BID, on tube feeds and on IV steroids, Vitals/I&O Vitals/I&O: Vital Signs Date Time Temp Pulse Resp B/P (MAP) Pulse Ox O2 Delivery O2 Flow Rate FiO2 11/06/20 10:00 82 26 99/67 (78) 100 Ventilator 11/06/20 08:00 98.7 98.7 I & O 11/05/20 11/05/20 11/06/20 15:00 23:00 07:00 Intake Total 160 ml 2112.5 ml 2094.0 ml Output Total 430 ml 835 ml 1050 ml Balance -270 ml 1277.5 ml 1044.0 ml Physical Exam Physical Exam: GENERAL: He is intubated. He is sedated. HEENT: Pupils are small. Normal conjunctivae. OG tube and ET tube in place. NECK: Supple.trach clean LUNGS: Decreased in the bases. HEART: S1, S2. ABDOMEN: Obese, soft, decreased bowel sounds. GENITOURINARY: Thomson is in place. EXTREMITIES: Without clubbing, cyanosis or gross edema. SKIN: Warm to touch without signs of generalized rash. NEUROLOGICAL: He is intubated and sedated. ACCESS: PICC line in the right upper extremity without signs of any complications. General: Other (sedated ) Heart: Normal S1, Normal S2 Abdomen: Normal bowel sounds, Soft Extremities: No clubbing, No cyanosis Skin: No rashes Labs Labs: Laboratory Tests Test 11/05/20 12:36 11/05/20 18:03 11/06/20 00:36 11/06/20 05:20 Glucose (Fingerstick) 188 mg/dL (70-99) 129 mg/dL (70-99) 118 mg/dL (70-99) White Blood Count 7.8 x10^3/uL (4.0-11.0) Red Blood Count 3.80 x10^6/uL (4.30-5.70) Hemoglobin 11.2 g/dL (13.0-17.5) Hematocrit 33.4 % (39.0-53.0) Mean Corpuscular Volume 88 fL (79-100) Mean Corpuscular Hemoglobin 29 pg (25-35) Mean Corpuscular Hemoglobin Concent 33 g/dL (31-37) Red Cell Distribution Width 14.5 % (11.5-14.5) Platelet Count 123 x10^3/uL (140-400) Neutrophils (%) (Auto) 82 % (31-73) Lymphocytes (%) (Auto) 10 % (24-48) Monocytes (%) (Auto) 7 % (0-9) Eosinophils (%) (Auto) 1 % (0-3) Basophils (%) (Auto) 1 % (0-3) Neutrophils # (Auto) 6.4 x10^3/uL (1.8-7.7) Lymphocytes # (Auto) 0.8 x10^3/uL (1.0-4.8) Monocytes # (Auto) 0.5 x10^3/uL (0.0-1.1) Eosinophils # (Auto) 0.1 x10^3/uL (0.0-0.7) Basophils # (Auto) 0.0 x10^3/uL (0.0-0.2) Sodium Level 133 mmol/L (136-145) Potassium Level 4.3 mmol/L (3.5-5.1) Chloride Level 102 mmol/L (98-107) Carbon Dioxide Level 24 mmol/L (21-32) Anion Gap 7 (6-14) Blood Urea Nitrogen 21 mg/dL (8-26) Creatinine 0.7 mg/dL (0.7-1.3) Estimated GFR (Cockcroft-Gault) 117.1 BUN/Creatinine Ratio 30 (6-20) Glucose Level 134 mg/dL (70-99) Calcium Level 8.3 mg/dL (8.5-10.1) Total Bilirubin 0.8 mg/dL (0.2-1.0) Aspartate Amino Transf (AST/SGOT) 29 U/L (15-37) Alanine Aminotransferase (ALT/SGPT) 47 U/L (16-63) Alkaline Phosphatase 66 U/L (46-116) Total Protein 6.2 g/dL (6.4-8.2) Albumin 1.9 g/dL (3.4-5.0) Albumin/Globulin Ratio 0.4 (1.0-1.7) Test 11/06/20 08:00 O2 Saturation 95 % (92-99) Arterial Blood pH 7.39 (7.35-7.45) Arterial Blood pCO2 at Patient Temp 37 mmHg (35-46) Arterial Blood pO2 at Patient Temp 77 mmHg (75-108) Arterial Blood HCO3 22 mmol/L (21-28) Arterial Blood Base Excess -3 mmol/L (-3-3) FiO2 35/vent Assessment and Plan Assessmemt and Plan Problems Medical Problems: (1) Hyperglycemia Status: Acute (2) Hypoxia Status: Acute (3) Pneumonia due to COVID-19 virus Status: Acute (4) Respiratory failure Status: Acute (5) Septic shock Status: Acute Comment Review of Relevant I have reviewed the following items andrew (where applicable) has been applied. Medications: Current Medications Medications (Trade) Dose Ordered Sig/Gaston Route PRN Reason Start Time Stop Time Status Last Admin Dose Admin Sodium Chloride 90 meq/Potassium Chloride 80 meq/ Potassium Phosphate 5 mmol/ Magnesium Sulfate 10 meq/Calcium Gluconate 8 meq/ Multivitamins 5 ml/Zinc/Copper/ Manganese/ Selenium 1 ml/ Insulin Human Regular 10 unit/ Total Parenteral Nutrition/Amino Acids/Dextrose 1,512 ml @ 63 mls/hr TPN CONT IV 11/05/20 22:00 11/06/20 21:59 11/05/20 22:36 Linezolid/Dextrose 300 ml @ 300 mls/hr Q12HR IV 11/06/20 09:00 11/06/20 10:05 Justifications for Admission Other Justification COVID infection PHILIP VALDEZ MD Nov 06, 2020 10:41
[2020-11-06] MEDS ORDERED: DEXTROSE 70% IV SCH (22:00)
[2020-11-06] MEDS ORDERED: [UNRECOGNIZED DRUG - OTHER] IV SCH (22:00)
[2020-11-06] MEDS ORDERED: AMINO ACID IV SCH (22:00)
[2020-11-06] MEDS ORDERED: TOTAL PARENTERAL NUTRITION IV SCH (22:00)
[2020-11-07] VITALS (17 sets, daily range): BP systolic 87–149; BP diastolic 58–89
[2020-11-07] MEDS: INSULIN LISPRO 300 UNITS/3 ML VIAL. SQ SCH ×2 (05:50→12:42)
[2020-11-07] MEDS: THIAMINE 100 MG TABLET. GT SCH (06:05)
[2020-11-07] MEDS: CEFEPIME HCL IV Push 2 GM VIAL. IVP SCH ×2 (06:05→14:23)
[2020-11-07 06:31] LABS: MAGNESIUM 1.8 mg/dL (1.8-2.4); PHOSPHORUS 3.1 mg/dL (2.6-4.7)
[2020-11-07 06:34] LABS: ALBUMIN 1.8 g/dL (3.4-5.0); ALBUMIN/GLOBULIN RATIO 0.4 (1.0-1.7); CALCIUM 8.6 mg/dL (8.5-10.1); CREATININE 0.6 mg/dL (0.7-1.3); GFR 139.9; POTASSIUM 4.1 mmol/L (3.5-5.1); TOTAL BILIRUBIN 0.6 mg/dL (0.2-1.0); TOTAL PROTEIN 6.3 g/dL (6.4-8.2)
[2020-11-07 06:55] LABS: BASO % 1 % (0-3); EOS # 0.1 x10^3/uL (0.0-0.7); EOS % 1 % (0-3); HEMATOCRIT 33.1 % (39.0-53.0); HEMOGLOBIN 11.1 g/dL (13.0-17.5); LYMPH # 0.7 x10^3/uL (1.0-4.8); LYMPH % 10 % (24-48); MEAN CORPUSCULAR HEMOGLOBIN 29 pg (25-35); MEAN CORPUSCULAR HGB CONC 33 g/dL (31-37); MEAN CORPUSCULAR VOLUME 88 fL (79-100); MONO # 0.4 x10^3/uL (0.0-1.1); MONO % 7 % (0-9); NEUT # 5.3 x10^3/uL (1.8-7.7); NEUT % 82 % (31-73); PLATELET COUNT 111 x10^3/uL (140-400); RED BLOOD COUNT 3.78 x10^6/uL (4.30-5.70); RED CELL DISTRIBUTION WIDTH 14.7 % (11.5-14.5); WHITE BLOOD COUNT 6.5 x10^3/uL (4.0-11.0)
--- NOTE | 2020-11-07 07:54 | PDOC ---
Infectious Disease Note Subjective Subjective Intubated Sedated ROS ROS no n/v/d/sob Vital Sign Vital Signs Vital Signs Date Time Temp Pulse Resp B/P (MAP) Pulse Ox O2 Delivery O2 Flow Rate FiO2 11/07/20 06:00 102 26 110/65 (80) 95 Ventilator 11/07/20 03:00 100.1 100.1 Physical Exam PHYSICAL EXAM GENERAL: He is intubated. He is sedated., trach HEENT: Pupils are small. Normal conjunctivae. OG tube and ET tube in place. NECK: Supple.trach clean LUNGS: Decreased in the bases. HEART: S1, S2. ABDOMEN: Obese, soft, decreased bowel sounds. GENITOURINARY: Thomson is in place. EXTREMITIES: Without clubbing, cyanosis or gross edema. SKIN: Warm to touch without signs of generalized rash. NEUROLOGICAL: He is intubated and sedated. ACCESS: PICC line in the right upper extremity without signs of any complications. Labs Lab Laboratory Tests Test 11/06/20 08:00 11/06/20 11:56 11/06/20 17:47 11/06/20 23:45 O2 Saturation 95 % (92-99) Arterial Blood pH 7.39 (7.35-7.45) Arterial Blood pCO2 at Patient Temp 37 mmHg (35-46) Arterial Blood pO2 at Patient Temp 77 mmHg (75-108) Arterial Blood HCO3 22 mmol/L (21-28) Arterial Blood Base Excess -3 mmol/L (-3-3) FiO2 35/vent Glucose (Fingerstick) 235 mg/dL (70-99) 165 mg/dL (70-99) 155 mg/dL (70-99) Test 11/07/20 05:22 11/07/20 05:30 Glucose (Fingerstick) 126 mg/dL (70-99) White Blood Count 6.5 x10^3/uL (4.0-11.0) Red Blood Count 3.78 x10^6/uL (4.30-5.70) Hemoglobin 11.1 g/dL (13.0-17.5) Hematocrit 33.1 % (39.0-53.0) Mean Corpuscular Volume 88 fL (79-100) Mean Corpuscular Hemoglobin 29 pg (25-35) Mean Corpuscular Hemoglobin Concent 33 g/dL (31-37) Red Cell Distribution Width 14.7 % (11.5-14.5) Platelet Count 111 x10^3/uL (140-400) Neutrophils (%) (Auto) 82 % (31-73) Lymphocytes (%) (Auto) 10 % (24-48) Monocytes (%) (Auto) 7 % (0-9) Eosinophils (%) (Auto) 1 % (0-3) Basophils (%) (Auto) 1 % (0-3) Neutrophils # (Auto) 5.3 x10^3/uL (1.8-7.7) Lymphocytes # (Auto) 0.7 x10^3/uL (1.0-4.8) Monocytes # (Auto) 0.4 x10^3/uL (0.0-1.1) Eosinophils # (Auto) 0.1 x10^3/uL (0.0-0.7) Basophils # (Auto) 0.0 x10^3/uL (0.0-0.2) Sodium Level 135 mmol/L (136-145) Potassium Level 4.1 mmol/L (3.5-5.1) Chloride Level 101 mmol/L (98-107) Carbon Dioxide Level 26 mmol/L (21-32) Anion Gap 8 (6-14) Blood Urea Nitrogen 17 mg/dL (8-26) Creatinine 0.6 mg/dL (0.7-1.3) Estimated GFR (Cockcroft-Gault) 139.9 BUN/Creatinine Ratio 28 (6-20) Glucose Level 130 mg/dL (70-99) Calcium Level 8.6 mg/dL (8.5-10.1) Phosphorus Level 3.1 mg/dL (2.6-4.7) Magnesium Level 1.8 mg/dL (1.8-2.4) Total Bilirubin 0.6 mg/dL (0.2-1.0) Aspartate Amino Transf (AST/SGOT) 23 U/L (15-37) Alanine Aminotransferase (ALT/SGPT) 39 U/L (16-63) Alkaline Phosphatase 70 U/L (46-116) Total Protein 6.3 g/dL (6.4-8.2) Albumin 1.8 g/dL (3.4-5.0) Albumin/Globulin Ratio 0.4 (1.0-1.7) Triglycerides Level 201 mg/dL (0-150) Micro BC neg Objective Assessment 1. Fever. 2. Status post tracheostomy on 11/04/2020. 3. 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 4. Gastroparesis, questionable. 5. Acute hypoxic respiratory failure, status post tracheostomy, 40% FiO2 and 5 of PEEP. 6. Obesity. 7. History of COVID, status post dexamethasone and remdesivir, last dexamethasone on 11/04/2020. Currently on TPN. 8. Diabetes. Plan Plan of Care Cultures negative Cont Cefepime/Flagyl/Fluconazole 11/05, zyvox F/u labs/cults Scaling down soon D/w nursing CHRIS LUGO MD Nov 07, 2020 07:54
[2020-11-07] MEDS: FLUCONAZOLE 400MG/200ML PREMIX 200 ML IV SCH (08:09)
[2020-11-07] MEDS: FAMOTIDINE 20 MG/2 ML VIAL IVP SCH (08:09)
[2020-11-07] MEDS: ASCORBIC ACID 1,000 MG TABLET PO SCH (08:11)
[2020-11-07] MEDS: ZINC SULFATE 220 MG CAPSULE. PO SCH (08:11)
[2020-11-07] MEDS: PROPOFOL 100 ML IV PRN (08:14)
[2020-11-07] MEDS: HEPARIN for SUB-Q USE 5,000 UNIT/ML VIAL. SQ SCH (08:15)
[2020-11-07 08:16] LABS: BASE EXCESS ABG 0 mmol/L (-3-3); HCO3 ABG 24 mmol/L (21-28); PCO2 ABG 37 mmHg (35-46); PO2 ABG 68 mmHg (75-108); SAT O2 ABG 94 % (92-99)
[2020-11-07] MEDS: INSULIN GLARGINE SYRINGE. SQ SCH (08:30)
[2020-11-07 08:37] LABS: FIO2 ABG 35
[2020-11-07] MEDS ORDERED: METOCLOPRAMIDE HCL 10 MG/2 ML VIAL. IVP PRN (08:45)
--- NOTE | 2020-11-07 08:45 | PDOC ---
[employer] PROGRESS NOTE Date of Service DOS: DATE: 11/07/20 TIME: 08:43 Chief Complaint Chief Complaint sepsis Acute hypoxemic respiratory failure secondary to COVID-19 viral pneumonia. intubated and sedated, status post tracheostomy 11/04/2020 acute renal failure, vasomotor nephropathy and sepsis, ATN poss gram negative bacterial pneumonia Dm2, with hyperglycemia, poor control, obese, BMI 36 Severe protein malnutrition, present upon admission. History of Present Illness History of Present Illness T-max of 100.1 F overnight. PEEP of 5 FiO2 35% ABG with pH 7.43 PCO2 37 PO2 68. Some residuals on tube feeds. Awaiting PEG assessment currently, difficult given COVID status 11/06/2020 Fever of 101.9. Continue empiric IV antibiotic coverage. Vent settings: 26/ 500/35%/5. Started trickle feeds yesterday. Patient's chart, labs, images were reviewed and discussed with RN 11/05/2020 No acute events overnight. Fever of 102.5 last night. ID was consulted and empiric IV antibiotics and antifungal coverage was started. Tracheostomy completed yesterday. Current vent settings 26/500/35%/5. Patient's chart, labs, images were reviewed and discussed with RN 11/04/2020 No acute events overnight. Afebrile. Vent settings 26/500/40 %/5. Pending tracheostomy today. Patient's chart, labs, images were reviewed and discussed with RN 11/03/2020 No acute events overnight. Patient's vent settings are 26/500/40%/5. Pending tracheostomy tomorrow. Will hold tube feeds and heparin. Patient's chart, labs, images were reviewed and discussed with RN 11/02/2020 No acute events overnight. Current vent settings are 26/500/50%/6 PEEP. Patient still sedated and intubated. Plan for trach sometime this week. General surgery consulted. Patient's chart, labs, images were reviewed and discussed with RN 11/01/2020 No acute events overnight. Patient saturating 100% on vent settings of 26/500/50%/7. ABG is pH is 7.45, PCO2 42, PO2 89, HCO3 28.> 50% time spent in patient chart, labs, and imaging review and in discussion with RN and SW 10/31/2020 No acute events overnight. Increasing O2 requirements to 100%. Current vent settings at 16/450/100%/5. Most recent ABG pH is 7.45, PCO2 41, PO2 66, HCO3 28.> 50% time spent in patient chart, labs, and imaging review and in discussion with RN and SW 10/30. FIO2 down to 40%, cont current, wean as able discussed with RN ' 10/29, down to PEEP 5, on 45 %, breathing better, still sedated, will try to allow to wake up and follow commands somewhat better still struggling, 10/28, I keep increasing his LANTUS insulin dosing, and his blood sugars are back up again today will increase lantus o 60 BID and do 22 u x1, cont the SSI, that is additional 42 u today 10/27. ABG didnt look very good this AM with ongoing hypoxia, oxygen Sa02 is 60%, still sedate 10/[address] Morrow, CXR worse, abx started, start zosyn, cover for pneumonia ICU care, 35min cont current follow labs, intubated and sedated changed insulin dose, lantus started yesterday, will make 30 BID, on tube feeds and on IV steroids, Vitals/I&O Vitals/I&O: Vital Signs Date Time Temp Pulse Resp B/P (MAP) Pulse Ox O2 Delivery O2 Flow Rate FiO2 11/07/20 07:45 94 Ventilator 11/07/20 06:00 102 26 110/65 (80) 11/07/20 03:00 100.1 100.1 I & O 11/06/20 11/06/20 11/07/20 15:00 23:00 07:00 Intake Total 860 ml 2437 ml 1151.8 ml Output Total 1140 ml 1120 ml 1250 ml Balance -280 ml 1317 ml -98.2 ml Physical Exam Physical Exam: GENERAL: He is intubated. He is sedated., trach HEENT: Pupils are small. Normal conjunctivae. OG tube and ET tube in place. NECK: Supple.trach clean LUNGS: Decreased in the bases. HEART: S1, S2. ABDOMEN: Obese, soft, decreased bowel sounds. GENITOURINARY: Thomson is in place. EXTREMITIES: Without clubbing, cyanosis or gross edema. SKIN: Warm to touch without signs of generalized rash. NEUROLOGICAL: He is intubated and sedated. ACCESS: PICC line in the right upper extremity without signs of any complications. General: Other (sedated ) Heart: Normal S1, Normal S2 Abdomen: Normal bowel sounds, Soft Extremities: No clubbing, No cyanosis Skin: No rashes Labs Labs: Laboratory Tests Test 11/06/20 11:56 11/06/20 17:47 11/06/20 23:45 11/07/20 05:22 Glucose (Fingerstick) 235 mg/dL (70-99) 165 mg/dL (70-99) 155 mg/dL (70-99) 126 mg/dL (70-99) Test 11/07/20 05:30 11/07/20 07:45 White Blood Count 6.5 x10^3/uL (4.0-11.0) Red Blood Count 3.78 x10^6/uL (4.30-5.70) Hemoglobin 11.1 g/dL (13.0-17.5) Hematocrit 33.1 % (39.0-53.0) Mean Corpuscular Volume 88 fL (79-100) Mean Corpuscular Hemoglobin 29 pg (25-35) Mean Corpuscular Hemoglobin Concent 33 g/dL (31-37) Red Cell Distribution Width 14.7 % (11.5-14.5) Platelet Count 111 x10^3/uL (140-400) Neutrophils (%) (Auto) 82 % (31-73) Lymphocytes (%) (Auto) 10 % (24-48) Monocytes (%) (Auto) 7 % (0-9) Eosinophils (%) (Auto) 1 % (0-3) Basophils (%) (Auto) 1 % (0-3) Neutrophils # (Auto) 5.3 x10^3/uL (1.8-7.7) Lymphocytes # (Auto) 0.7 x10^3/uL (1.0-4.8) Monocytes # (Auto) 0.4 x10^3/uL (0.0-1.1) Eosinophils # (Auto) 0.1 x10^3/uL (0.0-0.7) Basophils # (Auto) 0.0 x10^3/uL (0.0-0.2) Sodium Level 135 mmol/L (136-145) Potassium Level 4.1 mmol/L (3.5-5.1) Chloride Level 101 mmol/L (98-107) Carbon Dioxide Level 26 mmol/L (21-32) Anion Gap 8 (6-14) Blood Urea Nitrogen 17 mg/dL (8-26) Creatinine 0.6 mg/dL (0.7-1.3) Estimated GFR (Cockcroft-Gault) 139.9 BUN/Creatinine Ratio 28 (6-20) Glucose Level 130 mg/dL (70-99) Calcium Level 8.6 mg/dL (8.5-10.1) Phosphorus Level 3.1 mg/dL (2.6-4.7) Magnesium Level 1.8 mg/dL (1.8-2.4) Total Bilirubin 0.6 mg/dL (0.2-1.0) Aspartate Amino Transf (AST/SGOT) 23 U/L (15-37) Alanine Aminotransferase (ALT/SGPT) 39 U/L (16-63) Alkaline Phosphatase 70 U/L (46-116) Total Protein 6.3 g/dL (6.4-8.2) Albumin 1.8 g/dL (3.4-5.0) Albumin/Globulin Ratio 0.4 (1.0-1.7) Triglycerides Level 201 mg/dL (0-150) O2 Saturation 94 % (92-99) Arterial Blood pH 7.43 (7.35-7.45) Arterial Blood pCO2 at Patient Temp 37 mmHg (35-46) Arterial Blood pO2 at Patient Temp 68 mmHg (75-108) Arterial Blood HCO3 24 mmol/L (21-28) Arterial Blood Base Excess 0 mmol/L (-3-3) FiO2 35 Assessment and Plan Assessmemt and Plan Problems Medical Problems: (1) Hyperglycemia Status: Acute (2) Hypoxia Status: Acute (3) Pneumonia due to COVID-19 virus Status: Acute (4) Respiratory failure Status: Acute (5) Septic shock Status: Acute Comment Review of Relevant I have reviewed the following items andrew (where applicable) has been applied. Medications: Current Medications Medications (Trade) Dose Ordered Sig/Gaston Route PRN Reason Start Time Stop Time Status Last Admin Dose Admin Linezolid/Dextrose 300 ml @ 300 mls/hr Q12HR IV 11/06/20 09:00 11/07/20 08:09 Justifications for Admission Other Justification COVID infection VIKTORIA GRAFF MD Nov 07, 2020 08:45
[2020-11-07] MEDS ORDERED: THIAMINE 100 MG TABLET. GT SCH (09:00)
[2020-11-07] MEDS ORDERED: ASCORBIC ACID 500 MG TABLET PO SCH (09:00)
--- NOTE | 2020-11-07 10:40 | PDOC ---
PULMONARY PROGRESS NOTES DATE: 11/07/20 TIME: 10:38 Subjective Patient remains on ventilatory support, 35% and PEEP of 5 S/P trach 11/04/20 Ongoing fevers No other concerns from nursing Vitals Vital Signs Date Time Temp Pulse Resp B/P (MAP) Pulse Ox O2 Delivery O2 Flow Rate FiO2 11/07/20 08:00 Mechanical Ventilator 11/07/20 07:45 94 11/07/20 06:00 102 26 110/65 (80) 11/07/20 03:00 100.1 100.1 Comments trach sedated no accessory muscle use abd obese no rash Labs Laboratory Tests Test 11/05/20 12:36 11/05/20 18:03 11/06/20 00:36 11/06/20 05:20 Glucose (Fingerstick) 188 mg/dL (70-99) 129 mg/dL (70-99) 118 mg/dL (70-99) White Blood Count 7.8 x10^3/uL (4.0-11.0) Red Blood Count 3.80 x10^6/uL (4.30-5.70) Hemoglobin 11.2 g/dL (13.0-17.5) Hematocrit 33.4 % (39.0-53.0) Mean Corpuscular Volume 88 fL (79-100) Mean Corpuscular Hemoglobin 29 pg (25-35) Mean Corpuscular Hemoglobin Concent 33 g/dL (31-37) Red Cell Distribution Width 14.5 % (11.5-14.5) Platelet Count 123 x10^3/uL (140-400) Neutrophils (%) (Auto) 82 % (31-73) Lymphocytes (%) (Auto) 10 % (24-48) Monocytes (%) (Auto) 7 % (0-9) Eosinophils (%) (Auto) 1 % (0-3) Basophils (%) (Auto) 1 % (0-3) Neutrophils # (Auto) 6.4 x10^3/uL (1.8-7.7) Lymphocytes # (Auto) 0.8 x10^3/uL (1.0-4.8) Monocytes # (Auto) 0.5 x10^3/uL (0.0-1.1) Eosinophils # (Auto) 0.1 x10^3/uL (0.0-0.7) Basophils # (Auto) 0.0 x10^3/uL (0.0-0.2) Sodium Level 133 mmol/L (136-145) Potassium Level 4.3 mmol/L (3.5-5.1) Chloride Level 102 mmol/L (98-107) Carbon Dioxide Level 24 mmol/L (21-32) Anion Gap 7 (6-14) Blood Urea Nitrogen 21 mg/dL (8-26) Creatinine 0.7 mg/dL (0.7-1.3) Estimated GFR (Cockcroft-Gault) 117.1 BUN/Creatinine Ratio 30 (6-20) Glucose Level 134 mg/dL (70-99) Calcium Level 8.3 mg/dL (8.5-10.1) Total Bilirubin 0.8 mg/dL (0.2-1.0) Aspartate Amino Transf (AST/SGOT) 29 U/L (15-37) Alanine Aminotransferase (ALT/SGPT) 47 U/L (16-63) Alkaline Phosphatase 66 U/L (46-116) Total Protein 6.2 g/dL (6.4-8.2) Albumin 1.9 g/dL (3.4-5.0) Albumin/Globulin Ratio 0.4 (1.0-1.7) Test 11/06/20 08:00 11/06/20 11:56 11/06/20 17:47 11/06/20 23:45 O2 Saturation 95 % (92-99) Arterial Blood pH 7.39 (7.35-7.45) Arterial Blood pCO2 at Patient Temp 37 mmHg (35-46) Arterial Blood pO2 at Patient Temp 77 mmHg (75-108) Arterial Blood HCO3 22 mmol/L (21-28) Arterial Blood Base Excess -3 mmol/L (-3-3) FiO2 35/vent Glucose (Fingerstick) 235 mg/dL (70-99) 165 mg/dL (70-99) 155 mg/dL (70-99) Test 11/07/20 05:22 11/07/20 05:30 11/07/20 07:45 Glucose (Fingerstick) 126 mg/dL (70-99) White Blood Count 6.5 x10^3/uL (4.0-11.0) Red Blood Count 3.78 x10^6/uL (4.30-5.70) Hemoglobin 11.1 g/dL (13.0-17.5) Hematocrit 33.1 % (39.0-53.0) Mean Corpuscular Volume 88 fL (79-100) Mean Corpuscular Hemoglobin 29 pg (25-35) Mean Corpuscular Hemoglobin Concent 33 g/dL (31-37) Red Cell Distribution Width 14.7 % (11.5-14.5) Platelet Count 111 x10^3/uL (140-400) Neutrophils (%) (Auto) 82 % (31-73) Lymphocytes (%) (Auto) 10 % (24-48) Monocytes (%) (Auto) 7 % (0-9) Eosinophils (%) (Auto) 1 % (0-3) Basophils (%) (Auto) 1 % (0-3) Neutrophils # (Auto) 5.3 x10^3/uL (1.8-7.7) Lymphocytes # (Auto) 0.7 x10^3/uL (1.0-4.8) Monocytes # (Auto) 0.4 x10^3/uL (0.0-1.1) Eosinophils # (Auto) 0.1 x10^3/uL (0.0-0.7) Basophils # (Auto) 0.0 x10^3/uL (0.0-0.2) Sodium Level 135 mmol/L (136-145) Potassium Level 4.1 mmol/L (3.5-5.1) Chloride Level 101 mmol/L (98-107) Carbon Dioxide Level 26 mmol/L (21-32) Anion Gap 8 (6-14) Blood Urea Nitrogen 17 mg/dL (8-26) Creatinine 0.6 mg/dL (0.7-1.3) Estimated GFR (Cockcroft-Gault) 139.9 BUN/Creatinine Ratio 28 (6-20) Glucose Level 130 mg/dL (70-99) Calcium Level 8.6 mg/dL (8.5-10.1) Phosphorus Level 3.1 mg/dL (2.6-4.7) Magnesium Level 1.8 mg/dL (1.8-2.4) Total Bilirubin 0.6 mg/dL (0.2-1.0) Aspartate Amino Transf (AST/SGOT) 23 U/L (15-37) Alanine Aminotransferase (ALT/SGPT) 39 U/L (16-63) Alkaline Phosphatase 70 U/L (46-116) Total Protein 6.3 g/dL (6.4-8.2) Albumin 1.8 g/dL (3.4-5.0) Albumin/Globulin Ratio 0.4 (1.0-1.7) Triglycerides Level 201 mg/dL (0-150) O2 Saturation 94 % (92-99) Arterial Blood pH 7.43 (7.35-7.45) Arterial Blood pCO2 at Patient Temp 37 mmHg (35-46) Arterial Blood pO2 at Patient Temp 68 mmHg (75-108) Arterial Blood HCO3 24 mmol/L (21-28) Arterial Blood Base Excess 0 mmol/L (-3-3) FiO2 35 Laboratory Tests Test 11/06/20 11:56 11/06/20 17:47 11/06/20 23:45 11/07/20 05:22 Glucose (Fingerstick) 235 mg/dL (70-99) 165 mg/dL (70-99) 155 mg/dL (70-99) 126 mg/dL (70-99) Test 11/07/20 05:30 11/07/20 07:45 White Blood Count 6.5 x10^3/uL (4.0-11.0) Red Blood Count 3.78 x10^6/uL (4.30-5.70) Hemoglobin 11.1 g/dL (13.0-17.5) Hematocrit 33.1 % (39.0-53.0) Mean Corpuscular Volume 88 fL (79-100) Mean Corpuscular Hemoglobin 29 pg (25-35) Mean Corpuscular Hemoglobin Concent 33 g/dL (31-37) Red Cell Distribution Width 14.7 % (11.5-14.5) Platelet Count 111 x10^3/uL (140-400) Neutrophils (%) (Auto) 82 % (31-73) Lymphocytes (%) (Auto) 10 % (24-48) Monocytes (%) (Auto) 7 % (0-9) Eosinophils (%) (Auto) 1 % (0-3) Basophils (%) (Auto) 1 % (0-3) Neutrophils # (Auto) 5.3 x10^3/uL (1.8-7.7) Lymphocytes # (Auto) 0.7 x10^3/uL (1.0-4.8) Monocytes # (Auto) 0.4 x10^3/uL (0.0-1.1) Eosinophils # (Auto) 0.1 x10^3/uL (0.0-0.7) Basophils # (Auto) 0.0 x10^3/uL (0.0-0.2) Sodium Level 135 mmol/L (136-145) Potassium Level 4.1 mmol/L (3.5-5.1) Chloride Level 101 mmol/L (98-107) Carbon Dioxide Level 26 mmol/L (21-32) Anion Gap 8 (6-14) Blood Urea Nitrogen 17 mg/dL (8-26) Creatinine 0.6 mg/dL (0.7-1.3) Estimated GFR (Cockcroft-Gault) 139.9 BUN/Creatinine Ratio 28 (6-20) Glucose Level 130 mg/dL (70-99) Calcium Level 8.6 mg/dL (8.5-10.1) Phosphorus Level 3.1 mg/dL (2.6-4.7) Magnesium Level 1.8 mg/dL (1.8-2.4) Total Bilirubin 0.6 mg/dL (0.2-1.0) Aspartate Amino Transf (AST/SGOT) 23 U/L (15-37) Alanine Aminotransferase (ALT/SGPT) 39 U/L (16-63) Alkaline Phosphatase 70 U/L (46-116) Total Protein 6.3 g/dL (6.4-8.2) Albumin 1.8 g/dL (3.4-5.0) Albumin/Globulin Ratio 0.4 (1.0-1.7) Triglycerides Level 201 mg/dL (0-150) O2 Saturation 94 % (92-99) Arterial Blood pH 7.43 (7.35-7.45) Arterial Blood pCO2 at Patient Temp 37 mmHg (35-46) Arterial Blood pO2 at Patient Temp 68 mmHg (75-108) Arterial Blood HCO3 24 mmol/L (21-28) Arterial Blood Base Excess 0 mmol/L (-3-3) FiO2 35 Comments CXR 11/03 bilateral unchanged infiltrates Impression . IMPRESSION: 1. Acute hypoxemic respiratory failure secondary to COVID-19 viral pneumonia--moderate secretions--S/P tracheostomy 10/27 2. COVID-19 viral pneumonia/sepsis. 3. Abnormal x-ray compatible with SARS-CoV-2 infection. 4. Acute kidney injury-- improved, azotemia 5. Severe hypoxemia, elevated D-dimer, possible thromboembolic disease. 6. Morbid obesity. 7. Protein malnutrition, present upon admission. 8. Elevated troponin. 9. CXR 10/26 , worsening infiltrates, possible aspiration 10. sputum culture positive for staph A. Plan . PLAN: Continue current ventilatory support, 40% and PEEP of 5 Follow ABG/chest x-ray, changes as needed Proceed with sedation vacation and pressure support trial S/P tracheostomy on 11/04/20-- COVID-19 positive Has completed full course of remdesivir Patient has completed a full 10-day course of steroids Clinically improving, dopplers with no DVT. heparin SQ BID Reconsult GI for possible PEG tube placement--now tolerating tube feed Antibiotics Per ID--continue broad-spectrum coverage per infectious disease, de- escalate soon, follow cultures DVT/GI prophylaxis Discussed with RN and RT critically ill Social work for D/C planning -- LTACH Critical care time [id number] ASIA MOTTA MD Nov 07, 2020 10:40
--- NOTE | 2020-11-07 11:13 | PDOC ---
Date of Service: DATE: 11/07/20 TIME: 11:08 Objective: Objective: D/w nurse - tolerating NG feeds @ 50. Has IV Reglan ordered PRN. Vital Signs: Vital Signs Date Time Temp Pulse Resp B/P (MAP) Pulse Ox O2 Delivery O2 Flow Rate FiO2 11/07/20 10:00 102 32 119/75 (90) 95 Ventilator 11/07/20 08:00 100.2 100.2 Labs: Laboratory Tests Test 11/06/20 11:56 11/06/20 17:47 11/06/20 23:45 11/07/20 05:22 Glucose (Fingerstick) 235 mg/dL (70-99) 165 mg/dL (70-99) 155 mg/dL (70-99) 126 mg/dL (70-99) GRAM STAIN EVALUATION Final Final This specimen is of good quality and is acceptable for routine bacterial culture. Culture results to follow. GRAM POSITIVE COCCI:FEW SQUAMOUS EPI CELL:RARE PMN (WBCs):MODERATE Unless otherwise specified, Testing Performed by: [address] [address] For Inquires, the Physician may contact the Microbiology department at [phone] RESPIRATORY CULTURE Preliminary Preliminary FEW Mixed upper respiratory mariama on 11/07/20 at 0953 Unless otherwise specified, Testing Performed by: [address] [address] For Inquires, the Physician may contact the Microbiology department at [phone] BLOOD CULTURE Preliminary NO GROWTH AFTER 2 DAYS Imaging: KUB 11/06 IMPRESSION: NG tube tip and side port in the proximal stomach. Bilateral interstitial and alveolar opacities in the visualized portions of the lung bases. PE: GEN: visual exam done/in COVID isolation HEENT: NG tube w/ feeds running LUNGS: trach/vent ABD: non-distended NEURO/PSYCH: sedated A/P: COVID infection (+10/20)/resp failure s/p tracheostomy -- Tolerating NG feeds. Justicifation of Admission Dx: Justifications for Admission: Justification of Admission Dx: Yes (sepsis, covid, resp failure) IVY JENKINS Nov 07, 2020 11:13
--- NOTE | 2020-11-07 15:43 | SNU/HH DC ---
DISCHARGE ORDERS DISCHARGE INFORMATION: DISCHARGE DATE: Nov 07, 2020 FINAL DIAGNOSIS Problems Medical Problems: (1) Hyperglycemia Status: Acute (2) Hypoxia Status: Acute (3) Pneumonia due to COVID-19 virus Status: Acute (4) Respiratory failure Status: Acute (5) Septic shock Status: Acute CONDITION ON DISCHARGE: Stable CODE STATUS: Code Status: Full LTAC: ADMIT TO LTAC: Yes POST DISCHARGE ORDERS: ACTIVITY ORDERS: Resume previous activity WEIGHT BEARING STATUS: No restrictions DIET AFTER DISCHARGE: NPO (NGT feeds) CHECKS AFTER DISCHARGE: CHECKS AFTER DISCHARGE: Check blood press - daily, Check blood sugar, ac/hs, Check your Temp as needed FOLLOW-UP: Additional Instructions: Tube feeds VitalAF@50 ml/hr w/100 ml water flushes q4 hrs TREATMENT/EQUIPMENT ORDERS: RESPIRATORY EQUIPMENT NEEDED: Oxygen, CPAP Physical Therapy For: Evalulation/Treatment Occupational Therapy For: Evaluation/Treatment Speech Language Pathology For: Evaluation/Treatment DISCHARGE MEDICATIONS: Home Meds No Active Prescriptions or Reported Meds VIKTORIA GRAFF MD Nov 07, 2020 15:43
--- NOTE | 2020-11-07 15:54 | NUR ---
SS following up with discharge planning. SS reviewed pt chart and discussed with pt RN. Pt is currently on the vent at 35%. COVID19 negative. Trach placed on 11/04/2020. Pt accepted at [facility], ; fax [phone]. Insurance authorization received and bed available. SS phoned and faxed discharge orders and clinical updates to [facility]. Pt will discharge today and go to [facility] at 1630 via [facility] transport. Pt, pt's RN, and pt's spouse notified. Packet and ambulance form placed on chart.
--- NOTE | 2020-11-07 15:54 | PDOC3 ---
Discharge Summary Visit Information Date of Admission: Oct 21, 2020 Date of Discharge: Nov 07, 2020 Admitting Diagnosis: Acute hypoxic respiratory failure Final Diagnosis Problems Medical Problems: (1) Hyperglycemia Status: Acute (2) Hypoxia Status: Acute (3) Pneumonia due to COVID-19 virus Status: Acute (4) Respiratory failure Status: Acute (5) Septic shock Status: Acute Brief Hospital Course Allergies Allergies Coded Allergies Type Severity Reaction Last Updated Verified No Known Drug Allergies 10/21/20 No Vital Signs Vital Signs Date Time Temp Pulse Resp B/P (MAP) Pulse Ox O2 Delivery O2 Flow Rate FiO2 11/07/20 14:00 109 28 149/89 (109) 90 Ventilator 11/07/20 12:00 98.5 98.5 Lab Results Laboratory Tests Test 11/05/20 18:03 11/06/20 00:36 11/06/20 05:20 11/06/20 08:00 Glucose (Fingerstick) 129 mg/dL (70-99) 118 mg/dL (70-99) White Blood Count 7.8 x10^3/uL (4.0-11.0) Red Blood Count 3.80 x10^6/uL (4.30-5.70) Hemoglobin 11.2 g/dL (13.0-17.5) Hematocrit 33.4 % (39.0-53.0) Mean Corpuscular Volume 88 fL (79-100) Mean Corpuscular Hemoglobin 29 pg (25-35) Mean Corpuscular Hemoglobin Concent 33 g/dL (31-37) Red Cell Distribution Width 14.5 % (11.5-14.5) Platelet Count 123 x10^3/uL (140-400) Neutrophils (%) (Auto) 82 % (31-73) Lymphocytes (%) (Auto) 10 % (24-48) Monocytes (%) (Auto) 7 % (0-9) Eosinophils (%) (Auto) 1 % (0-3) Basophils (%) (Auto) 1 % (0-3) Neutrophils # (Auto) 6.4 x10^3/uL (1.8-7.7) Lymphocytes # (Auto) 0.8 x10^3/uL (1.0-4.8) Monocytes # (Auto) 0.5 x10^3/uL (0.0-1.1) Eosinophils # (Auto) 0.1 x10^3/uL (0.0-0.7) Basophils # (Auto) 0.0 x10^3/uL (0.0-0.2) Sodium Level 133 mmol/L (136-145) Potassium Level 4.3 mmol/L (3.5-5.1) Chloride Level 102 mmol/L (98-107) Carbon Dioxide Level 24 mmol/L (21-32) Anion Gap 7 (6-14) Blood Urea Nitrogen 21 mg/dL (8-26) Creatinine 0.7 mg/dL (0.7-1.3) Estimated GFR (Cockcroft-Gault) 117.1 BUN/Creatinine Ratio 30 (6-20) Glucose Level 134 mg/dL (70-99) Calcium Level 8.3 mg/dL (8.5-10.1) Total Bilirubin 0.8 mg/dL (0.2-1.0) Aspartate Amino Transf (AST/SGOT) 29 U/L (15-37) Alanine Aminotransferase (ALT/SGPT) 47 U/L (16-63) Alkaline Phosphatase 66 U/L (46-116) Total Protein 6.2 g/dL (6.4-8.2) Albumin 1.9 g/dL (3.4-5.0) Albumin/Globulin Ratio 0.4 (1.0-1.7) O2 Saturation 95 % (92-99) Arterial Blood pH 7.39 (7.35-7.45) Arterial Blood pCO2 at Patient Temp 37 mmHg (35-46) Arterial Blood pO2 at Patient Temp 77 mmHg (75-108) Arterial Blood HCO3 22 mmol/L (21-28) Arterial Blood Base Excess -3 mmol/L (-3-3) FiO2 35/vent Test 11/06/20 11:56 11/06/20 17:47 11/06/20 23:45 11/07/20 05:22 Glucose (Fingerstick) 235 mg/dL (70-99) 165 mg/dL (70-99) 155 mg/dL (70-99) 126 mg/dL (70-99) Test 11/07/20 05:30 11/07/20 07:45 11/07/20 12:26 White Blood Count 6.5 x10^3/uL (4.0-11.0) Red Blood Count 3.78 x10^6/uL (4.30-5.70) Hemoglobin 11.1 g/dL (13.0-17.5) Hematocrit 33.1 % (39.0-53.0) Mean Corpuscular Volume 88 fL (79-100) Mean Corpuscular Hemoglobin 29 pg (25-35) Mean Corpuscular Hemoglobin Concent 33 g/dL (31-37) Red Cell Distribution Width 14.7 % (11.5-14.5) Platelet Count 111 x10^3/uL (140-400) Neutrophils (%) (Auto) 82 % (31-73) Lymphocytes (%) (Auto) 10 % (24-48) Monocytes (%) (Auto) 7 % (0-9) Eosinophils (%) (Auto) 1 % (0-3) Basophils (%) (Auto) 1 % (0-3) Neutrophils # (Auto) 5.3 x10^3/uL (1.8-7.7) Lymphocytes # (Auto) 0.7 x10^3/uL (1.0-4.8) Monocytes # (Auto) 0.4 x10^3/uL (0.0-1.1) Eosinophils # (Auto) 0.1 x10^3/uL (0.0-0.7) Basophils # (Auto) 0.0 x10^3/uL (0.0-0.2) Sodium Level 135 mmol/L (136-145) Potassium Level 4.1 mmol/L (3.5-5.1) Chloride Level 101 mmol/L (98-107) Carbon Dioxide Level 26 mmol/L (21-32) Anion Gap 8 (6-14) Blood Urea Nitrogen 17 mg/dL (8-26) Creatinine 0.6 mg/dL (0.7-1.3) Estimated GFR (Cockcroft-Gault) 139.9 BUN/Creatinine Ratio 28 (6-20) Glucose Level 130 mg/dL (70-99) Calcium Level 8.6 mg/dL (8.5-10.1) Phosphorus Level 3.1 mg/dL (2.6-4.7) Magnesium Level 1.8 mg/dL (1.8-2.4) Total Bilirubin 0.6 mg/dL (0.2-1.0) Aspartate Amino Transf (AST/SGOT) 23 U/L (15-37) Alanine Aminotransferase (ALT/SGPT) 39 U/L (16-63) Alkaline Phosphatase 70 U/L (46-116) Total Protein 6.3 g/dL (6.4-8.2) Albumin 1.8 g/dL (3.4-5.0) Albumin/Globulin Ratio 0.4 (1.0-1.7) Triglycerides Level 201 mg/dL (0-150) O2 Saturation 94 % (92-99) Arterial Blood pH 7.43 (7.35-7.45) Arterial Blood pCO2 at Patient Temp 37 mmHg (35-46) Arterial Blood pO2 at Patient Temp 68 mmHg (75-108) Arterial Blood HCO3 24 mmol/L (21-28) Arterial Blood Base Excess 0 mmol/L (-3-3) FiO2 35 Glucose (Fingerstick) 166 mg/dL (70-99) Laboratory Tests Test 11/06/20 17:47 11/06/20 23:45 11/07/20 05:22 11/07/20 05:30 Glucose (Fingerstick) 165 mg/dL (70-99) 155 mg/dL (70-99) 126 mg/dL (70-99) White Blood Count 6.5 x10^3/uL (4.0-11.0) Red Blood Count 3.78 x10^6/uL (4.30-5.70) Hemoglobin 11.1 g/dL (13.0-17.5) Hematocrit 33.1 % (39.0-53.0) Mean Corpuscular Volume 88 fL (79-100) Mean Corpuscular Hemoglobin 29 pg (25-35) Mean Corpuscular Hemoglobin Concent 33 g/dL (31-37) Red Cell Distribution Width 14.7 % (11.5-14.5) Platelet Count 111 x10^3/uL (140-400) Neutrophils (%) (Auto) 82 % (31-73) Lymphocytes (%) (Auto) 10 % (24-48) Monocytes (%) (Auto) 7 % (0-9) Eosinophils (%) (Auto) 1 % (0-3) Basophils (%) (Auto) 1 % (0-3) Neutrophils # (Auto) 5.3 x10^3/uL (1.8-7.7) Lymphocytes # (Auto) 0.7 x10^3/uL (1.0-4.8) Monocytes # (Auto) 0.4 x10^3/uL (0.0-1.1) Eosinophils # (Auto) 0.1 x10^3/uL (0.0-0.7) Basophils # (Auto) 0.0 x10^3/uL (0.0-0.2) Sodium Level 135 mmol/L (136-145) Potassium Level 4.1 mmol/L (3.5-5.1) Chloride Level 101 mmol/L (98-107) Carbon Dioxide Level 26 mmol/L (21-32) Anion Gap 8 (6-14) Blood Urea Nitrogen 17 mg/dL (8-26) Creatinine 0.6 mg/dL (0.7-1.3) Estimated GFR (Cockcroft-Gault) 139.9 BUN/Creatinine Ratio 28 (6-20) Glucose Level 130 mg/dL (70-99) Calcium Level 8.6 mg/dL (8.5-10.1) Phosphorus Level 3.1 mg/dL (2.6-4.7) Magnesium Level 1.8 mg/dL (1.8-2.4) Total Bilirubin 0.6 mg/dL (0.2-1.0) Aspartate Amino Transf (AST/SGOT) 23 U/L (15-37) Alanine Aminotransferase (ALT/SGPT) 39 U/L (16-63) Alkaline Phosphatase 70 U/L (46-116) Total Protein 6.3 g/dL (6.4-8.2) Albumin 1.8 g/dL (3.4-5.0) Albumin/Globulin Ratio 0.4 (1.0-1.7) Triglycerides Level 201 mg/dL (0-150) Test 11/07/20 07:45 11/07/20 12:26 O2 Saturation 94 % (92-99) Arterial Blood pH 7.43 (7.35-7.45) Arterial Blood pCO2 at Patient Temp 37 mmHg (35-46) Arterial Blood pO2 at Patient Temp 68 mmHg (75-108) Arterial Blood HCO3 24 mmol/L (21-28) Arterial Blood Base Excess 0 mmol/L (-3-3) FiO2 35 Glucose (Fingerstick) 166 mg/dL (70-99) Brief Hospital Course Mr Payton is a 55yo M w/ PMHx DM2, HLD, HTN, neuropathy, morbid obesity brought in by EMS from [place] on 10/21/2020 secondary to shortness of air. He had tested positive reportedly on 10/20/2020 for COVID-19. He was initially hypoxic into the 50s requiring Vapotherm and was temporarily on BiPAP. Ultimately he was intubated. He had been treated with remdesivir and dexamethasone. 10/26/2020, he had a sputum that was positive for MSSA. Status post tracheostomy 11/04/2020 Has significant respiratory secretions. Currently on zyvox, cefepime, fluconazole with no further high fevers. T-max of 100.1 F overnight. PEEP of 5 FiO2 35% ABG with pH 7.43 PCO2 37 PO2 68. Some residuals on tube feeds. Awaiting PEG assessment currently, difficult given COVID status. Urine with pseudomonas positive. Consults: Pulm, ID, General surgery, Gastroenterology Problem list: Sepsis Acute hypoxemic respiratory failure secondary to COVID-19 viral pneumonia. intubated and sedated, status post tracheostomy 11/04/2020 acute renal failure, vasomotor nephropathy and sepsis, ATN poss gram negative bacterial pneumonia Dm2, with hyperglycemia, poor control, obese, BMI 36 Severe protein malnutrition, present upon admission. Tube feeds VitalAF@50 ml/hr w/100 ml water flushes q4 hrs Greater than 30 minutes spent on d/c to LTACH for further recovery Discharge Information Condition at Discharge: Stable Follow Up: Weeks Disposition/Orders: D/C to Another Facility No Active Prescriptions or Reported Meds Justicifation of Admission Dx: Justifications for Admission: Justification of Admission Dx: Yes (sepsis, covid, resp failure) VIKTORIA GRAFF MD Nov 07, 2020 15:54
[2020-11-08 13:29] LABS: BASE EXCESS ABG 2 mmol/L (-3-3); HCO3 ABG 26 mmol/L (21-28); PCO2 ABG 37 mmHg (35-46); PO2 ABG 101 mmHg (75-108); SAT O2 ABG 97 % (92-99)
== END 2020-11-07 16:45 | DRG 4 ==
LOC: ER 08:24 → ED HOLD 11:55 → 1 WEST ICU 12:18
PROVIDERS: ADMIT Internal Medicine; ATTEND Internal Medicine
PROC: 5A1955Z Respiratory Ventilation, Greater than 96 Consecutive Hours (ICD-10-PCS; principal; 2020-10-21)
PROC: 02HV33Z Insertion of Infusion Device into Superior Vena Cava, Percutaneous Approach (ICD-10-PCS; 2020-10-21)
PROC: 0BH17EZ Insertion of Endotracheal Airway into Trachea, Via Natural or Artificial Opening (ICD-10-PCS; 2020-10-21)
PROC: XW033E5 Introduction of Remdesivir Anti-infective into Peripheral Vein, Percutaneous Approach, New Technology Group 5 (ICD-10-PCS; 2020-10-25)
PROC: 0B110F4 Bypass Trachea to Cutaneous with Tracheostomy Device, Open Approach (ICD-10-PCS; 2020-11-04)
DX: A41.89 Other specified sepsis (principal); U07.1 COVID-19; E43 Unspecified severe protein-calorie malnutrition; J96.01 Acute respiratory failure with hypoxia; J12.82 Pneumonia due to coronavirus disease 2019; N17.0 Acute kidney failure with tubular necrosis; R65.21 Severe sepsis with septic shock; E87.1 Hypo-osmolality and hyponatremia; J98.11 Atelectasis; D72.810 Lymphocytopenia; E11.43 Type 2 diabetes mellitus with diabetic autonomic (poly)neuropathy; E11.65 Type 2 diabetes mellitus with hyperglycemia; E66.01 Morbid (severe) obesity due to excess calories; E78.00 Pure hypercholesterolemia, unspecified; E78.5 Hyperlipidemia, unspecified; E87.8 Other disorders of electrolyte and fluid balance, not elsewhere classified; I10 Essential (primary) hypertension; L05.91 Pilonidal cyst without abscess; Z68.36 Body mass index [BMI] 36.0-36.9, adult; Z72.0 Tobacco use; Z86.711 Personal history of pulmonary embolism; Z68.33 Body mass index [BMI] 33.0-33.9, adult; Z86.14 Personal history of Methicillin resistant Staphylococcus aureus infection
CPT/HCPCS: 31500; 36415; 36569; 36600; 51702; 71045; 74018; 80048; 80053; 80202; 81001; 82553; 82805; 82962; 83036; 83605; 83735; 83880; 84100; 84145; 84478; 84484; 85007; 85025; 85027; 85379; 85520; 85610; 85730; 87040; 87070; 87077; 87086; 87186; 87205; 93005; 93970; 94002; 94003; 94640; 94660; 94760; 96365; 96368; 96375; 96376; J0456; J0610; J0690; J0692; J1100; J1450; J1644; J1815; J1940; J2020; J2060; J2250; J2543; J2704; J3010; J3370; J3411; J3475; J3480; J3490; J7030; J7040; J7050; J7060; 99291-25; G0378